=== PATIENT | female | born 1965 | race Caucasian/White ===

== ENCOUNTER 2018-05-04 14:58 | Outpatient (REF) | payer BC, SELFPAY ==
[2018-05-04 20:19] LABS: HCT 39.5 % (36.0-46.0); HGB 13.4 g/dL (12.0-15.5); Mean Corp. HGB Concentration 33.9 g/dL (32.0-36.0); Mean Corpuscular Hemoglobin 30.5 pg (27.0-33.0); Platelet Count 269 x1000/uL (130-400); RBC 4.39 m/cumm (4.00-5.20); RBC Distribution Width 14.5 % (11.7-14.6); White Blood Cell Count 9.16 k/cumm (4.4-10.8)
[2018-05-04 20:43] LABS: ALT 19 U/L (12-78); AST 14 U/L (15-37); Albumin 3.8 g/dL (3.4-5.0); Alkaline Phosphatase 85 U/L (46-116); Anion Gap 8.1 mmol/L (3-11); BUN 16 mg/dL (7-18); Bilirubin, Total 0.3 mg/dL (0.2-1.0); C-Reactive Protein 0.62 mg/dL (0.0-0.3); CO2 27.9 mmol/L (21.0-32.0); CREATININE 0.64 mg/dL (0.55-1.02); Chloride 104 mmol/L (98-107); Glucose 90 mg/dL (70-100); Potassium 4.4 mmol/L (3.5-5.1); Sodium 140 mmol/L (136-145); Total Protein 6.9 g/dL (6.4-8.2)
[2018-05-04 22:59] LABS: ESR 21 MM/HR (0-30)
[2018-05-06 09:10] LABS: Rheumatoid Factor 43 IU/mL (<12.5)
[2018-05-06 14:40] LABS: ANA Interpretation Negative (NEGAT)
== END 2018-05-04 15:18 ==
LOC: NCHCN 14:58
PROVIDERS: PCP Physician Assistant; Visit Provider Physician Assistant Medical
DX: E04.2 Nontoxic multinodular goiter (principal); M79.643 Pain in unspecified hand
CPT/HCPCS: 80053; 85027; 85652; 86038; 86140; 86431

== ENCOUNTER 2018-08-01 12:22 | Outpatient (CLI) | payer BC, SELFPAY ==
[2018-08-01 13:09] LABS: Abs Immature Grans 0.02 k/cumm (0.0-0.09); Absolute Basophil Count 0.04 k/cumm (0.0-0.2); Absolute Eosinophil Count 0.15 k/cumm (0.0-0.7); Absolute Lymphocyte Count 4.15 k/cumm (1.2-3.4); Absolute Monocyte Count 0.52 k/cumm (0.11-0.7); Absolute Neutrophil Count 4.33 k/cumm (1.2-6.7); Basophils % 0.4; Eosinophils % 1.6; HCT 38.5 % (36.0-46.0); Immature Grans % 0.2; Lymphocytes % 45.1; Mean Corp. HGB Concentration 33.8 g/dL (32.0-36.0); Mean Corpuscular Hemoglobin 30.5 pg (27.0-33.0); Mean Corpuscular Volume 90.4 fL (80-95); Mean Platelet Volume 9.2 fL (8.0-11.0); Monocytes % 5.6; Neutrophils % 47.1; Platelet Count 293 x1000/uL (130-400); RBC 4.26 m/cumm (4.00-5.20); RBC Distribution Width 14.8 % (11.7-14.6); White Blood Cell Count 9.21 k/cumm (4.4-10.8)
[2018-08-01 14:13] LABS: ALT 22 U/L (12-78); AST 13 U/L (15-37); Albumin 3.7 g/dL (3.4-5.0); Alkaline Phosphatase 88 U/L (46-116); Anion Gap 7.5 mmol/L (3-11); BUN 16 mg/dL (7-18); Bilirubin, Total 0.3 mg/dL (0.2-1.0); C-Reactive Protein 0.56 mg/dL (0.0-0.3); CO2 29.5 mmol/L (21.0-32.0); CREATININE 0.93 mg/dL (0.55-1.02); Calcium 8.7 mg/dL (8.5-10.1); Chloride 102 mmol/L (98-107); Glucose 65 mg/dL (70-100); Potassium 4.3 mmol/L (3.5-5.1); Sodium 139 mmol/L (136-145); Total Protein 6.7 g/dL (6.4-8.2)
[2018-08-01 14:27] LABS: ESR 28 MM/HR (0-30)
== END 2018-08-01 12:42 ==
PROVIDERS: PCP Physician Assistant Medical; Visit Provider Internal Medicine
DX: M19.90 Unspecified osteoarthritis, unspecified site (principal)
CPT/HCPCS: 36415; 80053; 85652; 85025; 86140

== ENCOUNTER 2019-01-05 15:36 | Outpatient (CLI) | payer BC, SELFPAY ==
[2019-01-05 16:12] LABS: Abs Immature Grans 0.03 k/cumm (0.0-0.09); Absolute Basophil Count 0.04 k/cumm (0.0-0.2); Absolute Eosinophil Count 0.34 k/cumm (0.0-0.7); Absolute Lymphocyte Count 3.15 k/cumm (1.2-3.4); Absolute Monocyte Count 0.71 k/cumm (0.11-0.7); Absolute Neutrophil Count 3.17 k/cumm (1.2-6.7); Basophils % 0.5; Eosinophils % 4.6; HCT 36.3 % (36.0-46.0); HGB 12.2 g/dL (12.0-15.5); Immature Grans % 0.4; Lymphocytes % 42.3; Mean Corp. HGB Concentration 33.6 g/dL (32.0-36.0); Mean Corpuscular Hemoglobin 31.8 pg (27.0-33.0); Mean Corpuscular Volume 94.5 fL (80-95); Mean Platelet Volume 9.3 fL (8.0-11.0); Monocytes % 9.5; Neutrophils % 42.7; Platelet Count 300 x1000/uL (130-400); RBC 3.84 m/cumm (4.00-5.20); RBC Distribution Width 14.9 % (11.7-14.6); White Blood Cell Count 7.44 k/cumm (4.4-10.8)
[2019-01-05 16:59] LABS: ESR 21 mm/hr (0-30)
[2019-01-05 19:01] LABS: ALT 24 U/L (14-59); AST 13 U/L (15-37); Albumin 3.7 g/dL (3.4-5.0); Alkaline Phosphatase 74 U/L (46-116); Bilirubin, Direct 0.11 mg/dL (0.00-0.20); Bilirubin, Total 0.2 mg/dL (0.2-1.0); C-Reactive Protein 0.82 mg/dL (0.0-0.3); CREATININE 0.69 mg/dL (0.55-1.02); Total Protein 6.6 g/dL (6.4-8.2)
== END 2019-01-05 15:56 ==
LOC: PRC 15:37 → LBO 15:42
PROVIDERS: PCP Physician Assistant Medical; Visit Provider Internal Medicine
DX: M19.90 Unspecified osteoarthritis, unspecified site (principal); M25.531 Pain in right wrist; M25.532 Pain in left wrist; M25.571 Pain in right ankle and joints of right foot; M25.572 Pain in left ankle and joints of left foot; M79.641 Pain in right hand; M79.642 Pain in left hand; Z79.899 Other long term (current) drug therapy
CPT/HCPCS: 36415; 80076; 85652; 82565; 85025; 86140

== ENCOUNTER 2019-05-10 18:07 | Outpatient (REF) | payer BC, SELFPAY ==
[2019-05-10 20:54] LABS: Abs Immature Grans 0.02 k/cumm (0.0-0.09); Absolute Basophil Count 0.04 k/cumm (0.0-0.2); Absolute Eosinophil Count 0.24 k/cumm (0.0-0.7); Absolute Lymphocyte Count 3.74 k/cumm (1.2-3.4); Absolute Monocyte Count 0.63 k/cumm (0.11-0.7); Absolute Neutrophil Count 3.89 k/cumm (1.2-6.7); Basophils % 0.5; Eosinophils % 2.8; HGB 12.8 g/dL (12.0-15.5); Immature Grans % 0.2 %; Lymphocytes % 43.7; Mean Corp. HGB Concentration 33.7 g/dL (32.0-36.0); Mean Corpuscular Hemoglobin 31.9 pg (27.0-33.0); Mean Corpuscular Volume 94.8 fL (80-95); Mean Platelet Volume 9.8 fL (8.0-11.0); Monocytes % 7.4; Neutrophils % 45.4; Platelet Count 343 x1000/uL (130-400); RBC 4.01 m/cumm (4.00-5.20); RBC Distribution Width 14.9 % (11.7-14.6); White Blood Cell Count 8.56 k/cumm (4.4-10.8)
[2019-05-10 21:13] LABS: ALT 31 U/L (14-59); AST 18 U/L (15-37); Albumin 4.2 g/dL (3.4-5.0); Alkaline Phosphatase 78 U/L (46-116); Bilirubin, Direct 0.08 mg/dL (0.00-0.20); Bilirubin, Total 0.3 mg/dL (0.2-1.0); C-Reactive Protein 0.98 mg/dL (0.0-0.3); CREATININE 0.69 mg/dL (0.55-1.02); Total Protein 7.1 g/dL (6.4-8.2)
== END 2019-05-10 18:27 ==
LOC: LBN 18:07
PROVIDERS: PCP Physician Assistant Medical; Visit Provider Internal Medicine
DX: M76.891 Other specified enthesopathies of right lower limb, excluding foot (principal); M25.551 Pain in right hip; M70.71 Other bursitis of hip, right hip; M70.72 Other bursitis of hip, left hip; M05.9 Rheumatoid arthritis with rheumatoid factor, unspecified; M19.90 Unspecified osteoarthritis, unspecified site; Z79.899 Other long term (current) drug therapy
CPT/HCPCS: 80076; 82565; 85025; 86140

== ENCOUNTER 2019-06-12 00:42 | Outpatient (CLI) | payer BC, SELFPAY ==
--- NOTE | 2019-06-12 07:43 | DI.MAMMO_ITS ---
EXAM: MG MAMMO SCREENING CLINICAL HISTORY: SCREENING, Z12.89 TECHNIQUE: Bilateral full field digital CC and MLO mammographic images were obtained with 3D tomosyn thesis and utilizing computer aided detection (CAD). COMPARISON: Available for comparison. FINDINGS: Masses/Architectural Distortion: None seen. Microcalcifications: No suspicious pleomorphic-type are seen. Skin Thickening/Nipple Retraction: None. IMPRESSION: 1. No significant interval change with no specific features of malignancy noted. 2. Unless there is more urgent need, screening mammography is recommended, as per [employer] guidelines. BI-RADS Cat 1 - Negative Breast Density - Category B - Scattered areas of fibroglandular density A negative radiographic report should not delay biopsy if a dominant or clinically suspicious mass is present. Up to ten percent of cancers are not identified on mammography. A negative report may reinforce clinical impression. Adenosis and dense breasts may obscure an underlying neoplasm. False positive reports average 6 to 10%. Patient will receive a letter notifying them of these results.
== END 2019-06-12 01:02 ==
PROVIDERS: PCP Physician Assistant Medical; Visit Provider Physician Assistant
DX: Z12.31 Encounter for screening mammogram for malignant neoplasm of breast (principal)
CPT/HCPCS: 77063; 77067

== ENCOUNTER 2019-09-07 03:30 | Outpatient (CLI) | payer BC, SELFPAY ==
[2019-09-07 16:14] LABS: Abs Immature Grans 0.02 k/cumm (0.0-0.09); Absolute Basophil Count 0.03 k/cumm (0.0-0.2); Absolute Eosinophil Count 0.11 k/cumm (0.0-0.7); Absolute Monocyte Count 0.55 k/cumm (0.11-0.7); Absolute Neutrophil Count 5.73 k/cumm (1.2-6.7); Basophils % 0.3; Eosinophils % 1.1; HCT 38.5 % (36.0-46.0); HGB 13.2 g/dL (12.0-15.5); Immature Grans % 0.2 %; Lymphocytes % 35.9; Mean Corp. HGB Concentration 34.3 g/dL (32.0-36.0); Mean Corpuscular Volume 93.2 fL (80-95); Mean Platelet Volume 8.9 fL (8.0-11.0); Monocytes % 5.5; Platelet Count 340 x1000/uL (130-400); RBC 4.13 m/cumm (4.00-5.20); RBC Distribution Width 14.7 % (11.7-14.6); White Blood Cell Count 10.04 k/cumm (4.4-10.8)
[2019-09-07 17:00] LABS: ALT 19 U/L (14-59); AST 12 U/L (15-37); Albumin 3.9 g/dL (3.4-5.0); Alkaline Phosphatase 70 U/L (46-116); Anion Gap 6.9 mmol/L (3-11); BUN 13 mg/dL (7-18); Bilirubin, Total 0.3 mg/dL (0.2-1.0); C-Reactive Protein 0.49 mg/dL (0.0-0.3); CO2 27.1 mmol/L (21.0-32.0); CREATININE 0.85 mg/dL (0.55-1.02); Calcium 8.7 mg/dL (8.5-10.1); Chloride 103 mmol/L (98-107); Glucose 108 mg/dL (74-106); Potassium 4.2 mmol/L (3.5-5.1); Sodium 137 mmol/L (136-145); Total Protein 6.8 g/dL (6.4-8.2)
[2019-09-07 17:07] LABS: ESR 18 mm/hr (0-30)
== END 2019-09-07 03:50 ==
PROVIDERS: PCP Physician Assistant; Visit Provider Internal Medicine
DX: M79.641 Pain in right hand (principal); M79.642 Pain in left hand; M25.531 Pain in right wrist; M25.532 Pain in left wrist; M25.561 Pain in right knee; M25.562 Pain in left knee; G89.29 Other chronic pain; M05.9 Rheumatoid arthritis with rheumatoid factor, unspecified
CPT/HCPCS: 80053; 85652; 85025; 86140

== ENCOUNTER → 2021-09-25 02:19 | Outpatient (CLI) | payer BC, SELFPAY ==
--- NOTE | 2021-09-25 | DI.MAMMO_ITS ---
Exam(s) MAMMO SCREENING EXAM: MAMMO SCREENING CLINICAL HISTORY: SCREENING MAMMO Z12.89 TECHNIQUE: Mammograms were interpreted according to the usual protocol including computer analysis w [employer] CAD system, tomosynthesis and C-view imaging. COMPARISON: 2013 through 2019 FINDINGS: The breasts are composed of scattered fibroglandular densities, Breast Density category B. No suspicious masses or suspicious microcalcifications are seen. No skin thickening or abnormal axillary lymph nodes are seen. There has been no significant change from prior exams. IMPRESSION: BI-RADS Category 1, Negative mammogram Yearly screening mammography is recommended. Breast Density - Category B, scattered fibroglandular densities. A negative radiographic report should not delay biopsy if a dominant or clinically suspicious mass is present. Up to ten percent of cancers are not identified on mammography. A negative report may reinforce clinical impression. Adenosis and dense breasts may obscure an underlying neoplasm. False positive reports average 6 to 10%. Patient will receive a letter notifying them of these results.
--- NOTE | 2021-09-25 08:10 | DI.CTLCSR_ITS ---
Exam(s) CT CHEST LUNG CANCER SCREEN EXAM: CT CHEST LUNG CANCER SCREEN CLINICAL HISTORY: SMOKER F17.200, SCREENING FOR LUNG CANCER TECHNIQUE: Imaging Protocol: Axial computed tomography images with coronal and sagittal reformatted images were created and reviewed. Low dose screening protocol. COMPARISON: CR CHEST 2 VIEWS PA,LAT from 09/25/2014 FINDINGS: Tracheobronchial tree: No bronchiectasis or mucus plugging.. Mediastinum and Maricarmen: No dominant adenopathy or fluid collection. Pulmonary parenchyma: No consolidation or dominant measurable mass. No visible emphysematous changes. Lung Nodules: None. Pleura: No effusion. No pneumothorax. Heart: The heart is not dilated. No coronary artery calcifications are seen. Aorta: Thoracic aorta non-dilated. Upper abdomen: Unremarkable. Bones: Unremarkable for age. Soft Tissues: Unremarkable. Heart: The heart is not dilated. Moderate coronary artery calcifications are seen. Aorta: Thoracic aorta non-dilated. Mild calcification. IMPRESSION: No suspicious pulmonary nodules. Lung RADS Cat 1 - Negative: No nodules and definitely benign nodules Lung-RADS 1.0 CATEGORIES: Category 0 - Prior chest CT exam(s) being located for comparison. Category 1 - Annual screening in 12 months. No nodules or definitely benign nodules. Category 2 - Annual screening in 12 months. Benign appearance. Nodules with low likelihood of becomin g active cancer. Category 3 - 6-month follow-up. Probably benign. Short-term follow-up suggested. Nodules with low lik elihood of becoming active cancer. Category 4A - 3-month follow-up and CT/PET if >8 mm in size. Suspicious finding. Findings which requi re additional testing. Category 4B - Findings which require additional testing and tissue sampling. Category 4X - Category 3 or 4 nodules with additional features or imaging findings that increases the suspicion of malignancy. Modifier S- Potentially clinically significant findings (non lung cancer) RADIATION DOSE DELIVERED: 94.31mGy.cm Total DLP 2.21mGy CTDIvol 94.31mGy.cm Total DLP 94.31mGy.cm Total DLP 2.21mGy CTDIvol DATA REPOSITORY: All CT scans at this facility are submitted to the National Radiology Data Registry (NRDR) Dose Index Registry (DIR) with the [employer] (ACR). RADIATION OPTIMIZATION: All CT scans at this facility use at least one of these dose optimization te chniques: automated exposure control; mA and/or kV adjustment per patient size (includes targeted exa ms where dose is matched to clinical indication); or iterative reconstruction.
== END ==
PROVIDERS: PCP Physician Assistant; Visit Provider Physician Assistant
DX: Z12.31 Encounter for screening mammogram for malignant neoplasm of breast (principal); Z12.2 Encounter for screening for malignant neoplasm of respiratory organs; F17.210 Nicotine dependence, cigarettes, uncomplicated
CPT/HCPCS: 71271; 77063; 77067

== ENCOUNTER 2022-08-13 17:00 | Outpatient (REF) | payer OTHER, SELFPAY ==
--- NOTE | 2022-08-13 16:40 | PAPFT_PTH ---
PATIENT: Keyona Terry LOC: [facility]#:[id number] AGE/SX: 56/F ROOM: RE08/13/[address]: Nidhi Conti : 1965 BED: DIS: 08/13/2022 SPEC #: [id number] RECD: 08/14/22 15:43 STATUS: DORON REMartín #: [id number] NIVIA: 08/13/22 16:[address]: Nidhi Conti DEPT: [facility] Cytology RECD BY: Keyona Tariq Tissues: 1 - CX/ENDOCX FOR PAP SMEARS Procedures: PAP THIN PREP/UVM Screening HPV DNA PROBE Comments: [id number]
== END 2022-08-13 17:01 | disposition home or self-care (01) ==
LOC: NCHCN 17:00
PROVIDERS: PCP Physician Assistant; Visit Provider Physician Assistant
DX: Z12.4 Encounter for screening for malignant neoplasm of cervix (principal); Z11.51 Encounter for screening for human papillomavirus (HPV)
CPT/HCPCS: 88142; 87624

== ENCOUNTER 2022-09-30 00:47 | Outpatient (CLI) | payer OTHER, SELFPAY ==
--- NOTE | 2022-09-30 | DI.CTLCSR_ITS ---
Exam(s) CT CHEST LUNG CANCER SCREEN EXAM: CT CHEST LUNG CANCER SCREEN CLINICAL HISTORY: SCREENING FOR LUNG CA, SMOKER, F17.200 TECHNIQUE: Imaging Protocol: Axial computed tomography images with coronal and sagittal reformatted images were created and reviewed COMPARISON: CT CT CHEST LUNG CANCER SCREEN from 09/25/2021 FINDINGS: Tracheobronchial tree: Patent where visualized. Pulmonary parenchyma: No consolidation or dominant measurable mass. No architectural distortion. Lung Nodules: None. Mediastinum and Maricarmen: No dominant adenopathy or fluid collection. The esophagus is unremarkable. Thyroid gland: Unremarkable. Lymph nodes: Unremarkable. Pleura: No effusion or pneumothorax. Heart: The heart is not dilated. Coronary artery calcification and/or stents are present. No pericar dial effusion. Aorta: Thoracic aorta non-dilated.Atherosclerosis is present. Upper abdomen: Unremarkable. Soft Tissues: Unremarkable. Bones: Within normal limits. IMPRESSION: No pulmonary nodules. Lung RADS Cat 1 - Negative: No nodules and definitely benign nodules Lung-RADS 1.0 CATEGORIES: Category 0 - Prior chest CT exam(s) being located for comparison. Category 1 - Annual screening in 12 months. No nodules or definitely benign nodules. Category 2 - Annual screening in 12 months. Benign appearance. Nodules with low likelihood of becomin g active cancer. Category 3 - 6-month follow-up. Probably benign. Short-term follow-up suggested. Nodules with low lik elihood of becoming active cancer. Category 4A - 3-month follow-up and CT/PET if >8 mm in size. Suspicious finding. Findings which requi re additional testing. Category 4B - Findings which require additional testing and tissue sampling. Suspicious finding. Category 4X - Category 3 or 4 nodules with additional features or imaging findings that increases the suspicion of malignancy. Modifier S- Potentially clinically significant finding. (Non lung cancer) RADIATION DOSE DELIVERED: 75.42mGy.cm Total DLP 75.42mGy.cmTotal DLP DATA REPOSITORY: All CT scans at this facility are submitted to the National Radiology Data Registry (NRDR) Dose Index Registry (DIR) with the [employer] (ACR). RADIATION OPTIMIZATION: All CT scans at this facility use at least one of these dose optimization te chniques: automated exposure control; mA and/or kV adjustment per patient size (includes targeted exa ms where dose is matched to clinical indication); or iterative reconstruction.
--- NOTE | 2022-09-30 08:05 | DI.MAMMO_ITS ---
Exam(s) MAMMO SCREENING EXAM: MAMMO SCREENING CLINICAL HISTORY: SCREENING, Z12.39 TECHNIQUE: Bilateral full field digital CC and MLO mammographic images were obtained with 3D tomosyn thesis and utilizing computer aided detection (CAD). COMPARISON: Available for comparison. FINDINGS: Masses/Architectural Distortion: None seen. Microcalcifications: No suspicious pleomorphic-type are seen. Skin Thickening/Nipple Retraction: None. IMPRESSION: 1. No significant interval change with no specific features of malignancy noted. 2. Unless there is more urgent need, screening mammography is recommended, as per [employer] guidelines. BI-RADS Category 1 - Negative Breast Density - Category B - Scattered areas of fibroglandular density Breast density category C or D implies that the patient has dense breast tissue. Dense breast tissue is very common and is not abnormal but dense breast tissue can make it harder to find cancer on a ma mmogram. Also, dense breast tissue may increase their breast cancer risk. This information about the result of the mammogram report was provided to the patient to raise their awareness. Use this report when you speak with the patient about their risks for breast cancer, which includes their family hist ory. At that time, you may recommend for more screening tests (Ultrasound or MRI) as they might be us eful based on their risk. A negative radiographic report should not delay biopsy if a dominant or clinically suspicious mass is present. Up to ten percent of cancers are not identified on mammography. A negative report may reinforce clinical impression. Adenosis and dense breasts may obscure an underlying neoplasm. False positive reports average 6 to 10%. Patient will receive a letter notifying them of these results.
== END 2022-09-30 01:07 ==
PROVIDERS: PCP Physician Assistant; Visit Provider Physician Assistant
DX: Z12.31 Encounter for screening mammogram for malignant neoplasm of breast (principal); Z13.820 Encounter for screening for osteoporosis; F17.200 Nicotine dependence, unspecified, uncomplicated
CPT/HCPCS: 71271; 77063; 77067

== ENCOUNTER 2023-06-07 10:37 | Day surgery (SDC) | payer OTHER, SELFPAY ==
--- NOTE | 2023-06-06 07:19 | W.PM.DSUDISC ---
Date of service: 06/07/23 Time of Service: 12:10 Discharge Plan Disposition Patient Disposition: Home Condition: Good Discharge Details Reason For Visit: screening colonoscopy Attending Provider: Brannon Whyte Primary Care Provider: Nidhi Conti Home Meds and New Rx's Prescriptions: Continued omega 3-xpg-ltn-fish oil [Fish Oil] 1,000 mg (120 mg-180 mg) capsule 1 cap PO DAILY acetaminophen 500 mg tablet 500 mg PO TID PRN meloxicam 15 mg tablet 15 mg PO DAILY methotrexate sodium 2.5 mg tablet 20 mg PO QWEEK folic acid 1 mg tablet 5 mg PO DAILY Humira(CF) Pen 40 mg/0.4 mL pen injector kit See Rx Instructions subcut .COMPLEX Rx Instructions: inject one - 40 mg/0.4 mL pen every 2 weeks subcut turmeric root extract 500 mg capsule 1,000 mg PO BID verapamil 240 mg capsule,ext rel. pellets 24 hr 360 mg PO DAILY simvastatin 20 mg tablet 20 mg PO DAILY Discontinued bisacodyl [Dulcolax (bisacodyl)] 5 mg tablet,delayed release (DR/EC) 5 mg PO ONCE Qty: 4 0RF Rx Instructions: Take per colonoscopy instructions provided by ordering providers office polyethylene glycol 3350 17 gram/dose powder 17 g PO ONCE Qty: 238 0RF Rx Instructions: Take per colonoscopy instructions provided by ordering providers office Discharge Instructions Additional Instructions: Keyona, it was a pleasure meeting you today, and I am so glad that you came in for your colonoscopy. Procedure went just fine, hopefully was comfortable for you. The test was totally normal, there is nothing to worry about at this point. With a negative screening colonoscopy, you should give consideration to another 1 in 10 years. If you have any questions in the meantime, please do not hesitate to call or ask. 1. If tolerated, consume a soft, low fiber diet for 1-2 days. 2[address] Do not drive, drink alcohol, operate machinery, make critical decisions, or do activities that require coordination or balance for 24 hours. 3. Because air was put into your colon during the procedure, expelling air from your rectum (passing gas or farting) is normal. 4. You may not have a bowel movement for 1-3 days because of the colonoscopy prep. This is normal. 5. Go directly to the emergency room if you notice any of the following: Develop chills (warm to touch), or if you have a thermometer and your temperature is above 101 Difficulty breathing or difficultly swallowing Persistent vomiting Severe abdominal pain, other than gas cramps Severe chest pain Black, tarry stools Any bleeding ? exceeding one tablespoon 6. Call your physician if the site where your intravenous was started becomes red, swollen, painful, and warm to touch. 7. Your physician has reviewed your pre-procedure medications. Please continue to take those medications as previously ordered. You will be given specific information/education regarding any changes to your medications before leaving. Activity:: Activity as Tolerated Diet:: As Tolerated Discharge Orders Discharge Orders: Discharge Order (Routine); Ordered 06/06/23 Ordered By: Brannon Whyte DS: Diagnosis Discharge Diagnosis (1) Encounter for screening colonoscopy: Status: Acute Asessment and Plan: Negative screening colonoscopy. Recommend 10-year follow-up
--- NOTE | 2023-06-06 07:20 | COLE_ITS ---
Date of service: 06/07/23 Time of Service: 12:11 Colonoscopy Report Date of procedure: 06/07/23 Pre-op diagnosis general: screening colonoscopy Post-op diagnosis procedure note: other (Negative screening colonoscopy) Procedure: Colonoscopy Surgeon: Brannon Whyte Anesthesia Type: General:No Airway Estimated blood loss (mL): 0 Pathology: none sent Complications: None Disposition: same day Indications: Keyona is a 57 year old woman who needs a screening colonoscopy Prep: Miralax/Dulcolax Procedure Start Time: 11:41 Procedure End Time: 12:00 Retraction Time: 8 Findings: Negative screening colonoscopy Procedure Description: After the induction of monitored anesthetic care, and with the patient in left lateral decubitus position, I began by performing an external anorectal exam.? Perineum and skin were normal, as was the anal verge.? There was no evidence of external hemorrhoids.? Next, I performed a digital rectal exam.? I did not appreciate any abnormal findings.? Next, I advanced a colonoscope into the rectal vault.? I performed retroflexion.? This was normal.? Using insufflation, I then advanced the colonoscope beyond the rectal folds and into the sigmoid colon before advancing towards the cecum.? The scope was noted to be in the cecum by identification of the ileocecal valve and appendiceal orifice.? I then began withdrawing the colonoscope using repeated irrigation as necessary for full evaluation of the colonic mucosa. ?Once the scope was withdrawn to the level of the rectum, great care was taken to examine portions of the rectal folds.? I saw no signs of tumors, polyps, or any other worrisome pathology. Finally, the scope was withdrawn and the patient was brought to the same-day surgery recovery unit as the anesthetic wore off. ?The findings and instructions were shared with the patient prior to discharge. [place] Bowel Prep [place] Bowel Prep Right Colon: 3 Left Colon: 3 Transverse Colon: 3 Total Score: 9
[2023-06-07 10:48] VITALS: BP 118/75; PULSE 107; RESP 16; TEMP 36.4; O2SAT 98
[2023-06-07] MEDS: Lactated Ringers 1,000 ML 80 ML IV (11:05)
--- NOTE | 2023-06-07 11:09 | W.ANESPRE ---
General Info Date of Service Date Performed: 06/07/23 Height: 5 ft 3 in Weight: 89.3 kg Body Mass Index (BMI): 34.9 Surgical Procedure: Operation Date: 06/07/23 11:50 Proposed Procedure Side Surgeon nisa Whyte MD Meds Allergies and Home Medications Allergies Allergy/AdvReac Type Severity Reaction Status Date / Time hydroxychloroquine AdvReac Severe Diarrhea Verified 06/07/23 10:45 Home Medication Medication Instructions Recorded acetaminophen 500 mg tablet 500 mg PO TID PRN 04/29/23 adalimumab 40 mg/0.4 mL See Rx Instructions subcut .COMPLEX 04/29/23 subcutaneous pen kit (Humira(CF) Pen) folic acid 1 mg tablet 5 mg PO DAILY 04/29/23 meloxicam 15 mg tablet 15 mg PO DAILY 04/29/23 methotrexate sodium 2.5 mg tablet 20 mg PO QWEEK 04/29/23 simvastatin 20 mg tablet 20 mg PO DAILY 04/29/23 turmeric root extract 500 mg 1,000 mg PO BID 04/29/23 capsule verapamil 240 mg 24 hr 360 mg PO DAILY 04/29/23 capsule,extended release omega 8-fug-pmv-fish oil 1,000 mg 1 cap PO DAILY 05/27/23 (120 mg-180 mg) capsule (Fish Oil) Current Visit Medications: Current Medications Generic Name Dose Route Start Last Admin Trade Name Freq PRN Reason Stop Dose Admin Hyoscyamine Sulfate 0.125 mg 06/07/23 07:21 Hyoscyamine 0.125 Mg Sl/Oral/Chew SL 07/07/23 07:20 DIRECTED PRN Ringer's Solution 1,000 mls @ 80 mls/hr 06/07/23 06:00 06/07/23 11:05 IV 07/04/23 23:59 80 mls/hr INFUSION NIRMAL Administration IV Miscellaneous Supplies 1 each 06/07/23 06:00 Iv Access IV 07/04/23 23:59 DIRECTED NIRMAL Ondansetron HCl 4 mg 06/07/23 07:19 Ondansetron 4 Mg/2 Ml Vial IVP 07/07/23 07:18 Q4H PRN PRN Nausea / Vomiting Sodium Chloride 0 ml 06/07/23 06:00 Normal Saline Flush 10 Ml Syr IV 07/04/23 23:59 PRN PRN Sodium Chloride 0 ml 06/07/23 06:00 Normal Saline 10 Ml Vial IJ 07/04/23 23:59 DIRECTED PRN Sterile Water 0 ml 06/07/23 06:00 Water,Injection,Sterile 10 Ml Vial IJ 07/04/23 23:59 DIRECTED PRN PFSH Active Problems Active Problems: Problem Status Onset Code Encounter for screening colonoscopy Z12.11 Multinodular goiter E04.2 Migraine G43.909 Rheumatoid arthritis involving right hand M06.9 Hyperlipidemia E78.5 Nicotine dependence F17.200 Medical History Medical History (Updated 06/06/23 @ 07:19 by Brannon Whyte MD) Postoperative tendon rupture Tobacco Smoking/Tobacco Use Status: Current every day Tobacco Type: cigarettes Alcohol Alcohol Intake: former Substance Use Substance use type: does not use Vital Signs and Lab Results Vital Signs Most Recent Vital Signs in EMR: Most Recent Vital Signs Temp Pulse Resp BP Pulse Ox 36.4 C L 107 H 16 118/75 98 06/07/23 10:48 06/07/23 10:48 06/07/23 10:48 06/07/23 10:48 06/07/23 10:48 Lab Results Blood Type / Crossmatch: No Data to Display Complete Blood Count: No Data to Display Complete Metabolic Panel: No Data to Display Liver Function Panel: No Data to Display Coagulation Panel: No Data to Display Cardiac Panel: No Data to Display Arterial Blood Gas: No Data to Display Venous Blood Gas: No Data to Display Pancreas Panel: No Data to Display Thyroid Panel: No Data to Display Infectious Disease: No Data to Display Blood Cultures: No Data to Display Toxicology Panel: No Data to Display Anesthesia Assessment and Plan Anesthesia History Personal History: No History of Anesthesia Complications Family History: No Family History of Anesthesia Complications Exercise Tolerance Exercise Tolerance: Metabolic Equivalents>4 Pertinent Negatives Pertinent Negatives: No Symptoms of GERD, No Major Cardiovascular Symptoms or Complaints, No Major Pulmonary Symptoms or Complaints and No History of CVA/TIA Cardiac & Pulmonary Exam Cardiac Exam: Normal S1/S2 Heart Sounds Pulmonary Exam: Clear Bilateral Breath Sounds Cardiac and Pulmonary Comment:: Smoker Implantable Cardiac Device Does patient have a Pacemaker or an ICD?: No Airway Exam Known Difficult Airway: No Mallampati Class: 3 Mouth Opening: Normal (> 3cm) Thyromental Distance: Greater than 3 cm Neck Range of Motion: Full ROM Neck Circumference: Normal Teeth Condition: Normal Dentition ASA Classification ASA Score: ASA 2 Emergency Case?: No NPO Status NPO Status: NPO Clears >2 hours, Solids >8 hours Anesthesia Plan Resuscitation Status: Full Code Anesthesia Technique: General Anesthesia Airway Planned: Natural Airway Monitors Used: Standard Monitors
[2023-06-07 11:34] VITALS: BMI 34.9
[2023-06-07 12:05] VITALS: BP 102/60; PULSE 83; RESP 16; TEMP 36.6; O2SAT 97
--- NOTE | 2023-06-07 12:24 | W.ANESPOSTOP ---
Postoperative Evaluation Date, Time and Location Date Performed: 06/07/23 Time Performed: 12:05 Patient Location: Day Surgery Unit Vital Signs Most Recent Imported Vital Signs: Most Recent Vital Signs Temp Pulse Resp BP Pulse Ox 36.6 C 83 16 102/60 97 06/07/23 12:05 06/07/23 12:05 06/07/23 12:06/07/23 12:06/07/23 12:05 Pain Score Most Recent Pain Score: Most Recent Pain Score Pain Level 0 06/07/23 12:05 Assessment Mental Status: Awake (Alert & Oriented to Patient Baseline) Airway and Respiratory Function: Patent airway with normal (patient baseline) respiratory exam Cardiovascular Function: Hemodynamically Stable Hydration Status: Adequately Hydrated Nausea & Vomiting: No Nausea or Vomiting Pain: Pt. Denies Any Pain Peripheral Nerve Block: Patient did not receive a nerve block
[2023-06-07 12:33] VITALS: BP 115/66; PULSE 82; RESP 16; TEMP 36.6; O2SAT 96
== END 2023-06-07 10:38 | disposition home or self-care (01) ==
LOC: SUR 10:37
PROVIDERS: PCP Physician Assistant; Visit Provider Surgery
PROC: 0DJD8ZZ Inspection of Lower Intestinal Tract, Via Natural or Artificial Opening Endoscopic (ICD-10-PCS; CPT 45378; principal; 2023-06-07 11:45)
DX: Z12.11 Encounter for screening for malignant neoplasm of colon (principal)
CPT/HCPCS: 45378; J2001; J2704

== ENCOUNTER 2023-11-15 02:23 | Outpatient (CLI) | payer OTHER, SELFPAY ==
--- NOTE | 2023-11-15 | DI.CTLCSR_ITS ---
Exam(s) CT CHEST LUNG CANCER SCREEN EXAM: CT CHEST LUNG CANCER SCREEN CLINICAL HISTORY: NICOTINE DEPENDENCE, F17.200 TECHNIQUE: Imaging Protocol: Axial computed tomography images with coronal and sagittal reformatted images were created and reviewed COMPARISON: CT CT CHEST LUNG CANCER SCREEN from 09/25/[address] CHEST LUNG CANCER SCREEN from 09/30/2022 FINDINGS: Tracheobronchial tree: Patent where visualized. No bronchiectasis. Pulmonary parenchyma: No consolidation or dominant measurable mass. Mild centrilobular emphysematous changes are present. There is a calcified granuloma in the right lower lobe. There is poor inspirat ion. No focal consolidating infiltrates are seen. Lung Nodules: None. Mediastinum and Maricarmen: No dominant adenopathy or fluid collection. The esophagus is unremarkable. Thyroid gland: There is a 7 mm hypodensity in the right lobe of the thyroid gland. No follow-up is r ecommended. Lymph nodes: Unremarkable. Pleura: No effusion or pneumothorax. Heart: The heart is not dilated. Coronary artery calcifications are present. No pericardial effusion . Aorta: Thoracic aorta non-dilated.Atherosclerotic calcification is present. Upper abdomen: Unremarkable. Soft Tissues: Unremarkable. Bones: Within normal limits. IMPRESSION: No pulmonary nodules. Lung RADS Cat 1 - Negative: No nodules and definitely benign nodules Lung-RADS 1.0 CATEGORIES: Category 0 - Prior chest CT exam(s) being located for comparison. Category 1 - Annual screening in 12 months. No nodules or definitely benign nodules. Category 2 - Annual screening in 12 months. Benign appearance. Nodules with low likelihood of becomin g active cancer. Category 3 - 6-month follow-up. Probably benign. Short-term follow-up suggested. Nodules with low lik elihood of becoming active cancer. Category 4A - 3-month follow-up and CT/PET if >8 mm in size. Suspicious finding. Findings which requi re additional testing. Category 4B - Findings which require additional testing and tissue sampling. Suspicious finding. Category 4X - Category 3 or 4 nodules with additional features or imaging findings that increases the suspicion of malignancy. Modifier S- Potentially clinically significant finding. (Non lung cancer) RADIATION DOSE DELIVERED: Total DLP Total DLP DATA REPOSITORY: All CT scans at this facility are submitted to the National Radiology Data Registry (NRDR) Dose Index Registry (DIR) with the [employer] (ACR). RADIATION OPTIMIZATION: All CT scans at this facility use at least one of these dose optimization te chniques: automated exposure control; mA and/or kV adjustment per patient size (includes targeted exa ms where dose is matched to clinical indication); or iterative reconstruction.
--- NOTE | 2023-11-15 | DI.MAMMO_ITS ---
Exam(s) MAMMO SCREENING EXAM: MAMMO SCREENING CLINICAL HISTORY: SCREENING, Z12.31 TECHNIQUE: Bilateral full field digital CC and MLO mammographic images were obtained with 3D tomosyn thesis and utilizing computer aided detection (CAD). COMPARISON: Available for comparison. FINDINGS: Masses/Architectural Distortion: None seen. Microcalcifications: No suspicious pleomorphic-type are seen. Skin Thickening/Nipple Retraction: None. IMPRESSION: 1. No significant interval change with no specific features of malignancy noted. 2. Unless there is more urgent need, screening mammography is recommended, as per [employer] guidelines. BI-RADS Category 1 - Negative Breast Density - Category B - Scattered areas of fibroglandular density Breast density category C or D implies that the patient has dense breast tissue. Dense breast tissue is very common and is not abnormal but dense breast tissue can make it harder to find cancer on a ma mmogram. Also, dense breast tissue may increase their breast cancer risk. This information about the result of the mammogram report was provided to the patient to raise their awareness. Use this report when you speak with the patient about their risks for breast cancer, which includes their family hist ory. At that time, you may recommend for more screening tests (Ultrasound or MRI) as they might be us eful based on their risk. A negative radiographic report should not delay biopsy if a dominant or clinically suspicious mass is present. Up to ten percent of cancers are not identified on mammography. A negative report may reinforce clinical impression. Adenosis and dense breasts may obscure an underlying neoplasm. False positive reports average 6 to 10%. Patient will receive a letter notifying them of these results.
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
--- OUTSIDE RECORDS SUMMARY | 2023-11-15 02:25 | XMS_ITS | Encounter Summary ---
[place] [address] Care Team Providers Care Blank Driller Name Role Phone Nidhi Conti Primary Care Provider Encounter Details Date Type Department Care Team (Latest Contact Info) Description 10/17/2022 11:00 AM EDT Laboratory Appointment Lab [address] [place] [id number] Medication monitoring encounter; High risk medication use; Seropositive rheumatoid arthritis; Inflammatory arthropathy; Methotrexate, buttermaker, current use; Seronegative rheumatoid arthritis Social History Tobacco Use Types Packs/Day Years Used Date Smoking Tobacco: Every Day Cigarettes Smokeless Tobacco: Never Alcohol Use Standard Drinks/Week Comments Not Currently 0 (1 standard drink = 0.6 oz pur e alcohol) Sex and Gender Information Value Date Recorded Sex Assigned at Not on file Gender Identity Not on file Sexual Orientation Not on file documented as of this encounter Plan of Treatment Not on file documented as of this encounter Goals Goal Patient Goal Type Associated Problems Recent Progress Patient-Stated? Author [facility] Medication Compliance and Understanding Patient Facing Action Plan No Brooke Blanchard, [facility] Note: Patient's specific desired goal: Keyona Terry is hoping to have a decrease in her pain and morning stiffness by about 50%. Measured by: pain scale, how long her morning stiffness lasts Time-frame to meet goal: 3 to 6 months documented as of this encounter Procedures Procedure Name Priority Date/Time Associated Diagnosis Comments CRP, ACUTE INFLAMMATION Routine 10/17/2022 11:10 AM EDT Medication monitoring encounter High risk medication use Seropositive rheumatoid arthritis Inflammatory arthropathy Methotrexate, buttermaker, current use Seronegative rheumatoid arthritis BILIRUBIN, DIRECT Routine 10/17/2022 11: 10 AM EDT HEMOGRAM Routine 10/17/2022 11:10 AM EDT Medication monitoring encounter High risk medication use Seropositive rheumatoid arthritis Inflammatory arthropathy Methotrexate, buttermaker, current use Seronegative rheumatoid arthritis DIFFERENTIAL, AUTOMATED Routine 10/17/2022 11:10 AM EDT Medication monitoring encounter High risk medication use Seropositive rheumatoid arthritis Inflammatory arthropathy Methotrexate, buttermaker, current use Seronegative rheumatoid arthritis SEDIMENTATION RATE Routine 10/17/2022 11 :10 AM EDT Medication monitoring encounter High risk medication use Seropositive rheumatoid arthritis Inflammatory arthropathy Methotrexate, halfway, current use Seronegative rheumatoid arthritis CBC (WITH DIFF) Routine 10/17/2022 11:10 AM EDT Medication monitoring encounter High risk medication use Seropositive rheumatoid arthritis Inflammatory arthropathy Methotrexate, halfway, current use Seronegative rheumatoid arthritis COMPREHENSIVE METABOLIC PANEL Routine 10/17/2022 11:10 AM EDT Medication monitoring encounter High risk medication use Seropositive rheumatoid arthritis Inflammatory arthropathy Methotrexate, halfway, current use Seronegative rheumatoid arthritis documented in this encounter Results * Bilirubin, Direct (10/17/2022 11:10 AM EDT) [facility] Bilirubin, Direct 0.1 0.0 - 0.3 mg/dL [facility] Blood 10/17/2022 11:1 0 AM EDT 10/17/2022 11:16 AM EDT Narrative Resulting Agency Comment Spec In Lab Markell Darling MD CHEMISTRY ORDERABLES [facility] [place] [address] * (ABNORMAL) Differential, Automated (10/17/2022 11:10 AM EDT) Pathologist [facility] Neutrophil % 43.6 % [facility] Neutrophil Absolute 3.37 1.70 - 6.10 x10(3)/mc L [facility] Lymph % 43.4 % [facility] Lymphocytes Abs 3.4(H) 0.9 - 3.2 x10(3)/mc L [facility] Monocyte % 10.0 % [facility] Monocyte Abs 0.8 0.3 - 0.9 x10(3)/ L [facility] Eos % 2.1 % [facility] Eosinophils Abs 0.2 0.0 - 0.4 x10(3)/ L [facility] Basophil % 0.6 % [facility] Baso Absolute 0.0 0.0 - 0.1 x10(3)/ L [facility] Immature Gran % 0.30 % [facility] Comment: Immature granulocytes(IG's)percentage and absolute count will include metamyelocytes, myelocytes, and promyelocytes. Blood smears from CBCs yielding IG's will be scanned manually for concordance. If this scan disagrees with the automated IG or if promyelocytes are noted, a manual differential will be performed. Immature Gran Absolute 0.02 0.00 - 0.04 x10(3)/ L [facility] Blood 10/17/2022 11:1 0 AM EDT 10/17/2022 11:16 AM EDT Narrative Resulting Agency Comment Spec In Lab Markell Darling MD HEMATOLOGY ORDERABLE S Performing Organization Address City/State/[facility] Co de Phone Number [facility] [place] [address] * (ABNORMAL) Hemogram (10/17/2022 11:10 AM EDT) White Blood Cell 7.7 4.0 - 9.5 x10(3)/mc L [facility] Red Blood Cell 3.78(L) 4.00 - 5.21 x10(6)/ L [facility] Hemoglobin 12.3 11.7 - 15.5 g/dL [facility] Hematocrit 35.7 35.7 - 45.8 % [facility] Mean Cell Volume 94.4 82.6 - 94.4 fL [facility] Mean Cell Hemoglobin 32.5(H) 27.1 - 32.0 pg [facility] Mean Cell Hemoglobin Concentration 34.5 31.7 - 35.0 g/dL [facility] Platelet 271 145 - 357 x10(3)/mc L [facility] RDW Standard Deviation 51.3(H) 37.0 - 46.0 fL [facility] RDW coefficient of variation 14.8(H) 11.5 - 14.1 % [facility] Mean Platelet Volume 8.7 7.6 - 12.9 fL [facility] NRBC% auto 0.0 % [facility] NRBC Absolute 0.000 0.000 - 0.000 x10(3)/mc L [facility] Blood 10/17/2022 11:1 0 AM EDT 10/17/2022 11:16 AM EDT Narrative Resulting Agency Comment Spec In Lab Markell Darling MD HEMATOLOGY ORDERABLE S Performing Organization Address [facility] Co de Phone Number [facility] [place] [address] * (ABNORMAL) CRP, acute inflammation (10/17/2022 11:10 AM EDT) C-Reactive Protein 8.3(H) <=4.9 mg/L [facility] Blood 10/17/2022 11:1 0 AM EDT 10/17/2022 11:16 AM EDT Narrative Resulting Agency Comment Spec In Lab Markell Darling MD CHEMISTRY ORDERABLES Performing Organization Address [facility] Co de Phone Number [facility] [place] [address] * Sedimentation rate (10/17/2022 11:10 AM EDT) Sedimentation Rate Automated 28 2 - 39 mm/hr [facility] Comment: Effective March 15, 2019 new capillary photometric technology has resulted in a change in reference ranges. It is recommended that each ESR result be reviewed with its own age appropriate reference range. Blood 10/17/2022 11:1 0 AM EDT 10/17/2022 11:16 AM EDT Narrative Resulting Agency Comment Spec In Lab Markell Darling MD HEMATOLOGY ORDERABLE S [facility] [place] [address] * Comprehensive metabolic panel (non-fasting) (10/17/2022 11:10 AM EDT) Glucose 70 65 - 199 mg/dL [facility] Comment:Diabetes: >=200 mg/d L plus symptoms Blood Urea Nitrogen 11 8 - 18 mg/dL [facility] Creatinine 0.76 0.70 - 1.20 mg/dL [facility] Sodium 140 135 - 145 mmol/L [facility] Potassium 4.7 3.5 - 5.0 mmol/L [facility] Comment: Please note: ??Patients with WBC >100,000 may have falsely elevated Potassium levels. ??For accurate Potassium quantification in these patients send serum separator tube (gold top) for subsequent determinations. ??Contact the Clinical Chemistry Laboratory if there are any questions. Chloride 106 98 - 107 mmol/L [facility] Carbon Dioxide 26 22 - 31 mmol/L [facility] Anion Gap 8 5 - 15 mmol/L [facility] Calcium 9.3 8.5 - 10.5 mg/dL [facility] Protein, Total 6.6 6.1 - 8.0 g/dL [facility] Albumin 4.3 3.2 - 5.2 g/dL [facility] Aspartate Aminotransferase 12 0 - 30 unit/L [facility] Alanine Aminotransferase 9 0 - 30 unit/L [facility] Alkaline Phosphatase 61 35 - 105 unit/L [facility] Bilirubin, Total 0.2 0.2 - 1.3 mg/dL [facility] Est Glomerular Filtration Rate 91 >=60 mL/min/1. 73 m?? [facility] Comment: This patient's estimated GFR was calculated using the 2020 CKD-EPI equation. The estimated GFR can vary from the measured GFR by up to 30% in the absence of rapidly changing kidney function. Assessment of the estimated GFR is not appropriate when creatinine concentrations are rapidly changing. For clinical situations in which a more precise estimate of GFR is necessary, consider alternative methods of GFR estimation such as a 24-hour urine creatinine clearance. Assignment of CKD stage 1-5 for patients with an eGFR near the transition point between stages may be based on clinical assessment of muscle mass and symptoms in addition to eGFR. Blood 10/17/2022 11:1 0 AM EDT 10/17/2022 11:16 AM EDT Narrative Resulting Agency Comment Spec In Lab Markell Darling MD CHEMISTRY ORDERABLES Performing Organization Address City/State/[facility] Co de Phone Number [facility] [place] [address] documented in this encounter Visit Diagnoses Diagnosis Medication monitoring encounter Encounter for therapeutic drug monitoring High risk medication use Encounter for long-term (current) use of other medications Seropositive rheumatoid arthritis Rheumatoid arthritis Inflammatory arthropathy Arthropathy, unspecified, site unspecified Methotrexate, halfway, current use Encounter for long-term (current) use of other medications Seronegative rheumatoid arthritis Rheumatoid arthritis documented in this encounter Care Teams Blank Driller Relationship Specialty Start Date End Date Nidhi Conti PA [address] [place] [id number] PCP - General Family Medicine 06/11/20 documented as of this encounter
--- OUTSIDE RECORDS SUMMARY | 2023-11-15 02:25 | XMS_ITS | Encounter Summary ---
[place] [address] Care Team Providers Care Parking Lot Signaler Name Role Phone Nidhi Conti Primary Care Provider [phone] Reason for Visit * Reason Onset Date Comments Medication Refill 07/21/2023 Encounter Details Date Type Department Care Team (Late st Contact Info) Description 07/21/2023 [place] [address] Sisi Steward RN Seronegative rheumatoid arthritis; Pain in both hands; Bilateral wrist pain Social History Tobacco Use Types Packs/Day Years [...] Type Associated Problems Recent Progress Patient-Stated? Author [facility] Medication Compliance and Understanding Patient Facing Action Plan No Brooke Blanchard, [facility] Note: Patient's specific desired goal: Keyona Terry is hoping to have a decrease in her pain and morning stiffness by about 50%. Measured by: pain scale, how long her morning stiffness lasts Time-frame to meet goal: 3 to 6 months documented as of this encounter Visit Diagnoses Diagnosis Seronegative rheumatoid arthritis Rheumatoid arthritis Pain in both hands Bilateral wrist pain Pain in joint, forearm documented in this encounter Care Teams Parking Lot Signaler Relationship Specialty Start Date End Date Nidhi Conti PA [address] [place] [address] PCP - General Family Medicine 06/11/20 documented as of this encounter
--- OUTSIDE RECORDS SUMMARY | 2023-11-15 02:25 | XMS_ITS | Encounter Summary ---
Author Organization [facility] [place] [address] Care Team Providers Care Media Intern Name Role Phone Nidhi Conti Primary Care Provider [phone] Reason for Visit * Reason Comments Medication Refill Encounter Details Date Type Department Care Team (Late st Contact Info) Description 04/14/2023 [place] [address] Markell Darling MD [facility] [place] [address] Seronegative rheumatoid arthritis; Pain in both hands; [...] Type Associated Problems Recent Progress Patient-Stated? Author [facility] Medication Compliance and Understanding Patient Facing Action Plan No Brooke Blanchard, [facility] Note: Patient's specific desired goal: Keyona Terry [...] forearm documented in this encounter Care Teams Media Intern Relationship Specialty Start Date End Date Nidhi Conti PA [address] [place] [address] PCP - General Family Medicine 06/11/20 documented as of this encounter
--- OUTSIDE RECORDS SUMMARY | 2023-11-15 02:25 | XMS_ITS | Encounter Summary ---
Author Organization [facility] [place] [address] Care Team Providers Care Lace Tearing Supervisor Name Role Phone Nidhi Conti Primary Care Provider [phone] Reason for Visit * Reason Comments Medication Refill Encounter Details Date Type Department Care Team (Late st Contact Info) Description 12/15/2022 [place] [address] Markell Darling MD [facility] [place] [address] Medication monitoring encounter; High risk medication use; Seropositive rheumatoid arthritis; Inflammatory arthropathy; Methotrexate, senior living, current use; Seronegative rheumatoid arthritis; Chronic pain of both ankles; Pain in right hip; Pain in both hands; Bilateral wrist pain; Bursitis of other bursa of both hips; Chronic pain of both knees Social History Tobacco Use Types Packs/Day Years [...] Type Associated Problems Recent Progress Patient-Stated? Author [facility] Medication Compliance and Understanding Patient Facing Action Plan No Brooke Blanchard, [facility] Note: Patient's specific desired goal: Keyona Terry [...] Inflammatory arthropathy Arthropathy, unspecified, site unspecified Methotrexate, bottle assembler, current use Encounter for long-term (current) use of other medications Seronegative rheumatoid arthritis Rheumatoid arthritis Chronic pain of both ankles Pain in right hip Pain in joint, pelvic region and thigh Pain in both hands Bilateral wrist pain Pain in joint, forearm Bursitis of other bursa of both hips Chronic pain of both knees documented in this encounter Care Teams Lace Tearing Supervisor Relationship Specialty Start Date End Date Nidhi Conti PA [address] [place] [id number] PCP - General Family Medicine 06/11/20 documented as of this encounter
--- OUTSIDE RECORDS SUMMARY | 2023-11-15 02:25 | XMS_ITS | Encounter Summary ---
[place] [address] Care Team Providers Care Floor Layer Name Role Phone Nidhi Conti Primary Care Provider [phone] Reason for Visit * Reason Onset Date Comments Medication Refill 09/23/2023 Encounter Details Date Type Department Care Team (Late st Contact Info) Description 09/23/2023 Ref[place] [address] Jacki Olson RN Medication monitoring encounter; High risk medication use; Seropositive rheumatoid arthritis; Inflammatory arthropathy; Methotrexate, termite renewal inspector, current use; Seronegative rheumatoid arthritis; Chronic pain of both ankles; Pain in right hip; Pain in both hands; Bilateral wrist pain; Bursitis of other bursa of both hips; Pain in both feet Social History Tobacco [...] encounter Miscellaneous Notes * Telephone Encounter - Jacki Olson RN - 09/23/2023 4:53 PM EDT Methotrexate Rx Refill : Last Labs: CBC, CMP or LFT within last 12 weeks YES [] NO [x] Last labs: 05/28/23 Last Appointment: 05/31/23 Methotrexate Dosage: 20 mg weekly Contacted patient to arrange labs: YES [x] NO [] RN sent pt a [facility] message reminder to get updated labs. Standing Orders in place: YES [x] NO [] Pended orders: YES [] NO [x] Sent to [place] to schedule: Yes [] NO [x] Last appt: 10/11/23 * Telephone Encounter - Jacki Olson RN - 09/23/2023 4:52 PM EDT Images from the original note were not included. Refill pended to provider. documented in this encounter Plan of Treatment Not on file documented as of this encounter Goals Goal Patient Goal Type Associated Problems Recent Progress Patient-Stated? Author [facility] Medication Compliance and Understanding Patient Facing Action Plan No Brooke Blanchard, [facility] Note: Patient's specific desired goal: Keyona Terry [...] Inflammatory arthropathy Arthropathy, unspecified, site unspecified Methotrexate, termite renewal inspector, current use Encounter for long-term (current) use of other medications Seronegative rheumatoid arthritis Rheumatoid arthritis Chronic pain of both ankles Pain in right hip Pain in joint, pelvic region and thigh Pain in both hands Bilateral wrist pain Pain in joint, forearm Bursitis of other bursa of both hips Pain in both feet Pain in limb documented in this encounter Care Teams Floor Layer Relationship Specialty Start Date End Date Nidhi Conti PA [address] [address] PCP - General Family Medicine 06/11/20 documented as of this encounter
--- OUTSIDE RECORDS SUMMARY | 2023-11-15 02:25 | XMS_ITS | Clinical Summary ---
Author Organization [facility] [place] [address] Care Team Providers Care Sap Payroll Consultant Name Role Phone Nidhi Conti Primary Care Provider [phone] Allergies Active Allergy Reactions Criticality Noted Date Comments Hydroxychloroquine Sulf (Bulk) Diarrhea 01/21 Medications Medication Sig Dispensed Refills Start Date End Date Status simvastatin (ZOCOR) 20 mg Tablet Take 20 mg by mouth daily. 0 05/16/2018 Active verapamil (CALAN-SR) 240 mg Tablet Sustained Release Take 240 mg by mouth daily. 0 05/16/2018 Active acetaminophen (Tylenol) 500 mg Tablet Take 1,000 mg by mouth every 6 hours as needed for Pain. Active fish oil-omega-3 fatty acids (Fish Oil) 1,000 mg capsule Take 2 g by mouth 2 times daily. Active TURMERIC ORAL Take 1,000 mg by mouth 2 times daily. Active adalimumab (Humira,CF, Pen) 40 mg/0.4 mL Pen Injector Kit Inject the contents of 1 pen under the skin every 14 days. Keep Refrigerated. 0.8 mL 5 08/13/2023 Active folic acid (Vitamin B9) 1 mg tabletIndications:Me dication monitoring encounter,High risk medication use,Seropositive rheumatoid arthritis,Inflammato ry arthropathy,Methotre xate, equipment operator intermodal yard, current use,Seronegative rheumatoid arthritis,Chronic pain of both ankles,Pain in right hip,Pain in both hands,Bilateral wrist pain,Bursitis of other bursa of both hips,Chronic pain of both knees Take 5 tablets by mouth daily. 150 tablet 5 10/25/2023 Active meloxicam (Mobic) 15 mg tabletIndications:Se ronegative rheumatoid arthritis,Pain in both hands,Bilateral wrist pain Take 1 tablet by mouth daily. 90 tablet 10/25/2023 Active metHOTREXate (TrexalL) 2.5 mg tabletIndications:Me dication monitoring encounter,High risk medication use,Seropositive rheumatoid arthritis,Inflammato ry arthropathy,Methotre xate, fci, current use,Seronegative rheumatoid arthritis,Chronic pain of both ankles,Pain in right hip,Pain in both hands,Bilateral wrist pain,Bursitis of other bursa of both hips,Pain in both feet TAKE 8 TABLETS BY MOUTH ONE DAY A WEEK ON WEDNESDAY 96 tablet 10/25/2023 Active Active Problems Problem Noted Date Diagnosed Date Abnormal radiograph 12/21/2018 Inflammatory arthropathy 07/04/2018 Seropositive rheumatoid arthritis 07/04/2018 Encounters Date Type Department Care Team Description 10/25/2023 Refill Rheumatology at [address] Sisi Steward RN Medication monitoring encounter; High risk medication use; Seropositive rheumatoid arthritis; Inflammatory arthropathy; Methotrexate, equipment operator intermodal yard, current use; Seronegative rheumatoid arthritis; Chronic pain of both ankles; Pain in right hip; Pain in both hands; Bilateral wrist pain; Bursitis of other bursa of both hips; Chronic pain of both knees; Pain in both feet 10/23/2023 Refill Rheumatology at [address] Markell Darling MD Medication monitoring encounter; High risk medication use; Seropositive rheumatoid arthritis; Inflammatory arthropathy; Methotrexate, fci, current use; Seronegative rheumatoid arthritis; Chronic pain of both ankles; Pain in right hip; Pain in both hands; Bilateral wrist pain; Bursitis of other bursa of both hips; Pain in both feet 10/11/2023 10:00 AM EDT Office Visit Rheumatology at [place] [phone] Markell Darling MD Medication monitoring encounter; High risk medication use; Seropositive rheumatoid arthritis 10/11/2023 9:45 AM EDT Laboratory Appointment Lab 3L [address] Medication monitoring encounter; High risk medication use; Seropositive rheumatoid arthritis; Inflammatory arthropathy; Methotrexate, fci, current use; Seronegative rheumatoid arthritis; Chronic pain of both ankles; Pain in right hip; Pain in both hands; Bilateral wrist pain; Bursitis of other bursa of both hips; Pain in both feet 10/11/2023 Travel 10/10/2023 Travel 09/23/2023 Refill [place] [address] Jacki Olson RN Medication monitoring encounter; High risk medication use; Seropositive rheumatoid arthritis; Inflammatory arthropathy; Methotrexate, equipment operator intermodal yard, current use; Seronegative rheumatoid arthritis; Chronic pain of both ankles; Pain in right hip; Pain in both hands; Bilateral wrist pain; Bursitis of other bursa of both hips; Pain in both feet from Last 3 Months Social History Tobacco Use Types Packs/Day Years Used Date Smoking Tobacco: Every Day Cigarettes Smokeless Tobacco: Never Tobacco Cessation:Ready to Q uit: Not Asked; Counseling Given: Not Answered Alcohol Use Standard Drinks/Week Comments Not Currently 0 (1 standard drink = 0.6 oz pur e alcohol) Sex and Gender Information Value Date Recorded Sex Assigned at Not on file Gender Identity Not on file Sexual Orientation Not on file Last Filed Vital Signs Vital Sign Reading Time Taken Comments Blood Pressure 144/75 10/11/2023 10:02 AM EDT Pulse 74 10/11/2023 10:02 AM EDT Temperature 36 ??C (96.8 ??F) 10/11/2023 10:02 AM EDT Respiratory Rate 20 02/23/2023 10:34 AM EST Oxygen Saturation 98% 10/11/2023 10:02 AM EDT Inhaled Oxygen Concentration - - Weight 92.3 kg (203 lb 6.4 oz) 10/11/2023 10:02 AM EDT Height 162.6 cm (5' 4) 02/23/2023 10:34 AM EST Body Mass Index 34.91 02/23/2023 10:34 AM EST Plan of Treatment Health Maintenance Due Date Last Done Comments CT Colonography 1964 Colonoscopy 1964 Colorectal Cancer Screening 1964 FIT DNA 1964 FIT 1964 Sigmoidoscopy (10 year) with FIT yearly 1964 Sigmoidoscopy 1964 Pneumococcal Vaccine: At-Ris k 5-64yrs (1 of 2 - PCV) 1970 Hepatitis B vaccine (0-59 yrs) (1) 11/29/1983 Tdap adult 11/29/1983 Tetanus vaccine 11/29/1983 HPV test 1994 PAP Smear 1994 Breast Cancer Share Decision Needed 2004 Breast Cancer screening 2004 Zoster vaccine (1 of 2) 2014 Advance Directive 11/29/2019 Covid-19 Vaccine (1 - 2022-2 4 season) 2022 Influenza (Flu) vaccine (1 o f 1 - Influenza standard series) 12/05/2023 Diabetes Screening (HgbA1C o r Glucose) 02/23/2026 02/23/2023, 10/17/2022, 05/15/2022, Additional history exists HIV screen Completed 06/07/2018 Hepatitis C Screening Completed 05/16/2021, 019 Goals Goal Patient Goal Type Associated Problems Recent Progress Patient-Stated? Author [facility] Home Medication Compliance and Understanding Patient Facing Action Plan Brooke Wilder, [facility] Note: Patient's specific desired goal: Keyona Terry is hoping to have a decrease in her pain and morning stiffness by about 50%. Measured by: pain scale, how long her morning stiffness lasts Time-frame to meet goal: 3 to 6 months Procedures Procedure Name Priority Date/Time Associated Diagnosis Comments CREATININE Routine 10/11/2023 9:41 AM EDT DIFFERENTIAL, AUTOMATED Routine 10/11/2023 9:41 AM EDT Medication monitoring encounter High risk medication use Seropositive rheumatoid arthritis Inflammatory arthropathy Methotrexate, fci, current use Seronegative rheumatoid arthritis Chronic pain of both ankles Pain in right hip Pain in both hands Bilateral wrist pain Bursitis of other bursa of both hips Pain in both feet HEMOGRAM Routine 10/11/2023 9:41 AM EDT Medication monitoring encounter High risk medication use Seropositive rheumatoid arthritis Inflammatory arthropathy Methotrexate, equipment operator intermodal yard, current use Seronegative rheumatoid arthritis Chronic pain of both ankles Pain in right hip Pain in both hands Bilateral wrist pain Bursitis of other bursa of both hips Pain in both feet CBC (WITH DIFF) Routine 10/11/2023 9:41 AM EDT Medication monitoring encounter High risk medication use Seropositive rheumatoid arthritis Inflammatory arthropathy Methotrexate, equipment operator intermodal yard, current use Seronegative rheumatoid arthritis Chronic pain of both ankles Pain in right hip Pain in both hands Bilateral wrist pain Bursitis of other bursa of both hips Pain in both feet HEPATIC FUNCTION PANEL Routine 9:41 AM EDT Medication monitoring encounter High risk medication use Seropositive rheumatoid arthritis Inflammatory arthropathy Methotrexate, equipment operator intermodal yard, current use Seronegative rheumatoid arthritis Chronic pain of both ankles Pain in right hip Pain in both hands Bilateral wrist pain Bursitis of other bursa of both hips Pain in both feet COMPREHENSIVE METABOLIC PANEL Routine 02/23/2023 9:52 AM EST Medication monitoring encounter High risk medication use Seropositive rheumatoid arthritis Inflammatory arthropathy Methotrexate, fci, current use Seronegative rheumatoid arthritis HC HEPATITIS C ANTIBODY Routine 05/16/2021 2:17 PM EST Medication monitoring encounter High risk medication use Seropositive rheumatoid arthritis Inflammatory arthropathy Methotrexate, equipment operator intermodal yard, current use Seronegative rheumatoid arthritis Chronic pain of both ankles Pain in both hands Bilateral wrist pain Chronic pain of both knees Morning joint stiffness Bilateral hip pain HIV SCREEN, 4TH GENERATION ([facility]/CGP/APD/NLH) Routine 06/07/2018 3:54 PM EST Bilateral wrist pain Pain in both hands Pain in both feet Inflammatory arthropathy Morning joint stiffness from Last 3 Months or Most Recently Relevant to Health Maintenance Results * (ABNORMAL) Hemogram (10/11/2023 9:41 AM EDT) White Blood Cell 11.1(H) 4.0 - 9.5 x10(3)/mc L [facility] Red Blood Cell 3.87(L) 4.00 - 5.21 x10(6)/mc L [facility] Hemoglobin 12.8 11.7 - 15.5 g/dL [facility] Hematocrit 37.2 35.7 - 45.8 % [facility] Mean Cell Volume 96.1(H) 82.6 - 94.4 fL [facility] Mean Cell Hemoglobin 33.1(H) 27.1 - 32.0 pg [facility] Mean Cell Hemoglobin Concentration 34.4 31.7 - 35.0 g/dL [facility] Platelet 288 145 - 357 x10(3)/mc L [facility] RDW Standard Deviation 50.8(H) 37.0 - 46.0 fL [facility] RDW coefficient of variation 14.6(H) 11.5 - 14.1 % [facility] Mean Platelet Volume 9.3 7.6 - 12.9 fL [facility] NRBC% auto 0.0 % [facility] NRBC Absolute 0.000 0.000 - 0.000 x10(3)/mc L [facility] Blood 10/11/2023 9:41 AM EDT 10/11/2023 10:04 AM EDT Narrative Resulting Agency Comment Spec In Lab Markell Darling MD HEMATOLOGY ORDERABLE S Performing Organization Address City/State/[facility] Co de Phone Number [facility] [place] [address] * (ABNORMAL) Differential, Automated (10/11/2023 9:41 AM EDT) Neutrophil % 61.3 % [facility] Neutrophil Absolute 6.78(H) 1.70 - 6.10 x10(3)/mc L [facility] Lymph % 29.9 % [facility] Lymphocytes Abs 3.3(H) 0.9 - 3.2 x10(3)/mc L [facility] Monocyte % 6.7 % [facility] Monocyte Abs 0.7 0.3 - 0.9 x10(3)/mc L [facility] Eos % 1.3 % [facility] Eosinophils Abs 0.1 0.0 - 0.4 x10(3)/mc L [facility] Basophil % 0.5 % [facility] Baso Absolute 0.1 0.0 - 0.1 x10(3)/mc L [facility] Immature Gran % 0.30 % [facility] Comment: Immature granulocytes(IG's)percentage and absolute count will include metamyelocytes, myelocytes, and promyelocytes. Blood smears from CBCs yielding IG's will be scanned manually for concordance. If this scan disagrees with the automated IG or if promyelocytes are noted, a manual differential will be performed. Immature Gran Absolute 0.03 0.00 - 0.04 x10(3)/mc L [facility] Blood 10/11/2023 9:41 AM EDT 10/11/2023 10:04 AM EDT Narrative Resulting Agency Comment Spec In Lab Markell Darling MD HEMATOLOGY ORDERABLE S Performing Organization Address City/State/[facility] Co de Phone Number [facility] [place] [address] * Creatinine (10/11/2023 9:41 AM EDT) Creatinine 0.79 0.70 - 1.20 mg/dL [facility] Est Glomerular Filtration Rate 87 >=60 mL/min/1. 73 m?? [facility] Comment: This patient's estimated GFR was [...] and symptoms in addition to eGFR. Blood Venous Draw / Unknown 10/11/2023 9:41 AM EDT 10/11/2023 10:22 AM EDT Narrative Resulting Agency Comment Spec In Lab Markell Darling MD CHEMISTRY ORDERABLES Performing Organization Address [facility] Co de Phone Number [facility] [place] [address] * Hepatic Function Panel (10/11/2023 9:41 AM EDT) [facility] Protein, Total 6.9 6.1 - 8.0 g/dL [facility] Albumin 4.4 3.2 - 5.2 g/dL [facility] Aspartate Aminotransferase 10 0 - 30 unit/L [facility] Alanine Aminotransferase 12 0 - 30 unit/L [facility] Alkaline Phosphatase 68 35 - 105 unit/L [facility] Bilirubin, Total 0.3 0.2 - 1.3 mg/dL [facility] Bilirubin, Direct 0.1 0.0 - 0.3 mg/dL [facility] Blood 10/11/2023 9:41 AM EDT 10/11/2023 10:04 AM EDT Narrative Resulting Agency Comment Spec In Lab Markell Darling MD CHEMISTRY ORDERABLES Performing Organization Address [facility] Co de Phone Number [facility] [place] [address] * Comprehensive metabolic panel (non-fasting) (02/23/2023 9:52 AM EST) [facility] Glucose 96 65 - 199 mg/dL [facility] Comment:Diabetes: >=200 mg/d L plus symptoms Blood Urea Nitrogen 12 8 - 18 mg/dL [facility] Creatinine 0.82 0.70 - 1.20 mg/dL [facility] Sodium 136 135 - 145 mmol/L [facility] Potassium 4.7 3.5 - 5.0 mmol/L [facility] Comment: Please note: ??Patients with WBC >100,000 may have falsely elevated Potassium levels. ??For accurate Potassium quantification in these patients send serum separator tube (gold top) for subsequent determinations. ??Contact the Clinical Chemistry Laboratory if there are any questions. Chloride 102 98 - 107 mmol/L [facility] Carbon Dioxide 24 22 - 31 mmol/L [facility] Anion Gap 10 5 - 15 mmol/L [facility] Calcium 9.1 8.5 - 10.5 mg/dL [facility] Protein, Total 6.7 6.1 - 8.0 g/dL [facility] Albumin 4.4 3.2 - 5.2 g/dL [facility] Aspartate Aminotransferase 13 0 - 30 unit/L [facility] Alanine Aminotransferase 15 0 - 30 unit/L [facility] Alkaline Phosphatase 65 35 - 105 unit/L [facility] Bilirubin, Total 0.3 0.2 - 1.3 mg/dL [facility] Est Glomerular Filtration Rate 83 >=60 mL/min/1. 73 m?? [facility] Comment: This patient's estimated GFR was [...] and symptoms in addition to eGFR. Blood 02/23/2023 9:52 AM EST 02/23/2023 10:07 AM EST Narrative Resulting Agency Comment Spec In Lab Markell Darling MD CHEMISTRY ORDERABLES Performing Organization Address [facility] Co de Phone Number [facility] [place] [address] * Hepatitis C Antibody (05/16/2021 2:17 PM EST) Hepatitis C Antibody Negative Negative [facility] Blood 05/16/2021 2:17 PM EST 05/16/2021 2:47 PM EST Narrative Resulting Agency Comment Spec In Lab Markell Darling MD CHEMISTRY ORDERABLES Performing Organization Address City/[facility]/ZIP Co de Phone Number [facility] [place] [address] * HIV Screen, 4th Generation (06/07/2018 3:54 PM EST) HIV Ab/Ag Screen Negative Negative [facility] Comment: This 4th Generation HIV test screens for the presence of the HIV-1 p24 antigen as well as antibodies reactive against HIV-1 and HIV-2. A negative screen does not rule out an acute HIV infection. If acute HIV infection is suspected, testing should be repeated in 2 - 3 weeks or HIV nucleic acid testing performed. Blood specimen (specimen) 06/07/2018 3:54 PM EST 06/07/2018 4:02 PM EST Narrative Resulting Agency Comment Spec In Lab Markell Darling MD CHEMISTRY ORDERABLES [facility] [place] [address] from Last 3 Months or Most Recently Relevant to Health Maintenance Care Teams Sap Payroll Consultant Relationship Specialty Start Date End Date Nidhi Conti PA [address] [place] [address] PCP - General Family Medicine 06/11/20
--- OUTSIDE RECORDS SUMMARY | 2023-11-15 02:25 | XMS_ITS | Encounter Summary ---
Author Organization [facility] [place] [address] Care Team Providers Care Pc Network Technician Name Role Phone Nidhi Conti Primary Care Provider [phone] Reason for Visit * Reason Comments Medication Refill Encounter Details Date Type Department Care Team (Late st Contact Info) Description 10/23/2023 Refill [place] [address] Markell Darling MD [facility] [place] [address] Medication monitoring encounter; High risk medication use; Seropositive rheumatoid arthritis; Inflammatory arthropathy; Methotrexate, prison, current use; Seronegative rheumatoid arthritis; Chronic pain [...] Type Associated Problems Recent Progress Patient-Stated? Author [facility] Medication Compliance and Understanding Patient Facing Action Plan No Brooke Blanchard, [facility] Note: Patient's specific desired goal: Keyona Terry [...] Inflammatory arthropathy Arthropathy, unspecified, site unspecified Methotrexate, prison, current use Encounter for long-term (current) use of other medications Seronegative rheumatoid arthritis Rheumatoid arthritis Chronic pain of both ankles Pain in right hip Pain in joint, pelvic region and thigh Pain in both hands Bilateral wrist pain Pain in joint, forearm Bursitis of other bursa of both hips Pain in both feet Pain in limb documented in this encounter Care Teams Pc Network Technician Relationship Specialty Start Date End Date Nidhi Conti PA [address] [place] [id number] PCP - General Family Medicine 06/11/20 documented as of this encounter
--- OUTSIDE RECORDS SUMMARY | 2023-11-15 02:25 | XMS_ITS | Encounter Summary ---
Author Organization [facility] [place] [address] Care Team Providers Care Combination Welder Apprentice Name Role Phone Nidhi Conti Primary Care Provider [phone] Reason for Visit * Reason Comments Medication Refill Encounter Details Date Type Department Care Team (Late st Contact Info) Description 02/14/2023 [place] [address] Markell Darling MD [facility] [address] Medication monitoring encounter; High risk medication use; Seropositive rheumatoid arthritis; Inflammatory arthropathy; Methotrexate, care home, current use; Seronegative rheumatoid arthritis; Chronic pain [...] Telephone Encounter - Jacki Olson RN - 02/15/2023 10:16 AM EST Methotrexate Rx Refill : Review EMR For: Last Labs: CBC, CMP or LFT within last 12 weeks YES [] NO [x] Last labs: 10/17/22 Last Appointment: 10/19/22 Methotrexate Dosage: 20 mg weekly Contacted patient to arrange labs: YES [x] NO [] Outcome: [facility] Standing Orders in place: YES [x] NO [] Pended orders: YES [] NO [x] Sent to Appliances Sample Maker to schedule: Yes [] NO [x] Next appt: 02/23/23 documented in this encounter Plan of Treatment Not on file documented as of this encounter Goals Goal Patient Goal Type Associated Problems Recent Progress Patient-Stated? Author [facility] Home Medication Compliance and Understanding Patient Facing Action Plan No Brooke Blanchard, [facility] Note: Patient's specific desired goal: Keyona Terry [...] Inflammatory arthropathy Arthropathy, unspecified, site unspecified Methotrexate, terminal computer operator, current use Encounter for long-term (current) use of other medications Seronegative rheumatoid arthritis Rheumatoid arthritis Chronic pain of both ankles Pain in right hip Pain in joint, pelvic region and thigh Pain in both hands Bilateral wrist pain Pain in joint, forearm Bursitis of other bursa of both hips Pain in both feet Pain in limb documented in this encounter Care Teams Combination Welder Apprentice Relationship Specialty Start Date End Date Nidhi Conti PA [address] [place] [id number] PCP - General Family Medicine 06/11/20 documented as of this encounter
--- OUTSIDE RECORDS SUMMARY | 2023-11-15 02:25 | XMS_ITS | Encounter Summary ---
Author Organization [facility] [place] [address] Care Team Providers Care Volumetric Weigher Name Role Phone Nidhi Conti Primary Care Provider [phone] Reason for Visit * Reason Comments Medication Refill Encounter Details Date Type Department Care Team (Late st Contact Info) Description 12/23/2022 [place] [address] Markell Darling MD [facility] [place] [address] Social History Tobacco Use Types Packs/Day Years [...] Type Associated Problems Recent Progress Patient-Stated? Author [facility] Medication Compliance and Understanding Patient Facing Action Plan No Brooke Blanchard, [facility] Note: Patient's specific desired goal: Keyona Terry is hoping to have a decrease in her pain and morning stiffness by about 50%. Measured by: pain scale, how long her morning stiffness lasts Time-frame to meet goal: 3 to 6 months documented as of this encounter Visit Diagnoses Not on filedocumented in this encounter Care Teams Volumetric Weigher Relationship Specialty Start Date End Date Nidhi Conti PA [address] [place] [id number] PCP - General Family Medicine 06/11/20 documented as of this encounter
--- OUTSIDE RECORDS SUMMARY | 2023-11-15 02:25 | XMS_ITS | Encounter Summary ---
[place] [address] Care Team Providers Care Scraper Hand Name Role Phone Nidhi Conti Primary Care Provider [phone] Reason for Visit * Reason Comments Specialty Pharmacy Review Adalimumab (Hu dinorah) 40 mg/0.4 mL Pen Injector Kit Encounter Details Date Type Department Care Team (Late st Contact Info) Description 07/29/2022 Specialty [place] [address] Gracy James, [facility] Social History Tobacco Use Types Packs/Day Years Used Date Smoking Tobacco: Every Day Cigarettes Smokeless Tobacco: Never Alcohol Use Standard Drinks/Week Comments Not Currently 0 (1 standard drink = 0.6 oz pur e alcohol) Sex and Gender Information Value Date Recorded Sex Assigned at Not on file Gender Identity Not on file Sexual Orientation Not on file documented as of this encounter Progress Notes * Gracy James - 07/29/2022 10:17 AM EDT The [facility] has completed a benefits investigation for Keyona Terry to review theireligibility to fill at [facility]. Per patient's medication list they are prescribed Humira and the medication is not able to be filled at the [facility]. Keyona Terry must fill with [facility] under current insurance plan's mandate. documented in this encounter Plan of Treatment Not on file documented as of this encounter Goals Goal Patient Goal Type Associated Problems Recent Progress Patient-Stated? Author Home Medication Compliance and Understanding Patient Facing Action Plan No Brooke Blanchard, [facility] Note: Patient's specific desired goal: Keyona Terry is hoping to have a decrease in her pain and morning stiffness by about 50%. Measured by: pain scale, how long her morning stiffness lasts Time-frame to meet goal: 3 to 6 months documented as of this encounter Visit Diagnoses Not on filedocumented in this encounter Care Teams Scraper Hand Relationship Specialty Start Date End Date Nidhi Conti PA [address] [place] [id number] PCP - General Family Medicine 06/11/20 documented as of this encounter
--- OUTSIDE RECORDS SUMMARY | 2023-11-15 02:25 | XMS_ITS | Encounter Summary ---
[place] [address] Care Team Providers Care Dramatic Coach Name Role Phone Nidhi Conti Primary Care Provider [phone] Reason for Visit * Reason Comments Prior Authorization Humira (2 pens) 40mg /0.4ml PNKT Encounter Details Date Type Department Care Team (Late st Contact Info) Description 08/11/2023 Specialty [place] [address] Torrie Perez, [facility] Social History Tobacco Use Types Packs/Day Years [...] as of this encounter Progress Notes * Torrie Perez - 08/11/2023 11:44 AM EDT [facility], Medication Prior Authorization Submission Patient: Keyona Terry Patient : 1965 Patient Address: [address] [place] [id number] Phone: [phone] (home) Medication Name: HUMIRA(CF) PEN 40 MG/0.4 ML SUBCUTANEOUS KIT Medication ID: [id number] Subscriber Insurance: TPACK Subscriber Insurance Comment: Phone: Fax: Physician: CEDRIC GUEVARA Physician Comment: Sent Via: Fax Flores: Ref/Case/PA#: Medication Strength Frequency Requested: Inject the contents of one pen(40mg) subcutaneously every 14 days Qty/Day Supply: 06/02 New Start: Renewal Diagnosis & ICD-10 Code: Rheumatoid Arthritis M05.9 Patient Notified: Yes Submission Notes: None Torrie Perez 08/11/23 11:46 AM * Torrie Perez - 08/11/2023 11:44 AM EDT [facility], Prior Authorization Approval Medication Name: HUMIRA(CF) PEN 40 MG/0.4 ML SUBCUTANEOUS KIT Medication ID: [id number] Approval Dates: 08/12/2023 to 08/10/2024 Insurance requirements/notes: None Other Notes: None Case/Reference #: [id number] Approval notification Received via: Fax Copay: N/A Copay assistance: None Copay Notes: Insurance mandated Pharmacy: [facility] Fillable at [facility]: No Patient Notified: Yes Pharmacy staff will be reaching out to the patient to inform them of their [facility]. If applicable, a pharmacist will speak with the patient to offer our specialty pharmacy services and to arrange delivery of their medication. Torrie Perez 08/13/23 9:00 AM documented in this encounter Plan of Treatment Not on file documented as of this encounter Goals Goal Patient Goal Type Associated Problems Recent Progress Patient-Stated? Author Home Medication Compliance and Understanding Patient Facing Action Plan No Brooke Blanchard, [facility] Note: Patient's specific desired goal: Keyona Terry is hoping to have a decrease in her pain and morning stiffness by about 50%. Measured by: pain scale, how long her morning stiffness lasts Time-frame to meet goal: 3 to 6 months documented as of this encounter Visit Diagnoses Not on filedocumented in this encounter Care Teams Dramatic Coach Relationship Specialty Start Date End Date Nidhi Conti PA [address] [place] [id number] PCP - General Family Medicine 06/11/20 documented as of this encounter
--- OUTSIDE RECORDS SUMMARY | 2023-11-15 02:25 | XMS_ITS | Encounter Summary ---
[place] [address] Care Team Providers Care Stone Planer Name Role Phone Nidhi Conti Primary Care Provider [phone] Encounter Details Date Type Department Care Team (Latest Contact Info) Description 05/28/2023 2:50 PM EST Laboratory Appointment Lab [address] [place] [phone] Medication monitoring encounter; High risk medication use; Seropositive rheumatoid arthritis; Inflammatory arthropathy; Methotrexate, buttermaker continuous churn, current use; Seronegative rheumatoid arthritis; Chronic pain [...] Type Associated Problems Recent Progress Patient-Stated? Author [facility] Medication Compliance and Understanding Patient Facing Action Plan Brooke Wilder, [facility] Note: Patient's specific desired goal: Keyona Terry is hoping to have a decrease in her pain and morning stiffness by about 50%. Measured by: pain scale, how long her morning stiffness lasts Time-frame to meet goal: 3 to 6 months documented as of this encounter Procedures Procedure Name Priority Date/Time Associated Diagnosis Comments HEMOGRAM Routine 05/28/2023 2:55 PM EST Medication monitoring encounter High risk medication use Seropositive rheumatoid arthritis Inflammatory arthropathy Methotrexate, buttermaker continuous churn, current use Seronegative rheumatoid arthritis Chronic pain of both ankles Pain in right hip Pain in both hands Bilateral wrist pain Bursitis of other bursa of both hips Pain in both feet DIFFERENTIAL, AUTOMATED Routine 05/28/2023 2:55 PM EST Medication monitoring encounter High risk medication use Seropositive rheumatoid arthritis Inflammatory arthropathy Methotrexate, buttermaker continuous churn, current use Seronegative rheumatoid arthritis Chronic pain of both ankles Pain in right hip Pain in both hands Bilateral wrist pain Bursitis of other bursa of both hips Pain in both feet CREATININE Routine 05/28/2023 2:55 PM EST Medication monitoring encounter High risk medication use Seropositive rheumatoid arthritis Inflammatory arthropathy Methotrexate, buttermaker continuous churn, current use Seronegative rheumatoid arthritis Chronic pain of both ankles Pain in right hip Pain in both hands Bilateral wrist pain Bursitis of other bursa of both hips Pain in both feet CBC (WITH DIFF) Routine 05/28/2023 2:55 PM EST Medication monitoring encounter High risk medication use Seropositive rheumatoid arthritis Inflammatory arthropathy Methotrexate, custodial, current use Seronegative rheumatoid arthritis Chronic pain of both ankles Pain in right hip Pain in both hands Bilateral wrist pain Bursitis of other bursa of both hips Pain in both feet HEPATIC FUNCTION PANEL Routine 05/28/2023 2:55 PM EST Medication monitoring encounter High risk medication use Seropositive rheumatoid arthritis Inflammatory arthropathy Methotrexate, buttermaker continuous churn, current use Seronegative rheumatoid arthritis Chronic pain of both ankles Pain in right hip Pain in both hands Bilateral wrist pain Bursitis of other bursa of both hips Pain in both feet documented in this encounter Results * (ABNORMAL) Differential, Automated (05/28/2023 2:55 PM EST) Neutrophil % 35.5 % [facility] Neutrophil Absolute 3.28 1.70 - 6.10 x10(3)/mc L [facility] Lymph % 53.1 % [facility] Lymphocytes Abs 4.9(H) 0.9 - 3.2 x10(3)/mc L [facility] Monocyte % 7.9 % [facility] Monocyte Abs 0.7 0.3 - 0.9 x10(3)/ L [facility] Eos % 2.7 % [facility] Eosinophils Abs 0.2 0.0 - 0.4 x10(3)/[facility] Basophil % 0.5 % [facility] Baso Absolute 0.0 0.0 - 0.1 x10(3)/ L [facility] Immature Gran % 0.30 % [facility] Comment: Immature granulocytes(IG's)percentage and absolute count will include metamyelocytes, myelocytes, and promyelocytes. Blood smears from CBCs yielding IG's will be scanned manually for concordance. If this scan disagrees with the automated IG or if promyelocytes are noted, a manual differential will be performed. Immature Gran Absolute 0.03 0.00 - 0.04 x10(3)/[facility] Blood 05/28/2023 2:55 PM EST 05/28/2023 3:15 PM EST Narrative Resulting Agency Comment Spec In Lab Markell Darling MD HEMATOLOGY ORDERABLE S Performing Organization Address City/State/[facility] Co de Phone Number [facility] [place] [address] * (ABNORMAL) Hemogram (05/28/2023 2:55 PM EST) White Blood Cell 9.2 4.0 - 9.5 x10(3)/ L [facility] Red Blood Cell 3.51(L) 4.00 - 5.21 x10(6)/ L [facility] Hemoglobin 11.6(L) 11.7 - 15.5 g/dL [facility] Hematocrit 33.9(L) 35.7 - 45.8 % [facility] Mean Cell Volume 96.6(H) 82.6 - 94.4 fL [facility] Mean Cell Hemoglobin 33.0(H) 27.1 - 32.0 pg [facility] Mean Cell Hemoglobin Concentration 34.2 31.7 - 35.0 g/dL [facility] Platelet 259 145 - 357 x10(3)/mc L [facility] RDW Standard Deviation 50.2(H) 37.0 - 46.0 fL [facility] RDW coefficient of variation 14.5(H) 11.5 - 14.1 % [facility] Mean Platelet Volume 9.3 7.6 - 12.9 fL [facility] NRBC% auto 0.0 % [facility] NRBC Absolute 0.000 0.000 - 0.000 x10(3)/mc L [facility] Blood 05/28/2023 2:55 PM EST 05/28/2023 3:15 PM EST Narrative Resulting Agency Comment Spec In Lab Markell Darling MD HEMATOLOGY ORDERABLE S Performing Organization Address [facility] Co de Phone Number [facility] [place] [address] * Creatinine (05/28/2023 2:55 PM EST) Creatinine 0.82 0.70 - 1.20 mg/dL [facility] Est Glomerular Filtration Rate 83 >=60 mL/min/1. 73 m?? [facility] Comment: This patient's estimated GFR was [...] and symptoms in addition to eGFR. Blood 05/28/2023 2:55 PM EST 05/28/2023 3:04 PM EST Narrative Resulting Agency Comment Spec In Lab Markell Darling MD CHEMISTRY ORDERABLES Performing Organization Address [facility] Co de Phone Number [facility] [place] [address] * Hepatic Function Panel (05/28/2023 2:55 PM EST) Protein, Total 7.2 6.1 - 8.0 g/dL [facility] Albumin 4.6 3.2 - 5.2 g/dL [facility] Aspartate Aminotransferase 13 0 - 30 unit/L [facility] Alanine Aminotransferase 11 0 - 30 unit/L [facility] Alkaline Phosphatase 66 35 - 105 unit/L [facility] Bilirubin, Total 0.3 0.2 - 1.3 mg/dL [facility] Bilirubin, Direct 0.1 0.0 - 0.3 mg/dL [facility] Blood 05/28/2023 2:55 PM EST 05/28/2023 3:04 PM EST Narrative Resulting Agency Comment Spec In Lab Mrakell Darling MD CHEMISTRY ORDERABLES Performing Organization Address City/State/[facility] Co de Phone Number [facility] [place] [address] documented in this encounter Visit Diagnoses Diagnosis Medication monitoring encounter Encounter for therapeutic drug monitoring High risk medication use Encounter for long-term (current) use of other medications Seropositive rheumatoid arthritis Rheumatoid arthritis Inflammatory arthropathy Arthropathy, unspecified, site unspecified Methotrexate, custodial, current use Encounter for long-term (current) use of other medications Seronegative rheumatoid arthritis Rheumatoid arthritis Chronic pain of both ankles Pain in right hip Pain in joint, pelvic region and thigh Pain in both hands Bilateral wrist pain Pain in joint, forearm Bursitis of other bursa of both hips Pain in both feet Pain in limb documented in this encounter Care Teams Stone Planer Relationship Specialty Start Date End Date Nidhi Conti PA [address] [place] [id number] PCP - General Family Medicine 06/11/20 documented as of this encounter
--- OUTSIDE RECORDS SUMMARY | 2023-11-15 02:25 | XMS_ITS | Encounter Summary ---
Author Organization [facility] [place] [address] Care Team Providers Care Field Artillery Operations Specialist Name Role Phone Nidhi Conti Primary Care Provider [phone] Encounter Details Date Type Department Care Team (Late st Contact Info) Description 08/13/2023 Refill [place] [address] Markell Darling MD [facility] [place] [address] Social History Tobacco Use Types Packs/Day Years [...] Type Associated Problems Recent Progress Patient-Stated? Author [facility] Medication Compliance and Understanding Patient Facing [...] on filedocumented in this encounter Care Teams Field Artillery Operations Specialist Relationship Specialty Start Date End Date Nidhi Conti PA [address] [place] [phone] PCP - General Family Medicine 06/11/20 documented as of this encounter
--- OUTSIDE RECORDS SUMMARY | 2023-11-15 02:25 | XMS_ITS | Encounter Summary ---
Author Organization [facility] [place] [address] Care Team Providers Care Micro Computer Specialist Name Role Phone Nidhi Conti Primary Care Provider Encounter Details Date Type Department Care Team (Latest Contact Info) Description 02/21/2023 Travel Social History Tobacco Use Types Packs/Day Years [...] Type Associated Problems Recent Progress Patient-Stated? Author [facility] Medication Compliance and Understanding Patient Facing [...] on filedocumented in this encounter Care Teams Micro Computer Specialist Relationship Specialty Start Date End Date Nidhi Conti PA [address] [place] [phone] PCP - General Family Medicine 06/11/20 documented as of this encounter
--- OUTSIDE RECORDS SUMMARY | 2023-11-15 02:25 | XMS_ITS | Encounter Summary ---
Author Organization [facility] [place] [address] Care Team Providers Care Healthcare Financial Analyst Name Role Phone Nidhi Conti Primary Care Provider [phone] Reason for Visit * Reason Comments Medication Refill Encounter Details Date Type Department Care Team (Late st Contact Info) Description 11/27/2022 [place] [address] Markell Darling MD [facility] [address] Medication monitoring encounter; High risk medication use; Seropositive rheumatoid arthritis; Inflammatory arthropathy; Methotrexate, shelter, current use; Seronegative rheumatoid arthritis; Chronic pain [...] Type Associated Problems Recent Progress Patient-Stated? Author [facility] Medication Compliance and Understanding Patient Facing Action Plan No Brooke Blanchard, [facility] Note: Patient's specific desired goal: Keyona Terry [...] Inflammatory arthropathy Arthropathy, unspecified, site unspecified Methotrexate, shelter, current use Encounter for long-term (current) use of other medications Seronegative rheumatoid arthritis Rheumatoid arthritis Chronic pain of both ankles Pain in right hip Pain in joint, pelvic region and thigh Pain in both hands Bilateral wrist pain Pain in joint, forearm Bursitis of other bursa of both hips Pain in both feet Pain in limb documented in this encounter Care Teams Healthcare Financial Analyst Relationship Specialty Start Date End Date Nidhi Conti PA [address] [place] [id number] PCP - General Family Medicine 06/11/20 documented as of this encounter
--- OUTSIDE RECORDS SUMMARY | 2023-11-15 02:25 | XMS_ITS | Encounter Summary ---
Author [facility] [place] [address] Care Team Providers Care Tobacco Drying Machine Operator Name Role Phone Nidhi Conti Primary Care Provider Encounter Details Date Type Department Care Team (Latest Contact Info) Description 10/11/2023 Travel Social History Tobacco Use Types Packs/Day [...] Type Associated Problems Recent Progress Patient-Stated? Author [facility] Medication Compliance and Understanding Patient Facing [...] on filedocumented in this encounter Care Teams Tobacco Drying Machine Operator Relationship Specialty Start Date End Date Nidhi Conti PA [address] [place] [id number] PCP - General Family Medicine 06/11/20 documented as of this encounter
--- OUTSIDE RECORDS SUMMARY | 2023-11-15 02:25 | XMS_ITS | Encounter Summary ---
Author Organization [facility] [place] [address] Care Team Providers Care Agricultural Engineering Technologist Name Role Phone Nidhi Conti Primary Care Provider [phone] Encounter Details Date Type Department Care Team (Latest Contact Info) Description 05/31/2023 3:00 PM EST TH Visit (TeleHealth) [place] [address] Markell Darling MD [facility] [place] [address] Seronegative rheumatoid arthritis; Bilateral wrist pain; Medication monitoring encounter; High risk medication use Social History Tobacco Use Types Packs/Day Years [...] as of this encounter Progress Notes * Markell Darling MD - 05/31/2023 3:00 PM EST This dictation platform is no longer active. Please use BuildMyMove. 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 abnormal wrist xray erosion verses a cyst MTX 8 tbs weekly and FA MTX has resulted in increased oral ulcer will increase FA to 5mg. Continue Current MTX 8 tabs weekly and more SE Increased oral ulcers with methotrexate HCQ SE - diarrhea She is on simvastatin Interval HX: Keyona Terry is a 57 y.o. C female who presents today for fu evaluation SPRA of bilateral hand pain and foot pain that is been going on for several years but been worse over the last year. She is doing better inregards to her joints. She is feelking better. Still occasionally gets pain in the hips and hands. She is doing her exercises at home. She continues on Mobic daily, Humira biweekly, MTX weekly and FA daily w/o complication or Ae or SEsuch as feeling blah, HE, cough, SOB, gi symptom, ulcers or nodules No swelling redness or warmth No morinng stiffness No weakness Denies fatigue, night sweats, weight loss, or swollen gland /LN. 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 Comments are only made for responses that are changed from previous, not discussed in HPI, or otherwise require clarification. Systemic Comments Generalized pain Fatigue/tiredness Fevers Chills Night sweats Recent weight loss Recent Weight gain Head and neck Headaches Neck pain/stiffness Lymphadenopathy Ocular erythema Xerophthalmia Gritty eyes Eye pain Photophobia Oral sores Xerostomia Jaw claudication Cardiopulmonary Chest discomfort Dyspnea Cough Hemoptysis Gastrointestinal Dysphagia Heartburn Nausea Emesis Abdominal pain Hematochezia Diarrhea Constipation Genitourinary Hematuria Dysuria Musculoskeletal Muscle weakness Myalgia Shoulder pain Raynaud's Neuropsychiatric Paresthesia Dysesthesia Dizziness/vertigo Anxiety Depression Cognitive problems Initial insomnia Night awakenings Nonrestorative sleep Dermatologic Xerosis cutis Photosensitivity Rash Physical exam NAD NCAT, nonicteric sclera, no Malar rash Neck full range of motion No increased work of breathing AO x3 Hands well-perfused Moving shoulders elbows wrists fingers can make a fist Able to get up out of chair from seated position 05/30/2023 3:38 PM myD-H RAPID-3 Responses RAPID-3 Function 0.33 RAPID-3 Pain 2.5 RADIP-3 Global 0 RAPID-3 Total Scores 2.83 (Remission) Assessment and Plan: Keyona Terry is a 57 y.o. female who presents today with a Seropositive Rheumatoid Arthritis - SPRA - Sero+ RA- Kim titer RF symmetric polyarthropathy of the hands feet elbows and wrists now describes with prolonged morning stiffness without active signs of synovitis but with high positive RF greater than 3 times upper limit of normal, ESR, albumin, platelets within normal limits with changes to the wrist. 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 Currently on methotrexate weekly and Fa daily Humira biweekly She has tapered off steroids She is on meloxicam Still in remssion Leukocytosis - resolved Very Mild macrocytic anemia - cold be 2/2 MTX will monitor - common allowed SE to MTX High risk medications- No SE/AE - no recurrent infections Patient was educated on the risks and benefits of anti-TNF alpha therapy to include, but not limited to, increased risk of infection, tuberculosis, reactivation hepatitis, reactivation ASHOK virus resulting in PML, demyelinating disease, autoimmune disease such as sle,or Psoriasis, CHF, possible lymphoma, and cytopenias. The patient was educated to hold the medication in the setting of infection andto seek care quickly. The patient was told to notify the clinic immediately of any planned surgeries so hold parameters can be provided. Benefits, risks and potential side effects of Methotrexate were discussed including fatigue, mouth sores, nausea, hair thinning, liver and bone marrow effects requiring periodic blood work. A rare allergic pulmonary reaction can also take place. If appropriate, avoidance of was discussed as methotrexate can cause anomalies or loss. The patient was advised to use effective methods of contraception while taking methotrexate, limit alcohol intake and hold medication for antibiotic therapy for an infection. The patient is aware to complete labs as requested, seek care for infection/febrile episodes and will discuss plans for surgery and with me. Labs every 3 months after the most recent No orders of the defined types were placed in this encounter. Return in about 3 months (around 08/29/2023) for Either In Person or Telehealth. > 38 minutes total today Markell Darling MD documented in this encounter Plan of Treatment Not on file documented as of this encounter Goals Goal Patient Goal Type Associated Problems Recent Progress Patient-Stated? Author [facility] Home Medication Compliance and Understanding Patient Facing Action Plan No Brooke Blanchard, [facility] Note: Patient's specific desired goal: Keyona Terry is hoping to have a decrease in her pain and morning stiffness by about 50%. Measured by: pain scale, how long her morning stiffness lasts Time-frame to meet goal: 3 to 6 months documented as of this encounter Visit Diagnoses Diagnosis Seronegative rheumatoid arthritis Rheumatoid arthritis Bilateral wrist pain Pain in joint, forearm Medication monitoring encounter Encounter for therapeutic drug monitoring High risk medication use Encounter for long-term (current) use of other medications documented in this encounter Care Teams Agricultural Engineering Technologist Relationship Specialty Start Date End Date Nidhi Conti PA [address] [place] [id number] PCP - General Family Medicine 06/11/20 documented as of this encounter
--- OUTSIDE RECORDS SUMMARY | 2023-11-15 02:25 | XMS_ITS | Encounter Summary ---
Author Organization [facility] [place] [address] Care Team Providers Care Head Custodian Name Role Phone Nidhi Conti Primary Care Provider [phone] Reason for Visit * Reason Comments Medication Refill Encounter Details Date Type Department Care Team (Late st Contact Info) Description 06/21/2023 Ref[place] [address] Markell Darling MD [facility] [place] [address] Medication monitoring encounter; High risk medication use; Seropositive rheumatoid arthritis; Inflammatory arthropathy; Methotrexate, half-way, current use; Seronegative rheumatoid arthritis; Chronic pain [...] Telephone Encounter - Jacki Olson RN - 06/22/2023 9:24 AM EDT Methotrexate Rx Refill : Last Labs: CBC, CMP or LFT within last 12 weeks YES [x] NO [] Last labs: 05/28/23 Last Appointment: 05/31/23 Methotrexate Dosage: 20 mg weekly Contacted patient to arrange labs: YES [x] NO [] Standing Orders in place: YES [x] NO [] Pended orders: YES [] NO [x] Sent to [place] to schedule: Yes [x] NO [] documented in this encounter Plan of Treatment Not on file documented as of this encounter Goals Goal Patient Goal Type Associated Problems Recent Progress Patient-Stated? Author Home Medication Compliance and Understanding Patient Facing Action Plan No Brooke Blanchard, [facility] Note: Patient's specific desired goal: [...] limb documented in this encounter Care Teams Head Custodian Relationship Specialty Start Date End Date Nidhi Conti PA [address] [address] PCP - General Family Medicine 06/11/20 documented as of this encounter
--- OUTSIDE RECORDS SUMMARY | 2023-11-15 02:25 | XMS_ITS | Encounter Summary ---
Author Organization [facility] [place] [address] Care Team Providers Care Cardiac Care Nurse Name Role Phone Nidhi Conti Primary Care Provider [phone] Reason for Visit * Reason Comments Medication Refill Encounter Details Date Type Department Care Team (Late st Contact Info) Description 03/18/2023 [place] [address] Markell Darling MD [facility] [place] [address] Medication monitoring encounter; High risk medication use; Seropositive rheumatoid arthritis; Inflammatory arthropathy; Methotrexate, mcfp, current use; Seronegative rheumatoid arthritis; Chronic pain [...] Type Associated Problems Recent Progress Patient-Stated? Author [facility] Medication Compliance and Understanding Patient Facing Action Plan No Brooke Blanchard, [facility] Note: Patient's specific desired goal: Keyona [...] Inflammatory arthropathy Arthropathy, unspecified, site unspecified Methotrexate, mcfp, current use Encounter for long-term (current) use of other medications Seronegative rheumatoid arthritis Rheumatoid arthritis Chronic pain of both ankles Pain in right hip Pain in joint, pelvic region and thigh Pain in both hands Bilateral wrist pain Pain in joint, forearm Bursitis of other bursa of both hips Pain in both feet Pain in limb documented in this encounter Care Teams Cardiac Care Nurse Relationship Specialty Start Date End Date Nidhi Conti PA [address] [place] [id number] PCP - General Family Medicine 06/11/20 documented as of this encounter
--- OUTSIDE RECORDS SUMMARY | 2023-11-15 02:25 | XMS_ITS | Encounter Summary ---
[place] [address] Care Team Providers Care Bath Steward Name Role Phone Nidhi Conti Primary Care Provider Encounter Details Date Type Department Care Team (Latest Contact Info) Description 02/23/2023 10:25 AM EST Laboratory Appointment Lab [address] [place] [id number] Medication monitoring encounter; High risk medication use; Seropositive rheumatoid arthritis; Inflammatory arthropathy; Methotrexate, firer helper, current use; Seronegative rheumatoid arthritis Social History [...] Type Associated Problems Recent Progress Patient-Stated? Author [facility] Medication Compliance and Understanding Patient Facing Action Plan No Brooke Blanchard, [facility] Note: Patient's specific desired goal: Keyona Terry is hoping to have a decrease in her pain and morning stiffness by about 50%. Measured by: pain scale, how long her morning stiffness lasts Time-frame to meet goal: 3 to 6 months documented as of this encounter Procedures Procedure Name Priority Date/Time Associated Diagnosis Comments CRP, ACUTE INFLAMMATION Routine 02/23/2023 9:52 AM EST Medication monitoring encounter High risk medication use Seropositive rheumatoid arthritis Inflammatory arthropathy Methotrexate, long-term, current use Seronegative rheumatoid arthritis BILIRUBIN, DIRECT Routine 02/23/2023 9:5 2 AM EST HEMOGRAM Routine 02/23/2023 9:52 AM EST Medication monitoring encounter High risk medication use Seropositive rheumatoid arthritis Inflammatory arthropathy Methotrexate, firer helper, current use Seronegative rheumatoid arthritis DIFFERENTIAL, AUTOMATED Routine 02/23/2023 9:52 AM EST Medication monitoring encounter High risk medication use Seropositive rheumatoid arthritis Inflammatory arthropathy Methotrexate, firer helper, current use Seronegative rheumatoid arthritis SEDIMENTATION RATE Routine 02/23/2023 9: 52 AM EST Medication monitoring encounter High risk medication use Seropositive rheumatoid arthritis Inflammatory arthropathy Methotrexate, firer helper, current use Seronegative rheumatoid arthritis CBC (WITH DIFF) Routine 02/23/2023 9:52 AM EST Medication monitoring encounter High risk medication use Seropositive rheumatoid arthritis Inflammatory arthropathy Methotrexate, long-term, current use Seronegative rheumatoid arthritis COMPREHENSIVE METABOLIC PANEL Routine 02/23/2023 9:52 AM EST Medication monitoring encounter High risk medication use Seropositive rheumatoid arthritis Inflammatory arthropathy Methotrexate, firer helper, current use Seronegative rheumatoid arthritis documented in this encounter Results * Bilirubin, Direct (02/23/2023 9:52 AM EST) [facility] Bilirubin, Direct 0.1 0.0 - 0.3 mg/dL [facility] Blood 02/23/2023 9:52 AM EST 02/23/2023 10:07 AM EST Narrative Resulting Agency Comment Spec In Lab Markell Darling MD CHEMISTRY ORDERABLES [facility] [place] [address] * Differential, Automated (02/23/2023 9:52 AM EST) Pathologist [facility] Neutrophil % 54.3 % [facility] Neutrophil Absolute 4.41 1.70 - 6.10 x10(3)/mcL [facility] Lymph % 37.4 % [facility] Lymphocytes Abs 3.0 0.9 - 3.2 x10(3)/[facility] Monocyte % 5.7 % [facility] Monocyte Abs 0.5 0.3 - 0.9 x10(3)/[facility] Eos % 1.6 % [facility] Eosinophils Abs 0.1 0.0 - 0.4 x10(3)/[facility] Basophil % 0.6 % [facility] Baso Absolute 0.0 0.0 - 0.1 x10(3)/[facility] Immature Gran % 0.40 % [facility] Comment: Immature granulocytes(IG's)percentage and absolute count will include metamyelocytes, myelocytes, and promyelocytes. Blood smears from CBCs yielding IG's will be scanned manually for concordance. If this scan disagrees with the automated IG or if promyelocytes are noted, a manual differential will be performed. Immature Gran Absolute 0.03 0.00 - 0.04 x10(3)/[facility] Blood 02/23/2023 9:52 AM EST 02/23/2023 10:07 AM EST Narrative Resulting Agency Comment Spec In Lab Markell Darling MD HEMATOLOGY ORDERABLE S Performing Organization Address City/State/[facility] Co de Phone Number [facility] [place] [address] * (ABNORMAL) Hemogram (02/23/2023 9:52 AM EST) White Blood Cell 8.1 4.0 - 9.5 x10(3)/mc L [facility] Red Blood Cell 3.78(L) 4.00 - 5.21 x10(6)/mc L [facility] Hemoglobin 12.5 11.7 - 15.5 g/dL [facility] Hematocrit 36.8 35.7 - 45.8 % [facility] Mean Cell Volume 97.4(H) 82.6 - 94.4 fL [facility] Mean Cell Hemoglobin 33.1(H) 27.1 - 32.0 pg [facility] Mean Cell Hemoglobin Concentration 34.0 31.7 - 35.0 g/dL [facility] Platelet 329 145 - 357 x10(3)/mc L [facility] RDW Standard Deviation 51.1(H) 37.0 - 46.0 fL [facility] RDW coefficient of variation 14.5(H) 11.5 - 14.1 % [facility] Mean Platelet Volume 9.0 7.6 - 12.9 fL [facility] NRBC% auto 0.0 % [facility] NRBC Absolute 0.000 0.000 - 0.000 x10(3)/mc L [facility] Blood 02/23/2023 9:52 AM EST 02/23/2023 10:07 AM EST Narrative Resulting Agency Comment Spec In Lab Markell Darling MD HEMATOLOGY ORDERABLE S Performing Organization Address [facility] Co de Phone Number [facility] [place] [address] * (ABNORMAL) CRP, acute inflammation (02/23/2023 9:52 AM EST) C-Reactive Protein 5.2(H) <=4.9 mg/L [facility] Blood 02/23/2023 9:52 AM EST 02/23/2023 10:07 AM EST Narrative Resulting Agency Comment Spec In Lab Markell Darling MD CHEMISTRY ORDERABLES Performing Organization Address [facility] de Phone Number [facility] [place] [address] * Sedimentation rate (02/23/2023 9:52 AM EST) Sedimentation Rate Automated 31 2 - 39 mm/hr [facility] Comment: Effective March 15, 2019 new capillary photometric technology has resulted in a change in reference ranges. It is recommended that each ESR result be reviewed with its own age appropriate reference range. Blood 02/23/2023 9:52 AM EST 02/23/2023 10:07 AM EST Narrative Resulting Agency Comment Spec In Lab Markell Darling MD HEMATOLOGY ORDERABLE S Performing Organization Address City/[facility]/ZIP Co de Phone Number [facility] [place] [address] * Comprehensive metabolic panel (non-fasting) (02/23/2023 9:52 AM EST) Glucose 96 65 - 199 mg/dL [facility] Comment:Diabetes: >=200 mg/d L plus symptoms Blood Urea Nitrogen 12 8 - 18 mg/dL [facility] Creatinine 0.82 0.70 - 1.20 mg/dL [facility] Sodium 136 135 - 145 mmol/L [facility] Potassium 4.7 3.5 - 5.0 mmol/L [facility] Comment: Please note: ??Patients with WBC >100,000 may have falsely elevated Potassium levels. ??For accurate Potassium quantification in these patients send serum separator tube (gold top) for subsequent determinations. ??Contact the Clinical Chemistry Laboratory if there are any questions. Chloride 102 98 - 107 mmol/L [facility] Carbon Dioxide 24 22 - 31 mmol/L [facility] Anion Gap 10 5 - 15 mmol/L [facility] Calcium 9.1 8.5 - 10.5 mg/dL [facility] Protein, Total 6.7 6.1 - 8.0 g/dL [facility] Albumin 4.4 3.2 - 5.2 g/dL [facility] Aspartate Aminotransferase 13 0 - 30 unit/L [facility] Alanine Aminotransferase 15 0 - 30 unit/L [facility] Alkaline Phosphatase 65 35 - 105 unit/L [facility] Bilirubin, Total 0.3 0.2 - 1.3 mg/dL [facility] Est Glomerular Filtration Rate 83 >=60 mL/min/1. 73 m?? [facility] Comment: This patient's estimated GFR [...] Darling MD CHEMISTRY ORDERABLES Performing Organization Address City/State/[facility] Co de Phone Number [facility] [place] [address] documented in this encounter Visit Diagnoses Diagnosis Medication monitoring encounter Encounter for therapeutic drug monitoring High risk medication use Encounter for long-term (current) use of other medications Seropositive rheumatoid arthritis Rheumatoid arthritis Inflammatory arthropathy Arthropathy, unspecified, site unspecified Methotrexate, firer helper, current use Encounter for long-term (current) use of other medications Seronegative rheumatoid arthritis Rheumatoid arthritis documented in this encounter Care Teams Bath Steward Relationship Specialty Start Date End Date Nidhi Conti PA [address] [place] [id number] PCP - General Family Medicine 06/11/20 documented as of this encounter
--- OUTSIDE RECORDS SUMMARY | 2023-11-15 02:25 | XMS_ITS | Encounter Summary ---
Author Organization [facility] [place] [address] Care Team Providers Care Gauge And Instrument Inspector Name Role Phone Nidhi Conti Primary Care Provider [phone] Reason for Referral * Physical Therapy (Routine) - Closed Specialty Diagnoses / Procedures Referred By Contac t Referred To Contact Physical Therapy Diagnoses Chronic right SI joint pain Chronic right hip pain Markell Darling MD [facility] [place] [address] Referral ID Status Reason Start Date Expiration Date V isits Requested Visits Authorized [id number] Closed Evaluate and Treat 02/23/2023 08/22/2023 12 12 Encounter Details Date Type Department Care Team (Late st Contact Info) Description 02/23/2023 11:00 AM EST Office [place] [address] Markell Darling MD [facility] [place] [address] Greater trochanteric pain syndrome of right lower extremity; Chronic right SI joint pain; Chronic right hip pain; Medication monitoring encounter; High risk medication use; Seropositive rheumatoid arthritis; Inflammatory arthropathy; Methotrexate, correction, current use; Pain in right hip Social History Tobacco Use Types Packs/Day Years Used Date Smoking Tobacco: Every Day Cigarettes Smokeless Tobacco: Never Alcohol Use Standard Drinks/Week Comments Not Currently 0 (1 standard drink = 0.6 oz pur e alcohol) Sex and Gender Information Value Date Recorded Sex Assigned at Not on file Gender Identity Not on file Sexual Orientation Not on file documented as of this encounter Last Filed Vital Signs Vital Sign Reading Time Taken Comments Blood Pressure 128/60 02/23/2023 10:34 AM EST Pulse 73 02/23/2023 10:34 AM EST Temperature 36.4 ??C (97.5 ??F) 02/23/2023 10:[address] Respiratory Rate 20 02/23/2023 10:34 AM EST Oxygen Saturation 97% 02/23/2023 10:34 AM EST Inhaled Oxygen Concentration - - Weight 90.8 kg (200 lb 3.2 oz) 02/23/2023 10:34 AM EST Height 162.6 cm (5' 4) 02/23/2023 10:34 AM EST Body Mass Index 34.36 02/23/2023 10:34 AM EST documented in this encounter Progress Notes * Markell Darling MD - 02/23/2023 11:00 AM EST Rheumatology Follow Up phone note COVID RF [...] but been worse over the last year. Her small joint are doing well. She has right hip and lower back pain. Not interested in CSI. She reorts she has issues going up and down staris do the pain. 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 She continues on Mobic daily, Humira biweekly, MTX weekly and FA daily w/o complication or Ae or SE She has had pt before for trochanteric syndrome and it has emily effective. But she stop doing them until she symptosm arise. . No swelling redness or warmth No morinng [...] Dermatologic Xerosis cutis Photosensitivity Rash Physical exam Physical Exam: BP 128/60 (BP Location (NBP): Left arm, Patient Position: Sitting, BP Cuff Sizes: Large Adult (32-43 cm)) Pulse 73 Temp 36.4 ??C (97.5 ??F) (Temporal) Resp 20 Ht 162.6 cm (5' 4) Wt 90.8 kg(200 lb 3.2 oz) SpO2 97% BMI 34.36 kg/m?? General: NAD HEENT: Mucous membranes are moist, no oral mucosal ulcerations Neck: Supple, no lymphadenopathy, full range of motion. Cardiovascular: RR, (-)murmurs, rubs, or gallops. Lungs: Clear to auscultation bilaterally. (-)R/R/W Abdomen: Soft, non tender, non distended, + bowel sounds, no hepatosplenomegaly. Neuro: Alert and oriented x3. Cranial nerves II through XII grossly intact. - Strength 5/5 throughout, Skin: (-)ulcers, (-)rash \ Vascular: Pulses are equal in all extremities. MSK Back: Non tender over the spine and costovertebral angles bilaterally. (-)Gilbert Extremities Shoulders: FROM, non-tender to palpation Elbows:FROM, (-)pain, (-)nodules Wrists: FROM, no swelling, non-tender Hands: No synovitis, no MCP compression tenderness, full claw and fist Hips: FROM, (-) gilbert TTP trochanteric region. Knees: (-)effusions, non-tender ROM Ankles: FROM, non-tender, no swelling Feet: no MTP compression tenderness Spine, shoulders, elbows, wrists, fingers, hips, knees and ankles; no active swelling, tenderness or synovitis at any joint. No soft tissue nodules. 02/21/2023 7:38 AM myD-H RAPID-3 Responses RAPID-3 Function 0.67 RAPID-3 Pain 2 RADIP-3 Global 8.5 RAPID-3 Total Scores 11.17 (Moderate) Assessment and Plan: Keyona Terry is a [...] on meloxicam Still in remssion Leukocytosis - with lymphocytosis x 2 - resolved CRP elevation likely nonsignificant likely due to weight and sex Trochanteric syndrome to physical therapy placed to discussed corticosteroid injection has not we consider in the future Remind of the importance of smoking cessation High risk medications- No SE/AE - no [...] every 3 months after the most recent Orders Placed This Encounter Procedures Referral to Physical Therapy Return in about 3 months (around 05/26/2023) for Telehealth, Either In Person or Telehealth. > 43 minutes total today Markell Darling MD documented in this encounter Plan of Treatment Scheduled Referrals Name Type Priority Associated Diagnoses Orde r Schedule Referral to Physical Therapy Outpatient Referral Routine Chronic right SI joint pain Chronic right hip pain Ordered: 02/23/2023 documented as of this encounter Goals Goal Patient Goal Type Associated Problems Recent Progress Patient-Stated? Author [facility] Home Medication Compliance and Understanding Patient Facing Action Plan No Brooke Blanchard, [facility] Note: Patient's specific desired goal: Keyona Terry is hoping to have a decrease in her pain and morning stiffness by about 50%. Measured by: pain scale, how long her morning stiffness lasts Time-frame to meet goal: 3 to 6 months documented as of this encounter Visit Diagnoses Diagnosis Greater trochanteric pain syndrome of right lower extremity Chronic right SI joint pain Disorders of sacrum Chronic right hip pain Pain in joint, pelvic region and thigh Medication monitoring encounter Encounter for therapeutic drug monitoring High risk medication use Encounter for long-term (current) use of other medications Seropositive rheumatoid arthritis Rheumatoid arthritis Inflammatory arthropathy Arthropathy, unspecified, site unspecified Methotrexate, long wall shear operator, current use Encounter for long-term (current) use of other medications Pain in right hip Pain in joint, pelvic region and thigh documented in this encounter Care Teams Gauge And Instrument Inspector Relationship Specialty Start Date End Date Nidhi Conti PA [address] [place] [id number] PCP - General Family Medicine 06/11/20 documented as of this encounter
--- OUTSIDE RECORDS SUMMARY | 2023-11-15 02:25 | XMS_ITS | Encounter Summary ---
[place] [address] Care Team Providers Care Keyboard Instrument Repairer Name Role Phone Nidhi Conti Primary Care Provider [phone] Reason for Visit * Reason Comments Specialty Pharmacy Review Adalimumab (Hu dinorah) Pen 40mg/0.4mL Encounter Details Date Type Department Care Team (Late st Contact Info) Description 12/24/2022 Specialty [place] [address] Gracy James, [facility] Social History Tobacco Use Types [...] encounter Progress Notes * Gracy James - 12/24/2022 9:30 AM EDT The [facility] has completed a benefits investigation for Keyona Terrazaso to review theireligibility to fill at [facility]. Per patient's medication list they are prescribed Humira and the medication is not able to be filled at the [facility]. At this time insurance mandates this medication must be filled through [facility]. documented in this encounter Plan of Treatment Not on file documented as of this encounter Goals Goal Patient Goal Type Associated Problems Recent Progress Patient-Stated? Author DH Home Medication Compliance and Understanding Patient Facing Action Plan No Brooke Blanchard, [facility] Note: Patient's specific desired goal: Keyona Terry is hoping to have a decrease in her pain and morning stiffness by about 50%. Measured by: pain scale, how long her morning stiffness lasts Time-frame to meet goal: 3 to 6 months documented as of this encounter Visit Diagnoses Not on filedocumented in this encounter Care Teams Keyboard Instrument Repairer Relationship Specialty Start Date End Date Nidhi Conti PA [address] [place] [id number] PCP - General Family Medicine 06/11/20 documented as of this encounter
--- OUTSIDE RECORDS SUMMARY | 2023-11-15 02:25 | XMS_ITS | Encounter Summary ---
Author Organization [facility] [place] [address] Care Team Providers Care Garage Door Installer Name Role Phone Nidhi Conti Primary Care Provider Encounter Details Date Type Department Care Team (Latest Contact Info) Description 10/19/2022 3:00 PM EDT TH Visit (TeleHealth) [place] [id number] Markell Darling MD [facility] [place] [address] Medication monitoring encounter; High risk medication use; Seropositive rheumatoid arthritis; Methotrexate, fpc, current use; Inflammatory arthropathy; Encounter for monitoring of methotrexate therapy; Encounter for monitoring of adalimumab therapy; Elevated C-reactive protein (CRP) Social History Tobacco Use Types Packs/Day Years [...] Progress Notes * Markell Darling MD - 10/19/2022 3:00 PM EDT Rheumatology Follow Up phone note COVID RF [...] simvastatin Interval HX: Keyona Terry is a 56 y.o. C female who presents today for fu evaluation SPRA of bilateral hand pain and foot pain that is been going on for several years but been worse over the last year. She has been back up to 8 tabs of methotrexate weekly Fa daily She has had no issues with the joint Dz activity zero No swelling redness or warmth No morinng stiffness No weakness Denies fatigue night sweats weight loss, or swollen gland /LN. Elevated inflammatory markers no association with her symptoms 'She feels great Sphe has a new job Review of Systems Rheumatic history (x) means [...] up out of chair from seated position 10/16/2022 7:17 PM myD-H RAPID-3 Responses RAPID-3 Function 0.67 RAPID-3 Pain 2 RADIP-3 Global 0.5 RAPID-3 Total Scores 3.17 (Low) Assessment and Plan: Keyona Terry is a 56 y.o. female who presents today with a [...] SPRA -seropositive rheumatoid arthritis tests Sero+ RA Patient reports disease activity is zero Currently on methotrexate weekly and Fa daily Humira biweekly She has tapered off steroids She is on meloxicam -remission Leukocytosis - with lymphocytosis x 2 - resolved Remind of the importance of smoking cessation [...] placed in this encounter. Return in about 4 months (around 02/19/2023) for In Person. > 33 minutes total today Markell Darling MD documented in this encounter Plan of Treatment Not on file documented as of this encounter Goals Goal Patient Goal Type Associated Problems Recent Progress Patient-Stated? Author DH Home Medication Compliance and Understanding Patient Facing Action Plan No Brooke Blanchard [facility] Note: Patient's specific desired goal: [...] other medications Seropositive rheumatoid arthritis Rheumatoid arthritis Methotrexate, tank terminal gauger, current use Encounter for long-term (current) use of other medications Inflammatory arthropathy Arthropathy, unspecified, site unspecified Encounter for monitoring of methotrexate therapy Encounter for monitoring of adalimumab therapy Elevated C-reactive protein (CRP) documented in this encounter Care Teams Garage Door Installer Relationship Specialty Start Date End Date Nidhi Conti PA [address] [place] [id number] PCP - General Family Medicine 06/11/20 documented as of this encounter
--- OUTSIDE RECORDS SUMMARY | 2023-11-15 02:25 | XMS_ITS | Encounter Summary ---
Author Organization [place] [address] Care Team Providers Care Bird Cage Assembler Name Role Phone Nidhi Conti Primary Care Provider Encounter Details Date Type Department Care Team (Latest Contact Info) Description 10/17/2022 Travel Social History Tobacco Use Types Packs/Day [...] Type Associated Problems Recent Progress Patient-Stated? Author [facility] Medication Compliance and Understanding Patient Facing Action Plan No Brooke Blanchard, [facility] Note: Patient's specific desired goal: Keyona Terry is hoping to have a decrease in her pain and morning stiffness by about 50%. Measured by: pain scale, how long her morning stiffness lasts Time-frame to meet goal: 3 to 6 months documented as of this encounter Visit Diagnoses Not on filedocumented in this encounter Care Teams Bird Cage Assembler Relationship Specialty Start Date End Date Nidhi Conti PA [address] [place] [id number] PCP - General Family Medicine 06/11/20 documented as of this encounter
--- OUTSIDE RECORDS SUMMARY | 2023-11-15 02:25 | XMS_ITS | Encounter Summary ---
[place] [address] Care Team Providers Care Rn Travel Name Role Phone Nidhi Conti Primary Care Provider [phone] Reason for Visit * Reason Comments Specialty Pharmacy Review Adalimumab (Hu dinorah) Pen 40mg/0.4mL Encounter Details Date Type Department Care Team (Late st Contact Info) Description 10/19/2022 Specialty Pharm[place] [address] Gracy James, [facility] Social History Tobacco Use Types Packs/Day [...] encounter Progress Notes * Gracy James - 10/19/2022 11:59 PM EDT The [facility] has completed a benefits investigation for Keyona Terry to review theireligibility to fill at [facility]. Per patient's medication list they are prescribed Humira and the medication is not able to be filled at the [facility]. Keyona Terry must fill with [facility] under current insurance plan's mandate. documented in this encounter Plan of Treatment Not on file documented as of this encounter Goals Goal Patient Goal Type Associated Problems Recent Progress Patient-Stated? Author DH Home Medication Compliance and Understanding Patient Facing Action Plan No Brooke Blanchard, [facility] Note: Patient's specific desired goal: Keyona Terry is hoping to have a decrease in her pain and morning stiffness by about 50%. Measured by: pain scale, how long her morning stiffness lasts Time-frame to meet goal: 3 to 6 months documented as of this encounter Visit Diagnoses Not on filedocumented in this encounter Care Teams Rn Travel Relationship Specialty Start Date End Date Nidhi Conti PA [address] [place] [phone] PCP - General Family Medicine 06/11/20 documented as of this encounter
--- OUTSIDE RECORDS SUMMARY | 2023-11-15 02:25 | XMS_ITS | Encounter Summary ---
[facility] [place] [address] Care Team Providers Care Automotive Exhaust Emissions Technician Name Role Phone Nidhi Conti Primary Care Provider [phone] Encounter Details Date Type Department Care Team (Latest Contact Info) Description 10/10/2023 Travel Social History Tobacco Use Types Packs/Day [...] Facing Action Plan No Brooke Blanchard, [facility] Note: Patient's specific desired goal: Keyona Terry is hoping to have a decrease in her pain and morning stiffness by about 50%. Measured by: pain scale, how long her morning stiffness lasts Time-frame to meet goal: 3 to 6 months documented as of this encounter Visit Diagnoses Not on filedocumented in this encounter Care Teams Automotive Exhaust Emissions Technician Relationship Specialty Start Date End Date Nidhi Conti PA [address] [place] [id number] PCP - General Family Medicine 06/11/20 documented as of this encounter
--- OUTSIDE RECORDS SUMMARY | 2023-11-15 02:25 | XMS_ITS | Encounter Summary ---
[place] [address] Care Team Providers Care Diamond Saw Operator Name Role Phone Nidhi Conti Primary Care Provider [phone] Encounter Details Date Type Department Care Team (Latest Contact Info) Description 10/11/2023 9:45 AM EDT Laboratory Appointment Lab [place] [id number] Medication monitoring encounter; High risk medication use; Seropositive rheumatoid arthritis; Inflammatory arthropathy; Methotrexate, terminal operations supervisor, current use; Seronegative rheumatoid arthritis; Chronic pain [...] Type Associated Problems Recent Progress Patient-Stated? Author [facility] Medication Compliance and Understanding Patient Facing Action Plan Brooke Wilder, [facility] Note: Patient's specific desired goal: Keyona Terry is hoping to have a decrease in her pain and morning stiffness by about 50%. Measured by: pain scale, how long her morning stiffness lasts Time-frame to meet goal: 3 to 6 months documented as of this encounter Procedures Procedure Name Priority Date/Time Associated Diagnosis Comments HEMOGRAM Routine 10/11/2023 9:41 AM EDT Medication monitoring encounter High risk medication use Seropositive rheumatoid arthritis Inflammatory arthropathy Methotrexate, jail, current use Seronegative rheumatoid arthritis Chronic pain of both ankles Pain in right hip Pain in both hands Bilateral wrist pain Bursitis of other bursa of both hips Pain in both feet DIFFERENTIAL, AUTOMATED Routine 10/11/2023 9:41 AM EDT Medication monitoring encounter High risk medication use Seropositive rheumatoid arthritis Inflammatory arthropathy Methotrexate, terminal operations supervisor, current use Seronegative rheumatoid arthritis Chronic pain of both ankles Pain in right hip Pain in both hands Bilateral wrist pain Bursitis of other bursa of both hips Pain in both feet CREATININE Routine 10/11/2023 9:41 AM EDT CBC (WITH DIFF) Routine 10/11/2023 9:41 AM EDT Medication monitoring encounter High risk medication use Seropositive rheumatoid arthritis Inflammatory arthropathy Methotrexate, terminal operations supervisor, current use Seronegative rheumatoid arthritis Chronic pain of both ankles Pain in right hip Pain in both hands Bilateral wrist pain Bursitis of other bursa of both hips Pain in both feet HEPATIC FUNCTION PANEL Routine 10/11/2023 9:41 AM EDT Medication monitoring encounter High risk medication use Seropositive rheumatoid arthritis Inflammatory arthropathy Methotrexate, terminal operations supervisor, current use Seronegative rheumatoid arthritis Chronic pain of both ankles Pain in right hip Pain in both hands Bilateral wrist pain Bursitis of other bursa of both hips Pain in both feet documented in this encounter Results * Creatinine (10/11/2023 9:41 AM EDT) Creatinine 0.79 0.70 - 1.20 mg/dL [facility] Est Glomerular Filtration Rate 87 >=60 mL/min/1. 73 m?? [facility] Comment: This patient's estimated GFR [...] In Lab Markell Darling MD CHEMISTRY ORDERABLES [facility] [place] [address] * (ABNORMAL) Differential, Automated (10/11/2023 9:41 AM EDT) Neutrophil % 61.3 % [facility] Neutrophil Absolute 6.78(H) 1.70 - 6.10 x10(3)/mc L [facility] Lymph % 29.9 % [facility] Lymphocytes Abs 3.3(H) 0.9 - 3.2 x10(3)/mc L [facility] Monocyte % 6.7 % [facility] Monocyte Abs 0.7 0.3 - 0.9 x10(3)/mc L [facility] Eos % 1.3 % [facility] Eosinophils Abs 0.1 0.0 - 0.4 x10(3)/mc L [facility] Basophil % 0.5 % [facility] Baso Absolute 0.1 0.0 - 0.1 x10(3)/mc L [facility] Immature Gran % 0.30 % [facility] Comment: Immature granulocytes(IG's)percentage and absolute count will include metamyelocytes, myelocytes, and promyelocytes. Blood smears from CBCs yielding IG's will be scanned manually for concordance. If this scan disagrees with the automated IG or if promyelocytes are noted, a manual differential will be performed. Immature Gran Absolute 0.03 0.00 - 0.04 x10(3)/mc L [facility] Blood 10/11/2023 9:41 AM EDT 10/11/2023 10:04 AM EDT Narrative Resulting Agency Comment Spec In Lab Markell Darling MD HEMATOLOGY ORDERABLE S [facility] [place] [address] * (ABNORMAL) Hemogram (10/11/2023 9:41 AM EDT) White Blood Cell 11.1(H) 4.0 - 9.5 x10(3)/mc L [facility] Red Blood Cell 3.87(L) 4.00 - 5.21 x10(6)/mc L [facility] Hemoglobin 12.8 11.7 - 15.5 g/dL [facility] Hematocrit 37.2 35.7 - 45.8 % [facility] Mean Cell Volume 96.1(H) 82.6 - 94.[address] [facility] Mean Cell Hemoglobin 33.1(H) 27.1 - 32.[address] [facility] Mean Cell Hemoglobin Concentration 34.4 31.7 - 35.0 g/dL [facility] Platelet 288 145 - 357 x10(3)/mc L [facility] RDW Standard Deviation 50.8(H) 37.0 - 46.[address] [facility] RDW coefficient of variation 14.6(H) 11.5 - 14.1 % [facility] Mean Platelet Volume 9.3 7.6 - 12.[address] [facility] NRBC% auto 0.0 % [facility] NRBC Absolute 0.000 0.000 - 0.000 x10(3)/mc L [facility] Blood 10/11/2023 9:41 AM EDT 10/11/2023 10:04 AM EDT Narrative Resulting Agency Comment Spec In Lab Markell Darling MD HEMATOLOGY ORDERABLE S Performing Organization Address [facility] Co de Phone Number [facility] [place] [address] * Hepatic Function Panel (10/11/2023 9:41 AM EDT) Protein, Total 6.9 6.1 - 8.0 g/dL [facility] Albumin 4.4 3.2 - 5.2 g/dL [facility] Aspartate Aminotransferase 10 0 - 30 unit/L [facility] Alanine Aminotransferase 12 0 - 30 unit/L [facility] Alkaline Phosphatase 68 35 - 105 unit/L [facility] Bilirubin, Total 0.3 0.2 - 1.3 mg/dL [facility] Bilirubin, Direct 0.1 0.0 - 0.3 mg/dL [facility] Blood 10/11/2023 9:41 AM EDT 10/11/2023 10:04 AM EDT Narrative Resulting Agency Comment Spec In Lab Markell Darling MD CHEMISTRY ORDERABLES Performing Organization Address [facility] Co de Phone Number [facility] [place] [address] documented in this encounter Visit Diagnoses Diagnosis Medication monitoring encounter Encounter for therapeutic drug monitoring High risk medication use Encounter for long-term (current) use of other medications Seropositive rheumatoid arthritis Rheumatoid arthritis Inflammatory arthropathy Arthropathy, unspecified, site unspecified Methotrexate, jail, current use Encounter for long-term (current) use of other medications Seronegative rheumatoid arthritis Rheumatoid arthritis Chronic pain of both ankles Pain in right hip Pain in joint, pelvic region and thigh Pain in both hands Bilateral wrist pain Pain in joint, forearm Bursitis of other bursa of both hips Pain in both feet Pain in limb documented in this encounter Care Teams Diamond Saw Operator Relationship Specialty Start Date End Date Nidhi Conti PA [address] [address] PCP - General Family Medicine 06/11/20 documented as of this encounter
--- OUTSIDE RECORDS SUMMARY | 2023-11-15 02:25 | XMS_ITS | Encounter Summary ---
Author Organization [facility] [place] [address] Care Team Providers Care Traffic Rate Clerk Name Role Phone Nidhi Conti Primary Care Provider [phone] Reason for Visit * Reason Comments Medication Refill Encounter Details Date Type Department Care Team (Late st Contact Info) Description 02/16/2023 Ref[place] [address] Markell Darling MD [facility] [place] [address] Medication monitoring encounter; High risk medication use; Seropositive rheumatoid arthritis; Inflammatory arthropathy; Methotrexate, residential, current use; Seronegative rheumatoid arthritis; Chronic pain [...] Type Associated Problems Recent Progress Patient-Stated? Author [facility] Medication Compliance and Understanding Patient Facing Action Plan No Brooke Blanchard, [facility] Note: Patient's specific desired goal: Keyona Terry [...] Inflammatory arthropathy Arthropathy, unspecified, site unspecified Methotrexate, residential, current use Encounter for long-term (current) use of other medications Seronegative rheumatoid arthritis Rheumatoid arthritis Chronic pain of both ankles Pain in right hip Pain in joint, pelvic region and thigh Pain in both hands Bilateral wrist pain Pain in joint, forearm Bursitis of other bursa of both hips Pain in both feet Pain in limb documented in this encounter Care Teams Traffic Rate Clerk Relationship Specialty Start Date End Date Nidhi Conti PA [address] [place] [phone] PCP - General Family Medicine 06/11/20 documented as of this encounter
--- OUTSIDE RECORDS SUMMARY | 2023-11-15 02:25 | XMS_ITS | Encounter Summary ---
Author Organization [facility] [place] [address] Care Team Providers Care Adult Education Teacher Name Role Phone Nidhi Conti Primary Care Provider [phone] Reason for Visit * Reason Comments Medication Refill Encounter Details Date Type Department Care Team (Late st Contact Info) Description 11/25/2022 Ref[place] [address] Markell Darling MD [facility] [place] [address] Medication monitoring encounter; High risk medication use; Seropositive rheumatoid arthritis; Inflammatory arthropathy; Methotrexate, longterm, current use; Seronegative rheumatoid arthritis; Chronic pain [...] Associated Problems Recent Progress Patient-Stated? Author [facility] Medication Compliance and Understanding Patient Facing [...] Inflammatory arthropathy Arthropathy, unspecified, site unspecified Methotrexate, longterm, current use Encounter for long-term (current) use of other medications Seronegative rheumatoid arthritis Rheumatoid arthritis Chronic pain of both ankles Pain in right hip Pain in joint, pelvic region and thigh Pain in both hands Bilateral wrist pain Pain in joint, forearm Bursitis of other bursa of both hips Pain in both feet Pain in limb documented in this encounter Care Teams Adult Education Teacher Relationship Specialty Start Date End Date Nidhi Conti PA [address] [place] [phone] PCP - General Family Medicine 06/11/20 documented as of this encounter
--- OUTSIDE RECORDS SUMMARY | 2023-11-15 02:25 | XMS_ITS | Encounter Summary ---
Author Organization [place] [address] Care Team Providers Care Scientific Research Manager Name Role Phone Nidhi Conti Primary Care Provider Encounter Details Date Type Department Care Team (Latest Contact Info) Description 05/28/2023 Travel Social History Tobacco Use Types Packs/Day [...] Type Associated Problems Recent Progress Patient-Stated? Author [facility] Medication Compliance and Understanding Patient Facing Action Plan No Brooke Blanchard, [facility] Note: Patient's specific desired goal: Keyona Terry is hoping to have a decrease in her pain and morning stiffness by about 50%. Measured by: pain scale, how long her morning stiffness lasts Time-frame to meet goal: 3 to 6 months documented as of this encounter Visit Diagnoses Not on filedocumented in this encounter Care Teams Scientific Research Manager Relationship Specialty Start Date End Date Nidhi Conti PA [address] [place] [phone] PCP - General Family Medicine 06/11/20 documented as of this encounter
--- OUTSIDE RECORDS SUMMARY | 2023-11-15 02:25 | XMS_ITS | Encounter Summary ---
[place] [address] Care Team Providers Care Skidder Driver Name Role Phone Nidhi Conti Primary Care Provider [phone] Encounter Details Date Type Department Care Team (Late st Contact Info) Description 06/23/2023 Telephone [place] [phone] Carlee Cortes Social History Tobacco Use Types Packs/Day Years [...] encounter Miscellaneous Notes * Telephone Encounter - Carlee Cortes - 06/23/2023 9:20 AM EDT LM for pt to call back and get f/u scheduled documented in this encounter Plan of Treatment Not on file documented as of this encounter Goals Goal Patient Goal Type Associated Problems Recent Progress Patient-Stated? Author [facility] Medication Compliance and Understanding Patient Facing Action Plan No Brooke Blanchard, [facility] Note: Patient's specific desired goal: Keyona Terry is hoping to have a decrease in her pain and morning stiffness by about 50%. Measured by: pain scale, how long her morning stiffness lasts Time-frame to meet goal: 3 to 6 months documented as of this encounter Visit Diagnoses Not on filedocumented in this encounter Care Teams Skidder Driver Relationship Specialty Start Date End Date Nidhi Conti PA [address] [address] PCP - General Family Medicine 06/11/20 documented as of this encounter
--- OUTSIDE RECORDS SUMMARY | 2023-11-15 02:25 | XMS_ITS | Encounter Summary ---
Author Organization [facility] [place] [address] Care Team Providers Care Field Cane Scale Clerk Name Role Phone Nidhi Conti Primary Care Provider [phone] Reason for Visit * Reason Comments Medication Refill Encounter Details Date Type Department Care Team (Late st Contact Info) Description 03/16/2023 Refill [place] [address] [facility] [place] [address] Medication monitoring encounter; High risk medication use; Seropositive rheumatoid arthritis; Inflammatory arthropathy; Methotrexate, usp, current use; Seronegative rheumatoid arthritis; Chronic pain [...] Telephone Encounter - Jacki Olson RN - 03/16/2023 5:36 PM EST Methotrexate Rx Refill : Review EMR For: Last Labs: CBC, CMP or LFT within last 12 weeks YES [x] NO [] Last labs: 02/23/23 Last Appointment: 02/23/23 Methotrexate Dosage: 20 mg weekly Contacted patient to arrange labs: YES [] NO [x] Standing Orders in place: YES [] NO [x] Pended orders: YES [x] NO [] Sent to [place] to schedule: Yes [] NO [x] Next appt: 05/31/23 documented in this encounter Plan of Treatment Scheduled Orders Name Type Priority Associated Diagnoses Orde r Schedule CBC (with Diff) Lab Routine Medication monitoring encounter High risk medication use Seropositive rheumatoid arthritis Inflammatory arthropathy Methotrexate, usp, current use Seronegative rheumatoid arthritis Chronic pain of both ankles Pain in right hip Pain in both hands Bilateral wrist pain Bursitis of other bursa of both hips Pain in both feet Every 3 months for 4 Occurrences starting 03/18/2023 until 03/16/2024, 2 completed Hepatic Function Panel Lab Routine Medication monitoring encounter High risk medication use Seropositive rheumatoid arthritis Inflammatory arthropathy Methotrexate, parts counterman, current use Seronegative rheumatoid arthritis Chronic pain of both ankles Pain in right hip Pain in both hands Bilateral wrist pain Bursitis of other bursa of both hips Pain in both feet Every 3 months for 4 Occurrences starting 03/18/2023 until 03/18/2024, 2 completed documented as of this encounter Goals Goal Patient Goal Type Associated Problems Recent Progress Patient-Stated? Author [facility] Medication Compliance and Understanding Patient Facing Action Plan Brooke Wilder, [facility] Note: Patient's specific desired goal: Keyona Terry is hoping to have a decrease in her pain and morning stiffness by about 50%. Measured by: pain scale, how long her morning stiffness lasts Time-frame to meet goal: 3 to 6 months documented as of this encounter Results * Hepatic Function Panel (10/11/2023 9:41 AM EDT) Protein, Total 6.9 6.1 - 8.0 g/dL [facility] Albumin 4.4 3.2 - 5.2 g/dL [facility] Aspartate Aminotransferase 10 0 - 30 unit/L [facility] Alanine Aminotransferase 12 0 - 30 unit/L [facility] Alkaline Phosphatase 68 35 - 105 unit/L [facility] Bilirubin, Total 0.3 0.2 - 1.3 mg/dL [facility] Bilirubin, Direct 0.1 0.0 - 0.3 mg/dL [facility] Blood 10/11/2023 9:41 AM EDT 10/11/2023 10:04 AM EDT Narrative Resulting Agency Comment Spec In Lab Markell Darling MD CHEMISTRY ORDERABLES Performing Organization Address [facility] Co de Phone Number [facility] [place] [place] [address] * Hepatic Function Panel (05/28/2023 2:55 PM EST) Protein, Total 7.2 6.1 - 8.0 g/dL [facility] Albumin 4.6 3.2 - 5.2 g/dL [facility] Aspartate Aminotransferase 13 0 - 30 unit/L [facility] Alanine Aminotransferase 11 0 - 30 unit/L [facility] Alkaline Phosphatase 66 35 - 105 unit/L [facility] Bilirubin, Total 0.3 0.2 - 1.3 mg/dL [facility] Bilirubin, Direct 0.1 0.0 - 0.3 mg/dL [facility] Blood 05/28/2023 2:55 PM EST 05/28/2023 3:04 PM EST Narrative Resulting Agency Comment Spec In Lab Markell Darilng MD CHEMISTRY ORDERABLES Performing Organization Address [facility] Co de Phone Number [facility] [place] [address] documented in this encounter Visit Diagnoses Diagnosis Medication monitoring encounter Encounter for therapeutic drug monitoring High risk medication use Encounter for long-term (current) use of other medications Seropositive rheumatoid arthritis Rheumatoid arthritis Inflammatory arthropathy Arthropathy, unspecified, site unspecified Methotrexate, parts counterman, current use Encounter for long-term (current) use of other medications Seronegative rheumatoid arthritis Rheumatoid arthritis Chronic pain of both ankles Pain in right hip Pain in joint, pelvic region and thigh Pain in both hands Bilateral wrist pain Pain in joint, forearm Bursitis of other bursa of both hips Pain in both feet Pain in limb documented in this encounter Care Teams Field Cane Scale Clerk Relationship Specialty Start Date End Date Nidhi Conti PA [address] [place] [phone] PCP - General Family Medicine 06/11/20 documented as of this encounter
--- OUTSIDE RECORDS SUMMARY | 2023-11-15 02:25 | XMS_ITS | Encounter Summary ---
Author Organization [facility] [place] [address] Care Team Providers Care Medicine Technologist Name Role Phone Nidhi Conti Primary Care Provider [phone] Encounter Details Date Type Department Care Team (Late st Contact Info) Description 10/11/2023 10:00 AM EDT Office Visit [place] [phone] Markell Darling MD [facility] [place] [address] Medication monitoring encounter; High risk medication use; Seropositive rheumatoid arthritis Social History Tobacco Use Types [...] ??F) 10/11/2023 10:02 AM EDT Respiratory Rate - - Oxygen Saturation 98% 10/11/2023 10:02 AM EDT Inhaled Oxygen Concentration - - Weight 92.3 kg (203 lb 6.4 oz) 10/11/2023 10:02 AM EDT Height - - Body Mass Index 34.91 02/23/2023 10:34 AM EST documented in this encounter Progress Notes * Markell Darling MD - 10/11/2023 10:00 AM EDT heumatology Follow Up phone n RF + - with changes in the [...] been worse over the last year. She get s occasional pin in the hands, hips or ankles. No swelling, rednss or warmth She will occasioanlly get shrp pain on the lateral of CDAI out 2 Faitgue night seats think related menopause Overall she is doing well in regards to her joints. She continues on Mobic daily, Humira biweekly, MTX weekly and FA daily she denies Adverse effects and/or side effects such as a feeling of blah, headaches, shortness of breath, cough, nodules, GI issues, ulcers or rashes, t tinnitus she denies swollen glands unexplained weight loss and/or lymphadenopathy. She denies swollen red or warm joints and/or increased or morning stiffness greater than 1 hour Review of Systems Rheumatic history (x) means [...] Dermatologic Xerosis cutis Photosensitivity Rash Physical exam Patient Vitals for the past 24 hrs: Temp Pulse BP SpO2 10/11/23 1002 36 ??C (96.8 ??F) 74 144/75 98 % General: NAD HEENT: Mucous membranes are moist, [...] synovitis at any joint. No soft tissue nodules 10/10/2023 10:44 AM [facility] RAPID-3 Responses RAPID-3 Function (Pt Questionnaire) 0 RAPID-3 Function 0 RAPID-3 Pain (Pt Questionnaire) 3.5 RAPID-3 Pain 3.5 RADIP-3 Global (Pt Questionnaire) 0 RADIP-3 Global 0 RAPID-3 Total Scores (Pt Questionnaire) 3.5 (Low) RAPID-3 Total Scores (Pt Questionnaire) 3.5 Assessment and Plan: Keyona Terry is a [...] rheumatoid arthritis tests Sero+ RA Dz activity remission Currently on methotrexate weekly and Fa daily Humira biweekly She is on meloxicam Leukocytosis - r mild macrocytic without anemia - cold be 2/2 MTX will [...] most recent Orders Placed This Encounter Procedures Creatinine Return in about 3 months (around 01/11/2024) for Either In Person or Telehealth. > 48 minutes total today Markell Darling MD documented in this encounter Plan of Treatment Not on file documented as of this encounter Goals Goal Patient Goal Type Associated Problems Recent Progress Patient-Stated? Author [facility] Medication Compliance and Understanding Patient Facing Action Plan No Brooke Blanchard [facility] Note: Patient's [...] other medications Seropositive rheumatoid arthritis Rheumatoid arthritis documented in this encounter Care Teams Medicine Technologist Relationship Specialty Start Date End Date Nidhi Conti PA [address] [place] [phone] PCP - General Family Medicine 06/11/20 documented as of this encounter
--- OUTSIDE RECORDS SUMMARY | 2023-11-15 02:25 | XMS_ITS | Encounter Summary ---
Author Organization [facility] [place] [address] Care Team Providers Care Ice Cream Shop Associate Name Role Phone Nidhi Conti Primary Care Provider [phone] Encounter Details Date Type Department Care Team (Late st Contact Info) Description 07/28/2022 Refill [place] [address] Markell Darling MD [facility] [place] [address] Social History Tobacco Use Types Packs/Day Years [...] Type Associated Problems Recent Progress Patient-Stated? Author [facility] Medication Compliance and Understanding Patient Facing Action Plan No Brooke Blanchard, [facility] Note: Patient's specific desired goal: Keyona Terry is hoping to have a decrease in her pain and morning stiffness by about 50%. Measured by: pain scale, how long her morning stiffness lasts Time-frame to meet goal: 3 to 6 months documented as of this encounter Visit Diagnoses Not on filedocumented in this encounter Care Teams Ice Cream Shop Associate Relationship Specialty Start Date End Date Nidhi Conti PA [address] [place] [id number] PCP - General Family Medicine 06/11/20 documented as of this encounter
--- OUTSIDE RECORDS SUMMARY | 2023-11-15 02:25 | XMS_ITS | Encounter Summary ---
Author Organization [facility] [place] [address] Care Team Providers Care Highway Traffic Control Technician Name Role Phone Nidhi Conti Primary Care Provider [phone] Reason for Visit * Reason Comments Medication Refill Encounter Details Date Type Department Care Team (Late st Contact Info) Description 06/15/2023 Refill [place] [address] Markell Darling MD [facility] [place] [address] Medication monitoring encounter; High risk medication use; Seropositive rheumatoid arthritis; Inflammatory arthropathy; Methotrexate, detention, current use; Seronegative rheumatoid arthritis; Chronic pain [...] Type Associated Problems Recent Progress Patient-Stated? Author [facility] Medication Compliance and Understanding Patient Facing [...] Inflammatory arthropathy Arthropathy, unspecified, site unspecified Methotrexate, meterman, current use Encounter for long-term (current) use of other medications Seronegative rheumatoid arthritis Rheumatoid arthritis Chronic pain of both ankles Pain in right hip Pain in joint, pelvic region and thigh Pain in both hands Bilateral wrist pain Pain in joint, forearm Bursitis of other bursa of both hips Chronic pain of both knees documented in this encounter Care Teams Highway Traffic Control Technician Relationship Specialty Start Date End Date Nidhi Conti PA [address] [place] [phone] PCP - General Family Medicine 06/11/20 documented as of this encounter
--- OUTSIDE RECORDS SUMMARY | 2023-11-15 02:25 | XMS_ITS | Encounter Summary ---
Author [facility] [place] [address] Care Team Providers Care Ship Keeper Name Role Phone Nidhi Conti Primary Care Provider Encounter Details Date Type Department Care Team (Latest Contact Info) Description 02/23/2023 Travel Social History Tobacco Use Types Packs/Day [...] Associated Problems Recent Progress Patient-Stated? Author [facility] Medication Compliance and Understanding Patient Facing Action [...] on filedocumented in this encounter Care Teams Ship Keeper Relationship Specialty Start Date End Date Nidhi Conti PA [address] [place] [phone] PCP - General Family Medicine 06/11/20 documented as of this encounter
--- OUTSIDE RECORDS SUMMARY | 2023-11-15 02:25 | XMS_ITS | Encounter Summary ---
Author Organization [facility] [place] [address] Care Team Providers Care Resource Recovery Specialist Name Role Phone Nidhi Conti Primary Care Provider [phone] Reason for Visit * Reason Comments Medication Refill Encounter Details Date Type Department Care Team (Late st Contact Info) Description 06/22/2023 [place] [address] Markell Darling MD [facility] [place] [address] Medication monitoring encounter; High risk medication use; Seropositive rheumatoid arthritis; Inflammatory arthropathy; Methotrexate, chcf, current use; Seronegative rheumatoid arthritis; Chronic pain [...] Type Associated Problems Recent Progress Patient-Stated? Author [facility] Medication Compliance and Understanding Patient Facing Action Plan No Brooke Blanchard, [facility] Note: Patient's specific desired goal: [...] Inflammatory arthropathy Arthropathy, unspecified, site unspecified Methotrexate, chcf, current use Encounter for long-term (current) use of other medications Seronegative rheumatoid arthritis Rheumatoid arthritis Chronic pain of both ankles Pain in right hip Pain in joint, pelvic region and thigh Pain in both hands Bilateral wrist pain Pain in joint, forearm Bursitis of other bursa of both hips Pain in both feet Pain in limb documented in this encounter Care Teams Resource Recovery Specialist Relationship Specialty Start Date End Date Nidhi Conti PA [address] [place] [id number] PCP - General Family Medicine 06/11/20 documented as of this encounter
--- OUTSIDE RECORDS SUMMARY | 2023-11-15 02:25 | XMS_ITS | Encounter Summary ---
[place] [address] Care Team Providers Care Cloth Shrinking Machine Operator Helper Name Role Phone Nidhi Conti Primary Care Provider [phone] Reason for Visit * Reason Comments Specialty Pharmacy Review Adalimumab (Hu dinorah) Pen 40mg/0.4mL Encounter Details Date Type Department Care Team (Late st Contact Info) Description 02/23/2023 Specialty [place] [address] Gracy James, [facility] Social History Tobacco Use Types [...] encounter Progress Notes * Gracy James - 02/23/2023 11:59 PM EST The [facility] has completed a benefits investigation for Keyona Mccoy Harirson to review theireligibility to fill at [facility]. Per patient's medication list they are prescribed Humira and the medication is not able to be filled at the [facility]. documented in this encounter Plan of Treatment Not on file documented as of this encounter Goals Goal Patient Goal Type Associated Problems Recent Progress Patient-Stated? Author [facility] Medication Compliance and Understanding Patient Facing Action Plan No Brooke Blanchard, [facility] Note: Patient's specific desired goal: Keyona Terry is hoping to have a decrease in her pain and morning stiffness by about 50%. Measured by: pain scale, how long her morning stiffness lasts Time-frame to meet goal: 3 to 6 months documented as of this encounter Visit Diagnoses Not on filedocumented in this encounter Care Teams Cloth Shrinking Machine Operator Helper Relationship Specialty Start Date End Date Nidhi Conti PA [address] [place] [address] PCP - General Family Medicine 06/11/20 documented as of this encounter
--- OUTSIDE RECORDS SUMMARY | 2023-11-15 02:25 | XMS_ITS | Encounter Summary ---
Author Organization [facility] [place] [address] Care Team Providers Care Salvage Inspector Name Role Phone Nidhi Conti Primary Care Provider [phone] Reason for Visit * Reason Comments Medication Refill Encounter Details Date Type Department Care Team (Late st Contact Info) Description 01/14/2023 Refill [place] [address] Markell Darling MD [facility] [place] [address] Seronegative rheumatoid arthritis; Pain in both hands; [...] Type Associated Problems Recent Progress Patient-Stated? Author [facility] Medication Compliance and Understanding Patient Facing Action Plan No Brooke Blanchard, [facility] Note: Patient's specific desired goal: Keyona Terry [...] forearm documented in this encounter Care Teams Salvage Inspector Relationship Specialty Start Date End Date Nidhi Conti PA [address] [place] [phone] PCP - General Family Medicine 06/11/20 documented as of this encounter
--- OUTSIDE RECORDS SUMMARY | 2023-11-15 02:25 | XMS_ITS | Encounter Summary ---
[place] [address] Care Team Providers Care Marketing Analytics Manager Name Role Phone Nidhi Conti Primary Care Provider [phone] Reason for Visit * Reason Comments Prior Authorization Encounter Details Date Type Department Care Team (Late st Contact Info) Description 07/22/2022 Specialty [place] [phone] Raven Kowaslki, [facility] Social History Tobacco Use Types Packs/Day [...] as of this encounter Progress Notes * Raven Kowalski - 07/22/2022 8:13 AM EDT [facility], Medication Prior Authorization Submission Patient: Keyona Terry Patient : 1965 Patient Address: [address] [place] [id number] Phone: [phone] (home) Medication Name: HUMIRA(CF) PEN 40 MG/0.4 ML SUBCUTANEOUS KIT Medication ID: [id number] Subscriber Insurance: [employer] Hank Subscriber Insurance Comment: Fax: Physician: JULISA BUTLER Physician Comment: Sent Via: [facility] Flores: [id number] Ref/Case/PA#: Medication Strength Frequency Requested: Humira CF Pen 40mg/ml PNKT Inject the contents of one pen (40mg) subcutaneously every 14 days Qty/Day Supply: 06/02 New Start: Insurance Change Diagnosis & ICD-10 Code: Rheumatoid Arthritis M05.9 Patient Notified: Yes Submission Notes: - New Insurance Raven Kowalski 07/22/22 8:16 AM * Raven Kowalski - 07/22/2022 8:13 AM EDT [facility], Prior Authorization Approval Medication Name: HUMIRA(CF) PEN 40 MG/0.4 ML SUBCUTANEOUS KIT Medication ID: [id number] Approval Dates: 07/22/2022 to 07/22/2023 Insurance requirements/notes: - Patient must fill with [facility]. Other Notes: None Case/Reference #: [id number] Approval notification Received via: Fax Copay: Unknown - Patient must fill with outside pharmacy Copay assistance: None Copay Notes: NA Insurance mandated Pharmacy: Fillable at [facility] Special[facility]: No Patient Notified: Yes Pharmacy staff will be reaching out to the patient to inform them of their [facility]. If applicable, a pharmacist will speak with the patient to offer our specialty pharmacy services and to arrange delivery of their medication. Raven Kowalski 07/28/22 12:29 PM documented in this encounter Plan of Treatment Not on file documented as of this encounter Goals Goal Patient Goal Type Associated Problems Recent Progress Patient-Stated? Author DH Home Medication Compliance and Understanding Patient Facing Action Plan No Brooke Blanchard [facility] Note: Patient's specific desired goal: Keyona Terry is hoping to have a decrease in her pain and morning stiffness by about 50%. Measured by: pain scale, how long her morning stiffness lasts Time-frame to meet goal: 3 to 6 months documented as of this encounter Visit Diagnoses Not on filedocumented in this encounter Care Teams Marketing Analytics Manager Relationship Specialty Start Date End Date Nidhi Conti PA [address] [address] PCP - General Family Medicine 06/11/20 documented as of this encounter
--- OUTSIDE RECORDS SUMMARY | 2023-11-15 02:26 | XMS_ITS | Encounter Summary ---
Author Organization [facility] [place] [address] Care Team Providers Care Rice Field Worker Name Role Phone Nidhi Conti Primary Care Provider [phone] Reason for Visit * Reason Comments Specialty Refill Management Encounter Details Date Type Department Care Team (Late st Contact Info) Description 08/18/2021 Specialty [place] [phone] Adry Fuller, TEE Social History Tobacco Use Types Packs/Day Years [...] as of this encounter Progress Notes * Adry Fuller CPHT - 08/18/2021 3:31 PM EDT Clinical Management Plan: Refill Specialty Pharmacy Consultation; Adry Fuller CPHT Comprehensive Medication Management (CMM) Keyona Terry MsKat Terrazaso is a 55 y.o. (1965) female who was contacted in regard to a specialty medication refill reminder. Contact made with patient regarding Humira. A review of the medication therapywas performed. The medication was refilled as scheduled, and all medication related questions and concerns were addressed. The specialty pharmacy staff will follow up with the patient 5-7 days prior to next refill. Was a change made to the Care Plan: No Allergies and Drug intolerance: Allergies Allergen Reactions ??? Hydroxychloroquine Sulf (Bulk) Diarrhea Medication Reconciliation Discrepancies (compared to eD med list) No Specialty Pharmacy Refill Questionnaire Refill Questionnaire 08/18/2021 What is the name of the specialty medication you are refilling? Humira Pen 40mg/0.4ml Are you taking any new medications? No Any new medical condition? No Any new allergies? No Any new side effects that are bothersome? No What date will you need this fill by? 08/22/2021 Adherence: Any missed doses? No Patient understands no changes to current drug regimen were made. Adry Fuller CPHT 08/18/21 3:32 PM documented in this encounter Plan of Treatment Not on file documented as of this encounter Visit Diagnoses Not on filedocumented in this encounter Care Teams Rice Field Worker Relationship Specialty Start Date End Date Nidhi Conti PA [address] [place] [id number] PCP - General Family Medicine 06/11/20 documented as of this encounter
--- OUTSIDE RECORDS SUMMARY | 2023-11-15 02:26 | XMS_ITS | Encounter Summary ---
[place] [address] Care Team Providers Care Cooling Room Attendant Name Role Phone Nidhi Conti Primary Care Provider [phone] Encounter Details Date Type Department Care Team (Latest Contact Info) Description 08/15/2021 2:00 PM EDT Laboratory Appointment Lab [address] [phone] Seronegative rheumatoid arthritis; Bilateral wrist pain; Pain in both hands; Medication monitoring encounter; High risk medication use; Seropositive rheumatoid arthritis; Inflammatory arthropathy; Methotrexate, jail, current use; Chronic pain of both ankles; Chronic pain of both knees; Morning joint stiffness; Bilateral hip pain; Pain in right hip; Bursitis of other bursa of both hips; [...] on file documented as of this encounter Procedures Procedure Name Priority Date/Time Associated Diagnosis Comments HC C-REACTIVE PROTEIN Routine 08/15/2021 2:14 PM EDT Seronegative rheumatoid arthritis Bilateral wrist pain Pain in both hands Medication monitoring encounter High risk medication use BILIRUBIN, DIRECT Routine 08/15/2021 2:1 4 PM EDT HEMOGRAM Routine 08/15/2021 2:14 PM EDT Seronegative rheumatoid arthritis Bilateral wrist pain Pain in both hands Medication monitoring encounter High risk medication use DIFFERENTIAL, AUTOMATED Routine 08/15/2021 2:14 PM EDT Seronegative rheumatoid arthritis Bilateral wrist pain Pain in both hands Medication monitoring encounter High risk medication use HC ESR-SEDIMENTATION RATE, BLOOD Routine 08/15/2021 2:14 PM EDT Seronegative rheumatoid arthritis Bilateral wrist pain Pain in both hands Medication monitoring encounter High risk medication use HC CBC,PLT & AUTO DIFF Routine 2:14 PM EDT Seronegative rheumatoid arthritis Bilateral wrist pain Pain in both hands Medication monitoring encounter High risk medication use COMPREHENSIVE METABOLIC PANEL Routine 08/15/2021 2:14 PM EDT Seronegative rheumatoid arthritis Bilateral wrist pain Pain in both hands Medication monitoring encounter High risk medication use documented in this encounter Results * Bilirubin, Direct (08/15/2021 2:14 PM EDT) Bilirubin, Direct 0.1 0.0 - 0.3 mg/dL [facility] Blood 08/15/2021 2:14 PM EDT 08/15/2021 2:31 PM EDT Narrative Resulting Agency Comment Spec In Lab Markell Darling MD CHEMISTRY ORDERABLES [facility] [place] [address] * (ABNORMAL) Differential, Automated (08/15/2021 2:14 PM EDT) Neutrophil % 51.2 % [facility] Neutrophil Absolute 4.80 1.70 - 6.10 x10(3)/mc L [facility] Lymph % 36.0 % [facility] Lymphocytes Abs 3.4(H) 0.9 - 3.2 x10(3)/mc L [facility] Monocyte % 10.2 % [facility] Monocyte Abs 1.0(H) 0.3 - 0.9 x10(3)/ L [facility] Eos % 1.6 % [facility] Eosinophils Abs 0.2 0.0 - 0.4 x10(3)/ L [facility] Basophil % 0.6 % [facility] Baso Absolute 0.1 0.0 - 0.1 x10(3)/[facility] Immature Gran % 0.40 % [facility] Comment: Immature granulocytes(IG's)percentage and absolute count will include metamyelocytes, myelocytes, and promyelocytes. Blood smears from CBCs yielding IG's will be scanned manually for concordance. If this scan disagrees with the automated IG or if promyelocytes are noted, a manual differential will be performed. Immature Gran Absolute 0.04 0.00 - 0.04 x10(3)/[facility] Blood 08/15/2021 2:14 PM EDT 08/15/2021 2:31 PM EDT Narrative Resulting Agency Comment Spec In Lab Markell Darling MD HEMATOLOGY ORDERABLE S [facility] [place] [address] * (ABNORMAL) Hemogram (08/15/2021 2:14 PM EDT) White Blood Cell 9.4 4.0 - 9.5 x10(3)/[facility] Red Blood Cell 3.93(L) 4.00 - 5.21 x10(6)/[facility] Hemoglobin 12.6 11.7 - 15.5 g/dL [facility] Hematocrit 37.0 35.7 - 45.8 % [facility] Mean Cell Volume 94.1 82.6 - 94.4 fL [facility] Mean Cell Hemoglobin 32.1(H) 27.1 - 32.0 pg [facility] Mean Cell Hemoglobin Concentration 34.1 31.7 - 35.0 g/dL [facility] Platelet 299 145 - 357 x10(3)/mc L [facility] RDW Standard Deviation 49.7(H) 37.0 - 46.0 fL [facility] RDW coefficient of variation 14.6(H) 11.5 - 14.1 % [facility] Mean Platelet Volume 9.0 7.6 - 12.9 fL [facility] NRBC% auto 0.0 % [facility] NRBC Absolute 0.000 0.000 - 0.000 x10(3)/mc L [facility] Blood 08/15/2021 2:14 PM EDT 08/15/2021 2:31 PM EDT Narrative Resulting Agency Comment Spec In Lab Markell Darling MD HEMATOLOGY ORDERABLE S Performing Organization Address City/State/[facility] Co de Phone Number [facility] [place] [address] * (ABNORMAL) Comprehensive metabolic panel (non-fasting) (08/15/2021 2:14 PM EDT) Glucose 93 65 - 199 mg/dL [facility] Comment:Diabetes: >=200 mg/d L plus symptoms Blood Urea Nitrogen 15 8 - 18 mg/dL [facility] Creatinine 0.71 0.70 - 1.20 mg/dL [facility] Sodium 137 135 - 145 mmol/L [facility] Potassium 4.4 3.5 - 5.0 mmol/L [facility] Comment: Please note: ??Patients with WBC >100,000 may have falsely elevated Potassium levels. ??For accurate Potassium quantification in these patients send serum separator tube (gold top) for subsequent determinations. ??Contact the Clinical Chemistry Laboratory if there are any questions. Chloride 104 98 - 107 mmol/L [facility] Carbon Dioxide 19(L) 22 - 31 mmol/L [facility] Anion Gap 14 5 - 15 mmol/L [facility] Calcium 9.0 8.5 - 10.5 mg/dL [facility] Protein, Total 6.8 6.1 - 8.0 g/dL [facility] Albumin 4.6 3.2 - 5.2 g/dL [facility] Aspartate Aminotransferase 14 0 - 30 unit/L [facility] Alanine Aminotransferase 11 0 - 30 unit/L [facility] Alkaline Phosphatase 69 35 - 105 unit/L [facility] Bilirubin, Total 0.2 0.2 - 1.3 mg/dL [facility] Est Glomerular Filtration Rate 95 >=60 mL/min/1. 73 m?? [facility] Comment: This patient? s estimated glomerular filtration rate (eGFR) is between 95 mL/min/1.73 m2 (patients with less muscle mass) and 110 mL/min/1.73 m2 (patients with more muscle mass) as determined by the CKD-EPI equation. Assessment of eGFR is not appropriate when creatinine concentrations are rapidly changing. For clinical decisions where creatinine clearance will affect therapy, a 24-hour urine creatinine clearance may be advised. Assignment of CKD stage 1 - 5 for patients with an eGFR near the transition point between stages may be based on clinical assessment of muscle mass and symptoms in addition to eGFR. Blood 08/15/2021 2:14 PM EDT 08/15/2021 2:31 PM EDT Narrative Resulting Agency Comment Spec In Lab Markell Darling MD CHEMISTRY ORDERABLES [facility] [place] [address] * (ABNORMAL) CRP, acute inflammation (08/15/2021 2:14 PM EDT) C-Reactive Protein 9.1(H) <=4.9 mg/L [facility] Blood 08/15/2021 2:14 PM EDT 08/15/2021 2:31 PM EDT Narrative Resulting Agency Comment Spec In Lab Markell Darling MD CHEMISTRY ORDERABLES [facility] [place] [address] * Sedimentation rate (08/15/2021 2:14 PM EDT) Sedimentation Rate Automated 31 2 - 39 mm/hr [facility] Comment: Effective March 15, 2019 new capillary photometric technology has resulted in a change in reference ranges. It is recommended that each ESR result be reviewed with its own age appropriate reference range. Blood 08/15/2021 2:14 PM EDT 08/15/2021 2:31 PM EDT Narrative Resulting Agency Comment Spec In Lab Markell Darling MD HEMATOLOGY ORDERABLE S Performing Organization Address City/[facility]/ZIP Co de Phone Number [facility] [place] [address] documented in this encounter Visit Diagnoses Diagnosis Seronegative rheumatoid arthritis Rheumatoid arthritis Bilateral wrist pain Pain in joint, forearm Pain in both hands Medication monitoring encounter Encounter for therapeutic drug monitoring High risk medication use Encounter for long-term (current) use of other medications Seropositive rheumatoid arthritis Rheumatoid arthritis Inflammatory arthropathy Arthropathy, unspecified, site unspecified Methotrexate, artificial candy maker, current use Encounter for long-term (current) use of other medications Chronic pain of both ankles Chronic pain of both knees Morning joint stiffness Stiffness of joint, not elsewhere classified, unspecified site Bilateral hip pain Pain in joint, pelvic region and thigh Pain in right hip Pain in joint, pelvic region and thigh Bursitis of other bursa of both hips Pain in both feet Pain in limb documented in this encounter Care Teams Cooling Room Attendant Relationship Specialty Start Date End Date Nidhi Conti PA [address] [place] [id number] PCP - General Family Medicine 06/11/20 documented as of this encounter
--- OUTSIDE RECORDS SUMMARY | 2023-11-15 02:26 | XMS_ITS | Encounter Summary ---
[place] [address] Care Team Providers Care Service Station Operator Name Role Phone Nidhi Conti Primary Care Provider [phone] Reason for Visit * Reason Comments Medication Management Encounter Details Date Type Department Care Team (Late st Contact Info) Description 06/23/2021 Specialty [place] [phone] Aidee Phillips RPH Social History Tobacco Use Types Packs/Day Years [...] as of this encounter Progress Notes * Aidee Phillips RPH - 06/23/2021 2:45 PM EDT Specialty Pharmacy Consultation; Aidee Phillips RPH Comprehensive Medication Management (CMM): Specialty Consult, Opt Out Keyona Terry Diagnosis: RA Therapy Start Date: 05/29/21 Contact in person or via telephone: Phone Ms. Keyona Terry is a 55 y.o. (1965) female who was contacted in regard to specialty medication. Spoke with patient regarding Humira. A review of the medication therapy was performed. The medication was refilled as scheduled, and all medication related questions and concerns were addressed. The specialty pharmacy staff will follow up with the patient 5-7 days prior to next refill. Is the patient willing to proceed with the Clinical Assessment? No Summary and Recommendations: Keyona had no questions or concerns regarding Humira and opted out of a follow up consult. She says everything has been going well so far and knows she can reach out with any questions/concerns she mayhave. We will reach out again at the next refill. Economic Assessment: Patient is agreeable to medication copay: Yes Copay Amount: $5 Day Supply: 28 Date Needed: 06/27/21 Therapy Assessment: Appropriate Therapy: Yes Current Medication Dosing/Route/Frequency: Humira 40mg/0.4ml PNKT inject 1 pen subq every 2 weeks Additional equipment/supplies required: no Care Plan Reviewed and Approved by Pharmacist : Yes Problem List: Patient Active Problem List Diagnosis Code ??? 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 Seropositive rheumatoid arthritis M05.9 ??? Abnormal radiograph R93.89 Medications Reviewed: No Medications reconciled: No Allergies Reviewed:No Allergies reconciled: No Pharmacist follow-up needed: Yes Informed patient of specialty pharmacy services: Yes Welcome Packet and Rights and Responsibilities: Patient provided welcome packet/rights and responsibilities: Yes Will confirm at next refill -Patient is aware a licensed pharmacist is available 24 hours a day, 7 days a week to discuss medication-related questions or concerns: Yes -Patient verbalizes understanding of the common side effect profile of their medication. The patient is able to call 911 or seek urgent care if signs/symptoms of allergy or harmful adverse reactions occur: Yes Patient understands no changes to current drug regimen were made at the appointment and that the pharmacist is providing recommendations (summary located at top of note) for provider review and follow up. Aidee Phillips RPH 06/23/21 2:48 PM documented in this encounter Plan of Treatment Not on file documented as of this encounter Visit Diagnoses Not on filedocumented in this encounter Care Teams Service Station Operator Relationship Specialty Start Date End Date Nidhi Conti PA [address] [place] [id number] PCP - General Family Medicine 06/11/20 documented as of this encounter
--- OUTSIDE RECORDS SUMMARY | 2023-11-15 02:26 | XMS_ITS | Encounter Summary ---
Author Organization [facility] Address [facility] [place] [address] Care Team Providers Care Seismograph Observer Name Role Phone Nidhi Conti Primary Care Provider [phone] Encounter Details Date Type Department Care Team (Latest Contact Info) Description 11/26/2021 10:16 AM EDT - 11/26/2021 11:59 PM EDT Hospital Encounter XRay at [address] [place] [address] Markell Darling MD [facility] [place] [address] Pain in both hands; Bilateral wrist pain; Morning joint stiffness Discharge Disposition: Home Social History Tobacco Use Types Packs/Day Years Used Date Smoking Tobacco: Every Day Cigarettes Smokeless Tobacco: Never Alcohol Use Standard Drinks/Week Comments Not Currently 0 (1 standard drink = 0.6 oz pur e alcohol) Sex and Gender Information Value Date Recorded Sex Assigned at Not on file Gender Identity Not on file Sexual Orientation Not on file documented as of this encounter Medications at Time of Discharge Medication Sig Dispensed Refills Start Date End Date simvastatin (ZOCOR) 20 mg Tablet Take 20 mg by mouth daily. 0 05/16/2018 verapamil (CALAN-SR) 240 mg Tablet Sustained Release Take 240 mg by mouth daily. 0 05/16/2018 adalimumab (Humira,CF, Pen) 40 mg/0.4 mL Pen Injector Kit Inject 0.4 mLs subcutaneously every 14 days. 1 each 5 10/17/2021 03/31/2022 meloxicam (MOBIC) 15 mg TabletIndications:S eronegative rheumatoid arthritis,Pain in both hands,Bilateral wrist pain TAKE 1 TABLET BY MOUTH DAILY 30 tablet 2 08/21/2021 01/20/2022 metHOTREXate 2.5 mg TabletIndications:M edication monitoring encounter,High risk medication use,Seropositive rheumatoid arthritis,Inflammat ory arthropathy,Methotr exate, intermediate, current use,Seronegative rheumatoid arthritis,Chronic pain of both ankles,Pain in right hip,Pain in both hands,Bilateral wrist pain,Bursitis of other bursa of both hips,Pain in both feet TAKE 8 TABLETS BY MOUTH ONCE WEEKLY ON WEDNESDAY 96 tablet 08/15/2021 12/04/2021 folic acid (Folvite) 1 mg TabletIndications:M edication monitoring encounter,High risk medication use,Seropositive rheumatoid arthritis,Inflammat ory arthropathy,Methotr exate, intermediate, current use,Seronegative rheumatoid arthritis,Chronic pain of both ankles,Pain in right hip,Pain in both hands,Bilateral wrist pain,Bursitis of other bursa of both hips,Chronic pain of both knees Take 5 tablets by mouth daily. 150 tablet 5 08/15/2021 02/10/2022 predniSONE (Deltasone) 2.5 mg TabletIndications:H igh risk medication use,Seropositive rheumatoid arthritis,Pain in both hands,Bilateral wrist pain,Chronic pain of both knees PO 4 tabs for 5 days, 3 tabs for 5 days, 2 tabs for 5 days, then stay at 1 tab daily 60 tablet 1 04/29/2021 01/08/2022 documented as of this encounter Plan of Treatment Not on file documented as of this encounter Procedures Procedure Name Priority Date/Time Associated Diagnosis Comments XR HAND MIN 3 VIEWS BILAT Routine 11/26/2021 10:28 AM EDT Pain in both hands Bilateral wrist pain Morning joint stiffness documented in this encounter Results * XR Hand Min 3 views Bilat (Generic) (11/26/2021 10:28 AM EDT) Anatomical Region Laterality Modality Hand Bilateral Digital Radiogra phy Impressions 11/26/2021 12:58 PM EDT 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 No radiographic finding of inflammatory arthritis. Thank you for letting us participate in the care of this patient. ??If you are a health care provider and have any questions regarding this report, please contact the number below. ??For patients who have questions please contact the health resident care coordinator that requested your imaging first. ? Electronically signed by: Theresa Reid MD, [facility] ([phone]), at 11/26/2021 12:58 PM Narrative 11/26/2021 12:58 PM EDT EXAMINATION: XR HAND MIN 3 VIEWS BILAT (GENERIC) CLINICAL HISTORY: inflammatory arthropathy TECHNIQUE: 4 views BILATERAL hands COMPARISON: Radiographs June 07, 2018 and October 13, 2019 FINDINGS: Right: -Bones are intact with mildly decreased mineralization. -No erosion or periostitis. -Minimal joint space narrowing is accompanied by small osteophytes at the thumb and index finger interphalangeal joints. -No subluxation. -Soft tissues are normal without calcification or atrophy. Left: -Bones are intact with diffusely decreased mineralization. -No erosion or periostitis. -Minimal joint space narrowing is accompanied by small osteophytes at the basal, thumb interphalangeal and index distal interphalangeal joints. -No subluxation. -Unchanged, punctate calcification at adjacent to trapezium. Soft tissues are normal without atrophy or other calcification. Procedure Note Theresa Reid MD - 11/26/2021 EXAMINATION: XR HAND MIN 3 VIEWS BILAT (GENERIC) CLINICAL HISTORY: inflammatory arthropathy TECHNIQUE: 4 views BILATERAL hands COMPARISON: Radiographs June 07, 2018 and October 13, 2019 FINDINGS: Right: -Bones are intact with mildly decreased mineralization. -No erosion or periostitis. -Minimal joint space narrowing is accompanied by small osteophytes at thethumb and index finger interphalangeal joints. -No subluxation. -Soft tissues are normal without calcification or atrophy. Left: -Bones are intact with diffusely decreased mineralization. -No erosion or periostitis. -Minimal joint space narrowing is accompanied by small osteophytes at thebasal, thumb interphalangeal and index distal interphalangeal joints. -No subluxation. -Unchanged, punctate calcification at adjacent to trapezium. Soft tissuesare normal without atrophy or other calcification. 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 No radiographic finding of inflammatory arthritis. Thank you for letting us participate in the care of this patient. If youare a health care provider and have any questions regarding this report,please contact the number below. For patients who have questions please contactthe health resident care coordinator that requested your imaging first. Electronically signed by: Theresa Reid MD, [facility]([phone]), at 11/26/2021 12:58 PM Markell Darling MD IMG DX ORDERABLES documented in this encounter Visit Diagnoses Diagnosis Pain in both hands Bilateral wrist pain Pain in joint, forearm Morning joint stiffness Stiffness of joint, not elsewhere classified, unspecified site documented in this encounter Care Teams Seismograph Observer Relationship Specialty Start Date End Date Nidhi Conti PA [address] [place] [id number] PCP - General Family Medicine 06/11/20 documented as of this encounter
--- OUTSIDE RECORDS SUMMARY | 2023-11-15 02:26 | XMS_ITS | Encounter Summary ---
[place] [address] Care Team Providers Care Development System Efficiency Manager Name Role Phone Nidhi Conti Primary Care Provider [phone] Reason for Visit * Reason Onset Date Comments Medication Refill 08/15/2021 Encounter Details Date Type Department Care Team (Late st Contact Info) Description 08/15/2021 Ref[place] [address] Sisi Steward RN Medication monitoring encounter; High risk medication use; Seropositive rheumatoid arthritis; Inflammatory arthropathy; Methotrexate, intermediate designer, current use; Seronegative rheumatoid arthritis; Chronic pain of both ankles; Pain in right hip; Pain in both hands; Bilateral wrist pain; Bursitis of other bursa of both hips; Pain in both feet; Chronic pain of both knees Social History [...] Telephone Encounter - Sisi Steward RN - 08/15/2021 11:47 AM EDTSummary: refill Patient called asking for Methotrexate, Folic Acid and Meloxicam refills-nurse prep/penmdee to Provider. documented in this encounter Plan of Treatment Not on file documented as of this encounter Visit Diagnoses Diagnosis Medication monitoring encounter Encounter for therapeutic drug monitoring High risk medication use Encounter for long-term (current) use of other medications Seropositive rheumatoid arthritis Rheumatoid arthritis Inflammatory arthropathy Arthropathy, unspecified, site unspecified Methotrexate, skilled nursing, current use Encounter for long-term (current) use of other medications Seronegative rheumatoid arthritis Rheumatoid arthritis Chronic pain of both ankles Pain in right hip Pain in joint, pelvic region and thigh Pain in both hands Bilateral wrist pain Pain in joint, forearm Bursitis of other bursa of both hips Pain in both feet Pain in limb Chronic pain of both knees documented in this encounter Care Teams Development System Efficiency Manager Relationship Specialty Start Date End Date Nidhi Conti PA [address] [address] PCP - General Family Medicine 06/11/20 documented as of this encounter
--- OUTSIDE RECORDS SUMMARY | 2023-11-15 02:26 | XMS_ITS | Encounter Summary ---
[place] [address] Care Team Providers Care Build Master Name Role Phone Nidhi Conti Primary Care Provider [phone] Reason for Visit * Reason Comments Medication Management Specialty Refill Management Encounter Details Date Type Department Care Team (Late st Contact Info) Description 10/14/2021 Specialty [place] [id number] Wilian Hull, [facility] Social History Tobacco Use Types Packs/Day Years [...] as of this encounter Progress Notes * Wilian Hull [facility] - 10/14/2021 4:17 PM EDT Clinical Management Plan: Refill Specialty Pharmacy Consultation; Wilian Hull [facility] Comprehensive Medication Management (CMM) Keyona Terry is a 55 y.o. (1965) [...] (Bulk) Diarrhea Medication Reconciliation Discrepancies (compared to [facility] med list) No Specialty Pharmacy Refill Questionnaire Refill Questionnaire 10/14/2021 What is the name of the specialty medication you are refilling? humira Are you taking any new medications? No Any new medical condition? No Any new allergies? No Any new side effects that are bothersome? No What date will you need this fill by? 10/17/2021 Adherence: Any missed doses? No Patient understands no changes to current drug regimen were made. Wilian Hull RPH 10/14/21 4:18 PM documented in this encounter Plan of Treatment Not on file documented as of this encounter Visit Diagnoses Not on filedocumented in this encounter Care Teams Build Master Relationship Specialty Start Date End Date Nidhi Conti PA [address] [place] [id number] PCP - General Family Medicine 06/11/20 documented as of this encounter
--- OUTSIDE RECORDS SUMMARY | 2023-11-15 02:26 | XMS_ITS | Encounter Summary ---
[place] [address] Care Team Providers Care Software Build Engineer Name Role Phone Nidhi Conti Primary Care Provider Encounter Details Date Type Department Care Team (Latest Contact Info) Description 05/15/2022 12:40 PM EST Laboratory Appointment Lab [address] [place] [address] Medication monitoring encounter; High risk medication use; Seropositive rheumatoid arthritis; Inflammatory arthropathy; Methotrexate, manager terminal, current use; Seronegative rheumatoid arthritis Social History [...] Name Priority Date/Time Associated Diagnosis Comments HC VENIPUNCTURE Routine 05/15/2022 12:49 PM EST Medication monitoring encounter High risk medication use Seropositive rheumatoid arthritis Inflammatory arthropathy Methotrexate, halfway, current use Seronegative rheumatoid arthritis documented in this encounter Results * Comprehensive metabolic panel (non-fasting) (05/15/2022 12:49 PM EST) Glucose 81 65 - 199 mg/dL [facility] Comment:Diabetes: >=200 mg/d L plus symptoms Blood Urea Nitrogen 12 8 - 18 mg/dL [facility] Creatinine 0.70 0.70 - 1.20 mg/dL [facility] Sodium 140 135 - 145 mmol/L [facility] Potassium 4.8 3.5 - 5.0 mmol/L [facility] Comment: Please note: ??Patients with WBC >100,000 may have falsely elevated Potassium levels. ??For accurate Potassium quantification in these patients send serum separator tube (gold top) for subsequent determinations. ??Contact the Clinical Chemistry Laboratory if there are any questions. Chloride 105 98 - 107 mmol/L [facility] Carbon Dioxide 25 22 - 31 mmol/L [facility] Anion Gap 10 5 - 15 mmol/L [facility] Calcium 9.5 8.5 - 10.5 mg/dL [facility] Protein, Total 7.1 6.1 - 8.0 g/dL [facility] Albumin 4.7 3.2 - 5.2 g/dL [facility] Aspartate Aminotransferase 10 0 - 30 unit/L [facility] Alanine Aminotransferase 17 0 - 30 unit/L [facility] Alkaline Phosphatase 67 35 - 105 unit/L [facility] Bilirubin, Total 0.3 0.2 - 1.3 mg/dL [facility] Est Glomerular Filtration Rate 101 >=60 mL/min/1. 73 m?? [facility] Comment: This patient's estimated [...] and symptoms in addition to eGFR. Blood 05/15/2022 12:4 9 PM EST 05/15/2022 1:06 PM EST Narrative Resulting Agency Comment Spec In Lab Markell Darling MD CHEMISTRY ORDERABLES [facility] [place] [address] documented in this encounter Visit Diagnoses Diagnosis Medication monitoring encounter Encounter for therapeutic drug monitoring High risk medication use Encounter for long-term (current) use of other medications Seropositive rheumatoid arthritis Rheumatoid arthritis Inflammatory arthropathy Arthropathy, unspecified, site unspecified Methotrexate, manager terminal, current use Encounter for long-term (current) use of other medications Seronegative rheumatoid arthritis Rheumatoid arthritis documented in this encounter Care Teams Software Build Engineer Relationship Specialty Start Date End Date Nidhi Conti PA [address] [place] [id number] PCP - General Family Medicine 06/11/20 documented as of this encounter
--- OUTSIDE RECORDS SUMMARY | 2023-11-15 02:26 | XMS_ITS | Encounter Summary ---
Author Organization [facility] [place] [address] Care Team Providers Care Accounting Methods Analyst Name Role Phone Nidhi Conti Primary Care Provider [phone] Reason for Visit * Reason Comments Medication Refill Encounter Details Date Type Department Care Team (Late st Contact Info) Description 12/03/2021 Refill [place] [address] Markell Darling MD [facility] [place] [address] Medication monitoring encounter; High risk medication use; Seropositive rheumatoid arthritis; Inflammatory arthropathy; Methotrexate, [facility], current use; Seronegative rheumatoid arthritis; Chronic pain [...] Telephone Encounter - Sisi Steward RN - 12/04/2021 9:26 AM EDT Methotrexate refill pended Seen 09/22/2021, labs 11/04/2021 documented in this encounter Plan of Treatment Not on file documented as of this encounter Visit Diagnoses Diagnosis Medication monitoring encounter Encounter for therapeutic drug monitoring High risk medication use Encounter for long-term (current) use of other medications Seropositive rheumatoid arthritis Rheumatoid arthritis Inflammatory arthropathy Arthropathy, unspecified, site unspecified Methotrexate, rod cup filler, current use Encounter for long-term (current) use of other medications Seronegative rheumatoid arthritis Rheumatoid arthritis Chronic pain of both ankles Pain in right hip Pain in joint, pelvic region and thigh Pain in both hands Bilateral wrist pain Pain in joint, forearm Bursitis of other bursa of both hips Pain in both feet Pain in limb documented in this encounter Care Teams Accounting Methods Analyst Relationship Specialty Start Date End Date Nidhi Conti PA [address] [place] [id number] PCP - General Family Medicine 06/11/20 documented as of this encounter
--- OUTSIDE RECORDS SUMMARY | 2023-11-15 02:26 | XMS_ITS | Encounter Summary ---
[place] [address] Care Team Providers Care Dental Professional Name Role Phone Nidhi Conti Primary Care Provider [phone] Encounter Details Date Type Department Care Team (Latest Contact Info) Description 04/28/2022 4:10 PM EST Laboratory Appointment Lab [address] [place] [id number] Medication monitoring encounter; High risk medication use; Seropositive rheumatoid arthritis; Inflammatory arthropathy; Methotrexate, rodent exterminator, current use; Seronegative rheumatoid arthritis Social History [...] Name Priority Date/Time Associated Diagnosis Comments HC RANDOM URINE PEP Routine 04/28/2022 4 :29 PM EST Medication monitoring encounter High risk medication use Seropositive rheumatoid arthritis Inflammatory arthropathy Methotrexate, halfway, current use Seronegative rheumatoid arthritis HC IMMUNOGLOBULIN FREE LIGHT CHAINS, SERUM Routine 04/28/2022 4:18 PM EST Medication monitoring encounter High risk medication use Seropositive rheumatoid arthritis Inflammatory arthropathy Methotrexate, halfway, current use Seronegative rheumatoid arthritis IMMUNOPHENOTYPING FLOW CYTOMETRY (BLOOD) Routine 04/28/2022 4:18 PM EST Medication monitoring encounter High risk medication use Seropositive rheumatoid arthritis Inflammatory arthropathy Methotrexate, halfway, current use Seronegative rheumatoid arthritis FLOW CYTOMETRY REPORT Routine 04/28/2022 4:18 PM EST SCAN, PERIPHERAL BLOOD Routine 3 4:18 PM EST HEMOGRAM Routine 04/28/2022 4:18 PM EST DIFFERENTIAL, AUTOMATED Routine 04/28/19 4:18 PM EST HC SERUM PROT. ELECTROPHORESIS Routine 04/28/2022 4:18 PM EST Medication monitoring encounter High risk medication use Seropositive rheumatoid arthritis Inflammatory arthropathy Methotrexate, halfway, current use Seronegative rheumatoid arthritis HC LACTIC DEHYDROGENASE Routine 04/28/19 4:18 PM EST Medication monitoring encounter High risk medication use Seropositive rheumatoid arthritis Inflammatory arthropathy Methotrexate, halfway, current use Seronegative rheumatoid arthritis HC HAPTOGLOBINS, SERUM Routine 4:18 PM EST Medication monitoring encounter High risk medication use Seropositive rheumatoid arthritis Inflammatory arthropathy Methotrexate, rodent exterminator, current use Seronegative rheumatoid arthritis documented in this encounter Results * Protein Electrophoresis, urine, random (04/28/2022 4:29 PM EST) Protein, Urine <6 0 - 12 mg/dL [facility] U Albumin See Note [facility] Comment:No protein visible v ia electrophoresis due to a low urine total protein. Globulin, Urine See Note [facility] Comment:No protein visible v ia electrophoresis due to a low urine total protein. M1 Band, Urine See Note [facility] Comment:No protein visible v ia electrophoresis due to a low urine total protein. UPEP Comments See Note [facility] Comment: Total Protein concentration too low to fractionate using current electrophoretic technique. Urine 04/28/2022 4:29 PM EST 04/28/2022 4:37 PM EST Narrative Resulting Agency Comment Spec In Lab Markell Darling MD URINE ORDERABLES [facility] [place] [id number] * Flow Cytometry Report (04/28/2022 4:18 PM EST) Flow Cytometry Report [id number] ? Location: 3L The signing pathologist has (i) examined the relevant preparation(s) for the specimen(s) and (ii) rendered or confirmed the diagnosis(es). . ?Flow Cytometry DIAGNOSIS Flow cytometric diagnosis: ?? Normal immunophenotyping results. No monotypic B-cell population or phenotypically abnormal T-cell population or increase in blasts is detected. Electronically signed by: ?Feli ATWOOD, Sheng Verified: ??04/29/2022 13:36 ??Hematopathologist Performed at: ??-[facility] [place], [place] [address] Receptionist Telephone Operator: Julio Bal MD, FCAP, ??CLIA Certificate: [id number] DISCUSSION Blasts based on CD45 expression and orthogonal light scatter, are not increased. The CD19 positive B-cells have a polytypic expression of surface immunoglobulin light chain (Garwin:Lambda ratio at 1.5). The T-cells are an admixture of CD4+ and CD8+ T lymphocytes (ratio of 3.9). No loss or atypical intensity distributions are seen for any hills T antigen (CD2, 3, 4+8, 5, 7). There is no increase in ZN34-yastvluq/CD3-ne g NK cells. Flow analysis is an ancillary study. A definite diagnosis requires correlation with the morphologic features of this process and if necessary, correlation with other ancillary studies like immunohistochemistry , enzyme cytochemistry and/or cyto/ molecular genetics. This test was developed and its performance characteristics determined by the Clinical Flow Cytometry Laboratory at [facility]. It has not been cleared or approved by the U.S. Food and Drug Administration. ??The FDA has determined that such clearance or approval is not necessary. ??This test is used for clinical purposes. ??It should not be regarded as investigational or for research. This laboratory is certified under the Clinical Laboratory Improvement Act of 1988 (CLIA) as qualified to perform high complexity clinical laboratory testing. SPECIMEN PROCESSING [id number] Cells for immunophenotypic analysis were derived from blood. CD45 vs side scatter gating was utilized to identify a lymphoid analysis region that comprises approximately 54-55% of all cells. The following markers were assessed: CD2, CD3, CD4, CD5, CD7, CD8, CD10, CD19, CD45, CD56, kappa light chain, and lambda light chain. CLINICAL INFORMATION RA on NTX [facility] 04/28/2022 4:18 PM EST Markell Darling MD PATHOLOGY/CYTOLOGY O RDERABLES Performing Organization Address [facility] Co de Phone Number [facility] [place] [address] * Scan, Peripheral Blood (04/28/2022 4:18 PM EST) Plat estimate Normal [facility] RBC Morphology Normal [facility] Blood 04/28/2022 4:18 PM EST 04/28/2022 4:27 PM EST Narrative Resulting Agency Comment Spec In Lab Markell Darling MD HEMATOLOGY ORDERABLE S Performing Organization Address [facility] [place] [address] * (ABNORMAL) Differential, Automated (04/28/2022 4:18 PM EST) Neutrophil % 35.2 % [facility] Neutrophil Absolute 3.32 1.70 - 6.10 x10(3)/mc L [facility] Lymph % 56.0 % [facility] Lymphocytes Abs 5.3(H) 0.9 - 3.2 x10(3)/mc L [facility] Monocyte % 6.0 % [facility] Monocyte Abs 0.6 0.3 - 0.9 x10(3)/mc L [facility] Eos % 2.1 % [facility] Eosinophils Abs 0.2 0.0 - 0.4 x10(3)/ L [facility] Basophil % 0.5 % [facility] Baso Absolute 0.0 0.0 - 0.1 x10(3)/ L [facility] Immature Gran % 0.20 % [facility] Comment: Immature granulocytes(IG's)percentage and absolute count will include metamyelocytes, myelocytes, and promyelocytes. Blood smears from CBCs yielding IG's will be scanned manually for concordance. If this scan disagrees with the automated IG or if promyelocytes are noted, a manual differential will be performed. Immature Gran Absolute 0.02 0.00 - 0.04 x10(3)/ L [facility] Blood 04/28/2022 4:18 PM EST 04/28/2022 4:27 PM EST Narrative Resulting Agency Comment Spec In Lab Markell Darling MD HEMATOLOGY ORDERABLE S [facility] [place] [address] * (ABNORMAL) Hemogram (04/28/2022 4:18 PM EST) White Blood Cell 9.4 4.0 - 9.5 x10(3)/ L [facility] Red Blood Cell 3.70(L) 4.00 - 5.21 x10(6)/ L [facility] Hemoglobin 11.9 11.7 - 15.5 g/dL [facility] Hematocrit 36.1 35.7 - 45.8 % [facility] Mean Cell Volume 97.6(H) 82.6 - 94.4 fL [facility] Mean Cell Hemoglobin 32.2(H) 27.1 - 32.0 pg [facility] Mean Cell Hemoglobin Concentration 33.0 31.7 - 35.0 g/dL [facility] Platelet 305 145 - 357 x10(3)/[facility] RDW Standard Deviation 50.4(H) 37.0 - 46.0 fL [facility] RDW coefficient of variation 14.2(H) 11.5 - 14.1 % [facility] Mean Platelet Volume 9.0 7.6 - 12.[address] [facility] NRBC% auto 0.0 % [facility] NRBC Absolute 0.000 0.000 - 0.000 x10(3)/mc L [facility] Blood 04/28/2022 4:18 PM EST 04/28/2022 4:27 PM EST Narrative Resulting Agency Comment Spec In Lab Markell Darling MD HEMATOLOGY ORDERABLE S Performing Organization Address City/[facility] Co de Phone Number [facility] [place] [address] * Lactate Dehydrogenase (04/28/2022 4:18 PM EST) Lactate Dehydrogenase 180 110 - 220 unit/L [facility] Blood 04/28/2022 4:18 PM EST 04/28/2022 4:28 PM EST Narrative Resulting Agency Comment Spec In Lab Markell Darling MD CHEMISTRY ORDERABLES Performing Organization Address [facility] Phone Number [facility] [place] [address] * Immunophenotyping Flow Cytometry (04/28/2022 4:18 PM EST) Immunophenotyping Flow See Comment [facility] Comment: When completed by the Pathologist, the Flow Cytometry Report ([id number]) will display under the Pathology Results section within [facility]. Other 04/28/2022 4:18 PM EST 04/28/2022 4:27 PM EST Narrative Resulting Agency Comment Spec In Lab Markell Darling MD HEMATOLOGY ORDERABLE S Performing Organization Address City/[facility] Co de Phone Number [facility] [place] [address] * Free Light Chains, Serum (04/28/2022 4:18 PM EST) Garwin Free Light Chain 1.74 0.72 - 2.75 mg/dL [facility] Lambda Free Light Chain 1.31 0.57 - 2.15 mg/dL [facility] Garwin/Lambda FLC Ratio 1.3282 0.4000 - 2.5800 [facility] Blood 04/28/2022 4:18 PM EST 04/28/2022 4:27 PM EST Narrative Resulting Agency Comment Spec In Lab Markell Darling MD CHEMISTRY ORDERABLES Performing Organization Address [facility] de Phone Number [facility] [place] [address] * Protein Electrophoresis, serum (04/28/2022 4:18 PM EST) Total Prot Electrophoresis 6.8 6.1 - 8.0 g/dL [facility] Albumin Electrophoresis 4.69 3.20 - 5.20 g/dL [facility] Alpha 1 Globulin 0.18 0.10 - 0.30 g/dL [facility] Alpha 2 Globulin 0.71 0.40 - 0.90 g/dL [facility] Beta Globulin 0.59 0.50 - 1.00 g/dL [facility] Gamma Globulin 0.63 0.50 - 1.30 g/dL [facility] M1 Band None Detected None Detected [facility] Blood 04/28/2022 4:18 PM EST 04/28/2022 4:28 PM EST Narrative Resulting Agency Comment Spec In Lab Markell Darling MD CHEMISTRY ORDERABLES Performing Organization Address City/[facility] Co de Phone Number [facility] [place] [address] * Haptoglobin (04/28/2022 4:18 PM EST) Haptoglobin 190 30 - 200 mg/dL [facility] Comment: Haptoglobin concentrations in newborns is low to undetectable; however, adult concentrations are usually attained by 4 months of age. ??No sex-related differences for haptoglobin have been detected. Blood 04/28/2022 4:18 PM EST 04/28/2022 4:28 PM EST Narrative Resulting Agency Comment Spec In Lab Markell Darling MD CHEMISTRY ORDERABLES [facility] [place] [address] documented in this encounter Visit Diagnoses Diagnosis Medication monitoring encounter Encounter for therapeutic drug monitoring High risk medication use Encounter for long-term (current) use of other medications Seropositive rheumatoid arthritis Rheumatoid arthritis Inflammatory arthropathy Arthropathy, unspecified, site unspecified Methotrexate, halfway, current use Encounter for long-term (current) use of other medications Seronegative rheumatoid arthritis Rheumatoid arthritis documented in this encounter Care Teams Dental Professional Relationship Specialty Start Date End Date Nidhi Conti PA [address] [place] [id number] PCP - General Family Medicine 06/11/20 documented as of this encounter
--- OUTSIDE RECORDS SUMMARY | 2023-11-15 02:26 | XMS_ITS | Encounter Summary ---
Author Organization [facility] [place] [address] Care Team Providers Care Crew Boss Name Role Phone Nidhi Conti Primary Care Provider [phone] Encounter Details Date Type Department Care Team (Late st Contact Info) Description 10/14/2021 Refill [place] [address] Markell Darling MD [facility] [place] [address] Social History Tobacco Use Types Packs/Day Years [...] on filedocumented in this encounter Care Teams Crew Boss Relationship Specialty Start Date End Date Nidhi Conti PA [address] [place] [id number] PCP - General Family Medicine 06/11/20 documented as of this encounter
--- OUTSIDE RECORDS SUMMARY | 2023-11-15 02:26 | XMS_ITS | Encounter Summary ---
Author Organization [facility] [place] [address] Care Team Providers Care Funeral Home Associate Name Role Phone Nidhi Conti Primary Care Provider [phone] Encounter Details Date Type Department Care Team (Latest Contact Info) Description 04/27/2022 2:00 PM EST TH Visit (TeleHealth) [place] [address] Markell Darling MD [facility] [place] [address] Medication monitoring encounter; High risk medication use; [...] Progress Notes * Markell Darling MD - 04/27/2022 2:00 PM EST Rheumatology Follow Up phone note 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 abnormal wrist xray erosion verses a cyst MTX 8 tbs weekly and FA ?? MTX has resulted in increased oral ulcer will increase FA to 5mg. ?? Continue Current MTX 8 tabs weekly and more SE ?? Increased oral ulcers with methotrexate HCQ SE [...] 8 tabs of methotrexate weekly Fa daily Dz activity zero No swelling redness or warmth No morinng stiffness No weakness Denies fatigue night sweats weight loss, or swollen gland /LN. Review [...] HPI, or otherwise require clarification. Systemic Comments 1. Generalized pain 2. Fatigue/tiredness 3. Fevers 4. Chills 5. Night sweats 6. Recent weight loss 7. Recent Weight gain Head and neck 8. Headaches 9. Neck pain/stiffness 10. Lymphadenopathy 11. Ocular erythema 12. Xerophthalmia 13. Gritty eyes 14. Eye pain 15. Photophobia 16. Oral sores 17. Xerostomia 18. Jaw claudication Cardiopulmonary 19. Chest discomfort 20. Dyspnea 21. Cough 22. Hemoptysis Gastrointestinal 23. Dysphagia 24. Heartburn 25. Nausea 26. Emesis 27. Abdominal pain 28. Hematochezia 29. Diarrhea 30. Constipation Genitourinary 31. Hematuria 32. Dysuria Musculoskeletal 33. Muscle weakness 34. Myalgia 35. Shoulder pain 36. Raynaud's Neuropsychiatric 37. Paresthesia 38. Dysesthesia 39. Dizziness/vertigo 40. Anxiety 41. Depression 42. Cognitive problems 43. Initial insomnia 44. Night awakenings 45. Nonrestorative sleep Dermatologic 46. Xerosis cutis 47. Photosensitivity 48. Rash Physical exam NAD NCAT, nonicteric sclera, no Malar rash Neck full range of motion No increased work of breathing AO x3 Hands well-perfused Moving shoulders elbows wrists fingers can make a fist Able to get up out of chair from seated position myD-H RAPID-3 Responses 04/26/2022 RAPID-3 Function 0 RAPID-3 Pain 2 RADIP-3 Global 0 RAPID-3 Total Scores 2 (Remission) Assessment and Plan: Keyona Terry is [...] SPRA -seropositive rheumatoid arthritis tests Sero+ RA ?? Patient reports disease activity is none ?? Currently on methotrexate weekly ?? Humira biweekly ?? -She has tapered off steroids ?? She is on meloxicam ?? -remission Leukocytosis - with lymphocytosis x 2 - orders placed again tod High risk medications- No SE/AE - no [...] most recent Orders Placed This Encounter Procedures ??? CBC (with Diff) ??? Creatinine ??? Hepatic Function Panel ??? CRP, acute inflammation ??? Sedimentation rate ??? Comprehensive metabolic panel (non-fasting) ??? Peripheral Smear Review ??? Haptoglobin ??? Protein Electrophoresis, serum ??? Protein Electrophoresis, urine, random ??? Free Light Chains, Serum ??? Immunophenotyping Flow Cytometry ??? Lactate Dehydrogenase Return in about 3 months (around 07/26/2022) for Either In Person or Telehealth. > 48 minutes total today Markell Darling MD documented in this encounter Plan of Treatment Scheduled Orders Name Type Priority Associated Diagnoses Orde r Schedule Comprehensive metabolic panel (non-fasting) Lab Routine Medication monitoring encounter High risk medication use Seropositive rheumatoid arthritis Inflammatory arthropathy Methotrexate, accounts receivable collector, current use Seronegative rheumatoid arthritis Every 3 months for 4 Occurrences starting 04/27/2022 until 04/27/2023, 3 completed documented as of this encounter Results * Comprehensive metabolic panel (non-fasting) (02/23/2023 9:52 AM EST) Glucose 96 65 - 199 mg/dL [facility] Comment:Diabetes: >=200 mg/d L plus symptoms Blood Urea Nitrogen 12 8 - 18 mg/dL [facility] Creatinine 0.82 0.70 - 1.20 mg/dL [facility] Sodium 136 135 - 145 mmol/L [facility] Potassium 4.7 3.5 - 5.0 mmol/L [facility] Comment: Please note: ??Patients with WBC >100,000 may have falsely elevated Potassium levels. ??For accurate Potassium quantification in these patients send serum separator tube (gold top) for subsequent determinations. ??Contact the Clinical Chemistry Laboratory if there are any questions. Chloride 102 98 - 107 mmol/L [facility] Carbon Dioxide 24 22 - 31 mmol/L [facility] Anion Gap 10 5 - 15 mmol/L [facility] Calcium 9.1 8.5 - 10.5 mg/dL [facility] Protein, Total 6.7 6.1 - 8.0 g/dL [facility] Albumin 4.4 3.2 - 5.2 g/dL [facility] Aspartate Aminotransferase 13 0 - 30 unit/L [facility] Alanine Aminotransferase 15 0 - 30 unit/L [facility] Alkaline Phosphatase 65 35 - 105 unit/L [facility] Bilirubin, Total 0.3 0.2 - 1.3 mg/dL [facility] Est Glomerular Filtration Rate 83 >=60 mL/min/1. 73 m?? [facility] Comment: This patient's estimated GFR [...] In Lab Markell Darling MD CHEMISTRY ORDERABLES [facility] [place] [address] * Comprehensive metabolic panel (non-fasting) (10/17/2022 11:10 AM EDT) Glucose 70 65 - 199 mg/dL [facility] Comment:Diabetes: >=200 mg/d L plus symptoms Blood Urea Nitrogen 11 8 - 18 mg/dL [facility] Creatinine 0.76 0.70 - 1.20 mg/dL [facility] Sodium 140 135 - 145 mmol/L [facility] Potassium 4.7 3.5 - 5.0 mmol/L [facility] Comment: Please note: ??Patients with WBC >100,000 may have falsely elevated Potassium levels. ??For accurate Potassium quantification in these patients send serum separator tube (gold top) for subsequent determinations. ??Contact the Clinical Chemistry Laboratory if there are any questions. Chloride 106 98 - 107 mmol/L [facility] Carbon Dioxide 26 22 - 31 mmol/L [facility] Anion Gap 8 5 - 15 mmol/L [facility] Calcium 9.3 8.5 - 10.5 mg/dL [facility] Protein, Total 6.6 6.1 - 8.0 g/dL [facility] Albumin 4.3 3.2 - 5.2 g/dL [facility] Aspartate Aminotransferase 12 0 - 30 unit/L [facility] Alanine Aminotransferase 9 0 - 30 unit/L [facility] Alkaline Phosphatase 61 35 - 105 unit/L [facility] Bilirubin, Total 0.2 0.2 - 1.3 mg/dL [facility] Est Glomerular Filtration Rate 91 >=60 mL/min/1. 73 m?? [facility] Comment: This patient's estimated GFR [...] In Lab Markell Darling MD CHEMISTRY ORDERABLES [facility] [place] [address] * Comprehensive metabolic panel (non-fasting) (05/15/2022 12:49 PM EST) Glucose 81 65 - 199 mg/dL [facility] Comment:Diabetes: >=200 mg/d L plus symptoms Blood Urea Nitrogen 12 8 - 18 mg/dL [facility] Creatinine 0.70 0.70 - 1.20 mg/dL [facility] Sodium 140 135 - 145 mmol/L [facility] Potassium 4.8 3.5 - 5.0 mmol/L [facility] Comment: Please note: ??Patients with WBC >100,000 may have falsely elevated Potassium levels. ??For accurate Potassium quantification in these patients send serum separator tube (gold top) for subsequent determinations. ??Contact the Clinical Chemistry Laboratory if there are any questions. Chloride 105 98 - 107 mmol/L [facility] Carbon Dioxide 25 22 - 31 mmol/L [facility] Anion Gap 10 5 - 15 mmol/L [facility] Calcium 9.5 8.5 - 10.5 mg/dL [facility] Protein, Total 7.1 6.1 - 8.0 g/dL [facility] Albumin 4.7 3.2 - 5.2 g/dL [facility] Aspartate Aminotransferase 10 0 - 30 unit/L [facility] Alanine Aminotransferase 17 0 - 30 unit/L [facility] Alkaline Phosphatase 67 35 - 105 unit/L [facility] Bilirubin, Total 0.3 0.2 - 1.3 mg/dL [facility] Est Glomerular Filtration Rate 101 >=60 mL/min/1. 73 m?? [facility] Comment: This patient's estimated GFR [...] In Lab Markell Darling MD CHEMISTRY ORDERABLES [facility] [place] [address] * Protein Electrophoresis, urine, random (04/28/2022 4:29 PM EST) Protein, Urine <6 0 - 12 mg/dL [facility] U Albumin See Note [facility] Comment:No protein visible v ia electrophoresis due to a low urine total protein. Globulin, Urine See Note [facility] Comment:No protein visible v ia electrophoresis due to a low urine total protein. M1 Band, Urine See Note [facility] Comment:No protein visible v ia electrophoresis due to a low urine total protein. UPEP Comments See Note [facility] Comment: Total Protein concentration too low to fractionate using current electrophoretic technique. Urine 04/28/2022 4:29 PM EST 04/28/2022 4:37 PM EST Narrative Resulting Agency Comment Spec In Lab Markell Darling MD URINE ORDERABLES Performing Organization Address [facility] Co de Phone Number [facility] [place] [address] * Lactate Dehydrogenase (04/28/2022 4:18 PM EST) Lactate Dehydrogenase 180 110 - 220 unit/L [facility] Blood 04/28/2022 4:18 PM EST 04/28/2022 4:28 PM EST Narrative Resulting Agency Comment Spec In Lab Markell Darling MD CHEMISTRY ORDERABLES Performing Organization Address [facility] Co de Phone Number [facility] [place] [address] * Immunophenotyping Flow Cytometry (04/28/2022 4:18 PM EST) Immunophenotyping Flow See Comment [facility] Comment: When completed by the Pathologist, the Flow Cytometry Report ([id number]) will display under the Pathology Results section within [facility]. Other 04/28/2022 4:18 PM EST 04/28/2022 4:27 PM EST Narrative Resulting Agency Comment Spec In Lab Markell Darling MD HEMATOLOGY ORDERABLE S Performing Organization Address [facility] Co de Phone Number [facility] [place] [address] * Free Light Chains, Serum (04/28/2022 4:18 PM EST) [place] Free Light Chain 1.74 0.72 - 2.75 mg/dL [facility] Lambda Free Light Chain 1.31 0.57 - 2.15 mg/dL [facility] [place]/Lambda FLC Ratio 1.3282 0.4000 - 2.5800 [facility] Blood 04/28/2022 4:18 PM EST 04/28/2022 4:27 PM EST Narrative Resulting Agency Comment Spec In Lab Markell Darling MD CHEMISTRY ORDERABLES [facility] [place] [address] * Protein Electrophoresis, serum (04/28/2022 4:18 PM EST) Total Prot Electrophoresis 6.8 6.1 - 8.0 g/dL [facility] Albumin Electrophoresis 4.69 3.20 - 5.20 g/dL [facility] Alpha 1 Globulin 0.18 0.10 - 0.30 g/dL [facility] Alpha 2 Globulin 0.71 0.40 - 0.90 g/dL [facility] Beta Globulin 0.59 0.50 - 1.00 g/dL [facility] Gamma Globulin 0.63 0.50 - 1.30 g/dL [facility] M1 Band None Detected None Detected [facility] Blood 04/28/2022 4:18 PM EST 04/28/2022 4:28 PM EST Narrative Resulting Agency Comment Spec In Lab Markell Darling MD CHEMISTRY ORDERABLES Performing Organization Address [place]/[facility] Co de Phone Number [facility] [place] [address] * Haptoglobin (04/28/2022 4:18 PM EST) Haptoglobin 190 30 - 200 mg/dL [facility] Comment: Haptoglobin concentrations in newborns is low to undetectable; however, adult concentrations are usually attained by 4 months of age. ??No sex-related differences for haptoglobin have been detected. Blood 04/28/2022 4:18 PM EST 04/28/2022 4:28 PM EST Narrative Resulting Agency Comment Spec In Lab Markell Darling MD CHEMISTRY ORDERABLES [facility] [place] [address] documented in this encounter Visit Diagnoses Diagnosis Medication monitoring encounter Encounter for therapeutic drug monitoring High risk medication use Encounter for long-term (current) use of other medications Seropositive rheumatoid arthritis Rheumatoid arthritis Inflammatory arthropathy Arthropathy, unspecified, site unspecified Methotrexate, senior living, current use Encounter for long-term (current) use of other medications Seronegative rheumatoid arthritis Rheumatoid arthritis Chronic pain of both ankles Pain in right hip Pain in joint, pelvic region and thigh Pain in both hands Bilateral wrist pain Pain in joint, forearm Bursitis of other bursa of both hips Pain in both feet Pain in limb documented in this encounter Care Teams Funeral Home Associate Relationship Specialty Start Date End Date Nidhi Conti PA [address] [place] [id number] PCP - General Family Medicine 06/11/20 documented as of this encounter
--- OUTSIDE RECORDS SUMMARY | 2023-11-15 02:26 | XMS_ITS | Encounter Summary ---
[place] [address] Care Team Providers Care Supervising Editor News Reel Name Role Phone Nidhi Conti Primary Care Provider Encounter Details Date Type Department Care Team (Latest Contact Info) Description 11/26/2021 10:35 AM EDT Laboratory Appointment Lab [address] [place] [phone] Seronegative rheumatoid arthritis; Pain in both hands; Medication monitoring encounter; High risk medication use; Seropositive rheumatoid arthritis; Bilateral wrist pain; Methotrexate, regulatory affairs director, current use; Inflammatory arthropathy; Chronic pain of both ankles; Pain in right hip; Morning joint stiffness; Chronic pain of both knees; Bilateral hip pain; Bursitis of other bursa of both [...] Associated Diagnosis Comments HC C-REACTIVE PROTEIN Routine 11/26/2021 10:44 AM EDT Seronegative rheumatoid arthritis Pain in both hands Medication monitoring encounter High risk medication use Seropositive rheumatoid arthritis Bilateral wrist pain Methotrexate, regulatory affairs director, current use Inflammatory arthropathy Chronic pain of both ankles Pain in right hip Morning joint stiffness BILIRUBIN, DIRECT Routine 11/26/2021 10: 44 AM EDT HEMOGRAM Routine 11/26/2021 10:44 AM EDT Seronegative rheumatoid arthritis Pain in both hands Medication monitoring encounter High risk medication use Seropositive rheumatoid arthritis Bilateral wrist pain Methotrexate, halfway, current use Inflammatory arthropathy Chronic pain of both ankles Pain in right hip Morning joint stiffness DIFFERENTIAL, AUTOMATED Routine 11/26/2021 10:44 AM EDT Seronegative rheumatoid arthritis Pain in both hands Medication monitoring encounter High risk medication use Seropositive rheumatoid arthritis Bilateral wrist pain Methotrexate, halfway, current use Inflammatory arthropathy Chronic pain of both ankles Pain in right hip Morning joint stiffness HC VENIPUNCTURE Routine 11/26/2021 10:44 AM EDT Seronegative rheumatoid arthritis Pain in both hands Medication monitoring encounter High risk medication use Seropositive rheumatoid arthritis Bilateral wrist pain Methotrexate, regulatory affairs director, current use Inflammatory arthropathy Chronic pain of both ankles Pain in right hip Morning joint stiffness HC CBC,PLT & AUTO DIFF Routine 10:44 AM EDT Seronegative rheumatoid arthritis Pain in both hands Medication monitoring encounter High risk medication use Seropositive rheumatoid arthritis Bilateral wrist pain Methotrexate, halfway, current use Inflammatory arthropathy Chronic pain of both ankles Pain in right hip Morning joint stiffness COMPREHENSIVE METABOLIC PANEL Routine 11/26/2021 10:44 AM EDT Seronegative rheumatoid arthritis Bilateral wrist pain Pain in both hands Medication monitoring encounter High risk medication use documented in this encounter Results * Bilirubin, Direct (11/26/2021 10:44 AM EDT) Bilirubin, Direct 0.1 0.0 - 0.3 mg/dL [facility] Blood 11/26/2021 10:4 4 AM EDT 11/26/2021 11:03 AM EDT Narrative Resulting Agency Comment Spec In Lab Markell Darling MD CHEMISTRY ORDERABLES [facility] [place] [place] [address] * (ABNORMAL) Differential, Automated (11/26/2021 10:44 AM EDT) Neutrophil % 53.2 % [facility] Neutrophil Absolute 5.71 1.70 - 6.10 x10(3)/[facility] Lymph % 37.5 % [facility] Lymphocytes Abs 4.0(H) 0.9 - 3.2 x10(3)/[facility] Monocyte % 7.1 % [facility] Monocyte Abs 0.8 0.3 - 0.9 x10(3)/[facility] Eos % 1.2 % [facility] Eosinophils Abs 0.1 0.0 - 0.4 x10(3)/[facility] Basophil % 0.5 % [facility] Baso Absolute 0.0 0.0 - 0.1 x10(3)/[facility] Immature Gran % 0.50 % [facility] Comment: Immature granulocytes(IG's)percentage and absolute count will include metamyelocytes, myelocytes, and promyelocytes. Blood smears from CBCs yielding IG's will be scanned manually for concordance. If this scan disagrees with the automated IG or if promyelocytes are noted, a manual differential will be performed. Immature Gran Absolute 0.05(H) 0.00 - 0.04 x10(3)/[facility] Blood 11/26/2021 10:4 4 AM EDT 11/26/2021 11:03 AM EDT Narrative Resulting Agency Comment Spec In Lab Markell Darling MD HEMATOLOGY ORDERABLE S [facility] [place] [address] * (ABNORMAL) Hemogram (11/26/2021 10:44 AM EDT) White Blood Cell 10.7(H) 4.0 - 9.5 x10(3)/mc L [facility] Red Blood Cell 3.82(L) 4.00 - 5.21 x10(6)/mc L [facility] Hemoglobin 12.7 11.7 - 15.5 g/dL [facility] Hematocrit 37.0 35.7 - 45.8 % [facility] Mean Cell Volume 96.9(H) 82.6 - 94.4 fL [facility] Mean Cell Hemoglobin 33.2(H) 27.1 - 32.0 pg [facility] Mean Cell Hemoglobin Concentration 34.3 31.7 - 35.0 g/dL [facility] Platelet 291 145 - 357 x10(3)/ L [facility] RDW Standard Deviation 51.1(H) 37.0 - 46.0 [facility] RDW coefficient of variation 14.5(H) 11.5 - 14.1 % [facility] Mean Platelet Volume 9.4 7.6 - 12.9 [facility] NRBC% auto 0.0 % [facility] NRBC Absolute 0.000 0.000 - 0.000 x10(3)/[facility] Blood 11/26/2021 10:4 4 AM EDT 11/26/2021 11:03 AM EDT Narrative Resulting Agency Comment Spec In Lab Markell Darling MD HEMATOLOGY ORDERABLE S [facility] [place] [address] * Comprehensive metabolic panel (non-fasting) (11/26/2021 10:44 AM EDT) Glucose 92 65 - 199 mg/dL [facility] Comment:Diabetes: >=200 mg/d L plus symptoms Blood Urea Nitrogen 13 8 - 18 mg/dL [facility] Creatinine 0.74 0.70 - 1.20 mg/dL [facility] Sodium 137 135 - 145 mmol/L [facility] Potassium 4.7 3.5 - 5.0 mmol/L [facility] Comment: Please note: ??Patients with WBC >100,000 may have falsely elevated Potassium levels. ??For accurate Potassium quantification in these patients send serum separator tube (gold top) for subsequent determinations. ??Contact the Clinical Chemistry Laboratory if there are any questions. Chloride 102 98 - 107 mmol/L [facility] Carbon Dioxide 25 22 - 31 mmol/L [facility] Anion Gap 10 5 - 15 mmol/L [facility] Calcium 9.3 8.5 - 10.5 mg/dL [facility] Protein, Total 7.0 6.1 - 8.0 g/dL [facility] Albumin 4.6 3.2 - 5.2 g/dL [facility] Aspartate Aminotransferase 14 0 - 30 unit/L [facility] Alanine Aminotransferase 19 0 - 30 unit/L [facility] Alkaline Phosphatase 66 35 - 105 unit/L [facility] Bilirubin, Total 0.2 0.2 - 1.3 mg/dL [facility] Est Glomerular Filtration Rate 95 >=60 mL/min/1. 73 m?? [facility] Comment: This patient's estimated [...] and symptoms in addition to eGFR. Blood 11/26/2021 10:4 4 AM EDT 11/26/2021 11:03 AM EDT Narrative Resulting Agency Comment Spec In Lab Markell Darling MD CHEMISTRY ORDERABLES [facility] [place] [address] * CRP, acute inflammation (11/26/2021 10:44 AM EDT) C-Reactive Protein 4.5 <=4.9 mg/L [facility] Blood 11/26/2021 10:4 4 AM EDT 11/26/2021 11:03 AM EDT Narrative Resulting Agency Comment Spec In Lab Markell Darling MD CHEMISTRY ORDERABLES Performing Organization Address [facility] Co de Phone Number [facility] [place] [address] * Sedimentation rate (11/26/2021 10:44 AM EDT) Sedimentation Rate Automated 19 2 - 39 mm/hr [facility] Comment: Effective March 15, 2019 new capillary photometric technology has resulted in a change in reference ranges. It is recommended that each ESR result be reviewed with its own age appropriate reference range. Blood 11/26/2021 10:4 4 AM EDT 11/26/2021 11:03 AM EDT Narrative Resulting Agency Comment Spec In Lab Markell Darling MD HEMATOLOGY ORDERABLE S Performing Organization Address [facility] Co de Phone Number [facility] [place] [address] documented in this encounter Visit Diagnoses Diagnosis Seronegative rheumatoid arthritis Rheumatoid arthritis Pain in both hands Medication monitoring encounter Encounter for therapeutic drug monitoring High risk medication use Encounter for long-term (current) use of other medications Seropositive rheumatoid arthritis Rheumatoid arthritis Bilateral wrist pain Pain in joint, forearm Methotrexate, halfway, current use Encounter for long-term (current) use of other medications Inflammatory arthropathy Arthropathy, unspecified, site unspecified Chronic pain of both ankles Pain in right hip Pain in joint, pelvic region and thigh Morning joint stiffness Stiffness of joint, not elsewhere classified, unspecified site Chronic pain of both knees Bilateral hip pain Pain in joint, pelvic region and thigh Bursitis of other bursa of both hips Pain in both feet Pain in limb documented in this encounter Care Teams Supervising Editor News Reel Relationship Specialty Start Date End Date Nidhi Conti PA [address] [place] [address] PCP - General Family Medicine 06/11/20 documented as of this encounter
--- OUTSIDE RECORDS SUMMARY | 2023-11-15 02:26 | XMS_ITS | Encounter Summary ---
Author Organization [facility] [place] [address] Care Team Providers Care Court Specialist Name Role Phone Nidhi Conti Primary Care Provider [phone] Reason for Visit * Reason Comments Medication Refill Encounter Details Date Type Department Care Team (Late st Contact Info) Description 03/01/2022 Ref[place] [address] Markell Darling MD [facility] [place] [address] Medication monitoring encounter; High risk medication use; [...] Inflammatory arthropathy Arthropathy, unspecified, site unspecified Methotrexate, usp, current use Encounter for long-term (current) use of other medications Seronegative rheumatoid arthritis Rheumatoid arthritis Chronic pain of both ankles Pain in right hip Pain in joint, pelvic region and thigh Pain in both hands Bilateral wrist pain Pain in joint, forearm Bursitis of other bursa of both hips Pain in both feet Pain in limb documented in this encounter Care Teams Court Specialist Relationship Specialty Start Date End Date Nidhi Conti PA [address] [place] [id number] PCP - General Family Medicine 06/11/20 documented as of this encounter
--- OUTSIDE RECORDS SUMMARY | 2023-11-15 02:26 | XMS_ITS | Encounter Summary ---
Author Organization [facility] [place] [address] Care Team Providers Care Director Outpatient Services Name Role Phone Nidhi Conti Primary Care Provider [phone] Reason for Visit * Reason Comments Medication Refill Encounter Details Date Type Department Care Team (Late st Contact Info) Description 05/11/2022 Refill [place] [address] Markell Darling MD [facility] [place] [address] Medication monitoring encounter; High risk medication use; [...] Telephone Encounter - Sisi Steward RN - 05/12/2022 9:32 AM EST Images from the original note were not included. Markell Darling MD to [facility] Rheumatology Nurse ??? [facility] Rheumatology Adobe Developer ?? 5:24 PM We need her CMP if not she ahs to go back ALBER TC to patient, no answer. Left message to go back to have the rest of the labs done, at least CMP per Dr Phong MD. documented in this encounter Plan of Treatment Not on file documented as of this encounter Visit Diagnoses Diagnosis Medication monitoring encounter Encounter for therapeutic drug monitoring High risk medication use Encounter for long-term (current) use of other medications Seropositive rheumatoid arthritis Rheumatoid arthritis Inflammatory arthropathy Arthropathy, unspecified, site unspecified Methotrexate, rn long term care, current use Encounter for long-term (current) use of other medications Seronegative rheumatoid arthritis Rheumatoid arthritis Chronic pain of both ankles Pain in right hip Pain in joint, pelvic region and thigh Pain in both hands Bilateral wrist pain Pain in joint, forearm Bursitis of other bursa of both hips Pain in both feet Pain in limb documented in this encounter Care Teams Director Outpatient Services Relationship Specialty Start Date End Date Nidhi Conti PA [address] [place] [id number] PCP - General Family Medicine 06/11/20 documented as of this encounter
--- OUTSIDE RECORDS SUMMARY | 2023-11-15 02:26 | XMS_ITS | Encounter Summary ---
Author Organization [facility] [place] [address] Care Team Providers Care Costumer Name Role Phone Nidhi Conti Primary Care Provider [phone] Reason for Visit * Reason Comments Medication Refill Encounter Details Date Type Department Care Team (Late st Contact Info) Description 08/17/2021 [place] [address] Markell Darling MD [facility] [place] [address] Medication monitoring encounter; High risk medication use; Seropositive rheumatoid arthritis; Inflammatory arthropathy; Methotrexate, group home, current use; Seronegative rheumatoid arthritis; Chronic [...] Inflammatory arthropathy Arthropathy, unspecified, site unspecified Methotrexate, group home, current use Encounter for long-term (current) use of other medications Seronegative rheumatoid arthritis Rheumatoid arthritis Chronic pain of both ankles Pain in right hip Pain in joint, pelvic region and thigh Pain in both hands Bilateral wrist pain Pain in joint, forearm Bursitis of other bursa of both hips Pain in both feet Pain in limb documented in this encounter Care Teams Costumer Relationship Specialty Start Date End Date Nidhi Conti PA [address] [place] [id number] PCP - General Family Medicine 06/11/20 documented as of this encounter
--- OUTSIDE RECORDS SUMMARY | 2023-11-15 02:26 | XMS_ITS | Encounter Summary ---
Author Organization [facility] [place] [address] Care Team Providers Care Cutter Operator Asbestos Shingle Name Role Phone Nidhi Conti Primary Care Provider [phone] Encounter Details Date Type Department Care Team (Latest Contact Info) Description 06/23/2021 2:30 PM EDT TH Visit (TeleHealth) [place] [phone] Markell Darling MD [facility] [place] [address] Seronegative rheumatoid arthritis; Bilateral wrist pain; Pain in both hands; Medication monitoring encounter; High risk medication use; Seropositive rheumatoid arthritis; Methotrexate, alf, current use; Chronic pain of both ankles; Pain in right hip; Inflammatory arthropathy Social History Tobacco Use Types Packs/Day Years [...] Progress Notes * Markell Darling MD - 06/23/2021 2:30 PM EDT Rheumatology Follow Up phone note 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 abnormal wrist xray erosion verses a cyst CDAI uable to calcuate MTX 8 tbs weekly and FA ?? MTX has resulted in increased oral ulcer will increase FA to 5mg. ?? Continue Current MTX 6 tabs weekly since no benefit at 8 tabs and more SE ?? Increased oral ulcers with methotrexate HCQ SE - diarrhea She is on simvastatin Interval HX: Keyona Terry is a 55 y.o. C female who presents today for fu evaluation SPRA of bilateral hand pain and foot pain that is been going on for several years but been worse over the last year. She reports since being on Humira for month arthritis is improved significantly. She is tolerating methotrexate now without any side effects. She is scheduled to see podiatry this Wednesday . Disease activity is low To moderate which is much better than it was last visit. She denies any swelling redness or warmth No leukocytosis no nausea, vomiting, diarrhea, and overall feeling of illness, headaches,, tinnitus Physical exam NAD NCAT, nonicteric sclera, no Malar rash Neck full range of motion No increased work of breathing AO x3 Hands well-perfused Moving shoulders elbows wrists fingers can make a fist Able to get up out of chair from seated position Assessment and Plan: Keyona Terry is a 55 y.o. female who presents today with a [...] rheumatoid arthritis tests Sero+ RA ?? Patient still reports disease activity is low than projected by exam or ultrasound ?? Currently on methotrexate Humira ?? -She has tapered down on her steroids to 2.5 mg-discussed coming off either cold turkey or alternate day dosing but has not had any rebound symptoms ?? High risk medication Reviewed risks for leflunomide and TNF inhibitor Patient was educated on the risks and [...] surgeries so hold parameters can be provided. Patient educated on the side effects of leflunomide to include increased risk for infection, liver toxicity, bone marrow suppression, and pulmonary toxicity. If appropriate, avoidance of was discussed as leflunomide can cause anomalies or loss. Leflunomide is contraindicated in and has to be stopped months in advanced prior to conception and may require medications. The patient is aware to seek care for infections/febrile episodes and to hold the medication whileon antibiotic therapy for an infection. The patient will make me aware of any planned surgeries so hold parameters can be identified. The patient is aware to complete labs as requested. Leukocytosis --lymphocytosis has resolved Chronic foot ankle and hand pain-x-rays consistent with osteoarthritis as is ultrasound. On meloxicam Tylenol omega-3 fatty acids and turmeric-she is scheduled to see podiatry later this week Previously positive de Quervain's tenosynovitis Trochanteric syndrome- dicussed trochanteric injections- would prfer to mag at later date High risk Med - No SE/AE Labs q 1 months for MTX monitoring howerever soon labs 2/2 abl WBC and lynp count We will get repeat labs this week while on Humira Labs every 3 months after the most recent 1 Orders Placed This Encounter Procedures ??? CBC (with Diff) ??? Comprehensive metabolic panel (non-fasting) ??? CRP, acute inflammation ??? Sedimentation rate Return in about 3 months (around 09/23/2021). Markell Darling MD documented in this encounter Plan of Treatment Not on file documented as of this encounter Visit Diagnoses Diagnosis Seronegative rheumatoid arthritis Rheumatoid arthritis Bilateral wrist pain Pain in joint, forearm Pain in both hands Medication monitoring encounter Encounter for therapeutic drug monitoring High risk medication use Encounter for long-term (current) use of other medications Seropositive rheumatoid arthritis Rheumatoid arthritis Methotrexate, computer terminal operator, current use Encounter for long-term (current) use of other medications Chronic pain of both ankles Pain in right hip Pain in joint, pelvic region and thigh Inflammatory arthropathy Arthropathy, unspecified, site unspecified documented in this encounter Care Teams Cutter Operator Asbestos Shingle Relationship Specialty Start Date End Date Nidhi Conti PA [address] [place] [id number] PCP - General Family Medicine 06/11/20 documented as of this encounter
--- OUTSIDE RECORDS SUMMARY | 2023-11-15 02:26 | XMS_ITS | Encounter Summary ---
Author Organization [facility] [place] [address] Care Team Providers Care Belt Molder Name Role Phone Nidhi Conti Primary Care Provider [phone] Reason for Visit * Reason Comments Medication Refill Encounter Details Date Type Department Care Team (Late st Contact Info) Description 06/17/2021 Refill [place] [address] Markell Darling MD [facility] [address] Seronegative rheumatoid arthritis; Bilateral wrist pain; Pain in both hands; Medication monitoring encounter; High risk medication use; Seropositive rheumatoid arthritis; Inflammatory arthropathy; Methotrexate, hris coordinator, current use; Chronic pain of both ankles; Pain in right hip; Bursitis of other [...] encounter Miscellaneous Notes * Telephone Encounter - Rocío Vilchis LPN - 06/18/2021 2:14 PM EDT Requested Prescriptions Pending Prescriptions Disp Refills ??? meloxicam (MOBIC) 15 mg Tablet [Pharmacy Med Name: MELOXICAM 15MG TABLETS] 30 tablet 2 Sig: TAKE 1 TABLET BY MOUTH DAILY ??? metHOTREXate 2.5 mg Tablet [Pharmacy Med Name: METHOTREXATE 2.5MG TABLETS - YELLOW] 102 tablet 0 Sig: TAKE 8 TABLETS BY MOUTH ONCE WEEKLY ON WEDNESDAY Last office visit:04/29/2021 follow up 06/23/2021 Last refill: Meloxicam and 05/06/2021 MTX Labs: 05/16/2021 documented in this encounter Plan of Treatment [...] limb documented in this encounter Care Teams Belt Molder Relationship Specialty Start Date End Date Nidhi Conti PA [address] [place] [id number] PCP - General Family Medicine 06/11/20 documented as of this encounter
--- OUTSIDE RECORDS SUMMARY | 2023-11-15 02:26 | XMS_ITS | Encounter Summary ---
Author Organization [facility] [place] [address] Care Team Providers Care Textile Knitter Name Role Phone Nidhi Conti Primary Care Provider [phone] Encounter Details Date Type Department Care Team (Latest Contact Info) Description 09/22/2021 10:00 AM EDT TH Visit (TeleHealth) [place] [address] Markell Darling MD [facility] [place] [address] Seronegative rheumatoid arthritis; Pain in both hands; Medication monitoring encounter; High risk medication use; Seropositive rheumatoid arthritis; Bilateral wrist pain; Methotrexate, usp, current use; Inflammatory arthropathy; Chronic pain of both ankles; Pain in right hip; Morning joint stiffness Social History Tobacco Use Types Packs/Day Years [...] Progress Notes * Markell Darling MD - 09/22/2021 10:00 AM EDT Rheumatology Follow Up phone note COVID [...] back up to 8 tabs of methotrexate for the past 2 months she is on her 3rd-4 month of Humira. She feels like the marrow does not make it to the second week with pain with increased activity such as core stretching and coloring. The pain seems to be worse with activity worse at the end the day no swelling redness or warmth of the joints reported. She describes in her overall joint symptoms as low to moderate. Still better than it was initially we made some changes to the medication. But is not where she thought it would be. Takes meloxicam every day. She denies nausea vomiting diarrhea feeling of overall illness recent infections headaches tinnitus Review of Systems Rheumatic history (x) means [...] exam or ultrasound ?? Currently on methotrexate weekly ?? Humira biweekly ?? -She has tapered off steroids ?? She is on meloxicam Leukocytosis resolved --lymphocytosis has resolved Patient was educated on the risks and [...] discuss plans for surgery and with me. High risk Med - No SE/AE Labs q 1 months for MTX monitoring howerever soon labs 2/2 abl WBC and lynp count We will get repeat labs this week while on Humira Labs every 3 months after the most recent Orders Placed This Encounter Procedures ??? XR Hand Min 3 views Bilat (Generic) Return in about 8 weeks (around 11/17/2021) for In Person. > 44 minutes total Markell Darling MD documented in this encounter Plan of Treatment Not on file documented as of this encounter Results * XR Hand Min [...] who have questions please contact the health rn acute care that requested your imaging first. ? Narrative 11/26/2021 12:58 PM EDT EXAMINATION: XR [...] patients who have questions please contactthe health rn acute care that requested your imaging first. Markell Darling MD IMG DX ORDERABLES documented in this encounter Visit Diagnoses Diagnosis Seronegative rheumatoid arthritis Rheumatoid arthritis Pain in both hands Medication monitoring encounter Encounter for therapeutic drug monitoring High risk medication use Encounter for long-term (current) use of other medications Seropositive rheumatoid arthritis Rheumatoid arthritis Bilateral wrist pain Pain in joint, forearm Methotrexate, usp, current use Encounter for long-term (current) use of other medications Inflammatory arthropathy Arthropathy, unspecified, site unspecified Chronic pain of both ankles Pain in right hip Pain in joint, pelvic region and thigh Morning joint stiffness Stiffness of joint, not elsewhere classified, unspecified site Pain in both hands Bilateral wrist pain Pain in joint, forearm Morning joint stiffness Stiffness of joint, not elsewhere classified, unspecified site documented in this encounter Care Teams Textile Knitter Relationship Specialty Start Date End Date Nidhi Conti PA [address] [place] [id number] PCP - General Family Medicine 06/11/20 documented as of this encounter
--- OUTSIDE RECORDS SUMMARY | 2023-11-15 02:26 | XMS_ITS | Encounter Summary ---
Author Organization [facility] [place] [address] Care Team Providers Care Drum Plater Name Role Phone Nidhi Conti Primary Care Provider [phone] Encounter Details Date Type Department Care Team (Late st Contact Info) Description 01/08/2022 2:30 PM EDT Office [place] [address] Markell Darling MD [facility] [place] [address] Medication monitoring encounter; High risk medication use; Seropositive rheumatoid arthritis; Inflammatory arthropathy; Methotrexate, fpc, current use; Seronegative rheumatoid arthritis; Bilateral wrist pain; Pain in both hands; Lymphocytosis Social History Tobacco Use Types Packs/Day Years [...] Sign Reading Time Taken Comments Blood Pressure 120/53 01/08/2022 2:19 PM EDT Pulse 80 01/08/2022 2:19 PM EDT Temperature 36.6 ??C (97.8 ??F) 01/08/2022 2:19 PM ED T Respiratory Rate 20 01/08/2022 2:19 PM EDT Oxygen Saturation 97% 01/08/2022 2:19 PM EDT Inhaled Oxygen Concentration - - Weight 91.5 kg (201 lb 12.8 oz) 01/08/2022 2:19 PM EDT Height 160 cm (5' 3) 01/08/2022 2:19 PM EDT Body Mass Index 35.75 01/08/2022 2:19 PM EDT documented in this encounter Progress Notes * Markell Darling MD - 01/08/2022 2:30 PM EDT Rheumatology Follow Up phone [...] her 3rd-4 month of Humira. She feels she si doing great other then some hand pain She describes numbness and tinging median nerve distrubution with pain.No MS > 30 minuts No synovitis No weakness Work related issues She morena no toher concerns no fatigue night sweats weight loss, . Review of Systems Rheumatic history (x) means [...] cutis 47. Photosensitivity 48. Rash Physical exam Physical Exam: BP 120/53 (BP Location (NBP): Right arm, Patient Position: Sitting, BP Cuff Sizes: Large Adult (32-43 cm)) Pulse 80 Temp 36.6 ??C (97.8 ??F) (Temporal) Resp 20 Ht 160 cm (5' 3) Wt 91.5 kg (201 lb 12.8 oz) SpO2 97% BMI 35.75 kg/m?? General: NAD HEENT: Mucous membranes are moist, no oral mucosal ulcerations, Neck: Supple, no lymphadenopathy, full range of motion. Cardiovascular: RR, (-)murmurs, rubs, or gallops. Lungs: Clear to auscultation bilaterally. (-)R/R/W Abdomen: Soft, non tender, non distended, + bowel sounds, no hepatosplenomegaly. Neuro: Alert and oriented x3. Cranial nerves III through XII grossly intact. - Strength 5/5 throughout, Skin: (-)ulcers, (-)rash Vascular: Pulses are equal in all extremities. MSK Back: Non tender over the spine and costovertebral angles bilaterally. (-)Gilbert Extremities Shoulders: FROM, non-tender to palpation Elbows:FROM, (-)pain, (-)nodules Wrists: FROM, no swelling, non-tender, + druken, phalens Hands: No synovitis, no MCP compression tenderness, full claw and fist positive Luz Marina negative Tinel's Phalen's Garland's Hips: rROM internal rotation , (+ fader (-+aber), abnl get of chair referred to the groind Knees: (-)effusions, non-tender ROM Ankles: FROM, non-tender, no swelling Feet: no MTP compression tenderness ?? Spine, shoulders, elbows, wrists, fingers, hips, knees and ankles; no active swelling, tenderness or synovitis at any joint. No soft tissue nodules. myD-H RAPID-3 Responses 01/04/2022 RAPID-3 Function 1.67 RAPID-3 Pain 4 RADIP-3 Global 0 RAPID-3 Total Scores 5.67 (Low) Assessment and Plan: Keyona Terry is [...] on meloxicam ?? -remission Leukocytosis - with leukocytosis deferred eval but was okay for CBC then eval CTS - work ergonomics at length offered note id tony be - bracing if no improvement or worsening decided to go forward with EMG rec OT and owork related occ health eval Elevated WBC count and lymphocyte counts High risk medications Patient was educated on the risks and [...] High risk Med - No SE/AE Labs every 3 months after the most recent Orders Placed This Encounter Procedures ??? CBC (with Diff) ??? Creatinine ??? Hepatic Function Panel ??? CRP, acute inflammation ??? Sedimentation rate ??? Vitamin B12 ??? Iron and TIBC ??? Hemogram ??? Differential, Automated ??? Bilirubin, Direct ??? Protein Electrophoresis, serum ??? Protein Electrophoresis, urine, random ??? Lactate Dehydrogenase ??? Haptoglobin ??? Immunophenotyping Flow Cytometry ??? Peripheral Smear Review Return in about 3 months (around 04/10/2022) for Telehealth. > 44 minutes total Markell Darling MD documented in this encounter Plan of Treatment Not on file documented as of this encounter Procedures Procedure Name Priority Date/Time Associated Diagnosis Comments HC C-REACTIVE PROTEIN Routine 01/08/2022 3:02 PM EDT Medication monitoring encounter High risk medication use Seropositive rheumatoid arthritis Inflammatory arthropathy Methotrexate, fpc, current use Seronegative rheumatoid arthritis BILIRUBIN, DIRECT Routine 01/08/2022 3:0 2 PM EDT HEMOGRAM Routine 01/08/2022 3:02 PM EDT Medication monitoring encounter High risk medication use Seropositive rheumatoid arthritis Inflammatory arthropathy Methotrexate, fpc, current use Seronegative rheumatoid arthritis DIFFERENTIAL, AUTOMATED Routine 01/08/2022 3:02 PM EDT Medication monitoring encounter High risk medication use Seropositive rheumatoid arthritis Inflammatory arthropathy Methotrexate, intermodal owner operator truck driver, current use Seronegative rheumatoid arthritis HC IRON BINDING CAPACITY Routine 01/08/2022 3:02 PM EDT Medication monitoring encounter High risk medication use Seropositive rheumatoid arthritis Inflammatory arthropathy Methotrexate, intermodal owner operator truck driver, current use Seronegative rheumatoid arthritis HC ESR-SEDIMENTATION RATE, BLOOD Routine 01/08/2022 3:02 PM EDT Medication monitoring encounter High risk medication use Seropositive rheumatoid arthritis Inflammatory arthropathy Methotrexate, fpc, current use Seronegative rheumatoid arthritis HC CBC,PLT & AUTO DIFF Routine 3:02 PM EDT Medication monitoring encounter High risk medication use Seropositive rheumatoid arthritis Inflammatory arthropathy Methotrexate, intermodal owner operator truck driver, current use Seronegative rheumatoid arthritis HC VITAMIN B12 SERUM Routine 01/08/2022 3:02 PM EDT Medication monitoring encounter High risk medication use Seropositive rheumatoid arthritis Inflammatory arthropathy Methotrexate, fpc, current use Seronegative rheumatoid arthritis COMPREHENSIVE METABOLIC PANEL Routine 01/08/2022 3:02 PM EDT Seronegative rheumatoid arthritis Bilateral wrist pain Pain in both hands Medication monitoring encounter High risk medication use documented in this encounter Results * Bilirubin, Direct (01/08/2022 3:02 PM EDT) [facility] Bilirubin, Direct 0.1 0.0 - 0.3 mg/dL [facility] Blood 01/08/2022 3:02 PM EDT 01/08/2022 3:17 PM EDT Narrative Resulting Agency Comment Spec In Lab Markell Darling MD CHEMISTRY ORDERABLES [facility] [place] [address] * (ABNORMAL) Differential, Automated (01/08/2022 3:02 PM EDT) [facility] Neutrophil % 48.8 % [facility] Neutrophil Absolute 5.00 1.70 - 6.10 x10(3)/mc L [facility] Lymph % 41.9 % [facility] Lymphocytes Abs 4.3(H) 0.9 - 3.2 x10(3)/mc L [facility] Monocyte % 6.6 % [facility] Monocyte Abs 0.7 0.3 - 0.9 x10(3)/mc L [facility] Eos % 1.8 % [facility] Eosinophils Abs 0.2 0.0 - 0.4 x10(3)/mc L [facility] Basophil % 0.6 % [facility] Baso Absolute 0.1 0.0 - 0.1 x10(3)/ L [facility] Immature Gran % 0.30 % [facility] Comment: Immature granulocytes(IG's)percentage and absolute count will include metamyelocytes, myelocytes, and promyelocytes. Blood smears from CBCs yielding IG's will be scanned manually for concordance. If this scan disagrees with the automated IG or if promyelocytes are noted, a manual differential will be performed. Immature Gran Absolute 0.03 0.00 - 0.04 x10(3)/ L [facility] Blood 01/08/2022 3:02 PM EDT 01/08/2022 3:17 PM EDT Narrative Resulting Agency Comment Spec In Lab Markell Darling MD HEMATOLOGY ORDERABLE S Performing Organization Address City/State/[facility] Co de Phone Number [facility] [place] [address] * (ABNORMAL) Hemogram (01/08/2022 3:02 PM EDT) White Blood Cell 10.2(H) 4.0 - 9.5 x10(3)/[facility] Red Blood Cell 3.74(L) 4.00 - 5.21 x10(6)/ L [facility] Hemoglobin 12.2 11.7 - 15.5 g/dL [facility] Hematocrit 35.5(L) 35.7 - 45.8 % [facility] Mean Cell Volume 94.9(H) 82.6 - 94.4 fL [facility] Mean Cell Hemoglobin 32.6(H) 27.1 - 32.0 pg [facility] Mean Cell Hemoglobin Concentration 34.4 31.7 - 35.0 g/dL [facility] Platelet 277 145 - 357 x10(3)/ L [facility] RDW Standard Deviation 49.0(H) 37.0 - 46.0 fL [facility] RDW coefficient of variation 14.2(H) 11.5 - 14.1 % [facility] Mean Platelet Volume 9.8 7.6 - 12.9 fL [facility] NRBC% auto 0.0 % [facility] NRBC Absolute 0.000 0.000 - 0.000 x10(3)/mc L [facility] Blood 01/08/2022 3:02 PM EDT 01/08/2022 3:17 PM EDT Narrative Resulting Agency Comment Spec In Lab Markell Darling MD HEMATOLOGY ORDERABLE S [facility] [place] [address] * Comprehensive metabolic panel (non-fasting) (01/08/2022 3:02 PM EDT) Glucose 112 65 - 199 mg/dL [facility] Comment:Diabetes: >=200 mg/d L plus symptoms Blood Urea Nitrogen 14 8 - 18 mg/dL [facility] Creatinine 0.73 0.70 - 1.20 mg/dL [facility] Sodium 141 135 - 145 mmol/L [facility] Potassium 4.6 3.5 - 5.0 mmol/L [facility] Comment: Please note: ??Patients with WBC >100,000 may have falsely elevated Potassium levels. ??For accurate Potassium quantification in these patients send serum separator tube (gold top) for subsequent determinations. ??Contact the Clinical Chemistry Laboratory if there are any questions. Chloride 105 98 - 107 mmol/L [facility] Carbon Dioxide 26 22 - 31 mmol/L [facility] Anion Gap 10 5 - 15 mmol/L [facility] Calcium 9.3 8.5 - 10.5 mg/dL [facility] Protein, Total 6.9 6.1 - 8.0 g/dL [facility] Albumin 4.5 3.2 - 5.2 g/dL [facility] Aspartate Aminotransferase 12 0 - 30 unit/L [facility] Alanine Aminotransferase 16 0 - 30 unit/L [facility] Alkaline Phosphatase 67 35 - 105 unit/L [facility] Bilirubin, Total 0.3 0.2 - 1.3 mg/dL [facility] Est Glomerular Filtration Rate 96 >=60 mL/min/1. 73 m?? [facility] Comment: This patient's estimated GFR [...] and symptoms in addition to eGFR. Blood 01/08/2022 3:02 PM EDT 01/08/2022 3:17 PM EDT Narrative Resulting Agency Comment Spec In Lab Markell Darling MD CHEMISTRY ORDERABLES Performing Organization Address [facility] Co de Phone Number [facility] [place] [address] * CRP, acute inflammation (01/08/2022 3:02 PM EDT) C-Reactive Protein 3.9 <=4.9 mg/L [facility] Blood 01/08/2022 3:02 PM EDT 01/08/2022 3:17 PM EDT Narrative Resulting Agency Comment Spec In Lab Markell Darling MD CHEMISTRY ORDERABLES Performing Organization Address [facility]/ZIP Co de Phone Number [facility] [place] [address] * Sedimentation rate (01/08/2022 3:02 PM EDT) Sedimentation Rate Automated 13 2 - 39 mm/hr [facility] Comment: Effective March 15, 2019 new capillary photometric technology has resulted in a change in reference ranges. It is recommended that each ESR result be reviewed with its own age appropriate reference range. Blood 01/08/2022 3:02 PM EDT 01/08/2022 3:17 PM EDT Narrative Resulting Agency Comment Spec In Lab Markell Darling MD HEMATOLOGY ORDERABLE S Performing Organization Address City/[facility] Co de Phone Number [facility] [place] [address] * Iron and TIBC (01/08/2022 3:02 PM EDT) Pathologist [facility] Iron 82 30 - 150 mcg/dL [facility] TIBC 308 250 - 450 mcg/dL [facility] Iron Saturation 27 20 - 50 % [facility] Blood 01/08/2022 3:02 PM EDT 01/08/2022 3:17 PM EDT Narrative Resulting Agency Comment Spec In Lab Markell Darling MD CHEMISTRY ORDERABLES Performing Organization Address [facility] Co de Phone Number [facility] [place] [address] * Vitamin B12 (01/08/2022 3:02 PM EDT) Vitamin B12 509 232 - 1,245 pg/mL [facility] Blood 01/08/2022 3:02 PM EDT 01/08/2022 3:17 PM EDT Narrative Resulting Agency Comment Spec In Lab Markell Darling MD CHEMISTRY ORDERABLES Performing Organization Address [facility] Co de Phone Number [facility] [place] [address] documented in this encounter Visit Diagnoses Diagnosis Medication monitoring encounter Encounter for therapeutic drug monitoring High risk medication use Encounter for long-term (current) use of other medications Seropositive rheumatoid arthritis Rheumatoid arthritis Inflammatory arthropathy Arthropathy, unspecified, site unspecified Methotrexate, fpc, current use Encounter for long-term (current) use of other medications Seronegative rheumatoid arthritis Rheumatoid arthritis Bilateral wrist pain Pain in joint, forearm Pain in both hands Lymphocytosis Lymphocytosis (symptomatic) documented in this encounter Care Teams Drum Plater Relationship Specialty Start Date End Date Nidhi Conti PA [address] [place] [id number] PCP - General Family Medicine 06/11/20 documented as of this encounter
--- OUTSIDE RECORDS SUMMARY | 2023-11-15 02:26 | XMS_ITS | Encounter Summary ---
Author Organization [facility] [place] [address] Care Team Providers Care Engagement Quality Consultant Name Role Phone Nidhi Conti Primary Care Provider Reason for Visit * Reason Comments Medication Refill Encounter Details Date Type Department Care Team (Late st Contact Info) Description 01/20/2022 [place] [address] Markell Darling MD [facility] [place] [address] Seronegative rheumatoid arthritis; Pain in both hands; [...] forearm documented in this encounter Care Teams Engagement Quality Consultant Relationship Specialty Start Date End Date Nidhi Conti PA [address] [place] [id number] PCP - General Family Medicine 06/11/20 documented as of this encounter
--- OUTSIDE RECORDS SUMMARY | 2023-11-15 02:26 | XMS_ITS | Encounter Summary ---
[place] [address] Care Team Providers Care Survey Rodman Name Role Phone Nidhi Conti Primary Care Provider [phone] Reason for Visit * Reason Comments Medication Management Encounter Details Date Type Department Care Team (Late st Contact Info) Description 02/02/2022 Specialty [place] [id number] Aidee Phillips [facility] Social History Tobacco Use Types [...] Progress Notes * Aidee Phillips RPH - 02/02/2022 4:18 PM EDT Clinical Management Plan: Refill Specialty Pharmacy Consultation; Aidee Phillips [facility] Comprehensive Medication Management (CMM) Keyona Mccoy Harrison Ms. Keyona Terry is a 56 y.o. (1965) female who was contacted in [...] (Bulk) Diarrhea Medication Reconciliation Discrepancies (compared to [facility] med list) No Specialty Pharmacy Refill Questionnaire Refill Questionnaire 02/02/2022 What is the name of the specialty medication you are refilling? Humira Are you taking any new medications? No Any new medical condition? No Any new allergies? No Any new side effects that are bothersome? No What date will you need this fill by? 02/06/2022 Adherence: Any missed doses? No Patient understands no changes to current drug regimen were made. Aidee Phillips RPH 02/02/22 4:19 PM documented in this encounter Plan of Treatment Not on file documented as of this encounter Visit Diagnoses Not on filedocumented in this encounter Care Teams Survey Rodman Relationship Specialty Start Date End Date Nidhi Conit PA [address] [place] [id number] PCP - General Family Medicine 06/11/20 documented as of this encounter
--- OUTSIDE RECORDS SUMMARY | 2023-11-15 02:26 | XMS_ITS | Encounter Summary ---
Author Organization [facility] [place] [address] Care Team Providers Care Air Bag Curer Name Role Phone Nidhi Conti Primary Care Provider [phone] Encounter Details Date Type Department Care Team (Late st Contact Info) Description 02/12/2022 Telephone [place] [address] Loyda Díaz RN Social History Tobacco Use Types Packs/Day Years [...] encounter Miscellaneous Notes * Telephone Encounter - Loyda Díaz RN - 02/12/2022 4:29 PM EST Provider advised to hold MTX and Humira while positive and pt advised in [facility] message to hold untilshe does not have symptoms and she tests negative. Pt also advised to f/u w/ PCP if symptoms worsen and given guidelines of symptoms to contact PCP for. * Telephone Encounter - Loyda Díaz RN - 02/12/2022 1:19 PM EST Pt LVM for provider to update that she is covid positive as of this morning and is asking for instructions for MTX and Humira. documented in this encounter Plan of Treatment Not on file documented as of this encounter Visit Diagnoses Not on filedocumented in this encounter Care Teams Air Bag Curer Relationship Specialty Start Date End Date Nidhi Conti PA [address] [address] PCP - General Family Medicine 06/11/20 documented as of this encounter
--- OUTSIDE RECORDS SUMMARY | 2023-11-15 02:26 | XMS_ITS | Encounter Summary ---
Author Organization [facility] [place] [address] Care Team Providers Care Print Producer Name Role Phone Nidhi Conti Primary Care Provider [phone] Reason for Visit * Reason Comments Specialty Refill Management Encounter Details Date Type Department Care Team (Late st Contact Info) Description 03/31/2022 Specialty [place]acy [place] [phone] Adry Fuller, TEE Social History Tobacco Use [...] Progress Notes * Adry Fuller CPHT - 03/31/2022 11:28 AM EST Clinical Management Plan: Refill Specialty Pharmacy Consultation; Adry Fuller CPHT Comprehensive Medication Management (CMM) Keyona Terry MsKat Terrazaso is a 56 y.o. (1965) female who [...] (Bulk) Diarrhea Medication Reconciliation Discrepancies (compared to [facility] med list) No Specialty Pharmacy Refill Questionnaire Refill Questionnaire 03/31/2022 What is the name of the specialty medication you are refilling? Humira Are you taking any new medications? No Any new medical condition? No Any new allergies? No Any new side effects that are bothersome? No What date will you need this fill by? 04/03/2022 Adherence: Any missed doses? No Patient understands no changes to current drug regimen were made. Adry Fuller CPHT 03/31/22 11:29 AM documented in this encounter Plan of Treatment Not on file documented as of this encounter Visit Diagnoses Not on filedocumented in this encounter Care Teams Print Producer Relationship Specialty Start Date End Date Nidhi Conti PA [address] [place] [id number] PCP - General Family Medicine 06/11/20 documented as of this encounter
--- OUTSIDE RECORDS SUMMARY | 2023-11-15 02:26 | XMS_ITS | Encounter Summary ---
Author Organization [facility] [place] [address] Care Team Providers Care Lead Assistant Manager Name Role Phone Nidhi Conti Primary Care Provider [phone] Encounter Details Date Type Department Care Team (Late st Contact Info) Description 03/31/2022 Refill [place] [address] Markell Darling MD [facility] [place] [address] Social History Tobacco Use Types Packs/Day Years [...] on filedocumented in this encounter Care Teams Lead Assistant Manager Relationship Specialty Start Date End Date Nidhi Conti PA [address] [place] [id number] PCP - General Family Medicine 06/11/20 documented as of this encounter
--- OUTSIDE RECORDS SUMMARY | 2023-11-15 02:26 | XMS_ITS | Encounter Summary ---
Author Organization [facility] [address] Care Team Providers Care Electronic Video Games Servicer Name Role Phone Nidhi Conti Primary Care Provider [phone] Reason for Visit * Reason Comments Foot Pain * Consultation (Routine) - Closed Specialty Diagnoses / Procedures Referred By Contac t Referred To Contact Podiatry Diagnoses Chronic pain of both ankles Pain in both feet Markell Darling MD [facility] [place] [address] [facility] [place] [address] Referral ID Status Reason Start Date Expiration Date V isits Requested Visits Authorized [id number] Closed Consult, Test & Treat 03/10/2021 03/10/2022 1 1 Encounter Details Date Type Department Care Team (Latest Contact Info) Description 06/25/2021 11:15 AM EDT [place] [address] Juliet King DPM [facility] [place] [address] Gastrocnemius equinus of right lower extremity; Gastrocnemius equinus of left lower extremity; Tendinitis of both feet; Rheumatoid arthritis involving multiple sites with positive rheumatoid factor Social History Tobacco Use Types Packs/Day Years Used Date Smoking Tobacco: Every Day Cigarettes Smokeless Tobacco: Never Alcohol Use Standard Drinks/Week Comments Not Currently 0 (1 standard drink = 0.6 oz pur e alcohol) Sex and Gender Information Value Date Recorded Sex Assigned at Not on file Gender Identity Not on file Sexual Orientation Not on file documented as of this encounter Patient Instructions * Attachments The following attachments cannot be sent through Care Everywhere. * Ankle: Exercises (Bolivian) * Foot Arthritis: Exercises (Bolivian) * Arch Pain: Exercises (Bolivian) * Calf Strain: Rehab Exercises (Bolivian) documented in this encounter Progress Notes * Juliet King DPM - 06/25/2021 11:15 AM EDT Outpatient Podiatry Clinic Note Name: Keyona Terry Age:55 y.o. MR#: [id number] Date of Service: 06/25/2021 SUBJECTIVE: Keyona Terry is a 55 y.o. female with history of rheumatoid arthritis who presents to the clinic today with chief complaint of pain affecting both feet and ankles. Patient relates particularly outside of the feet affected. States she has only able to tolerate wearing crocs. Rates pain as 6 out of 10. States she had radiographs done. Relates following up with rheumatology regularly. States feet feel hot intermittently. No other sensory changes reported. No other pedal complaints today. No constitutional symptoms reported. Allergies Allergen Reactions ??? Hydroxychloroquine Sulf (Bulk) Diarrhea Patient Active Problem List Diagnosis Code ??? 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 Seropositive rheumatoid arthritis M05.9 ??? Abnormal radiograph R93.89 Past Medical History: Diagnosis Date ??? Hyperlipidemia ??? Migraines Social History Socioeconomic History ??? Marital status: Spouse name: Not on file ??? Number of children: Not on file ??? Years of education: Not on file ??? Highest education level: Not on file Occupational History ??? Not on file Tobacco Use ??? Smoking status: Current Every Day Smoker Packs/day: 0.50 Types: Cigarettes ??? Smokeless tobacco: Never Used Vaping Use ??? Vaping Use: Never used Substance and Sexual Activity ??? Alcohol use: Not Currently ??? Drug use: Never ??? Sexual activity: Not on file Comment: - deferred Other Topics Concern ??? Not on file Social History Narrative ??? Not on file Social Determinants of Health Financial Resource Strain: Not on file Food Insecurity: Not on file Transportation Needs: Not on file Physical Activity: Not on file Housing Stability: Not on file No family history on file. Current Outpatient Medications on File Prior to Visit Medication Sig Dispense Refill ??? meloxicam (MOBIC) 15 mg Tablet TAKE 1 TABLET BY MOUTH DAILY 30 tablet 2 ??? metHOTREXate 2.5 mg Tablet TAKE 8 TABLETS BY MOUTH ONCE WEEKLY ON WEDNESDAY 96 tablet 0 ??? adalimumab (Humira,CF, Pen) 40 mg/0.4 mL Pen Injector Kit Inject 0.4 mLs subcutaneously every 14 days. 1 kit 5 ??? predniSONE (Deltasone) 2.5 mg Tablet PO 4 tabs for 5 days, 3 tabs for 5 days, 2 tabs for 5 days, then stay at 1 tab daily 60 tablet 1 ??? folic acid (Folvite) 1 mg Tablet TAKE 5 TABLETS BY MOUTH DAILY 150 tablet 5 ??? simvastatin (ZOCOR) 20 mg Tablet daily. 0 ??? verapamil (CALAN-SR) 240 mg Tablet Sustained Release daily. 0 No current facility-administered medications on file prior to visit. ROS: MSK: +pain The remainder of 10 ROS were reviewed and negative. EXAMINATION GEN: Patient is in no acute distress, alert, awake DERM: Skin intact and dry with no open lesions or macerations appreciated. Hair growth present. Temperature gradient within normal limits. No apparent increased warmth to the affected side. No signs of infection bilaterally. No erythema. No drainage. No streaking. No malodor. No fluctuance. VASC: Dorsalis pedis + 2/4 bilaterally and posterior tibial pulse + 2/4 bilaterally. Capillary refill 3 seconds to all digits. No significant edema noted. No claudication, no rest pain, no color changes. Posterior calves soft and nontender. NEURO: Epicritic sensation intact to light touch bilaterally. Negative Tinel/Valleuix bilaterally. MSK: Mild tenderness on exam lateral aspect of bilateral ankles and overlying extensor tendons of lateral column bilaterally. Ankle stress testing negative. Active pain-free range of motion noted of lower extremities. Ankle joint range of motion diminished with knee extension bilaterally. No soft tissue masses appreciated. Ambulatory. Muscle strength 5 out of 5 all groups. DIAGNOSTICS: EXAMINATION: XR FOOT MIN 3 VIEWS BILAT (GENERIC), XR ANKLE MIN 3 VIEWS BILAT (GENERIC) ?? CLINICAL HISTORY: inflammatory arthopathy with pain in the bilateral foot and ankle pain ? TECHNIQUE: 3 views BILATERAL feet; 3 views bilateral ankles ?? COMPARISON: 10/13/2019, 11/21/2018 ?? FINDINGS: Left foot: No erosions or bony productive change. There is no fracture or focal lesion. Joint spacing and alignment are normal. Bone mineralization appears normal. Tiny metallic density at the Achilles insertion on the calcaneus unchanged from prior. Tiny Achilles insertional enthesophyte unchanged from prior. Soft tissues otherwise normal. ?? Right foot: No erosions or bony productive changes. No fracture or focal lesion. Joint spacing and alignment are normal. Bone mineralization appears normal. No calcifications or focal abnormality within the soft tissues. ?? Left ankle: Normal alignment at the ankle mortise. Talar dome is intact. No erosions. No joint effusion. ?? Right ankle: Ankle mortise alignment is normal. No dome is intact. No erosions. No joint effusion. ?? IMPRESSION No erosions or other radiographic findings of inflammatory arthritis. Stable interval exam. ASSESSMENT: Equinus bilaterally Extensor tendinitis, right greater than left History of rheumatoid arthritis PLAN: Patient evaluated with condition and treatment options for management discussed at length. I personally reviewed patient's recent radiographs and discussed findings at length with patient. Discussed with patient due to equinus she is compensating and overloading the lateral column. Advised patient to begin using orthotics for increased support and stability and improved alignment of lower extremities. Gradual transition reviewed. If failure with prefabricated would recommend custom orthotics. Explained she can contact clinic at any time for appropriate referral. Shoe gear modifications reviewed. Home exercise program targeting calves, ankles, and feet provided, perform as tolerated. Encouraged lowering BMI. Encouraged patient to follow-up with rheumatology and PCP as scheduled. Preventiondiscussed. If any worsening or failure to heal contact clinic. Discussed injection therapy and other treatments if failure with first- line therapy. Answered all questions. Patient verbalized understanding of all instructions. FOLLOW UP: As scheduled or sooner if any concerns or changes arise Juliet King DPM Motor Polarizer, [facility] documented in this encounter Plan of Treatment Scheduled Referrals Name Type Priority Associated Diagnoses Orde r Schedule Referral to Podiatry Outpatient Referral Routine Chronic pain of both ankles Pain in both feet Ordered: 03/10/2021 documented as of this encounter Visit Diagnoses Diagnosis Gastrocnemius equinus of right lower extremity Gastrocnemius equinus of left lower extremity Tendinitis of both feet Rheumatoid arthritis involving multiple sites with positive rheumatoid factor documented in this encounter Care Teams Electronic Video Games Servicer Relationship Specialty Start Date End Date Nidhi Conti PA [address] [place] [id number] PCP - General Family Medicine 06/11/20 documented as of this encounter
--- OUTSIDE RECORDS SUMMARY | 2023-11-15 02:26 | XMS_ITS | Encounter Summary ---
Author Organization [facility] [place] [address] Care Team Providers Care Transcribing Operator Head Name Role Phone Nidhi Conti Primary Care Provider [phone] Reason for Visit * Reason Comments Specialty Refill Management Encounter Details Date Type Department Care Team (Late st Contact Info) Description 06/22/2022 Specialty [place] [phone] Adry Fuller, TEE Social History Tobacco Use [...] Progress Notes * Adry Fuller CPHT - 06/22/2022 5:00 PM EDT Clinical Management Plan: Refill Specialty [...] med list) No Specialty Pharmacy Refill Questionnaire 06/22/2022 Refill Questionnaire What is the name of the specialty medication you are refilling? Humira Are you taking any new medications? No Any new medical condition? No Any new allergies? No Any new side effects that are bothersome? No What date will you need this fill by? 06/26/2022 Multiple values from one day are sorted in reverse-chronological order Adherence: Any missed doses? No Patient understands no changes to current drug regimen were made. Adry Fuller CPHT 06/22/22 5:01 PM documented in this encounter Plan of Treatment Not on file documented as of this encounter Goals Goal Patient Goal Type Associated Problems Recent Progress Patient-Stated? Author DH Home Medication Compliance and Understanding Patient Facing Action Plan No Brooke Blanchard, [facility] Note: Patient's specific desired goal: Keyona Terry is hoping to have a decrease in her pain and morning stiffness by about 50%. Measured by: pain scale, how long her morning stiffness lasts Time-frame to meet goal: 3 to 6 months documented as of this encounter Visit Diagnoses Not on filedocumented in this encounter Care Teams Transcribing Operator Head Relationship Specialty Start Date End Date Nidhi Conti PA [address] [place] [id number] PCP - General Family Medicine 06/11/20 documented as of this encounter
--- OUTSIDE RECORDS SUMMARY | 2023-11-15 02:26 | XMS_ITS | Encounter Summary ---
Author [place] [address] Care Team Providers Care Machine Stuffer Name Role Phone Nidhi Conti Primary Care Provider [phone] Reason for Visit * Reason Comments Medication Management Medication Refill Encounter Details Date Type Department Care Team (Late st Contact Info) Description 12/10/2021 Specialty [place] [phone] Td Pierce [facility] Social History Tobacco Use Types Packs/Day [...] as of this encounter Progress Notes * Td Pierce RPH - 12/10/2021 1:04 PM EDT Specialty Pharmacy Consultation; Td Pierce RPH Comprehensive Medication Management (CMM): Specialty Consult, Opt Out Keyona Terry Diagnosis: RA Therapy Start Date: 05/29/21 Contact in person or via telephone: Phone Ms. Keyona Terry is a 56 y.o. (1965) female who was contacted in regard to specialty medication. Spoke with patient regarding humira. A review of the medication therapy was performed. The medication was refilled as scheduled, and all medication related questions and concerns were addressed. The specialty pharmacy staff will follow up with the patient 5-7 days prior to next refill. Is the patient willing to proceed with the Clinical Assessment? No Summary and Recommendations: Today I spoke with Keyona Terry who was due for a refill on humira as well as 6 month follow up consultation. The medication was refilled but patient declined to participate in the full consultation. Keyona said that there haven???t been any changes in allergies, medications, or medical conditions since the last fill. The patient also did not miss any doses or have any side effects. We encouraged her to reach out to us with any questions or concerns, our contact information was provided. We willcontinue to follow up with the patient monthly for refills and biannually for consults. Economic Assessment: Patient is agreeable to medication copay: Yes Copay Amount: $5 Day Supply: 28 Date Needed: 12/12/21 Therapy Assessment: Appropriate Therapy: Yes Current Medication Dosing/Route/Frequency: Humira 40mg subq every 14 days Additional equipment/supplies required: no Care Plan Reviewed and Approved by Pharmacist : Yes Problem List: Patient Active Problem List Diagnosis Code ??? 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 Seropositive rheumatoid arthritis M05.9 ??? Abnormal radiograph R93.89 Medications Reviewed: Yes Medications reconciled: No Allergies Reviewed:Yes Allergies reconciled: No Pharmacist follow-up needed: Yes Informed patient of specialty pharmacy services: Yes Welcome Packet and Rights and Responsibilities: Patient provided welcome packet/rights and responsibilities: Yes Date Confirmed: 12/10/21 Confirmation: Verbal -Patient is aware a licensed pharmacist is [...] note) for provider review and follow up. Td Pierce RPH 12/10/21 1:08 PM documented in this encounter Plan of Treatment Not on file documented as of this encounter Visit Diagnoses Not on filedocumented in this encounter Care Teams Machine Stuffer Relationship Specialty Start Date End Date Nidhi Conti PA [address] [place] [id number] PCP - General Family Medicine 06/11/20 documented as of this encounter
--- OUTSIDE RECORDS SUMMARY | 2023-11-15 02:26 | XMS_ITS | Encounter Summary ---
Author Organization [facility] [place] [address] Care Team Providers Care Laser Printing Operator Name Role Phone Nidhi Conti Primary Care Provider [phone] Reason for Visit * Reason Comments Specialty Refill Management Medication Management Encounter Details Date Type Department Care Team (Late st Contact Info) Description 03/03/2022 Specialty [place] [phone] Wilian Hull, [facility] Social History Tobacco Use Types Packs/Day Years [...] this encounter Progress Notes * Wilian Hull [facility] - 03/03/2022 1:38 PM EST Clinical Management Plan: Refill Specialty Pharmacy Consultation; Wilian Hull [facility] Comprehensive Medication Management (CMM) Keyona Terry is a 56 y.o. (1965) [...] Diarrhea Medication Reconciliation Discrepancies (compared to [facility] med list) No Specialty Pharmacy Refill Questionnaire Refill Questionnaire 03/03/2022 What is the name of the specialty medication you are refilling? humira Are you taking any new medications? No Any new medical condition? No Any new allergies? No Any new side effects that are bothersome? No What date will you need this fill by? 03/06/2022 Adherence: Any missed doses? No Patient understands no changes to current drug regimen were made. Wilian Hull RPH 03/03/22 1:39 PM documented in this encounter Plan of Treatment Not on file documented as of this encounter Visit Diagnoses Not on filedocumented in this encounter Care Teams Laser Printing Operator Relationship Specialty Start Date End Date Nidhi Conti PA [address] [place] [id number] PCP - General Family Medicine 06/11/20 documented as of this encounter
--- OUTSIDE RECORDS SUMMARY | 2023-11-15 02:26 | XMS_ITS | Encounter Summary ---
Author Organization [facility] [place] [address] Care Team Providers Care Mixer Tender Name Role Phone Nidhi Conti Primary Care Provider [phone] Reason for Visit * Reason Comments Medication Management Encounter Details Date Type Department Care Team (Late st Contact Info) Description 07/21/2021 Specialty [place] [phone] [facility] Social History Tobacco Use Types Packs/Day Years [...] as of this encounter Progress Notes * Patrick Arora V [facility] - 07/21/2021 12:52 PM EDT Clinical Management Plan: Refill Specialty Pharmacy Consultation; Patrick Knutsonh [facility] Comprehensive Medication Management (CMM) Keyona Mccoy Harrison Ms. Keyona Terry is a 55 y.o. [...] (Bulk) Diarrhea Medication Reconciliation Discrepancies (compared to [facility] med list) No Specialty Pharmacy Refill Questionnaire Refill Questionnaire 07/21/2021 What is the name of the specialty medication you are refilling? Humira Are you taking any new medications? No Any new medical condition? No Any new allergies? No Any new side effects that are bothersome? No What date will you need this fill by? 07/25/2021 Adherence: Any missed doses? No Patient understands no changes to current drug regimen were made. Patrick Arora RPH 07/21/21 12:53 PM documented in this encounter Plan of Treatment Not on file documented as of this encounter Visit Diagnoses Not on filedocumented in this encounter Care Teams Mixer Tender Relationship Specialty Start Date End Date Nidhi Conti PA [address] [place] [id number] PCP - General Family Medicine 06/11/20 documented as of this encounter
--- OUTSIDE RECORDS SUMMARY | 2023-11-15 02:26 | XMS_ITS | Encounter Summary ---
Author [facility] [place] [address] Care Team Providers Care Pump Oiler Name Role Phone Nidhi Conti Primary Care Provider [phone] Reason for Visit * Reason Comments Specialty Refill Management Encounter Details Date Type Department Care Team (Late st Contact Info) Description 06/19/2021 Specialty [place] [phone] Emma Monroy CPHT Social History Tobacco Use Types Packs/Day Years [...] as of this encounter Progress Notes * Emma Monroy CPHT - 06/19/2021 4:34 PM EDT Clinical Management Plan: Refill Specialty Pharmacy Consultation; Emma Monroy CPHT Comprehensive Medication Management (CMM) Keyona Terry is [...] (Bulk) Diarrhea Medication Reconciliation Discrepancies (compared to [facility] med list) No Specialty Pharmacy Refill Questionnaire Refill Questionnaire 06/19/2021 What is the name of the specialty medication you are refilling? Humira Are you taking any new medications? No Any new medical condition? No Any new allergies? No Any new side effects that are bothersome? No What date will you need this fill by? 06/27/2021 Adherence: Any missed doses? No Patient understands no changes to current drug regimen were made. Emma Monroy CPHT 06/19/21 4:36 PM documented in this encounter Plan of Treatment Not on file documented as of this encounter Visit Diagnoses Not on filedocumented in this encounter Care Teams Pump Oiler Relationship Specialty Start Date End Date Nidhi Conti PA [address] [place] [id number] PCP - General Family Medicine 06/11/20 documented as of this encounter
--- OUTSIDE RECORDS SUMMARY | 2023-11-15 02:26 | XMS_ITS | Encounter Summary ---
Author Organization [facility] [place] [address] Care Team Providers Care Acoustic Warfare Analyst Name Role Phone Nidhi Conti Primary Care Provider [phone] Reason for Visit * Reason Comments Medication Management Encounter Details Date Type Department Care Team (Late st Contact Info) Description 01/05/2022 Specialty [place] [phone] [facility] Social History Tobacco Use Types Packs/Day Years [...] Notes * Patrick Arora V [facility] - 01/05/2022 4:37 PM EDT Clinical Management Plan: Refill Specialty Pharmacy Consultation; Patrick Knutsonh [facility] Comprehensive Medication Management (CMM) Keyona Terrazaso Ms. Keyona Terry is a 56 y.o. [...] (Bulk) Diarrhea Medication Reconciliation Discrepancies (compared to [facility] med list) No Specialty Pharmacy Refill Questionnaire Refill Questionnaire 01/05/2022 What is the name of the specialty medication you are refilling? Humira Are you taking any new medications? No Any new medical condition? No Any new allergies? No Any new side effects that are bothersome? No What date will you need this fill by? 01/09/2022 Adherence: Any missed doses? No Patient understands no changes to current drug regimen were made. Patrick Arora RPH 01/05/22 4:38 PM documented in this encounter Plan of Treatment Not on file documented as of this encounter Visit Diagnoses Not on filedocumented in this encounter Care Teams Acoustic Warfare Analyst Relationship Specialty Start Date End Date Nidhi Conti PA [address] [place] [id number] PCP - General Family Medicine 06/11/20 documented as of this encounter
--- OUTSIDE RECORDS SUMMARY | 2023-11-15 02:26 | XMS_ITS | Encounter Summary ---
Author Organization [facility] [place] [address] Care Team Providers Care Route Driver Name Role Phone Nidhi Conti Primary Care Provider [phone] Reason for Visit * Reason Comments Medication Refill Encounter Details Date Type Department Care Team (Late st Contact Info) Description 02/09/2022 Refill [place] [address] Markell Darling MD [facility] [place] [address] Medication monitoring encounter; High risk medication use; Seropositive rheumatoid arthritis; Inflammatory arthropathy; Methotrexate, correction, current use; Seronegative rheumatoid arthritis; Chronic pain [...] Inflammatory arthropathy Arthropathy, unspecified, site unspecified Methotrexate, salvage determiner, current use Encounter for long-term (current) use of other medications Seronegative rheumatoid arthritis Rheumatoid arthritis Chronic pain of both ankles Pain in right hip Pain in joint, pelvic region and thigh Pain in both hands Bilateral wrist pain Pain in joint, forearm Bursitis of other bursa of both hips Chronic pain of both knees documented in this encounter Care Teams Route Driver Relationship Specialty Start Date End Date Nidhi Conti PA [address] [address] PCP - General Family Medicine 06/11/20 documented as of this encounter
--- OUTSIDE RECORDS SUMMARY | 2023-11-15 02:26 | XMS_ITS | Encounter Summary ---
Author Organization [place] [address] Care Team Providers Care Slab Grinder Name Role Phone Nidhi Conti Primary Care Provider [phone] Reason for Visit * Reason Comments Patient Education Specialty Refill Management Encounter Details Date Type Department Care Team (Late st Contact Info) Description 05/25/2022 Specialty [place] [id number] Brooke Blanchard [facility] Social History Tobacco Use [...] as of this encounter Progress Notes * Brooke Hale [facility] - 05/25/2022 1:16 PM EST Specialty Pharmacy Follow Up Consultation; Brooke Hale [facility] Comprehensive Medication Management (CMM) Keyona Terry Diagnosis: rheumatoid arthritis Therapy Start Date: 05/29/2021 Contact in person or via telephone:phone Ms. Keyona Terry is a 56 y.o. (1965) female who was contacted in regard to specialty medication. Spoke with patient regarding Humira. A review of the medication therapy was performed. The medication was Refilled as scheduled, and all medication related questions and concerns were addressed. The specialty pharmacy staff will follow up with the patient 5-7 days prior to next refill. Is the patient willing to proceed with the Clinical Assessment? Yes Summary and Recommendations: Keyona Terry is a pleasant 56 y.o. female who was contacted for a consultation on Humira. The patient was able to verbalize understanding of the directions, clinical rationale, and possible adverse events of the medication. Proper injection technique was reviewed including rotation of injection sites, storage, and safe disposal of injection device. Allergies, medications, and medical conditions were reviewed at length including review for possible contraindications and interactions. She did receive her annual flu shot. The patient was informed of the variety of services that the Specialty Pharmacy will provide to them as one of our patients. Clinic follow-up needed: yes - scheduled for 08/03/2022 Allergies and Drug intolerance: Allergies Allergen Reactions ??? Hydroxychloroquine Sulf (Bulk) Diarrhea Problem List: Patient Active Problem List Diagnosis Code ??? 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 Seropositive rheumatoid arthritis M05.9 ??? Abnormal radiograph R93.89 Special Dietary or Hydration Requirements: no Medication Reconciliation Discrepancies (compared to [facility] med list) no Medication List: Current Outpatient Medications Medication Sig Dispense Refill ??? metHOTREXate 2.5 mg Tablet TAKE 8 TABLETS BY MOUTH ONCE WEEKLY ON WEDNESDAY 96 tablet 0 ??? adalimumab (Humira,CF, Pen) 40 mg/0.4 mL Pen Injector Kit Inject 0.4 mLs subcutaneously every 14 days. 1 each 5 ??? folic acid (Folvite) 1 mg Tablet Take 5 tablets by mouth daily. 150 tablet 5 ??? meloxicam (MOBIC) 15 mg Tablet TAKE 1 TABLET BY MOUTH DAILY 90 tablet 3 ??? acetaminophen (Tylenol) 500 mg Tablet Take 1,000 mg by mouth every 6 hours as needed for Pain. ??? fish oil-omega-3 fatty acids 1,000 mg Capsule Take 2 g by mouth 2 times daily. ??? TURMERIC ORAL Take 1,000 mg by mouth 2 times daily. ??? simvastatin (ZOCOR) 20 mg Tablet Take 20 mg by mouth daily. 0 ??? verapamil (CALAN-SR) 240 mg Tablet Sustained Release Take 240 mg by mouth daily. 0 No current facility-administered medications for this visit. Most Recent Vitals: Ht Readings from Last 1 Encounters: 01/08/22 160 cm (5' 3) Wt Readings from Last 3 Encounters: 01/08/22 91.5 kg (201 lb 12.8 oz) 10/15/20 86.6 kg (191 lb) 03/08/19 83.6 kg (184 lb 6.4 oz) Temp Readings from Last 3 Encounters: 01/08/22 36.6 ??C (97.8 ??F) (Temporal) 10/15/20 36.6 ??C (97.9 ??F) (Temporal) 11/21/18 37.1 ??C (98.7 ??F) BP Readings from Last 3 Encounters: 01/08/22 120/53 10/15/20 117/66 03/08/19 126/53 Pulse Readings from Last 3 Encounters: 01/08/22 80 10/15/20 87 03/08/19 77 There is no height or weight on file to calculate BMI. Pertinent Lab values: Lab Results Component Value Date NA 140 05/15/2022 K 4.8 05/15/2022 CL 105 05/15/2022 CO2 25 05/15/2022 BUN 12 05/15/2022 CREATININE 0.70 05/15/2022 GLUCOSE 81 05/15/2022 CALCIUM 9.5 05/15/2022 Lab Results Component Value Date ALT 17 05/15/2022 AST 10 05/15/2022 ALKPHOS 67 05/15/2022 BILITOT 0.3 05/15/2022 BILIDIR 0.1 01/08/2022 ALBUMIN 4.7 05/15/2022 PROT 7.1 05/15/2022 Lab Results Component Value Date WBC 9.4 04/28/2022 HGB 11.9 04/28/2022 HCT 36.1 04/28/2022 MCV 97.6 (H) 04/28/2022 PLATELET 305 04/28/2022 No results found for: HA1C There is no immunization history on file for this patient. Assessment and Recommendations: Patient Counseling Patient informed of specialty services: Yes Patient accepted offer to safety counselor: select all, adherence/missed doses, cost of medications/cost implications, doses and administration, possible drug/OTC drug and food interactions, possible adverse side effects and management, pharmacy contact information, lab monitoring/follow up, possible drug/Rx drug interactions, safe handling, storage, and disposal, therapeutic rationale Medication Management Summary Topics discussed: reviewed medication changes since last visit, medication safety precautions education provided, drug interaction education provided to patient, safe handling, storage, and disposal discussed, possible adverse effects and management discussed, lab monitoring and follow-up discussed, cost of medications and cost implications discussed, adherence and missed doses discussed, health goals discussed, monitoring medication discussed, over the counter products discussed, reminder to refill or pick remover medication discussed, self-monitoring discussed, timing of medications discussed, vaccination discussed, referral needs discussed Time spent: 16-30 min Treatment Outcomes 05/25/2022 1332 Disease progression: Stable Effectiveness of therapy, reported improvements: Very Much Improved Treatment Goals: Have completely been met Treatment Failures: Sucessfull Treatment no Failures Patient Overall Status: Stable Reviewed in detail with patient: Dose appropriateness based on recommended standard dosing Current medication list including OTC medications Medication and disease problems Allergies Comorbid conditions/ Problem List Past adverse events if any Special needs of the patient including physical and cognitive limitations Goals of therapy and management strategies Warnings, precautions, and contraindications Side effects Drug-drug and drug-food interactions Administration instructions including dose, frequency and method Handling, storage, and disposal Verifying expiration dates on products before use Rotating medication inventory to use oldest product first Relevant lab data Treatments impact on disease Dose appropriateness based on recommended standard dosing schedule, including any variations from FDA approved dosing Patient verbalizes understanding and is able to read-back instructions on self-administration/injection, proper storage, drug stability, importance of adherence and management strategies, side effect avoidance and mitigation strategies, and interruptions in therapy: Yes Patient is aware a licensed pharmacist is available 24 hours a day, 7 days a week to discuss medication-related questions or concerns: Yes Patient verbalizes understanding of the common side effect profile of their medication. The patient is able to call 911 or seek urgent care if signs/symptoms of allergy or harmful adverse reactions occur: Yes Additional care/services needed: No Additional equipment/supplies required: No Patient satisfied with care/services provided: Yes Specialty Assessment: Physical and Cognitive Assessment: Functional limitations identified: No Cognitive limitations identified: No Concern regarding orientation/memory: No Concern with reasoning/judgement: No Is patient a fall risk: No Social Assessment: Does patient have a primary laboratory animal care veterinarian: No Does patient have an emergency contact on file: Yes Does patient need referral to child protective services social worker: No Does patient need referral to advocacy group: No Home Health Assessment: Is the patient in a safe home environment?: Yes Is the patient able to store their medication as directed?: Yes Does the patient have a support network at home?: Yes Reviewed potential home safety hazards with patient: Yes Economic Assessment: Patient is agreeable to medication copay: Yes Actual Copay: $: 5 Days Supply: 28 Welcome Packet and Rights and Responsibilities: Patient provided welcome packet/rights and responsibilities: Yes Date Confirmed: 12/10/21 Confirmation: Verbal Specialty Med Adherence Patient Demonstrates Understanding of Importance of Adherence: Yes Educational Information or Adherence Tools Provided: No How many doses does patient have remaining at home?: 0 Patient Reported X Missed Doses in the Last Month: 0 Provider-Estimated Medication Adherence Level: 90-100% Adherence Tools Used: calendar, directed education Other Adherence Tool: Note on her weddg Therapy Assessment: myD-H RAPID-3 Responses 04/28/2021 06/22/2021 09/21/2021 01/04/2022 04/26/2022 RAPID-3 Function 2.33 1.33 0.67 1.67 0 RAPID-3 Pain 6.5 4 2 4 2 RADIP-3 Global 0 0 0 0 0 RAPID-3 Total Scores 8.83 (Moderate) 5.33 (Low) 2.67 (Remission) 5.67 (Low) 2 (Remission) Current Medication Dosing/Route/Frequency: Humira 40mg subcutaneously every 14 days Appropriate Therapy: Yes Patient-Reported Side Effects: no Occurrence of recent infections: no Patient Counseling: Administration issues identified: no Rotation of injection sites: Yes Medication room temperature prior to injection: Yes Effective: yes Current joints affected: none Current pain rating (1-10): 0 Estimated duration of morning joint stiffness: none Estimated number of recent flares: no Recent systemic corticosteroid use: no Treatment Outcome: Therapy continued Patient Goals: Goals ??? DH Home Medication Compliance and Understanding Patient's specific desired goal: Keyona Terry is hoping to have a decrease in her pain and morningstiffness by about 50%. Measured by: pain scale, how long her morning stiffness lasts Time-frame to meet goal: 3 to 6 months Is the patient on track to achieve goals of therapy? Yes On a scale of 1-10 the patient rates their quality of life: 8 Care Plan and Interventions: Care Plan Reviewed and Approved by both Pharmacist and Patient: Yes Did Care Plan Change? No Interventions (if applicable): no Patient experienced change in condition that affects treatment: no Patient Satisfied with Therapy: yes - she has no pain, no affected joints, and no more morning stiffness Pharmacist follow-up needed: No Delivery Method: Delivery Patient understands no changes to current drug regimen were made at the appointment and that [facility] is[facility] recommendations (summary located at top of note) for provider review and follow up. Brooke Blanchard [facility] 05/25/22 1:33 PM documented in this encounter Plan of [...] on filedocumented in this encounter Care Teams Slab Grinder Relationship Specialty Start Date End Date Nidhi Conti PA [address] [address] PCP - General Family Medicine 06/11/20 documented as of this encounter
--- OUTSIDE RECORDS SUMMARY | 2023-11-15 02:26 | XMS_ITS | Encounter Summary ---
Author [facility] [place] [address] Care Team Providers Care Heater Helper Name Role Phone Nidhi Conti Primary Care Provider [phone] Encounter Details Date Type Department Care Team (Latest Contact Info) Description 05/15/2022 Travel Social History Tobacco Use Types Packs/Day [...] on filedocumented in this encounter Care Teams Heater Helper Relationship Specialty Start Date End Date Nidhi Conti PA [address] [place] [phone] PCP - General Family Medicine 06/11/20 documented as of this encounter
--- OUTSIDE RECORDS SUMMARY | 2023-11-15 02:26 | XMS_ITS | Encounter Summary ---
Author Organization [facility] [place] [address] Care Team Providers Care Electronics Lead Name Role Phone Nidhi Conti Primary Care Provider [phone] Reason for Visit * Reason Comments Medication Refill Encounter Details Date Type Department Care Team (Late st Contact Info) Description 12/04/2021 [place] [address] Markell Darling MD [facility] [place] [address] Medication monitoring encounter; High risk medication use; Seropositive rheumatoid arthritis; Inflammatory arthropathy; Methotrexate, snf, current use; Seronegative rheumatoid arthritis; Chronic pain [...] Inflammatory arthropathy Arthropathy, unspecified, site unspecified Methotrexate, snf, current use Encounter for long-term (current) use of other medications Seronegative rheumatoid arthritis Rheumatoid arthritis Chronic pain of both ankles Pain in right hip Pain in joint, pelvic region and thigh Pain in both hands Bilateral wrist pain Pain in joint, forearm Bursitis of other bursa of both hips Pain in both feet Pain in limb documented in this encounter Care Teams Electronics Lead Relationship Specialty Start Date End Date Nidhi Conti PA [address] [place] [id number] PCP - General Family Medicine 06/11/20 documented as of this encounter
--- OUTSIDE RECORDS SUMMARY | 2023-11-15 02:26 | XMS_ITS | Encounter Summary ---
[place] [address] Care Team Providers Care Earth Science Technician Name Role Phone Nidhi Conti Primary Care Provider [phone] Encounter Details Date Type Department Care Team (Late st Contact Info) Description 01/07/2022 Telephone [place] [phone] Brooke Brennan MA Social History Tobacco Use Types Packs/Day Years [...] encounter Miscellaneous Notes * Telephone Encounter - Brooke Brennan RMA - 01/07/2022 1:57 PM EDT Called patient for pre-charting, no answer. GIGI GUAN documented in this encounter Plan of Treatment Not on file documented as of this encounter Visit Diagnoses Not on filedocumented in this encounter Care Teams Earth Science Technician Relationship Specialty Start Date End Date Nidhi Conti PA [address] [place] [id number] PCP - General Family Medicine 06/11/20 documented as of this encounter
--- OUTSIDE RECORDS SUMMARY | 2023-11-15 02:26 | XMS_ITS | Encounter Summary ---
[place] [address] Care Team Providers Care Manager Scientific Name Role Phone Nidhi Conti Primary Care Provider [phone] Reason for Visit * Reason Comments Specialty Pharmacy Review Adalimumab (Hu dinorah) Pen 40mg/0.4mL Encounter Details Date Type Department Care Team (Late st Contact Info) Description 09/22/2021 Specialty [place] [address] Gracy James, [facility] Social History Tobacco Use Types Packs/Day [...] encounter Progress Notes * Gracy James - 09/22/2021 11:59 PM EDT The [facility] has completed a benefits investigation for Keyona Terry to review theireligibility to fill at [facility]. Per patient's medication list they are prescribed Adalimumab (Humira) and the medication is filled at the [facility]. documented in this encounter Plan of Treatment Not on file documented as of this encounter Visit Diagnoses Not on filedocumented in this encounter Care Teams Manager Scientific Relationship Specialty Start Date End Date Nidhi Conti PA [address] [place] [address] PCP - General Family Medicine 06/11/20 documented as of this encounter
--- OUTSIDE RECORDS SUMMARY | 2023-11-15 02:26 | XMS_ITS | Encounter Summary ---
Author Organization [facility] [place] [address] Care Team Providers Care Bark Fitter Name Role Phone Nidhi Conti Primary Care Provider [phone] Reason for Visit * Reason Comments Medication Refill Encounter Details Date Type Department Care Team (Late st Contact Info) Description 03/03/2022 [place] [address] Markell Darling MD [facility] [place] [address] Medication monitoring encounter; High risk medication use; [...] limb documented in this encounter Care Teams Bark Fitter Relationship Specialty Start Date End Date Nidhi Conti PA [address] [place] [address] PCP - General Family Medicine 06/11/20 documented as of this encounter
--- OUTSIDE RECORDS SUMMARY | 2023-11-15 02:26 | XMS_ITS | Encounter Summary ---
[place] [address] Care Team Providers Care Clock Mechanic Name Role Phone Nidhi Conti Primary Care Provider [phone] Reason for Visit * Reason Comments Prior Authorization Humira Pen 40mg/0.4m l PNKT Encounter Details Date Type Department Care Team (Late st Contact Info) Description 05/25/2022 Specialty Pharmacy [place] [address] Torrie Perez, [facility] Social History Tobacco Use Types Packs/Day [...] encounter Progress Notes * Torrie Perez - 05/25/2022 1:48 PM EST [facility], Medication Prior Authorization Submission Patient: Keyona Terry Patient : 1965 Patient Address: [address] [place] [address] Phone: [phone] (home) Medication Name: HUMIRA(CF) PEN 40 MG/0.4 ML SUBCUTANEOUS KIT Medication ID: [id number] Subscriber Insurance: Subscriber Insurance Comment: [facility](IRX) Phone: Fax: Physician: JULISA BUTLER Physician Comment: Sent Via: [facility] Flores: Flores: [id number] Ref/Case/PA#: Medication Strength Frequency Requested: Inject the contents of one pen(40mg) subcutaneously every 14 days Qty/Day Supply: 06/02 New Start: Renewal Diagnosis & ICD-10 Code: Rheumatoid Arthritis M05.9 Patient Notified: Yes Submission Notes: None Torrie Perez 05/25/22 1:51 PM documented in this encounter Plan of Treatment Not on file documented as of this encounter Goals Goal Patient Goal Type Associated Problems Recent Progress Patient-Stated? Author DH Home Medication Compliance and Understanding Patient Facing Action Plan No Brooke Blanchard, [facility] Note: Patient's specific desired goal: Keyona Terry is hoping to have a decrease in her pain and morning stiffness by about 50%. Measured by: pain scale, how long her morning stiffness lasts Time-frame to meet goal: 3 to 6 months documented as of this encounter Visit Diagnoses Not on filedocumented in this encounter Care Teams Clock Mechanic Relationship Specialty Start Date End Date Nidhi Conti PA [address] [place] [id number] PCP - General Family Medicine 06/11/20 documented as of this encounter
--- OUTSIDE RECORDS SUMMARY | 2023-11-15 02:26 | XMS_ITS | Encounter Summary ---
Author Organization [facility] [place] [address] Care Team Providers Care Beater Operator Name Role Phone Nidhi Conti Primary Care Provider [phone] Reason for Visit * Reason Comments Medication Refill Encounter Details Date Type Department Care Team (Late st Contact Info) Description 08/18/2021 Ref[place] [address] Markell Darling MD [facility] [place] [address] Seronegative rheumatoid arthritis; Pain in both hands; [...] Telephone Encounter - Rocío Vilchis LPN - 08/21/2021 10:55 AM EDT Requested Prescriptions Pending Prescriptions Disp Refills ??? meloxicam (MOBIC) 15 mg Tablet [Pharmacy Med Name: MELOXICAM 15MG TABLETS] 30 tablet 2 Sig: TAKE 1 TABLET BY MOUTH DAILY Last office visit: 06/23/2021 follow up 09/22/2021 Last refill: 08/15/2021 documented in this encounter Plan of Treatment Not on file documented as of this encounter Visit Diagnoses Diagnosis Seronegative rheumatoid arthritis Rheumatoid arthritis Pain in both hands Bilateral wrist pain Pain in joint, forearm documented in this encounter Care Teams Beater Operator Relationship Specialty Start Date End Date Nidhi Conti PA [address] [place] [id number] PCP - General Family Medicine 06/11/20 documented as of this encounter
--- OUTSIDE RECORDS SUMMARY | 2023-11-15 02:26 | XMS_ITS | Encounter Summary ---
[place] [address] Care Team Providers Care Personnel Psychologist Name Role Phone Nidhi Conti Primary Care Provider [phone] Reason for Visit * Reason Comments Specialty Pharmacy Review Adalimumab (Hu dinorah) 40 mg/0.4 mL Pen Injector Kit Encounter Details Date Type Department Care Team (Late st Contact Info) Description 04/27/2022 Specialty [place] [address] Gracy James, [facility] Social History Tobacco Use Types Packs/Day Years [...] encounter Progress Notes * Gracy James - 04/27/2022 10:15 AM EST The [facility] has completed a benefits investigation for Keyona Mccoy Harrison to review theireligibility to fill at [facility]. Per patient's medication list they are prescribed Adalimumab (Humira) and the medication is currently filled at the [facility]. documented in this encounter Plan of Treatment Not on file documented as of this encounter Visit Diagnoses Not on filedocumented in this encounter Care Teams Personnel Psychologist Relationship Specialty Start Date End Date Nidhi Conti PA [address] [place] [id number] PCP - General Family Medicine 06/11/20 documented as of this encounter
--- OUTSIDE RECORDS SUMMARY | 2023-11-15 02:26 | XMS_ITS | Encounter Summary ---
Author Organization [facility] [place] [address] Care Team Providers Care Synthetic Department Supervisor Name Role Phone Nidhi Conti Primary Care Provider [phone] Reason for Visit * Reason Comments Specialty Refill Management Encounter Details Date Type Department Care Team (Late st Contact Info) Description 11/10/2021 Specialty [place] [phone] Adry Fuller CPHT Social History Tobacco Use Types Packs/Day [...] Progress Notes * Adry Fuller CPHT - 11/10/2021 2:24 PM EDT Clinical Management Plan: Refill Specialty [...] No Specialty Pharmacy Refill Questionnaire Refill Questionnaire 11/10/2021 What is the name of the specialty medication you are refilling? Humira Pen 40mg/0.4ml Are you taking any new medications? No Any new medical condition? No Any new allergies? No Any new side effects that are bothersome? No What date will you need this fill by? 11/14/2021 Adherence: Any missed doses? No Patient understands no changes to current drug regimen were made. Adry Fuller CPHT 11/10/21 2:25 PM documented in this encounter Plan of Treatment Not on file documented as of this encounter Visit Diagnoses Not on filedocumented in this encounter Care Teams Synthetic Department Supervisor Relationship Specialty Start Date End Date Nidhi Conti PA [address] [place] [id number] PCP - General Family Medicine 06/11/20 documented as of this encounter
--- OUTSIDE RECORDS SUMMARY | 2023-11-15 02:26 | XMS_ITS | Encounter Summary ---
Author Organization [facility] [place] [address] Care Team Providers Care Art Glass Setter Name Role Phone Nidhi Conti Primary Care Provider [phone] Reason for Visit * Reason Comments Specialty Refill Management Humira Encounter Details Date Type Department Care Team (Late st Contact Info) Description 09/15/2021 Specialty [place] [phone] Tamiko Villalba CPHT Social History Tobacco Use Types Packs/Day [...] as of this encounter Progress Notes * Tamiko Villalba - 09/15/2021 4:27 PM EDT Clinical Management Plan: Refill Specialty Pharmacy Consultation; Tamiko Villalba Comprehensive Medication Management (CMM) Keyonanitish Terry Ms. Keyona Terry is a 55 y.o. [...] (Bulk) Diarrhea Medication Reconciliation Discrepancies (compared to [facility] med list) No Specialty Pharmacy Refill Questionnaire Refill Questionnaire 09/15/2021 What is the name of the specialty medication you are refilling? Humira 40mg/0.4mL pens Are you taking any new medications? No Any new medical condition? No Any new allergies? No Any new side effects that are bothersome? No What date will you need this fill by? 09/19/2021 Adherence: Any missed doses? No Patient understands no changes to current drug regimen were made. Tamiko Villalba 09/15/21 4:32 PM documented in this encounter Plan of Treatment Not on file documented as of this encounter Visit Diagnoses Not on filedocumented in this encounter Care Teams Art Glass Setter Relationship Specialty Start Date End Date Nidih Conti PA [address] [place] [id number] PCP - General Family Medicine 06/11/20 documented as of this encounter
--- OUTSIDE RECORDS SUMMARY | 2023-11-15 02:26 | XMS_ITS | Encounter Summary ---
[place] [address] Care Team Providers Care Bi Analyst Name Role Phone Nidhi Conti Primary Care Provider [phone] Reason for Visit * Reason Comments Specialty Refill Management Encounter Details Date Type Department Care Team (Late st Contact Info) Description 04/27/2022 Specialty [place] [phone] Brooke Blanchard [facility] Social History Tobacco Use Types [...] this encounter Progress Notes * Brooke Hale [facility] - 04/27/2022 3:16 PM EST Clinical Management Plan: Refill Specialty Pharmacy Consultation; Brooke Hale [facility] Comprehensive Medication Management (CMM) Keyona Terry is [...] (Bulk) Diarrhea Medication Reconciliation Discrepancies (compared to [facility] med list) No Specialty Pharmacy Refill Questionnaire Refill Questionnaire 04/27/2022 What is the name of the specialty medication you are refilling? Humira Are you taking any new medications? No Any new medical condition? No Any new allergies? No Any new side effects that are bothersome? No What date will you need this fill by? 05/01/2022 Adherence: Any missed doses? No Patient understands no changes to current drug regimen were made. Brooke Blanchard formerly [facility] 04/27/22 3:17 PM documented in this encounter Plan of Treatment Not on file documented as of this encounter Visit Diagnoses Not on filedocumented in this encounter Care Teams Bi Analyst Relationship Specialty Start Date End Date Nidhi Conti PA [address] [place] [id number] PCP - General Family Medicine 06/11/20 documented as of this encounter
--- OUTSIDE RECORDS SUMMARY | 2023-11-15 02:26 | XMS_ITS | Encounter Summary ---
Author [facility] [place] [address] Care Team Providers Care Rouge Sifter And Miller Name Role Phone Nidhi Conti Primary Care Provider Encounter Details Date Type Department Care Team (Latest Contact Info) Description 04/28/2022 Travel Social History Tobacco Use Types Packs/Day [...] on filedocumented in this encounter Care Teams Rouge Sifter And Miller Relationship Specialty Start Date End Date Nidhi Conti PA [address] [place] [id number] PCP - General Family Medicine 06/11/20 documented as of this encounter
--- OUTSIDE RECORDS SUMMARY | 2023-11-15 02:27 | XMS_ITS | Encounter Summary ---
Author Organization [facility] [place] [address] Care Team Providers Care Director Family Name Role Phone Nidhi Conti Primary Care Provider Encounter Details Date Type Department Care Team (Late st Contact Info) Description 06/11/2020 2:15 PM EST Procedure [place] [address] Mery Bhatti MD [facility] [place] [address] Bilateral hand pain Social History Tobacco Use Types Packs/Day [...] as of this encounter Progress Notes * Mery Bhatti MD - 06/11/2020 2:15 PM EST Rheumatology Outpatient Procedure Visit Note PCP: JAIR Martinez Darius Terry is a 54 y.o. female who we are seeing for US Hands. Interval History: Ms. Terry is a 54 year old female with seropositive RA presents with bilateral hand pain. Rheumatology Musculoskeletal Ultrasound Report Date of service: 06/11/2020 Indication for Exam: Bilateral Hands and wrists B-mode ultrasound is performed utilizing an 8-18 mHz linear probe. Static real- time views in longitudinal and transverse (short axis) orientation were obtained. Images are available on the Rheumatology [employer]. Images of the demonstrate no cortical irregularity or destruction. Synovial fluid and/or hypertrophy are not noted at the joint margins. Negative power doppler and no rheumatoid erosions are seen. Joint space narrowing was noted on the Left 2nd and 3rd PIP. Flexor tendons are intact with no tenosynovial fluid or distension. Dynamic testing shows normal motion of the flexor tendon. No evidence of dactylitis. Bilateral wrists did not reveal active doppler signal. Left extensor carpi ulnaris tendon was intact without any surrounding edema. Assessment/Plan: 1) Bilateral Hand and Wrist Pain Overall no sonographic evidence of inflammatory arthritis. - Ultrasound findings may favor osteoarthritis rather than inflammatory arthritis Patient was seen and discussed with Dr. Arnold. Mery Bhatti MD Rheumatology Fellow Pager: [phone] * Emma Arnold DO - 06/11/2020 2:15 PM EST I saw the patient and performed the ultrasound with Dr. bhatti. And I agree with his assessment. documented in this encounter Miscellaneous Notes * Addendum Note - Mery Bhatti MD - 06/11/2020 2:15 PM ESTAddended by: MERY BHATTI V on: 06/12/2020 02:44 PM Modules accepted: Level of Service documented in this encounter Plan of Treatment Not on file documented as of this encounter Visit Diagnoses Diagnosis Bilateral hand pain Pain in limb documented in this encounter Care Teams Director Family Relationship Specialty Start Date End Date Nidhi Conti PA [address] [place] [id number] PCP - General Family Medicine 06/11/20 documented as of this encounter
--- OUTSIDE RECORDS SUMMARY | 2023-11-15 02:27 | XMS_ITS | Encounter Summary ---
[place] [address] Care Team Providers Care Angle Shearer Name Role Phone Nidhi Conti Primary Care Provider Encounter Details Date Type Department Care Team (Latest Contact Info) Description 11/11/2020 1:05 PM EDT Laboratory Appointment Lab [address] [address] Methotrexate, custodial, current use; High risk medication use; Medication monitoring encounter; Seropositive rheumatoid arthritis; Seronegative rheumatoid arthritis; Bilateral wrist pain; Pain in both hands; Pain in right hip; Inflammatory arthropathy; Bilateral hip pain Social History Tobacco Use Types Packs/Day [...] Associated Diagnosis Comments HC C-REACTIVE PROTEIN Routine 11/11/2020 1:13 PM EDT Methotrexate, custodial, current use High risk medication use Medication monitoring encounter Seropositive rheumatoid arthritis Seronegative rheumatoid arthritis Bilateral wrist pain Pain in both hands Pain in right hip Inflammatory arthropathy Bilateral hip pain HC PCH EXTRACTABLE NUCLEAR ANTIGEN Routine 11/11/2020 1:13 PM EDT Methotrexate, custodial, current use High risk medication use Medication monitoring encounter Seropositive rheumatoid arthritis Seronegative rheumatoid arthritis Bilateral wrist pain Pain in both hands Pain in right hip Inflammatory arthropathy Bilateral hip pain HEMOGRAM Routine 11/11/2020 1:13 PM EDT Methotrexate, termite treater, current use High risk medication use Medication monitoring encounter Seropositive rheumatoid arthritis Seronegative rheumatoid arthritis Bilateral wrist pain Pain in both hands Pain in right hip Inflammatory arthropathy Bilateral hip pain DIFFERENTIAL, AUTOMATED Routine 11/11/2020 1:13 PM EDT Methotrexate, custodial, current use High risk medication use Medication monitoring encounter Seropositive rheumatoid arthritis Seronegative rheumatoid arthritis Bilateral wrist pain Pain in both hands Pain in right hip Inflammatory arthropathy Bilateral hip pain HC CREATININE Routine 11/11/2020 1:13 PM EDT Methotrexate, termite treater, current use High risk medication use Medication monitoring encounter Seropositive rheumatoid arthritis Seronegative rheumatoid arthritis Bilateral wrist pain Pain in both hands Pain in right hip Inflammatory arthropathy Bilateral hip pain HC ESR-SEDIMENTATION RATE, BLOOD Routine 11/11/2020 1:13 PM EDT Methotrexate, custodial, current use High risk medication use Medication monitoring encounter Seropositive rheumatoid arthritis Seronegative rheumatoid arthritis Bilateral wrist pain Pain in both hands Pain in right hip Inflammatory arthropathy Bilateral hip pain HC CBC,PLT & AUTO DIFF Routine 11/11/2020 1:13 PM EDT Methotrexate, custodial, current use High risk medication use Medication monitoring encounter Seropositive rheumatoid arthritis Seronegative rheumatoid arthritis Bilateral wrist pain Pain in both hands Pain in right hip Inflammatory arthropathy Bilateral hip pain HC RHEUMATOID FACTOR Routine 11/11/2020 1:13 PM EDT Methotrexate, custodial, current use High risk medication use Medication monitoring encounter Seropositive rheumatoid arthritis Seronegative rheumatoid arthritis Bilateral wrist pain Pain in both hands Pain in right hip Inflammatory arthropathy Bilateral hip pain HC COMPLEMENT,C3 SERUM Routine 11/11/2020 1:13 PM EDT Methotrexate, termite treater, current use High risk medication use Medication monitoring encounter Seropositive rheumatoid arthritis Seronegative rheumatoid arthritis Bilateral wrist pain Pain in both hands Pain in right hip Inflammatory arthropathy Bilateral hip pain HC COMPLEMENT C4, PLASMA Routine 11/11/2020 1:13 PM EDT Methotrexate, custodial, current use High risk medication use Medication monitoring encounter Seropositive rheumatoid arthritis Seronegative rheumatoid arthritis Bilateral wrist pain Pain in both hands Pain in right hip Inflammatory arthropathy Bilateral hip pain HEPATIC FUNCTION PANEL Routine 11/11/2020 1:13 PM EDT Methotrexate, termite treater, current use High risk medication use Medication monitoring encounter Seropositive rheumatoid arthritis Seronegative rheumatoid arthritis Bilateral wrist pain Pain in both hands Pain in right hip Inflammatory arthropathy Bilateral hip pain documented in this encounter Results * (ABNORMAL) Differential, Automated (11/11/2020 1:13 PM EDT) Neutrophil % 62.6 % [facility] Neutrophil Absolute 6.25(H) 1.70 - 6.10 x10(3)/mc L [facility] Lymph % 30.6 % [facility] Lymphocytes Abs 3.0 0.9 - 3.2 x10(3)/mc L [facility] Monocyte % 4.5 % [facility] Monocyte Abs 0.4 0.3 - 0.9 x10(3)/mc L [facility] Eos % 1.2 % [facility] Eosinophils Abs 0.1 0.0 - 0.4 x10(3)/mc L [facility] Basophil % 0.5 % [facility] Baso Absolute 0.0 0.0 - 0.1 x10(3)/mc L [facility] Immature Gran % 0.60 % [facility] Comment: Immature granulocytes(IG's)percentage and absolute count will include metamyelocytes, myelocytes, and promyelocytes. Blood smears from CBCs yielding IG's will be scanned manually for concordance. If this scan disagrees with the automated IG or if promyelocytes are noted, a manual differential will be performed. Immature Gran Absolute 0.06(H) 0.00 - 0.04 x10(3)/mc L [facility] Blood 11/11/2020 1:13 PM EDT 11/11/2020 1:20 PM EDT Narrative Resulting Agency Comment Spec In Lab Markell Darling MD HEMATOLOGY ORDERABLE S [facility] [place] [address] * (ABNORMAL) Hemogram (11/11/2020 1:13 PM EDT) White Blood Cell 10.0(H) 4.0 - 9.5 x10(3)/mc L [facility] Red Blood Cell 4.00 4.00 - 5.21 x10(6)/mc L [facility] Hemoglobin 12.9 11.7 - 15.5 gm/dL [facility] Hematocrit 37.6 35.7 - 45.8 % [facility] Mean Cell Volume 94.0 82.6 - 94.4 fL [facility] Mean Cell Hemoglobin 32.3(H) 27.1 - 32.0 pg [facility] Mean Cell Hemoglobin Concentration 34.3 31.7 - 35.0 gm/dL [facility] Platelet 318 145 - 357 x10(3)/mc L [facility] RDW Standard Deviation 52.2(H) 37.0 - 46.0 fL [facility] RDW coefficient of variation 15.3(H) 11.5 - 14.1 % [facility] Mean Platelet Volume 8.9 7.6 - 12.9 fL [facility] NRBC% auto 0.0 % [facility] NRBC Absolute 0.000 0.000 - 0.000 x10(3)/mc L [facility] Blood 11/11/2020 1:13 PM EDT 11/11/2020 1:20 PM EDT Narrative Resulting Agency Comment Spec In Lab Markell Darling MD HEMATOLOGY ORDERABLE S [facility] [place] [address] * Sedimentation rate (11/11/2020 1:13 PM EDT) Sedimentation Rate Automated 25 2 - 39 mm/hr [facility] Comment: Effective March 15, 2019 new capillary photometric technology has resulted in a change in reference ranges. It is recommended that each ESR result be reviewed with its own age appropriate reference range. Blood 11/11/2020 1:13 PM EDT 11/11/2020 1:20 PM EDT Narrative Resulting Agency Comment Spec In Lab Markell Darling MD HEMATOLOGY ORDERABLE S Performing Organization Address [facility]/ZIP Co de Phone Number [facility] [place] [address] * (ABNORMAL) CRP, acute inflammation (11/11/2020 1:13 PM EDT) C-Reactive Protein 14.1(H) <=4.9 mg/L [facility] Blood 11/11/2020 1:13 PM EDT 11/11/2020 1:20 PM EDT Narrative Resulting Agency Comment Spec In Lab Markell Darling MD CHEMISTRY ORDERABLES Performing Organization Address [facility]/ZIP Co de Phone Number [facility] [place] [address] * Creatinine (11/11/2020 1:13 PM EDT) Creatinine 0.84 0.70 - 1.20 mg/dL [facility] Est Glomerular Filtration Rate 78 >=60 mL/min/1. 73 m?? [facility] Comment: This patient? s estimated glomerular filtration rate (eGFR) is between 78 mL/min/1.73 m2 (patients with less muscle mass) and 91 mL/min/1.73 m2 (patients with more muscle mass) [...] and symptoms in addition to eGFR. Blood 11/11/2020 1:13 PM EDT 11/11/2020 1:20 PM EDT Narrative Resulting Agency Comment Spec In Lab Markell Darling MD CHEMISTRY ORDERABLES Performing Organization Address [facility] de Phone Number [facility] [place] [address] * Hepatic Function Panel (11/11/2020 1:13 PM EDT) [facility] Protein, Total 7.1 6.1 - 8.0 gm/dL [facility] Albumin 4.6 3.2 - 5.2 gm/dL [facility] Aspartate Aminotransferase 14 0 - 30 unit/L [facility] Alanine Aminotransferase 16 0 - 30 unit/L [facility] Alkaline Phosphatase 70 35 - 105 unit/L [facility] Bilirubin, Total 0.3 0.2 - 1.3 mg/dL [facility] Bilirubin, Direct 0.1 0.0 - 0.3 mg/dL [facility] Blood 11/11/2020 1:13 PM EDT 11/11/2020 1:20 PM EDT Narrative Resulting Agency Comment Spec In Lab Markell Darling MD CHEMISTRY ORDERABLES Performing Organization Address [facility] de Phone Number [facility] [place] [address] * Extractable Nuclear Antigen (SANDHYA) Ab (11/11/2020 1:13 PM EDT) [facility] SANDHYA Ab Test ?Result ?Flag ??Unit ??RefValue Ab to Extractable Nuclear Ag Eval,S ??SS-A/Ro Ab, IgG, S ?<0.2 ?U ? <1.0 (Negative) ??SS-B/La Ab, IgG, S ?<0.2 ?U ? <1.0 (Negative) ??Sm Ab, IgG, S ? <0.2 ?U ? <1.0 (Negative) ??DIRECTOR UNDERWRITER SALES Ab, IgG, S ?<0.2 ?U ? <1.0 (Negative) ??Scl 70 Ab, IgG, S ? <0.2 ?U ? <1.0 (Negative) ??Liliya 1 Ab, IgG, S ? <0.2 ?U ? <1.0 (Negative) ?Test Performed by: ?[facility] [address] ?[address] [place] [address] ?Inventory Associate: Arun Montemayor M.D. Ph.D.; CLIA# [id number] [facility] Blood 11/11/2020 1:13 PM EDT 11/11/2020 4:28 PM EDT Narrative Resulting Agency Comment Spec In Lab Markell Darling MD LAB SEND OUT ORDERAB LES Performing Organization Address [facility] Co de Phone Number [facility] [place] [address] * (ABNORMAL) Rheumatoid factor, quant (11/11/2020 1:13 PM EDT) Rheumatoid Factor 20(H) <=14 IU/mL [facility] Blood 11/11/2020 1:13 PM EDT 11/11/2020 1:20 PM EDT Narrative Resulting Agency Comment Spec In Lab Markell Darling MD CHEMISTRY ORDERABLES Performing Organization Address [facility] Co de Phone Number [facility] [place] [address] * C4 Complement (11/11/2020 1:13 PM EDT) Complement C4 15 10 - 40 mg/dL [facility] Blood 11/11/2020 1:13 PM EDT 11/11/2020 1:20 PM EDT Narrative Resulting Agency Comment Spec In Lab Markell Darling MD CHEMISTRY ORDERABLES Performing Organization Address [facility] Co de Phone Number [facility] [place] [address] * C3 Complement (11/11/2020 1:13 PM EDT) Complement C3 118 90 - 180 mg/dL [facility] Blood 11/11/2020 1:13 PM EDT 11/11/2020 1:20 PM EDT Narrative Resulting Agency Comment Spec In Lab Markell Darling MD CHEMISTRY ORDERABLES [facility] [place] [address] documented in this encounter Visit Diagnoses Diagnosis Methotrexate, custodial, current use Encounter for long-term (current) use of other medications High risk medication use Encounter for long-term (current) use of other medications Medication monitoring encounter Encounter for therapeutic drug monitoring Seropositive rheumatoid arthritis Rheumatoid arthritis Seronegative rheumatoid arthritis Rheumatoid arthritis Bilateral wrist pain Pain in joint, forearm Pain in both hands Pain in right hip Pain in joint, pelvic region and thigh Inflammatory arthropathy Arthropathy, unspecified, site unspecified Bilateral hip pain Pain in joint, pelvic region and thigh documented in this encounter Care Teams Angle Shearer Relationship Specialty Start Date End Date Nidhi Conti PA [address] [place] [id number] PCP - General Family Medicine 06/11/20 documented as of this encounter
--- OUTSIDE RECORDS SUMMARY | 2023-11-15 02:27 | XMS_ITS | Encounter Summary ---
Author Organization [facility] [place] [address] Care Team Providers Care Automatic Bow Maker Machine Tender Name Role Phone Nidhi Conti Primary Care Provider [phone] Encounter Details Date Type Department Care Team (Late st Contact Info) Description 04/28/2021 Telephone [place] [phone] Andie Stevens Social History Tobacco Use Types Packs/Day Years [...] encounter Miscellaneous Notes * Telephone Encounter - Andie Stevens - 04/28/2021 10:17 AM EST Lm for pt to call and change appt on 04/29 to tele per provider. Sending letter documented in this encounter Plan of Treatment Not on file documented as of this encounter Visit Diagnoses Not on filedocumented in this encounter Care Teams Automatic Bow Maker Machine Tender Relationship Specialty Start Date End Date Nidhi Conti PA [address] [place] [id number] PCP - General Family Medicine 06/11/20 documented as of this encounter
--- OUTSIDE RECORDS SUMMARY | 2023-11-15 02:27 | XMS_ITS | Encounter Summary ---
[place] [address] Care Team Providers Care Earth Science Teacher Name Role Phone Nidhi Conti Primary Care Provider [phone] Encounter Details Date Type Department Care Team (Latest Contact Info) Description 05/16/2021 2:00 PM EST Laboratory Appointment Lab [address] [place] [id number] Medication monitoring encounter; High risk medication use; Seropositive rheumatoid arthritis; Inflammatory arthropathy; Methotrexate, adjunct faculty for medical terminology, current use; Seronegative rheumatoid arthritis; Chronic pain of both ankles; Pain in both hands; Bilateral wrist pain; Chronic pain of both knees; Morning joint [...] Associated Diagnosis Comments HC C-REACTIVE PROTEIN Routine 05/16/2021 2:17 PM EST Medication monitoring encounter High risk medication use Seropositive rheumatoid arthritis Inflammatory arthropathy Methotrexate, fdc, current use Seronegative rheumatoid arthritis Chronic pain of both ankles Pain in right hip Pain in both hands Bilateral wrist pain Bursitis of other bursa of both hips Pain in both feet HC QUANTIFERON Routine 05/16/2021 2:17 PM EST Medication monitoring encounter High risk medication use Seropositive rheumatoid arthritis Inflammatory arthropathy Methotrexate, fdc, current use Seronegative rheumatoid arthritis Chronic pain of both ankles Pain in both hands Bilateral wrist pain Chronic pain of both knees Morning joint stiffness Bilateral hip pain HEMOGRAM Routine 05/16/2021 2:17 PM EST Medication monitoring encounter High risk medication use Seropositive rheumatoid arthritis Inflammatory arthropathy Methotrexate, adjunct faculty for medical terminology, current use Seronegative rheumatoid arthritis Chronic pain of both ankles Pain in right hip Pain in both hands Bilateral wrist pain Bursitis of other bursa of both hips Pain in both feet DIFFERENTIAL, AUTOMATED Routine 05/16/2021 2:17 PM EST Medication monitoring encounter High risk medication use Seropositive rheumatoid arthritis Inflammatory arthropathy Methotrexate, fdc, current use Seronegative rheumatoid arthritis Chronic pain of both ankles Pain in right hip Pain in both hands Bilateral wrist pain Bursitis of other bursa of both hips Pain in both feet HC CREATININE Routine 05/16/2021 2:17 PM EST Medication monitoring encounter High risk medication use Seropositive rheumatoid arthritis Inflammatory arthropathy Methotrexate, fdc, current use Seronegative rheumatoid arthritis Chronic pain of both ankles Pain in right hip Pain in both hands Bilateral wrist pain Bursitis of other bursa of both hips Pain in both feet HC HEPATITIS C ANTIBODY Routine 05/16/2021 2:17 PM EST Medication monitoring encounter High risk medication use Seropositive rheumatoid arthritis Inflammatory arthropathy Methotrexate, adjunct faculty for medical terminology, current use Seronegative rheumatoid arthritis Chronic pain of both ankles Pain in both hands Bilateral wrist pain Chronic pain of both knees Morning joint stiffness Bilateral hip pain HC HEPATITIS B CORE AB Routine 05/16/2021 2:17 PM EST Medication monitoring encounter High risk medication use Seropositive rheumatoid arthritis Inflammatory arthropathy Methotrexate, adjunct faculty for medical terminology, current use Seronegative rheumatoid arthritis Chronic pain of both ankles Pain in both hands Bilateral wrist pain Chronic pain of both knees Morning joint stiffness Bilateral hip pain HC HEPATITIS B SURFACE AB Routine 05/16/2021 2:17 PM EST Medication monitoring encounter High risk medication use Seropositive rheumatoid arthritis Inflammatory arthropathy Methotrexate, adjunct faculty for medical terminology, current use Seronegative rheumatoid arthritis Chronic pain of both ankles Pain in both hands Bilateral wrist pain Chronic pain of both knees Morning joint stiffness Bilateral hip pain HC HEPATITIS B SURFACE AG Routine 05/16/2021 2:17 PM EST Medication monitoring encounter High risk medication use Seropositive rheumatoid arthritis Inflammatory arthropathy Methotrexate, fdc, current use Seronegative rheumatoid arthritis Chronic pain of both ankles Pain in both hands Bilateral wrist pain Chronic pain of both knees Morning joint stiffness Bilateral hip pain HC ESR-SEDIMENTATION RATE, BLOOD Routine 05/16/2021 2:17 PM EST Medication monitoring encounter High risk medication use Seropositive rheumatoid arthritis Inflammatory arthropathy Methotrexate, fdc, current use Seronegative rheumatoid arthritis Chronic pain of both ankles Pain in right hip Pain in both hands Bilateral wrist pain Bursitis of other bursa of both hips Pain in both feet HC CBC,PLT & AUTO DIFF Routine 05/16/2021 2:17 PM EST Medication monitoring encounter High risk medication use Seropositive rheumatoid arthritis Inflammatory arthropathy Methotrexate, fdc, current use Seronegative rheumatoid arthritis Chronic pain of both ankles Pain in right hip Pain in both hands Bilateral wrist pain Bursitis of other bursa of both hips Pain in both feet HEPATIC FUNCTION PANEL Routine 05/16/2021 2:17 PM EST Medication monitoring encounter High risk medication use Seropositive rheumatoid arthritis Inflammatory arthropathy Methotrexate, adjunct faculty for medical terminology, current use Seronegative rheumatoid arthritis Chronic pain of both ankles Pain in right hip Pain in both hands Bilateral wrist pain Bursitis of other bursa of both hips Pain in both feet HC VENIPUNCTURE Routine 05/16/2021 2:17 PM EST Medication monitoring encounter High risk medication use Seropositive rheumatoid arthritis Inflammatory arthropathy Methotrexate, fdc, current use Seronegative rheumatoid arthritis Chronic pain of both ankles documented in this encounter Results * Differential, Automated (05/16/2021 2:17 PM EST) Neutrophil % 58.3 % [facility] Neutrophil Absolute 5.60 1.70 - 6.10 x10(3)/[facility] Lymph % 33.3 % [facility] Lymphocytes Abs 3.2 0.9 - 3.2 x10(3)/[facility] Monocyte % 6.6 % [facility] Monocyte Abs 0.6 0.3 - 0.9 x10(3)/[facility] Eos % 0.9 % [facility] Eosinophils Abs 0.1 0.0 - 0.4 x10(3)/[facility] Basophil % 0.5 % [facility] Baso Absolute 0.0 0.0 - 0.1 x10(3)/[facility] Immature Gran % 0.40 % [facility] Comment: Immature granulocytes(IG's)percentage and absolute count will include metamyelocytes, myelocytes, and promyelocytes. Blood smears from CBCs yielding IG's will be scanned manually for concordance. If this scan disagrees with the automated IG or if promyelocytes are noted, a manual differential will be performed. Immature Gran Absolute 0.04 0.00 - 0.04 x10(3)/[facility] Blood 05/16/2021 2:17 PM EST 05/16/2021 2:47 PM EST Narrative Resulting Agency Comment Spec In Lab Markell Darling MD HEMATOLOGY ORDERABLE S [facility] [place] [address] * (ABNORMAL) Hemogram (05/16/2021 2:17 PM EST) White Blood Cell 9.6(H) 4.0 - 9.5 x10(3)/mc L [facility] Red Blood Cell 3.82(L) 4.00 - 5.21 x10(6)/mc L [facility] Hemoglobin 12.6 11.7 - 15.5 g/dL [facility] Hematocrit 36.7 35.7 - 45.8 % [facility] Mean Cell Volume 96.1(H) 82.6 - 94.4 fL [facility] Mean Cell Hemoglobin 33.0(H) 27.1 - 32.0 pg [facility] Mean Cell Hemoglobin Concentration 34.3 31.7 - 35.0 g/dL [facility] Platelet 334 145 - 357 x10(3)/mc L [facility] RDW Standard Deviation 54.2(H) 37.0 - 46.0 fL [facility] RDW coefficient of variation 15.5(H) 11.5 - 14.1 % [facility] Mean Platelet Volume 8.9 7.6 - 12.9 fL [facility] NRBC% auto 0.0 % [facility] NRBC Absolute 0.000 0.000 - 0.000 x10(3)/mc L [facility] Blood 05/16/2021 2:17 PM EST 05/16/2021 2:47 PM EST Narrative Resulting Agency Comment Spec In Lab Markell Darling MD HEMATOLOGY ORDERABLE S Performing Organization Address City/[facility]/ZIP Co de Phone Number [facility] [place] [address] * Sedimentation rate (05/16/2021 2:17 PM EST) [facility] Sedimentation Rate Automated 26 2 - 39 mm/hr [facility] Comment: Effective March 15, 2019 new capillary photometric technology has resulted in a change in reference ranges. It is recommended that each ESR result be reviewed with its own age appropriate reference range. Blood 05/16/2021 2:17 PM EST 05/16/2021 2:47 PM EST Narrative Resulting Agency Comment Spec In Lab Markell Darling MD HEMATOLOGY ORDERABLE S [facility] [place] [address] * (ABNORMAL) CRP, acute inflammation (05/16/2021 2:17 PM EST) C-Reactive Protein 7.9(H) <=4.9 mg/L [facility] Blood 05/16/2021 2:17 PM EST 05/16/2021 2:47 PM EST Narrative Resulting Agency Comment Spec In Lab Markell Darling MD CHEMISTRY ORDERABLES Performing Organization Address [facility] Co de Phone Number [facility] [place] [address] * Hepatic Function Panel (05/16/2021 2:17 PM EST) Protein, Total 7.1 6.1 - 8.0 g/dL [facility] Albumin 4.7 3.2 - 5.2 g/dL [facility] Aspartate Aminotransferase 9 0 - 30 unit/L [facility] Alanine Aminotransferase 11 0 - 30 unit/L [facility] Alkaline Phosphatase 68 35 - 105 unit/L [facility] Bilirubin, Total 0.2 0.2 - 1.3 mg/dL [facility] Bilirubin, Direct 0.1 0.0 - 0.3 mg/dL [facility] Blood 05/16/2021 2:17 PM EST 05/16/2021 2:47 PM EST Narrative Resulting Agency Comment Spec In Lab Markell Darling MD CHEMISTRY ORDERABLES Performing Organization Address [facility] de Phone Number [facility] [place] [address] * Creatinine (05/16/2021 2:17 PM EST) Creatinine 0.83 0.70 - 1.20 mg/dL [facility] Est Glomerular Filtration Rate 79 >=60 mL/min/1. 73 m?? [facility] Comment: This patient? s estimated glomerular filtration rate (eGFR) is between 79 mL/min/1.73 m2 (patients with less muscle mass) [...] and symptoms in addition to eGFR. Blood 05/16/2021 2:17 PM EST 05/16/2021 2:47 PM EST Narrative Resulting Agency Comment Spec In Lab Markell Darling MD CHEMISTRY ORDERABLES Performing Organization Address [facility] Co de Phone Number [facility] [place] [address] * Hepatitis B Core Antibody, Total (05/16/2021 2:17 PM EST) Hepatitis B Core Antibody Negative Negative [facility] Blood 05/16/2021 2:17 PM EST 05/16/2021 2:47 PM EST Narrative Resulting Agency Comment Spec In Lab Markell Darling MD CHEMISTRY ORDERABLES Performing Organization Address [facility] Co de Phone Number [facility] [place] [address] * Hepatitis B Surface Antigen (05/16/2021 2:17 PM EST) Hepatitis B Surface Antigen Negative Negative [facility] Blood 05/16/2021 2:17 PM EST 05/16/2021 2:47 PM EST Narrative Resulting Agency Comment Spec In Lab Markell Darling MD CHEMISTRY ORDERABLES Performing Organization Address [facility] Co de Phone Number [facility] [place] [address] * Hepatitis B Surface Antibody (05/16/2021 2:17 PM EST) Hepatitis B Surface Antibody, Quantitative <3.5 IU/L [facility] Comment: HepB Surface Ab Quant: Unvaccinated: < 8.5 IU/L Vaccinated: > 11.5 IU/L Hepatitis B Surface Antibody Negative [facility] Comment: Patient is presumed to be not vaccinated or immune to HBV infection. Expected Results: Vaccinated: Positive Unvaccinated: Negative Blood 05/16/2021 2:17 PM EST 05/16/2021 2:47 PM EST Narrative Resulting Agency Comment Spec In Lab Markell Darling MD CHEMISTRY ORDERABLES Performing Organization Address [facility] Co de Phone Number [facility] [place] [address] * Hepatitis C Antibody (05/16/2021 2:17 PM EST) Hepatitis C Antibody Negative Negative [facility] Blood 05/16/2021 2:17 PM EST 05/16/2021 2:47 PM EST Narrative Resulting Agency Comment Spec In Lab Markell Darling MD CHEMISTRY ORDERABLES Performing Organization Address [facility] Co de Phone Number [facility] [place] [address] * QuantiFERON-TB Gold (05/16/2021 2:17 PM EST) Quantiferon Nil 0.031 IU/mL [facility] QFT TB Ag1-Nil -0.005 IU/mL [facility] QFT TB Ag2-Nil -0.002 IU/mL [facility] Quantiferon Mitogen-Nil 9.969 IU/mL [facility] Quantiferon-TB Gold Negative Negative [facility] Quantiferon Tb Interp M. tuberculosis infection NOT likely A negative specimen should have a TB1 Ag minus Nil value and TB2 Ag minus Nil value of less than 0.35 IU/mL OR a TB1 Ag minus Nil or TB2 Ag minus Nil value greater than or equal to 0.35 IU/mL AND a TB Ag minus Nil value from the same tube of less than 25% of the Nil value. A negative specimen must also have a mitogen minus Nil value greater than or equal to 0.5 IU/mL. A negative QFT-Plus result does not preclude the possibility of M. tuberculosis infection. False negative results can occur due to stage of infection (specimen obtained prior to the development of immune response), co-morbid conditions which affect immune function, or other immunological factors. [facility] Blood 05/16/2021 2:17 PM EST 05/19/2021 7:29 AM EST Narrative Resulting Agency Comment Spec In Lab Markell Darling MD CHEMISTRY ORDERABLES [facility] [place] [address] * Lipid Panel (Reflex Direct LDL) (05/16/2021 2:17 PM EST) Cholesterol, Total 162 mg/dL [facility] Comment: Lower Risk: <200 mg/dL Average Risk: 200-239 mg/dL Higher Risk: >eu=390 mg/dL Triglyceride 58 mg/dL [facility] Comment: Average Risk/Lower Risk: <150 mg/dL Borderline High Risk: 150-199 mg/dL High Risk: 200-499 mg/dL Very High Risk: >ud=906 mg/dL HDL Cholesterol 84 mg/dL [facility] Comment: Males: ?? Higher Risk: <40 mg/dL Females: ?? Higher Risk: <50 mg/dL LDL Cholesterol 66 mg/dL [facility] Comment: Lowest Risk: <100 mg/dL Lower Risk: 100-129 mg/dL Borderline High Risk: 130-159 mg/dL High Risk: 160-189 mg/dL Very High Risk: >ol=480 mg/dL Cholesterol/HDL Ratio 1.9 ratio [facility] Lipid Interpretation See Note [facility] Comment: Lipid management should be guided by a patient? s ASCVD risk, goals and preferences. ACC/AHA Guidelines recommend high intensity statin if clinical ASCVD or LDL greater than or equal to 190 mg/dL. [email or web address] Adults aged 40-75 with LDL 70-189 mg/dL should have their 10 year ASCVD risk estimated with the ACC/AHA ASCVD risk auto damage estimator http://tools.acc.org/CGKRD-Eymy-Zaxtvmsdl/ Statin should be discussed if risk greater than or equal to 7.5% in non-diabetics. With diabetes, moderate intensity statin is recommended if risk less than 7.5%, high intensity if risk greater than or equal to 7.5%. Annual lipid monitoring on statins is not necessary. Evaluate secondary causes of Triglycerides greater than 500 mg/dL or LDL greater than 190 mg/dL: See table 6 of ACC/AHA Guideline. Lifestyle modification is a critical component of ASCVD risk reduction. Blood 05/16/2021 2:17 PM EST 05/16/2021 2:47 PM EST Narrative Resulting Agency Comment Spec In Lab Markell Darling [place] [address] documented in this encounter Visit Diagnoses Diagnosis Medication monitoring encounter Encounter for therapeutic drug monitoring High risk medication use Encounter for long-term (current) use of other medications Seropositive rheumatoid arthritis Rheumatoid arthritis Inflammatory arthropathy Arthropathy, unspecified, site unspecified Methotrexate, adjunct faculty for medical terminology, current use Encounter for long-term (current) use of other medications Seronegative rheumatoid arthritis Rheumatoid arthritis Chronic pain of both ankles Pain in both hands Bilateral wrist pain Pain in joint, forearm Chronic pain of both knees Morning joint stiffness Stiffness of joint, not elsewhere classified, unspecified site Bilateral hip pain Pain in joint, pelvic region and thigh Pain in right hip Pain in joint, pelvic region and thigh Bursitis of other bursa of both hips Pain in both feet Pain in limb documented in this encounter Care Teams Earth Science Teacher Relationship Specialty Start Date End Date Nidhi Conti PA [address] [place] [id number] PCP - General Family Medicine 06/11/20 documented as of this encounter
--- OUTSIDE RECORDS SUMMARY | 2023-11-15 02:27 | XMS_ITS | Encounter Summary ---
Author Organization [facility] [place] [address] Care Team Providers Care [place] Trap Name Role Phone Nidhi Conti Primary Care Provider [phone] Reason for Visit * Reason Comments Medication Refill Encounter Details Date Type Department Care Team (Late st Contact Info) Description 09/20/2020 [place] [address] Markell Darling MD [facility] [place] [address] Medication monitoring encounter; High risk medication use; Seropositive rheumatoid arthritis; Inflammatory arthropathy; Methotrexate, care home, current use; Seronegative rheumatoid arthritis; Bursitis of other bursa of both hips; Bilateral wrist pain; Pain in both hands; Pain in right hip; Chronic pain of both ankles; Chronic pain of both knees Social History [...] Inflammatory arthropathy Arthropathy, unspecified, site unspecified Methotrexate, windshield technician, current use Encounter for long-term (current) use of other medications Seronegative rheumatoid arthritis Rheumatoid arthritis Bursitis of other bursa of both hips Bilateral wrist pain Pain in joint, forearm Pain in both hands Pain in right hip Pain in joint, pelvic region and thigh Chronic pain of both ankles Chronic pain of both knees documented in this encounter Care Teams [place]rap Relationship Specialty Start Date End Date Nidhi Conti PA [address] [address] PCP - General Family Medicine 06/11/20 documented as of this encounter
--- OUTSIDE RECORDS SUMMARY | 2023-11-15 02:27 | XMS_ITS | Encounter Summary ---
Author Organization [facility] [place] [address] Care Team Providers Care Specification Writer Name Role Phone Nidhi Conti Primary Care Provider [phone] Reason for Visit * Reason Comments Medication Refill Encounter Details Date Type Department Care Team (Late st Contact Info) Description 08/08/2020 Refill [place] [address] Markell Darling MD [facility] [place] [address] Bilateral wrist pain; Pain in both hands; Seronegative rheumatoid arthritis Social History Tobacco Use [...] of this encounter Visit Diagnoses Diagnosis Bilateral wrist pain Pain in joint, forearm Pain in both hands Seronegative rheumatoid arthritis Rheumatoid arthritis documented in this encounter Care Teams Specification Writer Relationship Specialty Start Date End Date Nidhi Conti PA [address] [place] [id number] PCP - General Family Medicine 06/11/20 documented as of this encounter
--- OUTSIDE RECORDS SUMMARY | 2023-11-15 02:27 | XMS_ITS | Encounter Summary ---
[place] [address] Care Team Providers Care Ed Special Education Teacher Name Role Phone Nidhi Conti Primary Care Provider Encounter Details Date Type Department Care Team (Late st Contact Info) Description 05/08/2021 [place] [id number] Tila Ordonez, [facility] Social History Tobacco Use Types Packs/Day Years [...] on filedocumented in this encounter Care Teams Ed Special Education Teacher Relationship Specialty Start Date End Date Nidhi Conti PA [address] [place] [id number] PCP - General Family Medicine 06/11/20 documented as of this encounter
--- OUTSIDE RECORDS SUMMARY | 2023-11-15 02:27 | XMS_ITS | Encounter Summary ---
[place] [address] Care Team Providers Care Clinical Laboratory Assistant Name Role Phone Nidhi Conti Primary Care Provider [phone] Reason for Visit * Reason Comments Medication Management Patient Education Encounter Details Date Type Department Care Team (Late st Contact Info) Description 05/26/2021 Specialty [place] [phone] Tila Ordonez, [facility] Social History Tobacco Use [...] as of this encounter Progress Notes * Tila Ordonez [facility] - 05/26/2021 2:25 PM EST Specialty Pharmacy Consultation; Tila Ordonez [facility] Comprehensive Medication Management (CMM) Keyona Terry Diagnosis: Rheumatoid Arthritis Therapy Start Date: ~05/29/21 Contact in person or via telephone:via telephone Ms. Keyona Terry is a 55 y.o. (1965) female who was contacted in regard to specialty medication. Spoke with patient regarding Humira . A review of the medication therapy was performed. The medication was Filled as scheduled, and all medication related questions and concerns were addressed. The specialty pharmacy staff will follow up with the patient 5-7 days prior to next refill. Is the patient willing to proceed with the Clinical Assessment? Yes Summary and Recommendations: Keyona Terry was contacted via telephone for a review of Humira for the treatment of rheumatoid arthritis. Patient is aware of the prior authorization process and timeline and was given [facility] contact information for any questions. Patient was educated on the Humira labeled black box warnings regarding the risk of serious infections including tuberculosis and malignancies. Discussed other precautions with Humira including anaphylaxis/hypersensitivity and hepatitis B reactivation. Patient denies personal history of demyelinating disease or heart failure and was made aware of these precautions as well. Patient was educated on the importance of infection prevention including best practices for hand hygiene and the annual fluvaccine. Discussed the need to avoid live vaccines during treatment. Dose hold parameters were reviewed including suspected/known infection, prescribed antibiotic therapy, or scheduled surgery. Patient agrees to contact the clinic to review dose hold in these settings. Educated patient on the potential side effects of Humira including injection site reaction, headache, rash, and infections such as URTI/sinusitis. Discussed with patient that it may take 3-4 months to experience the full benefit of Humira. A review of dosing, storage, and administration was completed. Patient was educated on the dosing schedule, 40 mg subcutaneously every 2 weeks. Patient was made aware that Humira must be stored in the refrigerator and remains stable at room temperature for 14 days. Demonstration of injection technique was performed using Humira training kit. Patient was advised on proper site rotation, site sterilization, and allowing the medication to reach room temperature prior to injection. Patient was ableto demonstrate appropriate injection technique and required no remedial counseling. Patient was encouraged to schedule an injection teaching appointment if they prefer to have first injection completed with medical oversight and was directed to view additional online video resources if needed. Patient will be provided with a sharps container and disposal of pens was discussed. If you get COVID-19: ?? Contact Primary Care to direct treatment. ?? Antiviral medications generally need to be started within 5-10 days of symptom onset. ?? You would be a candidate for monoclonal antibody treatment for COVID-19 based on your use of immunosuppressant therapy. This is an IV medication used for treatment of COVID-19 in patients with mild to moderate symptoms and a positive PCR COVID test who are at risk for severe disease. This treatment has proven efficacy in the reduction of severe disease (thereby reducing likelihood of hospital admission and recurrent ER visits). Treatment must begin within 10 days from the date of onset of symptoms. Contact Primary Care to arrange for a referral to the [facility] ([facility]) in [place], [place], or to a local facility. ?? Contact Rheumatology for medication recommendations. ?? Do not take immune-suppressants until: ?? You are feeling reasonably well ?? Two weeks have passed since monoclonal antibody treatment, if applicable ?? Lab results are acceptable, if applicable ?? Note that it is important to resume medication as soon as it is safe to avoid exacerbation of your rheumatologic issue. Contact Primary Care or Reumatology for any questions or concerns. Clinic follow-up needed: yes - with Dr. Darling to follow up with [facility] Allergies and Drug intolerance: Allergies Allergen Reactions ??? Hydroxychloroquine Sulf (Bulk) Diarrhea Problem List: Patient Active Problem List Diagnosis Code ??? 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 Seropositive rheumatoid arthritis M05.9 ??? Abnormal radiograph R93.89 Special Dietary or Hydration Requirements: no Medication Reconciliation Discrepancies (compared to [facility] med list) -none Medication List: Current Outpatient Medications Medication Sig Dispense Refill ??? adalimumab (Humira,CF, Pen) 40 mg/0.4 mL Pen Injector Kit Inject 0.4 mLs subcutaneously every 14 days. 1 kit 5 ??? metHOTREXate 2.5 mg Tablet TAKE 8 TABLETS BY MOUTH ONCE WEEKLY ON WEDNESDAY 32 tablet 1 ??? predniSONE (Deltasone) 2.5 mg Tablet PO 4 tabs for 5 days, 3 tabs for 5 days, 2 tabs for 5 days, then stay at 1 tab daily 60 tablet 1 ??? meloxicam (MOBIC) 15 mg Tablet TAKE 1 TABLET BY MOUTH DAILY 30 tablet 2 ??? folic acid (Folvite) 1 mg Tablet TAKE 5 TABLETS BY MOUTH DAILY 150 tablet 5 ??? simvastatin (ZOCOR) 20 mg Tablet daily. 0 ??? verapamil (CALAN-SR) 240 mg Tablet Sustained Release daily. 0 No current facility-administered medications for this visit. Most Recent Vitals: Ht Readings from Last 1 Encounters: 10/15/20 165 cm (5' 4.96) Wt Readings from Last 3 Encounters: 10/15/20 86.6 kg (191 lb) 03/08/19 83.6 kg (184 lb 6.4 oz) 12/21/18 82.9 kg (182 lb 11.2 oz) Temp Readings from Last 3 Encounters: 10/15/20 36.6 ??C (97.9 ??F) (Temporal) 11/21/18 37.1 ??C (98.7 ??F) 10/03/18 36.8 ??C (98.2 ??F) BP Readings from Last 3 Encounters: 10/15/20 117/66 03/08/19 126/53 12/21/18 112/53 Pulse Readings from Last 3 Encounters: 10/15/20 87 03/08/19 77 12/21/18 73 There is no height or weight on file to calculate BMI. Pertinent Lab values: Lab Results Component Value Date NA 141 12/21/2019 K 4.0 12/21/2019 CL 104 12/21/2019 CO2 28 12/21/2019 BUN 14 12/21/2019 CREATININE 0.83 05/16/2021 GLUCOSE 90 12/21/2019 CALCIUM 9.3 10/08/2020 Lab Results Component Value Date ALT 11 05/16/2021 AST 9 05/16/2021 ALKPHOS 68 05/16/2021 BILITOT 0.2 05/16/2021 BILIDIR 0.1 05/16/2021 ALBUMIN 4.7 05/16/2021 PROT 7.1 05/16/2021 Lab Results Component Value Date WBC 9.6 (H) 05/16/2021 HGB 12.6 05/16/2021 HCT 36.7 05/16/2021 MCV 96.1 (H) 05/16/2021 PLATELET 334 05/16/2021 No results found for: HA1C There is no immunization history on file for this patient. Assessment and Recommendations: Patient Counseling Patient informed of specialty services: Yes Patient accepted offer to pet counselor: select all, adherence/missed doses, cost of [...] medication discussed, over the counter products discussed, preventative care discussed, recommendations to doctor discussed, reminder to refill or package pick up medication discussed, self-monitoring discussed, start medication discussed, stop medication discussed, timing of medications discussed, vaccination discussed, lifestyle modification education, referral needs discussed Time spent: 1-15 min Treatment Outcomes 05/26/2021 8289 Disease progression: Moderate Reviewed in detail with patient: Dose appropriateness [...] adverse reactions occur: Yes Additional care/services needed: Yes If yes, explain: injection teaching Additional equipment/supplies required: Yes If yes, explain: sharps container provided Patient satisfied with care/services provided: Yes Specialty Assessment: Physical and Cognitive Assessment: Functional limitations identified: No Cognitive limitations identified: No Concern regarding orientation/memory: No Concern with reasoning/judgement: No Is patient a fall risk: No Social Assessment: Does patient have a primary primary care md: No Does patient have an emergency contact on file: Yes Does patient need referral to social psychologist: No Does patient need referral to advocacy [...] Patient provided welcome packet/rights and responsibilities: Yes Specialty Med Adherence Patient Demonstrates Understanding of Importance of Adherence: Yes Educational Information or Adherence Tools Provided: Yes Patient Reported X Missed Doses in the Last Month: 0 Provider-Estimated Medication Adherence Level: 90-100% Adherence Tools Used: calendar Pre-Consult Questions 1) How comfortable are you with the idea of self-injecting medications?Somewhat uncomfortable - Please explain if applicable: 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 2) Overall, what is your confidence level with administering this medication? 5 Post-Consult Interventions 1) Which interventions did you make as a result of this encounter? Recommended an in-person teaching appointment; she will watch the Humira video and if she still has questions, we will set up a TH appt. 2) Overall, what is your confidence level with administering this medication? 5; this will increaseonce she has watched the video and TH appt. Therapy Assessment: Current Medication Dosing/Route/Frequency: Humira 40mg/0.4mL PNKT Inject the contents of 1 pen subcutaneously every 14 days. Appropriate Therapy: Yes Current joints affected: wrists, hands, feet, and hip Current pain rating (1-10): She does has pain but rating was not reported Estimated duration of morning joint stiffness: 1 hour Estimated number of recent flares: yes - 1 Recent systemic corticosteroid use: yes - prednisone taper starting 04/29/21 Patient's Problems/Needs: RA/needs help controlling symptoms Expected Outcome: decrease in pain Patient's goals: Patient's specific desired goal: Keyona Terry is hoping to have a decrease in her pain and morningstiffness by about 50%. Measured by: pain scale, how long her morning stiffness lasts Time-frame to meet goal: 3 to 6 months Monitoring requirements for prescribed medication: Improvement of symptoms,TB screening, HBV screening, CBC, signs/symptoms of active infections, heart failure, hypersensitivity, and malignancy Care Plan Reviewed and Approved by both Pharmacist and Patient: Yes Interventions (if applicable): No Pharmacist follow-up needed: Yes Patient understands no changes to current drug regimen were made at the appointment and that [facility] (summary located at top of note) for provider review and follow up. Tila Ordonez RPH 05/26/21 2:28 PM documented in this encounter Plan of Treatment Not on file documented as of this encounter Visit Diagnoses Not on filedocumented in this encounter Care Teams Clinical Laboratory Assistant Relationship Specialty Start Date End Date Nidhi Conti PA [address] [place] [id number] PCP - General Family Medicine 06/11/20 documented as of this encounter
--- OUTSIDE RECORDS SUMMARY | 2023-11-15 02:27 | XMS_ITS | Encounter Summary ---
Author Organization [facility] [place] [address] Care Team Providers Care Cnc Supervisor Name Role Phone Nidhi Conti Primary Care Provider [phone] Reason for Visit * Reason Comments Medication Refill Encounter Details Date Type Department Care Team (Late st Contact Info) Description 12/16/2020 [place] [id number] Markell Darling MD [facility] [place] [address] Inflammatory arthropathy; Seropositive rheumatoid arthritis; High risk medication use; Methotrexate, intermodal customer service, current use; Seronegative rheumatoid arthritis; Bilateral wrist pain; Pain in both hands Social History Tobacco Use Types Packs/Day Years [...] Telephone Encounter - Rocío Vilchis LPN - 12/17/2020 8:59 AM EDT Requested Prescriptions Pending Prescriptions Disp Refills ??? metHOTREXate 2.5 mg Tablet [Pharmacy Med Name: METHOTREXATE 2.5MG TABLETS - YELLOW] 72 tablet 0 Sig: TAKE 6 TABLETS BY MOUTH ONCE A WEEK ON WEDNESDAY ??? meloxicam (MOBIC) 15 mg Tablet [Pharmacy Med Name: MELOXICAM 15MG TABLETS] 30 tablet 1 Sig: TAKE 1 TABLET BY MOUTH DAILY Last office visit: Yesterday, no future appt's scheduled Last refill: 09/20/2020 documented in this encounter Plan of Treatment Not on file documented as of this encounter Visit Diagnoses Diagnosis Inflammatory arthropathy Arthropathy, unspecified, site unspecified Seropositive rheumatoid arthritis Rheumatoid arthritis High risk medication use Encounter for long-term (current) use of other medications Methotrexate, alf, current use Encounter for long-term (current) use of other medications Seronegative rheumatoid arthritis Rheumatoid arthritis Bilateral wrist pain Pain in joint, forearm Pain in both hands documented in this encounter Care Teams Cnc Supervisor Relationship Specialty Start Date End Date Nidhi Conti PA [address] [place] [id number] PCP - General Family Medicine 06/11/20 documented as of this encounter
--- OUTSIDE RECORDS SUMMARY | 2023-11-15 02:27 | XMS_ITS | Encounter Summary ---
[place] [address] Care Team Providers Care Box Press Operator Name Role Phone Nidhi Conti Primary Care Provider [phone] Reason for Referral * Consultation (Routine) - Closed Specialty Diagnoses / Procedures Referred By Contac t Referred To Contact Podiatry Diagnoses Chronic pain of both ankles Pain in both feet Markell Darling MD [facility] [place] [address] [place] [address] [facility] [place] [address] Referral ID Status Reason Start Date Expiration Date V isits Requested Visits Authorized [id number] Closed Consult, Test & Treat 03/10/2021 03/10/2022 1 1 Encounter Details Date Type Department Care Team (Latest Contact Info) Description 03/10/2021 3:30 PM EST TH Visit (TeleHealth) [place] [phone] Markell Darling MD [facility] [place] [address] [address] Medication monitoring encounter; High risk medication use; Seropositive rheumatoid arthritis; Inflammatory arthropathy; Methotrexate, exterminator helper termite, current use; Seronegative rheumatoid arthritis; Chronic pain [...] Progress Notes * Markell Darling MD - 03/10/2021 3:30 PM EST Rheumatology Follow Up phone note 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 abnormal wrist xray erosion verses a cyst CDAI uable to calcuate MTX 6 tbs weekly and FA ?? MTX has [...] but been worse over the last year. Patient hands are less problematic but is still having issues with her bilateral feet ankles and hip. X-rays are not done several years. Symptoms seem to be worsening in the symptoms of prolonged stiffness in the ankles for approximately 2 hours. He does have gelling phenomenon if he sits too long with pain.Has swelling in the ankles at the end of the day does describe some redness and some warmth. Bilateral foot pain over the balls of the feet and the knuckles. Does not report any swelling redness or warmth. She is on Mobic every day. Takes methotrexate on Saturdays 6 tabs split dosing and folic acidevery day. Cannot recall she did better on methotrexate at a higher dose. She is a smoker which could be interfering with her improvement in her symptoms. There is a gone down due to morphine and oral ulcers for we will see if that is also occurs this time despite being onhigher folic acid. Could also add leucovorin for the day after as of prevention. Physical exam NAD NCAT, nonicteric sclera, no [...] ?? Patient still reports disease activity is higher than projected by exam or ultrasound ?? - Dz activity mild to moderate dz though ultrasound evaluation inflammatory markers suggest otherwise. ?? Previously unable to tolerate hydroxychloroquine ?? Off prednisone on meloxicam ?? Sulfasalazine is possible but there is currently a shortage adding 10 of leflunomide is also a possibility though does have its own concerns from side effect issue another possibility is adding a drug such as Enbrel TNF inhibitor- ?? Previously been worked up for sarcoidosis ?? -Discussed injectable methotrexate ?? Reviewed risks for leflunomide and TNF inhibitor [...] aware to complete labs as requested. Leukocytosis -- again mild without lymphocytosis mild neutrophilia without use of steroids - -with elevated CRP-recommend doing additional testing however patient schedule insurance- Chronic foot ankle and hand pain-x-rays consistent with osteoarthritis as is ultrasound. On meloxicam Tylenol omega-3 fatty acids and turmeric Previously positive de Quervain's tenosynovitis High risk Med - No SE/AE Labs q 3 months for MTX monitoring howerever soon labs 2/2 abl WBC and lynp count She will need hepatitis and TB decides to move forward with a biologic Orders Placed This Encounter Procedures ??? XR Foot Min 3 views Bilat (Generic) ??? XR Ankle Min 3 views Bilat (Generic) ??? CRP, acute inflammation ??? CBC (with Diff) ??? Creatinine ??? Hepatic Function Panel ??? Sedimentation rate ??? Referral to Podiatry Return in about 6 weeks (around 04/21/2021) for In Person. Greater than 31 minutes spent total Markell Darling MD documented in this encounter Plan of Treatment Scheduled Referrals Name Type Priority Associated Diagnoses Orde r Schedule Referral to Podiatry Outpatient Referral Routine Chronic pain of both ankles Pain in both feet Ordered: 03/10/2021 documented as of this encounter Results * XR Ankle Min 3 views Bilat (Generic) (04/03/2021 1:04 PM EST) Anatomical Region Laterality Modality Ankle Bilateral Digital Radiogra phy Impressions 04/03/2021 2:17 PM EST No erosions or other radiographic findings of inflammatory arthritis. Stable interval exam. Thank you for letting us participate in the care of this patient. ??If you are a health care provider and have any questions regarding this report, please contact the number below. ??For patients who have questions please contact the health post anesthesia care unit nurse that requested your imaging first. ? Narrative 04/03/2021 2:17 PM EST EXAMINATION: XR FOOT MIN 3 VIEWS BILAT (GENERIC), XR ANKLE MIN 3 VIEWS BILAT (GENERIC) CLINICAL HISTORY: inflammatory arthopathy with pain in the bilateral foot and ankle pain TECHNIQUE: 3 views BILATERAL feet; 3 views bilateral ankles COMPARISON: 10/13/2019, 11/21/2018 FINDINGS: Left foot: No erosions or bony productive change. There is no fracture or focal lesion. Joint spacing and alignment are normal. Bone mineralization appears normal. Tiny metallic density at the Achilles insertion on the calcaneus unchanged from prior. Tiny Achilles insertional enthesophyte unchanged from prior. Soft tissues otherwise normal. Right foot: No erosions or bony productive changes. No fracture or focal lesion. Joint spacing and alignment are normal. Bone mineralization appears normal. No calcifications or focal abnormality within the soft tissues. Left ankle: Normal alignment at the ankle mortise. Talar dome is intact. No erosions. No joint effusion. Right ankle: Ankle mortise alignment is normal. No dome is intact. No erosions. No joint effusion. Procedure Note Marino Reid MD - 04/03/2021 EXAMINATION: XR FOOT MIN 3 VIEWS BILAT (GENERIC), XR ANKLE MIN 3 VIEWSBILAT (GENERIC) CLINICAL HISTORY: inflammatory arthopathy with pain in the bilateral footand ankle pain TECHNIQUE: 3 views BILATERAL feet; 3 views bilateral ankles COMPARISON: 10/13/2019, 11/21/2018 FINDINGS: Left foot: No erosions or bony productive change. There is no fracture orfocal lesion. Joint spacing and alignment are normal. Bone mineralizationappears normal. Tiny metallic density at the Achilles insertion on the calcaneus unchanged from prior. Tiny Achilles insertional enthesophyte unchangedfrom prior. Soft tissues otherwise normal. Right foot: No erosions or bony productive changes. No fracture or focallesion. Joint spacing and alignment are normal. Bone mineralization appearsnormal. No calcifications or focal abnormality within the soft tissues. Left ankle: Normal alignment at the ankle mortise. Talar dome is intact.No erosions. No joint effusion. Right ankle: Ankle mortise alignment is normal. No dome is intact. Noerosions. No joint effusion. IMPRESSION No erosions or other radiographic findings of inflammatory arthritis.Stable interval exam. Thank you for letting us participate in the care of this patient. If youare a health care provider and have any questions regarding this report,please contact the number below. For patients who have questions please contactthe health post anesthesia care unit nurse that requested your imaging first. Markell Darling MD IMG DX ORDERABLES * XR Foot Min 3 views Bilat (Generic) (04/03/2021 1:04 PM EST) Anatomical Region Laterality Modality Foot Bilateral Digital Radiogra phy Impressions 04/03/2021 2:17 PM EST No erosions or other radiographic findings of inflammatory arthritis. Stable interval exam. Thank you for letting us participate in the care of this patient. ??If you are a health care provider and have any questions regarding this report, please contact the number below. ??For patients who have questions please contact the health post anesthesia care unit nurse that requested your imaging first. ? Narrative 04/03/2021 2:17 PM EST EXAMINATION: XR FOOT MIN 3 VIEWS BILAT (GENERIC), XR ANKLE MIN 3 VIEWS BILAT (GENERIC) CLINICAL HISTORY: inflammatory arthopathy with pain in the bilateral foot and ankle pain TECHNIQUE: 3 views BILATERAL feet; 3 views bilateral ankles COMPARISON: 10/13/2019, 11/21/2018 FINDINGS: Left foot: No erosions or bony productive change. There is no fracture or focal lesion. Joint spacing and alignment are normal. Bone mineralization appears normal. Tiny metallic density at the Achilles insertion on the calcaneus unchanged from prior. Tiny Achilles insertional enthesophyte unchanged from prior. Soft tissues otherwise normal. Right foot: No erosions or bony productive changes. No fracture or focal lesion. Joint spacing and alignment are normal. Bone mineralization appears normal. No calcifications or focal abnormality within the soft tissues. Left ankle: Normal alignment at the ankle mortise. Talar dome is intact. No erosions. No joint effusion. Right ankle: Ankle mortise alignment is normal. No dome is intact. No erosions. No joint effusion. Procedure Note Marino Reid MD - 04/03/2021 EXAMINATION: XR FOOT MIN 3 VIEWS BILAT (GENERIC), XR ANKLE MIN 3 VIEWSBILAT (GENERIC) CLINICAL HISTORY: inflammatory arthopathy with pain in the bilateral footand ankle pain TECHNIQUE: 3 views BILATERAL feet; 3 views bilateral ankles COMPARISON: 10/13/2019, 11/21/2018 FINDINGS: Left foot: No erosions or bony productive change. There is no fracture orfocal lesion. Joint spacing and alignment are normal. Bone mineralizationappears normal. Tiny metallic density at the Achilles insertion on the calcaneus unchanged from prior. Tiny Achilles insertional enthesophyte unchangedfrom prior. Soft tissues otherwise normal. Right foot: No erosions or bony productive changes. No fracture or focallesion. Joint spacing and alignment are normal. Bone mineralization appearsnormal. No calcifications or focal abnormality within the soft tissues. Left ankle: Normal alignment at the ankle mortise. Talar dome is intact.No erosions. No joint effusion. Right ankle: Ankle mortise alignment is normal. No dome is intact. Noerosions. No joint effusion. IMPRESSION No erosions or other radiographic findings of inflammatory arthritis.Stable interval exam. Thank you for letting us participate in the care of this patient. If youare a health care provider and have any questions regarding this report,please contact the number below. For patients who have questions please contactthe health post anesthesia care unit nurse that requested your imaging first. Markell Darling MD IMG DX ORDERABLES documented in this encounter Visit Diagnoses Diagnosis Medication monitoring encounter Encounter for therapeutic drug monitoring High risk medication use Encounter for long-term (current) use of other medications Seropositive rheumatoid arthritis Rheumatoid arthritis Inflammatory arthropathy Arthropathy, unspecified, site unspecified Methotrexate, long-term, current use Encounter for long-term (current) use of other medications Seronegative rheumatoid arthritis Rheumatoid arthritis Chronic pain of both ankles Pain in right hip Pain in joint, pelvic region and thigh Pain in both hands Bilateral wrist pain Pain in joint, forearm Bursitis of other bursa of both hips Pain in both feet Pain in limb Chronic pain of both ankles Pain in both feet Pain in limb documented in this encounter Care Teams Box Press Operator Relationship Specialty Start Date End Date Nidhi Conti PA [address] [place] [id number] PCP - General Family Medicine 06/11/20 documented as of this encounter
--- OUTSIDE RECORDS SUMMARY | 2023-11-15 02:27 | XMS_ITS | Encounter Summary ---
Author Organization [facility] [place] [address] Care Team Providers Care Hospital Product Specialist Name Role Phone Nidhi Conti Primary Care Provider Encounter Details Date Type Department Care Team (Late st Contact Info) Description 10/15/2020 10:30 AM EDT Office [place] [address] [facility] [place] [address] Methotrexate, senior care, current use; High risk medication use; Medication [...] Sign Reading Time Taken Comments Blood Pressure 117/66 10/15/2020 10:14 AM EDT Pulse 87 10/15/2020 10:14 AM EDT Temperature 36.6 ??C (97.9 ??F) 10/15/2020 10:14 AM E DT Respiratory Rate - - Oxygen Saturation 99% 10/15/2020 10:14 AM EDT Inhaled Oxygen Concentration - - Weight 86.6 kg (191 lb) 10/15/2020 10:14 AM EDT Height 165 cm (5' 4.96) 10/15/2020 10:14 AM EDT Body Mass Index 31.82 10/15/2020 10:14 AM EDT documented in this encounter Progress Notes * Markell Darling MD - 10/15/2020 10:30 AM EDT Rheumatology Follow Up phone note 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 abnormal wrist xray erosion verses a cyst CDAI uable to calcuate MTX 6 tbs weekly and FA ?? MTX has resulted in increased oral ulcer will increase FA to 5mg. ?? Continue Current MTX 6 tabs weekly since no benefit at 8 tabs and more SE HCQ SE - diarrhea She is on simvastatin Interval HX: Keyona Terry is a 54 y.o. C female who presents today for fu evaluation SPRA of bilateral hand pain and foot pain that is been going on for several years but been worse over the last year. Describes an hour morning stiffness affecting the hand mostly the thumb and MCPs when she is doing activities like brushing her teeth. No swelling redness or warmth episodic ankle and foot pain with activity no swelling redness or warmth Bilateral hip pain is most significant-radiates to the groin chronically left greater than right she denies any symptoms of instability or chronic steroid use. She takes 7.5 mg of Mobic daily, 1000 mg of Tylenol 3 times daily, turmeric at the 1000 mg 3 times daily and omega-3 fatty acids 2000 mg twice daily Morning stiffness about an hour Rheumatic history (x) means positive Iritis Dactylitis [...] Xerosis cutis 47. Photosensitivity 48. Rash Physical Exam: Physical Exam: BP 117/66 Pulse 87 Temp 36.6 ??C (97.9 ??F) (Temporal) Ht 165 cm (5' 4.96) Wt 86.6 kg (191lb) SpO2 99% BMI 31.82 kg/m?? General: NAD HEENT: Mucous membranes are moist, no oral mucosal ulcerations, Neck: Supple, no lymphadenopathy, full range of motion. Cardiovascular: RR, (-)murmurs, rubs, or gallops. Lungs: Clear to auscultation bilaterally. (-)R/R/W Abdomen: Soft, non tender, non distended, + bowel sounds, no hepatosplenomegaly. Neuro: Alert and oriented x3. Cranial nerves III through XII grossly intact. - Strength 5/5 throughout, -Sensation to light touch is grossly normal throughout. DTRs are 2+ throughout. Toes down going bilaterally. Skin: (-)ulcers, (-)rash Vascular: Pulses are equal [...] at any joint. No soft tissue nodules. Assessment and plan: Keyona Terry is a 54 y.o. 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 SPRA - feels not doing well at Dz activity mild to moderate dz will expand AI work-up per patient thought w/o seeing the ?? Unable to tolerate HCQ ?? Off prednisone ?? MTX has resulted in increased oral ulcer will increase FA to 5mg. ?? Continue Current MTX 6 tabs weekly since no benefit at 8 tabs and more SE ?? Since reports still moderate dz activity though not evident on exam, nl inflammaotry markers andhx lack prolonged MS, swelling, rednes and warmth and high likley OA ?? Discussed SSZ (however shortage), LEf and TNF inhibotors as potential therapy Leukocytosis - iabnl again mild - was feeling more fatigued at the toime with an elevated CRP-possibly secondary to an underlying viral infection however will assess Chr hip pain- reduced ROM narrowing will get XR Chr pain OA - increase tylenol 750mg 3 x day added turmeric dose consider adding Elwell 3 FA - will incresae melxicam dosen Positive some mild underlying de Quervain's will try splinting-OT referral could be considered if splinting does not work High risk Med - No SE/AE Labs q 3 months for MTX monitoring howerever soon labs 2/2 abl WBC and lynp count Pt is aware of the Benefits, risks and potential side effects of methotrexate including fatigue, mouth sores, nausea, hair thinning, liver and bone marrow effects requiring q 3 month labs to monitor for drug toxicity, rare allergic pulmonary reaction and, if appropriate, avoidance of . Alcohol intake should be limited. It takes 6-8 weeks for methotrexate to work. It was explained that this drug is taken once per WEEK, and daily folic acid starting a 1 mg per day can help counter the side effects.The patient is aware to seek care for infections/febrile episodes and to hold the medication while on antibiotic therapy for an infection. The patient will make me aware of any planned surge lew so hold parameters can be identified. The patient is aware to complete labs as requested. Patient has been called and the following medications have been changed: Orders Placed This Encounter Procedures ? ? XR Pelvis & Lat Hip Left (Generic) ??? Hepatic Function Panel ??? Creatinine ??? CRP, acute inflammation ??? CBC (with Diff) ??? Sedimentation rate ??? Extractable Nuclear Antigen (SANDHYA) Ab ??? Rheumatoid factor, quant ??? C4 Complement ??? C3 Complement Return in about 4 weeks (around 11/12/2020) for Either In Person or Telehealth. > 46 minutes total Markell Darling MD documented in this encounter Plan of Treatment Not on file documented as of this encounter Results * C3 Complement (11/11/2020 1:13 PM EDT) Complement C3 118 90 - 180 mg/dL [facility] Blood 11/11/2020 1:13 PM EDT 11/11/2020 1:20 PM EDT Narrative Resulting Agency Comment Spec In Lab Markell Darling MD CHEMISTRY ORDERABLES Performing Organization Address [facility] Co de Phone Number [facility] [place] [address] * C4 Complement (11/11/2020 1:13 PM EDT) Complement C4 15 10 - 40 mg/dL [facility] Blood 11/11/2020 1:13 PM EDT 11/11/2020 1:20 PM EDT Narrative Resulting Agency Comment Spec In Lab Markell Darling MD CHEMISTRY ORDERABLES Performing Organization Address [facility] Co de Phone Number [facility] [place] [address] * (ABNORMAL) Rheumatoid factor, quant (11/11/2020 1:13 PM EDT) Rheumatoid Factor 20(H) <=14 IU/mL [facility] Blood 11/11/2020 1:13 PM EDT 11/11/2020 1:20 PM EDT Narrative Resulting Agency Comment Spec In Lab Markell Darling MD CHEMISTRY ORDERABLES Performing Organization Address City/State/[facility] Co de Phone Number [facility] [place] [address] * Extractable Nuclear Antigen (SANDHYA) Ab (11/11/2020 1:13 PM EDT) Pathologist [facility] SANDHYA Ab Test ?Result ?Flag ??Unit ??RefValue Ab to Extractable Nuclear Ag Eval,S ??SS-A/Ro Ab, IgG, S ?<0.2 ?U ? <1.0 (Negative) ??SS-B/La Ab, IgG, S ?<0.2 ?U ? <1.0 (Negative) ??Sm Ab, IgG, S ? <0.2 ?U ? <1.0 (Negative) ??MONOLOGIST Ab, IgG, S ?<0.2 ?U ? <1.0 (Negative) ??Scl 70 Ab, IgG, S ? <0.2 ?U ? <1.0 (Negative) ??Liliya 1 Ab, IgG, S ? <0.2 ?U ? <1.0 (Negative) ?Test Performed by: ?[facility] ?[address] [place] [address] ?Case Manager Specialist: Arun Montemayor M.D. Ph.D.; CLIA# [id number] [facility] Blood 11/11/2020 1:13 PM EDT 11/11/2020 4:28 PM EDT Narrative Resulting Agency Comment Spec In Lab Markell Darling MD LAB SEND OUT ORDERAB LES Performing Organization Address City/State/[facility] Co de Phone Number [facility] [place] [address] * XR Pelvis & Lat Hip Left (Generic) (10/15/2020 11:32 AM EDT) Anatomical Region Laterality Modality Pelvis, Hip Left Digital Radiogra phy Impressions 10/15/2020 5:04 PM EDT Unchanged symmetric joint space narrowing of the hips. No radiographic finding of inflammatory arthritis. I have personally reviewed the image(s) and the resident's interpretation and agree with the findings, Theresa Reid MD at 10/15/2020 5:04 PM Thank you for letting us participate in the care of this patient. ??If you are a health care provider and have any questions regarding this report, please contact the number below. ??For patients who have questions please contact the health rn home care that requested your imaging first. ? Electronically signed by: Theresa Reid MD, [facility] ([phone]), at 10/15/2020 5:04 PM Narrative 10/15/2020 5:04 PM EDT EXAMINATION: XR PELVIS AND LAT HIP LEFT (GENERIC) CLINICAL HISTORY: hip pain radaiting to the groin - with some limited RM TECHNIQUE: AP pelvis and lateral left hip. COMPARISON: Pelvic radiograph 03/08/2019 FINDINGS: Diffuse demineralization. No acute fracture or dislocation. Unchanged, mild symmetric joint space narrowing of bilateral hips. No osseous erosions or proliferation. Sacroiliac joints are symmetric without marginal erosion or ankylosis. No widening of the pubic symphysis. Procedure Note Theresa Reid MD - 10/15/2020 EXAMINATION: XR PELVIS AND LAT HIP LEFT (GENERIC) CLINICAL HISTORY: hip pain radaiting to the groin - with some limited RM TECHNIQUE: AP pelvis and lateral left hip. COMPARISON: Pelvic radiograph 03/08/2019 FINDINGS: Diffuse demineralization. No acute fracture or dislocation. Unchanged,mild symmetric joint space narrowing of bilateral hips. No osseous erosionsor proliferation. Sacroiliac joints are symmetric without marginal erosion or ankylosis.No widening of the pubic symphysis. IMPRESSION Unchanged symmetric joint space narrowing of the hips. No radiographicfinding of inflammatory arthritis. I have personally reviewed the image(s) and the resident's interpretationand agree with the findings, Theresa Reid MD at 10/15/2020 5:04 PM Thank you for letting us participate in the care of this patient. If youare a health care provider and have any questions regarding this report,please contact the number below. For patients who have questions please contactthe health rn home care that requested your imaging first. Electronically signed by: Theresa Reid MD, [facility]([phone]), at 10/15/2020 5:04 PM Markell Darling MD IMG DX ORDERABLES documented in this encounter Visit Diagnoses Diagnosis Methotrexate, senior care, current use Encounter for long-term (current) [...] Pain in joint, pelvic region and thigh Bilateral hip pain Pain in joint, pelvic region and thigh documented in this encounter Care Teams Hospital Product Specialist Relationship Specialty Start Date End Date Nidhi Conti PA [address] [place] [id number] PCP - General Family Medicine 06/11/20 documented as of this encounter
--- OUTSIDE RECORDS SUMMARY | 2023-11-15 02:27 | XMS_ITS | Encounter Summary ---
Author Organization [facility] [place] [address] Care Team Providers Care Cryptologic Support Specialist Name Role Phone Nidhi Conti Primary Care Provider [phone] Reason for Visit * Reason Comments Medication Refill Encounter Details Date Type Department Care Team (Late st Contact Info) Description 05/20/2021 [place] [address] [facility] [place] [address] Medication monitoring encounter; High risk medication use; Seropositive rheumatoid arthritis; Inflammatory arthropathy; Methotrexate, jail, current use; Seronegative rheumatoid arthritis; Chronic pain [...] limb documented in this encounter Care Teams Cryptologic Support Specialist Relationship Specialty Start Date End Date Nidhi Conti PA [address] [place] [id number] PCP - General Family Medicine 06/11/20 documented as of this encounter
--- OUTSIDE RECORDS SUMMARY | 2023-11-15 02:27 | XMS_ITS | Encounter Summary ---
[facility] [place] [address] Care Team Providers Care Supervisor Keymodule Assembly Name Role Phone Nidhi Conti Primary Care Provider [phone] Encounter Details Date Type Department Care Team (Late st Contact Info) Description 05/27/2021 [place] [phone] Rocío Vilchis LPN Social History Tobacco Use Types Packs/Day Years [...] Telephone Encounter - Rocío Vilchis LPN - 05/27/2021 11:20 AM EST BC/BS called for Prior Auth. For Gracia. Looks like this is being addressed? Filling in for Gianfrancouna as she is out today. Thank you, TAMIKA Alford documented in this encounter Plan of Treatment Not on file documented as of this encounter Visit Diagnoses Not on filedocumented in this encounter Care Teams Supervisor Keymodule Assembly Relationship Specialty Start Date End Date Nidhi Conti PA [address] [place] [phone] PCP - General Family Medicine 06/11/20 documented as of this encounter
--- OUTSIDE RECORDS SUMMARY | 2023-11-15 02:27 | XMS_ITS | Encounter Summary ---
[place] [address] Care Team Providers Care Multicultural Manager Name Role Phone Nidhi Conti Primary Care Provider [phone] Encounter Details Date Type Department Care Team (Latest Contact Info) Description 10/08/2020 2:30 PM EDT Laboratory Appointment Lab [place] [phone] Inflammatory arthropathy; Seropositive rheumatoid arthritis; High risk medication use; Methotrexate, terminal make up operator, current use; Medication monitoring encounter; Pain in right hip; Bilateral wrist pain; Seronegative rheumatoid arthritis Social History Tobacco Use [...] Associated Diagnosis Comments HC C-REACTIVE PROTEIN Routine 10/08/2020 2:55 PM EDT Inflammatory arthropathy Seropositive rheumatoid arthritis High risk medication use Methotrexate, [facility], current use HC PARATHYROID HORMONE(PTH INTACT Routine 10/08/2020 2:55 PM EDT Inflammatory arthropathy Seropositive rheumatoid arthritis High risk medication use Methotrexate, terminal make up operator, current use HC PCH EXTRACTABLE NUCLEAR ANTIGEN Routine 10/08/2020 2:55 PM EDT Inflammatory arthropathy Seropositive rheumatoid arthritis High risk medication use Methotrexate, [facility], current use HEMOGRAM Routine 10/08/2020 2:55 PM EDT Inflammatory arthropathy Seropositive rheumatoid arthritis High risk medication use Methotrexate, [facility], current use DIFFERENTIAL, AUTOMATED Routine 10/08/2020 2:55 PM EDT Inflammatory arthropathy Seropositive rheumatoid arthritis High risk medication use Methotrexate, terminal make up operator, current use HC CREATININE Routine 10/08/2020 2:55 PM EDT Inflammatory arthropathy Seropositive rheumatoid arthritis High risk medication use Methotrexate, terminal make up operator, current use HC HLA-B27 Routine 10/08/2020 2:55 PM EDT Inflammatory arthropathy Seropositive rheumatoid arthritis High risk medication use Methotrexate, terminal make up operator, current use HC VITAMIN D TOTAL-25 HYDROXY Routine 10/08/2020 2:55 PM EDT Inflammatory arthropathy Seropositive rheumatoid arthritis High risk medication use Methotrexate, terminal make up operator, current use HC ESR-SEDIMENTATION RATE, BLOOD Routine 10/08/2020 2:55 PM EDT Inflammatory arthropathy Seropositive rheumatoid arthritis High risk medication use Methotrexate, terminal make up operator, current use HC CBC,PLT & AUTO DIFF Routine 10/08/2020 2:55 PM EDT Inflammatory arthropathy Seropositive rheumatoid arthritis High risk medication use Methotrexate, [facility], current use HC P[facility] ANATITRE (ANDPATTERN) Routine 10/08/2020 2:55 PM EDT Inflammatory arthropathy Seropositive rheumatoid arthritis High risk medication use Methotrexate, [facility], current use HC PHOSPHORUS, SERUM Routine 10/08/2020 2:55 PM EDT Inflammatory arthropathy Seropositive rheumatoid arthritis High risk medication use Methotrexate, [facility], current use HC MAGNESIUM, SERUM Routine 10/08/2020 2 :55 PM EDT Inflammatory arthropathy Seropositive rheumatoid arthritis High risk medication use Methotrexate, [facility], current use HC CALCIUM, SERUM Routine 10/08/2020 2:5 5 PM EDT Inflammatory arthropathy Seropositive rheumatoid arthritis High risk medication use Methotrexate, [facility], current use HEPATIC FUNCTION PANEL Routine 10/08/2020 2:55 PM EDT Inflammatory arthropathy Seropositive rheumatoid arthritis High risk medication use Methotrexate, [facility], current use documented in this encounter Results * (ABNORMAL) Differential, Automated (10/08/2020 2:55 PM EDT) Neutrophil % 59.9 % [facility] Neutrophil Absolute 6.29(H) 1.70 - 6.10 x10(3)/mc L [facility] Lymph % 32.9 % [facility] Lymphocytes Abs 3.4(H) 0.9 - 3.2 x10(3)/mc L [facility] Monocyte % 5.3 % [facility] Monocyte Abs 0.6 0.3 - 0.9 x10(3)/mc L [facility] Eos % 1.0 % [facility] Eosinophils Abs 0.1 0.0 - 0.4 x10(3)/mc L [facility] Basophil % 0.6 % [facility] Baso Absolute 0.1 0.0 - 0.1 x10(3)/mc L [facility] Immature Gran [...] Absolute 0.03 0.00 - 0.04 x10(3)/mc L [facility] Blood 10/08/2020 2:55 PM EDT 10/08/2020 3:06 PM EDT Narrative Resulting Agency Comment Spec In Lab Markell Darling MD HEMATOLOGY ORDERABLE S [facility] [place] [address] * (ABNORMAL) Hemogram (10/08/2020 2:55 PM EDT) [facility] White Blood Cell 10.9(H) 4.0 - 9.5 x10(3)/mc L [facility] Red Blood Cell 4.05 4.00 - 5.21 x10(6)/ L [facility] Hemoglobin 13.0 11.7 - 15.5 gm/dL [facility] Hematocrit 37.4 35.7 - 45.8 % [facility] Mean Cell Volume 92.3 82.6 - 94.4 fL [facility] Mean Cell Hemoglobin 32.1(H) 27.1 - 32.0 pg [facility] Mean Cell Hemoglobin Concentration 34.8 31.7 - 35.0 gm/dL [facility] Platelet 310 145 - 357 x10(3)/mc L [facility] RDW Standard Deviation 49.9(H) 37.0 - 46.0 fL [facility] RDW coefficient of variation 14.6(H) 11.5 - 14.1 % [facility] Mean Platelet Volume 9.2 7.6 - 12.9 fL [facility] NRBC% auto 0.0 % [facility] NRBC Absolute 0.000 0.000 - 0.000 x10(3)/ L [facility] Blood 10/08/2020 2:55 PM EDT 10/08/2020 3:06 PM EDT Narrative Resulting Agency Comment Spec In Lab Markell Darling MD HEMATOLOGY ORDERABLE S [facility] [place] [place] [address] * Sedimentation rate (10/08/2020 2:55 PM EDT) [facility] Sedimentation Rate Automated 31 2 - 39 mm/hr [facility] Comment: Effective March 15, 2019 new capillary photometric technology has resulted in a change in reference ranges. It is recommended that each ESR result be reviewed with its own age appropriate reference range. Blood 10/08/2020 2:55 PM EDT 10/08/2020 3:06 PM EDT Narrative Resulting Agency Comment Spec In Lab Markell Darling MD HEMATOLOGY ORDERABLE S Performing Organization Address City/[facility]/ZIP Co de Phone Number [facility] [place] [address] * Hepatic Function Panel (10/08/2020 2:55 PM EDT) [facility] Protein, Total 7.2 6.1 - 8.0 gm/dL [facility] Albumin 4.5 3.2 - 5.2 gm/dL [facility] Aspartate Aminotransferase 12 0 - 30 unit/L [facility] Alanine Aminotransferase 16 0 - 30 unit/L [facility] Alkaline Phosphatase 69 35 - 105 unit/L [facility] Bilirubin, Total 0.2 0.2 - 1.3 mg/dL [facility] Bilirubin, Direct 0.1 0.0 - 0.3 mg/dL [facility] Blood 10/08/2020 2:55 PM EDT 10/08/2020 3:06 PM EDT Narrative Resulting Agency Comment Spec In Lab Markell Darling MD CHEMISTRY ORDERABLES Performing Organization Address [facility] Co de Phone Number [facility] [place] [address] * (ABNORMAL) Creatinine (10/08/2020 2:55 PM EDT) [facility] Creatinine 0.69(L) 0.70 - 1.20 mg/dL [facility] Est Glomerular Filtration Rate 98 >=60 mL/min/1. 73 m?? [facility] Comment: This patient? s estimated glomerular filtration rate (eGFR) is between 98 mL/min/1.73 m2 (patients with less muscle mass) and 114 mL/min/1.73 m2 (patients with more muscle mass) [...] and symptoms in addition to eGFR. Blood 10/08/2020 2:55 PM EDT 10/08/2020 3:06 PM EDT Narrative Resulting Agency Comment Spec In Lab Markell Darling MD CHEMISTRY ORDERABLES Performing Organization Address [facility]/ZIP Co de Phone Number [facility] [place] [address] * (ABNORMAL) CRP, acute inflammation (10/08/2020 2:55 PM EDT) C-Reactive Protein 14.6(H) <=4.9 mg/L [facility] Blood 10/08/2020 2:55 PM EDT 10/08/2020 3:06 PM EDT Narrative Resulting Agency Comment Spec In Lab Markell Darling MD CHEMISTRY ORDERABLES Performing Organization Address City/[facility]/ZIP Co de Phone Number [facility] [place] [address] * Calcium (10/08/2020 2:55 PM EDT) Calcium 9.3 8.5 - 10.5 mg/dL [facility] Blood 10/08/2020 2:55 PM EDT 10/08/2020 3:06 PM EDT Narrative Resulting Agency Comment Spec In Lab Markell Darling MD CHEMISTRY ORDERABLES Performing Organization Address City/[facility]/ZIP Co de Phone Number [facility] [place] [place] [address] * PTH (10/08/2020 2:55 PM EDT) Parathyroid Hormone 28 15 - 65 pg/mL [facility] Blood 10/08/2020 2:55 PM EDT 10/08/2020 3:06 PM EDT Narrative Resulting Agency Comment Spec In Lab Markell Darling MD CHEMISTRY ORDERABLES [facility] [place] [place] [address] * Phosphorus (10/08/2020 2:55 PM EDT) Phosphorus 3.6 2.5 - 4.5 mg/dL [facility] Blood 10/08/2020 2:55 PM EDT 10/08/2020 3:06 PM EDT Narrative Resulting Agency Comment Spec In Lab Markell Darling MD CHEMISTRY ORDERABLES Performing Organization Address City/[facility]/ZIP Co de Phone Number [facility] [place] [address] * Magnesium (10/08/2020 2:55 PM EDT) Magnesium 0.79 0.69 - 1.07 mmol/L [facility] Blood 10/08/2020 2:55 PM EDT 10/08/2020 3:06 PM EDT Narrative Resulting Agency Comment Spec In Lab Markell Darling MD CHEMISTRY ORDERABLES Performing Organization Address City/[facility]/ZIP Co de Phone Number [facility] [place] [address] * Vitamin D, 25-Hydroxy (10/08/2020 2:55 PM EDT) Vitamin D Total 25 OH 32 21 - 100 ng/mL [facility] Vit D Interp Sufficient [facility] Blood 10/08/2020 2:55 PM EDT 10/08/2020 3:06 PM EDT Narrative Resulting Agency Comment Spec In Lab Markell Darling MD CHEMISTRY ORDERABLES Performing Organization Address [facility] Co de Phone Number [facility] [place] [address] * (ABNORMAL) HLA-B27 (10/08/2020 2:55 PM EDT) HLA-B27 Negative [facility] HLA B27 Interpretation HLA B27 antigen was not detected. Method: Flow Cytometry Reference: 1.Emelina DA, Pepe FD, Katey Gong, et al: Ankylosing spondylitis and HLA-27. Lancet 1973;1:904-907 2.Duc Flores, Hadley CHRISTIAN: HLA-B27 typing by use of flow cytofluorometr y. Clin Chem 1987;33:1619-1 623 [facility] White Blood Cell 10.9(H) 4.0 - 9.5 x10(3)/m cL [facility] Blood 10/08/2020 2:55 PM EDT 10/08/2020 3:06 PM EDT Narrative Resulting Agency Comment Spec In Lab Markell Darling MD HEMATOLOGY ORDERABLE S Performing Organization Address [facility] Co de Phone Number [facility] [place] [address] * JAYDEN ([facility]/CGP/APD/NLH) (10/08/2020 2:55 PM EDT) JAYDEN Ab Screen Test ?Result ? Flag ??Unit ??RefValue Antinuclear Ab, HEp-2 ? <1:80 (Negative) ? <1:80 (Negative) ??Substrate, S ? ADDITIONAL INFORMATION --------- ?Method: Immunofluorescence using HEp-2 cellular substrate. ?Test Performed by: ?[facility] ?[address] [place] [address] ?Semiconductor Wafers Etcher Stripper: Arun Montemayor M.D. Ph.D.; CLIA# [id number] [facility] Blood 10/08/2020 2:55 PM EDT 10/09/2020 8:39 AM EDT Narrative Resulting Agency Comment Spec In Lab Markell Darling MD LAB SEND OUT ORDERAB LES Performing Organization Address City/State/[facility] Co de Phone Number [facility] [place] [address] * Extractable Nuclear Antigen (SANDHYA) Ab (10/08/2020 2:55 PM EDT) SANDHYA Ab Test ?Result ? Flag ??Unit ??RefValue Ab to Extractable Nuclear Ag Eval,S ??SS-A/Ro Ab, IgG, S ?<0.2 ? U ? <1.0 (Negative) ??SS-B/La Ab, IgG, S ?<0.2 ? U ? <1.0 (Negative) ??Sm Ab, IgG, S ? <0.2 ? U ? <1.0 (Negative) ??LINE APPLIANCE ASSEMBLER Ab, IgG, S ?<0.2 ? U ? <1.0 (Negative) ??Scl 70 Ab, IgG, S ? <0.2 ? U ? <1.0 (Negative) ??Liliya 1 Ab, IgG, S ? <0.2 ? U ? <1.0 (Negative) ?Test Performed by: ?[facility] ?[address] [place] [address] ?Semiconductor Wafers Etcher Stripper: Arun Montemayor M.D. Ph.D.; CLIA# [id number] [facility] Blood 10/08/2020 2:55 PM EDT 10/09/2020 8:39 AM EDT Narrative Resulting Agency Comment Spec In Lab Markell Darling MD LAB SEND OUT ORDERAB LES [facility] [place] [phone] documented in this encounter Visit Diagnoses Diagnosis Inflammatory arthropathy Arthropathy, unspecified, site unspecified Seropositive rheumatoid arthritis Rheumatoid arthritis High risk medication use Encounter for long-term (current) use of other medications Methotrexate, terminal make up operator, current use Encounter for long-term (current) use of other medications Medication monitoring encounter Encounter for therapeutic drug monitoring Pain in right hip Pain in joint, pelvic region and thigh Bilateral wrist pain Pain in joint, forearm Seronegative rheumatoid arthritis Rheumatoid arthritis documented in this encounter Care Teams Multicultural Manager Relationship Specialty Start Date End Date Nidhi Conti PA [address] [place] [phone] PCP - General Family Medicine 06/11/20 documented as of this encounter
--- OUTSIDE RECORDS SUMMARY | 2023-11-15 02:27 | XMS_ITS | Encounter Summary ---
Author Organization [facility] [place] [address] Care Team Providers Care Strategic Business Development Name Role Phone Nidhi Conti Primary Care Provider [phone] Encounter Details Date Type Department Care Team (Latest Contact Info) Description 07/22/2020 2:00 PM EDT TH Visit (TeleHealth) [place] [phone] Markell Darling MD [facility] [place] [address] Inflammatory arthropathy; Seropositive rheumatoid arthritis; High risk medication use; Methotrexate, intermediate frame tender, current use; Medication monitoring encounter Social History Tobacco Use Types Packs/Day Years [...] Progress Notes * Markell Darling MD - 07/22/2020 2:00 PM EDT Rheumatology Follow Up phone note [...] worse over the last year. She is still having pain in the ankles feet, hands, wrist, Hips and elbow. US showed most ly OA. She is on Tylneol 500mg 3x day fetl tylenol was helpful as was the turmeric Mobic once a day. She does not want to increase MTX because offered little benefit. MS < 30 minutes HCQ gave her signficant Diarrhea. Rheumatic history (x) means positive Iritis Dactylitis [...] cutis 47. Photosensitivity 48. Rash Physical Exam: NAD NCAT, nonicteric sclera, no Malar rash Neck full range of motion No increased work of breathing AO x3 Hands well-perfused Moving shoulders elbows wrists fingers can make a fist Able to get up out of chair from seated position Assessment: Keyona Terry is a 54 y.o. female [...] prolonged MS, swelling, rednes and warmth and may have some underlying OA ?? Discussed SSZ, LEf and TNF inhibotors as potential therapy ?? US eval in clinc Leukocytosis - improvement in elevated WBC counts-lymph normlaized - no B symtpoms at this time. Fever chills night sweats or weight loss - Chr pain OA - increase tylenol 750mg 3 x day aNd turmeric dose consider adding [place] 3 FA High risk Med - No SE/AE Labs [...] been changed: Orders Placed This Encounter Procedures ??? Extractable Nuclear Antigen (SANDHYA) Ab ??? JAYDEN ([facility]/CGP/APD/NLH) ??? CBC (with Diff) ??? CRP, acute inflammation ??? Creatinine ??? Hepatic Function Panel ??? Sedimentation rate ??? HLA-B27 ??? Vitamin D, 25-Hydroxy ??? Magnesium ??? Phosphorus ??? PTH ??? Calcium Return in about 4 weeks (around 08/19/2020) for In Person. > 44 minutes Markell Darling MD documented in this encounter Plan of Treatment Not on file documented as of this encounter Results * Calcium (10/08/2020 2:55 PM EDT) Calcium 9.3 8.5 - 10.5 mg/dL [facility] Blood 10/08/2020 2:55 PM EDT 10/08/2020 3:06 PM EDT Narrative Resulting Agency Comment Spec In Lab Markell Darling MD CHEMISTRY ORDERABLES Performing Organization Address City/[facility] Co de Phone Number [facility] [place] [address] * PTH (10/08/2020 2:55 PM EDT) Parathyroid Hormone 28 15 - 65 pg/mL [facility] Blood 10/08/2020 2:55 PM EDT 10/08/2020 3:06 PM EDT Narrative Resulting Agency Comment Spec In Lab Markell Darling MD CHEMISTRY ORDERABLES Performing Organization Address [facility] Co de Phone Number [facility] [place] [address] * Phosphorus (10/08/2020 2:55 PM EDT) Phosphorus 3.6 2.5 - 4.5 mg/dL [facility] Blood 10/08/2020 2:55 PM EDT 10/08/2020 3:06 PM EDT Narrative Resulting Agency Comment Spec In Lab Markell Darling MD CHEMISTRY ORDERABLES Performing Organization Address City/[facility]/ZIP Co de Phone Number [facility] [place] [address] * Magnesium (10/08/2020 2:55 PM EDT) Magnesium 0.79 0.69 - 1.07 mmol/L [facility] Blood 10/08/2020 2:55 PM EDT 10/08/2020 3:06 PM EDT Narrative Resulting Agency Comment Spec In Lab Markell Darling MD CHEMISTRY ORDERABLES Performing Organization Address [facility] Co de Phone Number [facility] [place] [address] * Vitamin D, 25-Hydroxy (10/08/2020 2:55 PM EDT) Pathologist [facility] Vitamin D Total 25 OH 32 21 - 100 ng/mL [facility] Vit D Interp Sufficient [facility] Blood 10/08/2020 2:55 PM EDT 10/08/2020 3:06 PM EDT Narrative Resulting Agency Comment Spec In Lab Markell Darling MD CHEMISTRY ORDERABLES Performing Organization Address [facility] Co de Phone Number [facility] [place] [address] * (ABNORMAL) HLA-B27 (10/08/2020 2:55 PM EDT) Pathologist [facility] HLA-B27 Negative [facility] HLA B27 Interpretation HLA B27 antigen was not detected. Method: Flow Cytometry Reference: 1.Emelina DA, Cantu FD, Katey A, et al: Ankylosing spondylitis and HLA-27. Lancet 1973;1:904-907 2.Hadley Yanez: HLA-B27 typing by use of flow cytofluorometr y. Clin Chem 1987;33:1619-1 623 [facility] White Blood Cell 10.9(H) 4.0 - 9.5 x10(3)/m cL [facility] Blood 10/08/2020 2:55 PM EDT 10/08/2020 3:06 PM EDT Narrative Resulting Agency Comment Spec In Lab Markell Darling MD HEMATOLOGY ORDERABLE S [facility] [place] [address] * JAYDEN ([facility]/APD/[facility]H) (10/08/2020 2:55 PM EDT) JAYDEN Ab Screen Test ?Result ? Flag ??Unit ??RefValue Antinuclear Ab, HEp-2 ? <1:80 (Negative) ? <1:80 (Negative) ??Substrate, S ? ADDITIONAL INFORMATION --------- ?Method: Immunofluorescence using HEp-2 cellular substrate. ?Test Performed by: ?[facility] ?[address] [place] [address] ?Space Systems Operations Craftsman: Arun Montemayor M.D. Ph.D.; CLIA# [id number] [facility] Blood 10/08/2020 2:55 PM EDT 10/09/2020 8:39 AM EDT Narrative Resulting Agency Comment Spec In Lab Markell Darling MD LAB SEND OUT ORDERAB LES [facility] [place] [address] * Extractable Nuclear Antigen (SANDHYA) Ab (10/08/2020 2:55 PM EDT) SANDHYA Ab Test ?Result ? Flag ??Unit ??RefValue Ab to Extractable Nuclear Ag Eval,S ??SS-A/Ro Ab, IgG, S ?<0.2 ? U ? <1.0 (Negative) ??SS-B/La Ab, IgG, S ?<0.2 ? U ? <1.0 (Negative) ??Sm Ab, IgG, S ? <0.2 ? U ? <1.0 (Negative) ??PULLER MACHINE Ab, IgG, S ?<0.2 ? U ? <1.0 (Negative) ??Scl 70 Ab, IgG, S ? <0.2 ? U ? <1.0 (Negative) ??Liliya 1 Ab, IgG, S ? <0.2 ? U ? <1.0 (Negative) ?Test Performed by: ?[facility] ?[address] [place] [address] ?Space Systems Operations Craftsman: Arun Montemayor M.D. Ph.D.; CLIA# [id number] [facility] Blood 10/08/2020 2:55 PM EDT 10/09/2020 8:39 AM EDT Narrative Resulting Agency Comment Spec In Lab Markell Darling MD LAB SEND OUT ORDERAB LES Performing Organization Address City/State/[facility] Co de Phone Number [facility] [place] [address] documented in this encounter Visit Diagnoses Diagnosis Inflammatory arthropathy Arthropathy, unspecified, site unspecified Seropositive rheumatoid arthritis Rheumatoid arthritis High risk medication use Encounter for long-term (current) use of other medications Methotrexate, senior living, current use Encounter for long-term (current) use of other medications Medication monitoring encounter Encounter for therapeutic drug monitoring documented in this encounter Care Teams Strategic Business Development Relationship Specialty Start Date End Date Nidhi Conti PA [address] [place] [address] PCP - General Family Medicine 06/11/20 documented as of this encounter
--- OUTSIDE RECORDS SUMMARY | 2023-11-15 02:27 | XMS_ITS | Encounter Summary ---
[place] [address] Care Team Providers Care Unattended Ground Sensor Specialist Name Role Phone Nidhi Conti Primary Care Provider Encounter Details Date Type Department Care Team (Latest Contact Info) Description 03/07/2021 2:25 PM EST Laboratory Appointment Lab [address] [place] [id number] Methotrexate, fdc, current use; High risk medication use; Medication [...] Associated Diagnosis Comments HC C-REACTIVE PROTEIN Routine 03/07/2021 2:29 PM EST Methotrexate, fdc, current use High risk medication use Medication monitoring encounter Seropositive rheumatoid arthritis Seronegative rheumatoid arthritis HEMOGRAM Routine 03/07/2021 2:29 PM EST Methotrexate, juvenile counselor, current use High risk medication use Medication monitoring encounter Seropositive rheumatoid arthritis Seronegative rheumatoid arthritis DIFFERENTIAL, AUTOMATED Routine 03/07/2021 2:29 PM EST Methotrexate, fdc, current use High risk medication use Medication monitoring encounter Seropositive rheumatoid arthritis Seronegative rheumatoid arthritis HC CREATININE Routine 03/07/2021 2:29 PM EST Methotrexate, fdc, current use High risk medication use Medication monitoring encounter Seropositive rheumatoid arthritis Seronegative rheumatoid arthritis HC VENIPUNCTURE Routine 03/07/2021 2:29 PM EST Methotrexate, fdc, current use High risk medication use Medication monitoring encounter Seropositive rheumatoid arthritis Seronegative rheumatoid arthritis HC CBC,PLT & AUTO DIFF Routine 03/07/2021 2:29 PM EST Methotrexate, juvenile counselor, current use High risk medication use Medication monitoring encounter Seropositive rheumatoid arthritis Seronegative rheumatoid arthritis HEPATIC FUNCTION PANEL Routine 03/07/2021 2:29 PM EST Methotrexate, fdc, current use High risk medication use Medication monitoring encounter Seropositive rheumatoid arthritis Seronegative rheumatoid arthritis documented in this encounter Results * (ABNORMAL) Differential, Automated (03/07/2021 2:29 PM EST) Neutrophil % 51.8 % [facility] Neutrophil Absolute 4.81 1.70 - 6.10 x10(3)/mc L [facility] Lymph % 37.4 % [facility] Lymphocytes Abs 3.5(H) 0.9 - 3.2 x10(3)/mc L [facility] Monocyte % 7.7 % [facility] Monocyte Abs 0.7 0.3 - 0.9 x10(3)/mc L [facility] Eos % 2.2 % [facility] Eosinophils Abs 0.2 0.0 - 0.4 x10(3)/mc L [facility] Basophil % 0.5 % [facility] Baso Absolute 0.0 0.0 - 0.1 x10(3)/mc L [facility] Immature Gran % 0.40 % [facility] Comment: Immature granulocytes(IG's)percentage and absolute count will include metamyelocytes, myelocytes, and promyelocytes. Blood smears from CBCs yielding IG's will be scanned manually for concordance. If this scan disagrees with the automated IG or if promyelocytes are noted, a manual differential will be performed. Immature Gran Absolute 0.04 0.00 - 0.04 x10(3)/mc L [facility] Blood 03/07/2021 2:29 PM EST 03/07/2021 2:45 PM EST Narrative Resulting Agency Comment Spec In Lab Markell Darling MD HEMATOLOGY ORDERABLE S [facility] [place] [address] * (ABNORMAL) Hemogram (03/07/2021 2:29 PM EST) White Blood Cell 9.3 4.0 - 9.5 x10(3)/mc L [facility] Red Blood Cell 3.86(L) 4.00 - 5.21 x10(6)/mc L [facility] Hemoglobin 12.5 11.7 - 15.5 g/dL [facility] Hematocrit 36.7 35.7 - 45.8 % [facility] Mean Cell Volume 95.1(H) 82.6 - 94.4 fL [facility] Mean Cell Hemoglobin 32.4(H) 27.1 - 32.0 pg [facility] Mean Cell Hemoglobin Concentration 34.1 31.7 - 35.0 g/dL [facility] Platelet 308 145 - 357 x10(3)/mc L [facility] RDW Standard Deviation 49.3(H) 37.0 - 46.0 fL [facility] RDW coefficient of variation 14.3(H) 11.5 - 14.1 % [facility] Mean Platelet Volume 9.1 7.6 - 12.9 fL [facility] NRBC% auto 0.0 % [facility] NRBC Absolute 0.000 0.000 - 0.000 x10(3)/mc L [facility] Blood 03/07/2021 2:29 PM EST 03/07/2021 2:45 PM EST Narrative Resulting Agency Comment Spec In Lab Markell Darling MD HEMATOLOGY ORDERABLE S Performing Organization Address City/[facility]/ZIP Co de Phone Number [facility] [place] [address] * (ABNORMAL) CRP, acute inflammation (03/07/2021 2:29 PM EST) C-Reactive Protein 9.0(H) <=4.9 mg/L [facility] Blood 03/07/2021 2:29 PM EST 03/07/2021 2:45 PM EST Narrative Resulting Agency Comment Spec In Lab Markell Darling MD CHEMISTRY ORDERABLES Performing Organization Address City/[facility] Co de Phone Number [facility] [place] [address] * Creatinine (03/07/2021 2:29 PM EST) Creatinine 0.72 0.70 - 1.20 mg/dL [facility] Est Glomerular Filtration Rate 94 >=60 mL/min/1. 73 m?? [facility] Comment: This patient? s estimated glomerular filtration rate (eGFR) is between 94 mL/min/1.73 m2 (patients with less muscle mass) and 108 mL/min/1.73 m2 (patients with more muscle mass) [...] and symptoms in addition to eGFR. Blood 03/07/2021 2:29 PM EST 03/07/2021 2:45 PM EST Narrative Resulting Agency Comment Spec In Lab Markell Darling MD CHEMISTRY ORDERABLES Performing Organization Address [facility] Co de Phone Number [facility] [place] [address] * (ABNORMAL) Hepatic Function Panel (03/07/2021 2:29 PM EST) Protein, Total 7.0 6.1 - 8.0 g/dL [facility] Albumin 4.5 3.2 - 5.2 g/dL [facility] Aspartate Aminotransferase 9 0 - 30 unit/L [facility] Alanine Aminotransferase 10 0 - 30 unit/L [facility] Alkaline Phosphatase 73 35 - 105 unit/L [facility] Bilirubin, Total <0.2(L) 0.2 - 1.3 mg/dL [facility] Bilirubin, Direct 0.1 0.0 - 0.3 mg/dL [facility] Blood 03/07/2021 2:29 PM EST 03/07/2021 2:45 PM EST Narrative Resulting Agency Comment Spec In Lab Markell Darling MD CHEMISTRY ORDERABLES Performing Organization Address [facility] Co de Phone Number [facility] [place] [address] * Sedimentation rate (03/07/2021 2:29 PM EST) Pathologist [facility] Sedimentation Rate Automated 24 2 - 39 mm/hr [facility] Comment: Effective March 15, 2019 new capillary photometric technology has resulted in a change in reference ranges. It is recommended that each ESR result be reviewed with its own age appropriate reference range. Blood 03/07/2021 2:29 PM EST 03/07/2021 2:45 PM EST Narrative Resulting Agency Comment Spec In Lab Markell Darling MD HEMATOLOGY ORDERABLE S Performing Organization Address City/[facility]/ZIP Co de Phone Number [facility] [place] [address] documented in this encounter Visit Diagnoses Diagnosis Methotrexate, fdc, current use Encounter for long-term (current) use [...] thigh documented in this encounter Care Teams Unattended Ground Sensor Specialist Relationship Specialty Start Date End Date Nidhi Conti PA [address] [place] [phone] PCP - General Family Medicine 06/11/20 documented as of this encounter
--- OUTSIDE RECORDS SUMMARY | 2023-11-15 02:27 | XMS_ITS | Encounter Summary ---
[place] [address] Care Team Providers Care Page Makeup System Operator Name Role Phone Nidhi Conti Primary Care Provider Encounter Details Date Type Department Care Team (Latest Contact Info) Description 04/03/2021 12:25 PM EST Laboratory Appointment Lab [address] [place] [phone] Medication monitoring encounter; High risk medication use; Seropositive rheumatoid arthritis; Inflammatory arthropathy; Methotrexate, long wall mining machine helper, current use; Seronegative rheumatoid arthritis; Chronic pain [...] Associated Diagnosis Comments HC C-REACTIVE PROTEIN Routine 04/03/2021 12:33 PM EST Medication monitoring encounter High risk medication use Seropositive rheumatoid arthritis Inflammatory arthropathy Methotrexate, long wall mining machine helper, current use Seronegative rheumatoid arthritis Chronic pain of both ankles Pain in right hip Pain in both hands Bilateral wrist pain Bursitis of other bursa of both hips Pain in both feet HEMOGRAM Routine 04/03/2021 12:33 PM EST Medication monitoring encounter High risk medication use Seropositive rheumatoid arthritis Inflammatory arthropathy Methotrexate, long wall mining machine helper, current use Seronegative rheumatoid arthritis Chronic pain of both ankles Pain in right hip Pain in both hands Bilateral wrist pain Bursitis of other bursa of both hips Pain in both feet DIFFERENTIAL, AUTOMATED Routine 04/03/2021 12:33 PM EST Medication monitoring encounter High risk medication use Seropositive rheumatoid arthritis Inflammatory arthropathy Methotrexate, long wall mining machine helper, current use Seronegative rheumatoid arthritis Chronic pain of both ankles Pain in right hip Pain in both hands Bilateral wrist pain Bursitis of other bursa of both hips Pain in both feet HC CREATININE Routine 04/03/2021 12:33 PM EST Medication monitoring encounter High risk medication use Seropositive rheumatoid arthritis Inflammatory arthropathy Methotrexate, mcc, current use Seronegative rheumatoid arthritis Chronic pain of both ankles Pain in right hip Pain in both hands Bilateral wrist pain Bursitis of other bursa of both hips Pain in both feet HC ESR-SEDIMENTATION RATE, BLOOD Routine 04/03/2021 12:33 PM EST Medication monitoring encounter High risk medication use Seropositive rheumatoid arthritis Inflammatory arthropathy Methotrexate, mcc, current use Seronegative rheumatoid arthritis Chronic pain of both ankles Pain in right hip Pain in both hands Bilateral wrist pain Bursitis of other bursa of both hips Pain in both feet HC CBC,PLT & AUTO DIFF Routine 04/03/2021 12:33 PM EST Medication monitoring encounter High risk medication use Seropositive rheumatoid arthritis Inflammatory arthropathy Methotrexate, long wall mining machine helper, current use Seronegative rheumatoid arthritis Chronic pain of both ankles Pain in right hip Pain in both hands Bilateral wrist pain Bursitis of other bursa of both hips Pain in both feet HEPATIC FUNCTION PANEL Routine 04/03/2021 12:33 PM EST Medication monitoring encounter High risk medication use Seropositive rheumatoid arthritis Inflammatory arthropathy Methotrexate, mcc, current use Seronegative rheumatoid arthritis Chronic pain of both ankles Pain in right hip Pain in both hands Bilateral wrist pain Bursitis of other bursa of both hips Pain in both feet documented in this encounter Results * (ABNORMAL) Differential, Automated (04/03/2021 12:33 PM EST) Neutrophil % 54.6 % [facility] Neutrophil Absolute 5.76 1.70 - 6.10 x10(3)/[facility] Lymph % 34.4 % [facility] Lymphocytes Abs 3.6(H) 0.9 - 3.2 x10(3)/[facility] Monocyte % 7.6 % [facility] Monocyte Abs 0.8 0.3 - 0.9 x10(3)/[facility] Eos % 2.2 % [facility] Eosinophils Abs 0.2 0.0 - 0.4 x10(3)/[facility] Basophil % 0.8 % [facility] Baso Absolute 0.1 0.0 - 0.1 x10(3)/[facility] Immature Gran % 0.40 % [facility] Comment: Immature granulocytes(IG's)percentage and absolute count will include metamyelocytes, myelocytes, and promyelocytes. Blood smears from CBCs yielding IG's will be scanned manually for concordance. If this scan disagrees with the automated IG or if promyelocytes are noted, a manual differential will be performed. Immature Gran Absolute 0.04 0.00 - 0.04 x10(3)/[facility] Blood 04/03/2021 12:3 3 PM EST 04/03/2021 12:49 PM EST Narrative Resulting Agency Comment Spec In Lab Markell Darling MD HEMATOLOGY ORDERABLE S [facility] [place] [address] * (ABNORMAL) Hemogram (04/03/2021 12:33 PM EST) White Blood Cell 10.5(H) 4.0 - 9.5 x10(3)/[facility] Red Blood Cell 4.01 4.00 - 5.21 x10(6)/[facility] Hemoglobin 12.8 11.7 - 15.5 g/dL [facility] Hematocrit 38.3 35.7 - 45.8 % [facility] Mean Cell Volume 95.5(H) 82.6 - 94.4 fL [facility] Mean Cell Hemoglobin 31.9 27.1 - 32.0 pg [facility] Mean Cell Hemoglobin Concentration 33.4 31.7 - 35.0 g/dL [facility] Platelet 371(H) 145 - 357 x10(3)/mc L [facility] RDW Standard Deviation 50.8(H) 37.0 - 46.0 fL [facility] RDW coefficient of variation 14.6(H) 11.5 - 14.1 % [facility] Mean Platelet Volume 8.8 7.6 - 12.9 [facility] NRBC% auto 0.0 % [facility] NRBC Absolute 0.000 0.000 - 0.000 x10(3)/ L [facility] Blood 04/03/2021 12:3 3 PM EST 04/03/2021 12:49 PM EST Narrative Resulting Agency Comment Spec In Lab Markell Darling MD HEMATOLOGY ORDERABLE S Performing Organization Address [facility] Co de Phone Number [facility] [place] [address] * (ABNORMAL) CRP, acute inflammation (04/03/2021 12:33 PM EST) C-Reactive Protein 8.9(H) <=4.9 mg/L [facility] Blood 04/03/2021 12:3 3 PM EST 04/03/2021 12:49 PM EST Narrative Resulting Agency Comment Spec In Lab Markell Darling MD CHEMISTRY ORDERABLES Performing Organization Address City/[facility] Co de Phone Number [facility] [place] [address] * Creatinine (04/03/2021 12:33 PM EST) Creatinine 0.72 0.70 - 1.20 mg/dL [facility] Est Glomerular Filtration Rate 94 >=60 mL/min/1. 73 m?? [facility] Comment: This patient? s [...] and symptoms in addition to eGFR. Blood 04/03/2021 12:3 3 PM EST 04/03/2021 12:49 PM EST Narrative Resulting Agency Comment Spec In Lab Markell Darling MD CHEMISTRY ORDERABLES [facility] [place] [address] * Hepatic Function Panel (04/03/2021 12:33 PM EST) Protein, Total 6.9 6.1 - 8.0 g/dL [facility] Albumin 4.6 3.2 - 5.2 g/dL [facility] Aspartate Aminotransferase 10 0 - 30 unit/L [facility] Alanine Aminotransferase 13 0 - 30 unit/L [facility] Alkaline Phosphatase 77 35 - 105 unit/L [facility] Bilirubin, Total 0.3 0.2 - 1.3 mg/dL [facility] Bilirubin, Direct 0.1 0.0 - 0.3 mg/dL [facility] Blood 04/03/2021 12:3 3 PM EST 04/03/2021 12:49 PM EST Narrative Resulting Agency Comment Spec In Lab Markell Darling MD CHEMISTRY ORDERABLES Performing Organization Address City/[facility] Co de Phone Number [facility] [place] [address] * (ABNORMAL) Sedimentation rate (04/03/2021 12:33 PM EST) Sedimentation Rate Automated 47(H) 2 - 39 mm/hr [facility] Comment: Effective March 15, 2019 new capillary photometric technology has resulted in a change in reference ranges. It is recommended that each ESR result be reviewed with its own age appropriate reference range. Blood 04/03/2021 12:3 3 PM EST 04/03/2021 12:49 PM EST Narrative Resulting Agency Comment Spec In Lab Markell Darling MD HEMATOLOGY ORDERABLE S Performing Organization Address City/[facility] Co de Phone Number [facility] [place] [address] documented in this encounter Visit Diagnoses Diagnosis Medication monitoring encounter Encounter for therapeutic drug monitoring High risk medication use Encounter for long-term (current) use of other medications Seropositive rheumatoid arthritis Rheumatoid arthritis Inflammatory arthropathy Arthropathy, unspecified, site unspecified Methotrexate, long wall mining machine helper, current use Encounter for long-term (current) use of other medications Seronegative rheumatoid arthritis Rheumatoid arthritis Chronic pain of both ankles Pain in right hip Pain in joint, pelvic region and thigh Pain in both hands Bilateral wrist pain Pain in joint, forearm Bursitis of other bursa of both hips Pain in both feet Pain in limb documented in this encounter Care Teams Page Makeup System Operator Relationship Specialty Start Date End Date Nidhi Conti PA [address] [place] [id number] PCP - General Family Medicine 06/11/20 documented as of this encounter
--- OUTSIDE RECORDS SUMMARY | 2023-11-15 02:27 | XMS_ITS | Encounter Summary ---
[place] [address] Care Team Providers Care Wildfire Prevention Specialist Name Role Phone Nidhi Conti Primary Care Provider Encounter Details Date Type Department Care Team (Late st Contact Info) Description 05/06/2021 [place] [phone] Jaclyn Pinedo Social History Tobacco Use Types Packs/Day Years [...] on filedocumented in this encounter Care Teams Wildfire Prevention Specialist Relationship Specialty Start Date End Date Nidhi Conti PA [address] [place] [phone] PCP - General Family Medicine 06/11/20 documented as of this encounter
--- OUTSIDE RECORDS SUMMARY | 2023-11-15 02:27 | XMS_ITS | Encounter Summary ---
Author Organization [facility] [place] [address] Care Team Providers Care Communications Project Manager Name Role Phone Nidhi Conti Primary Care Provider [phone] Reason for Visit * Reason Comments Medication Refill Encounter Details Date Type Department Care Team (Late st Contact Info) Description 09/20/2020 [place] [address] Markell Darling MD [facility] [place] [address] Inflammatory arthropathy; Seropositive rheumatoid arthritis; High risk medication use; Methotrexate, terminologist, current use Social History Tobacco Use Types Packs/Day [...] long-term (current) use of other medications Methotrexate, residential, current use Encounter for long-term (current) use of other medications documented in this encounter Care Teams Communications Project Manager Relationship Specialty Start Date End Date Nidhi Conti PA [address] [place] [phone] PCP - General Family Medicine 06/11/20 documented as of this encounter
--- OUTSIDE RECORDS SUMMARY | 2023-11-15 02:27 | XMS_ITS | Encounter Summary ---
Author Organization [facility] [place] [address] Care Team Providers Care Director Of Revenue Cycle Management Name Role Phone Nidhi Conti Primary Care Provider [phone] Reason for Visit * Reason Comments Medication Refill Encounter Details Date Type Department Care Team (Late st Contact Info) Description 05/15/2021 Ref[place] [address] Markell Darling MD [facility] [place] [address] Medication monitoring encounter; High risk medication use; Seropositive rheumatoid arthritis; Inflammatory arthropathy; Methotrexate, retirement, current use; Seronegative rheumatoid arthritis; Chronic pain [...] Inflammatory arthropathy Arthropathy, unspecified, site unspecified Methotrexate, retirement, current use Encounter for long-term (current) use of other medications Seronegative rheumatoid arthritis Rheumatoid arthritis Chronic pain of both ankles Pain in right hip Pain in joint, pelvic region and thigh Pain in both hands Bilateral wrist pain Pain in joint, forearm Bursitis of other bursa of both hips Pain in both feet Pain in limb documented in this encounter Care Teams Director Of Revenue Cycle Management Relationship Specialty Start Date End Date Nidhi Conti PA [address] [place] [phone] PCP - General Family Medicine 06/11/20 documented as of this encounter
--- OUTSIDE RECORDS SUMMARY | 2023-11-15 02:27 | XMS_ITS | Encounter Summary ---
Author Organization [facility] [place] [address] Care Team Providers Care Store Shopper Name Role Phone Nidhi Conti Primary Care Provider [phone] Encounter Details Date Type Department Care Team (Late st Contact Info) Description 04/09/2021 Telephone [place] [phone] Markell Darling MD [facility] [place] [address] Social History Tobacco Use Types Packs/Day Years [...] encounter Miscellaneous Notes * Telephone Encounter - Markell Darling MD - 04/09/2021 2:42 PM EST Reviewed labs Still some dz activity increase dMTX 8 tabs weekly with Cont FA New labs ordered Discussed hurmia and ENbrel * Telephone Encounter - Markell Darling MD - 04/09/2021 2:32 PM EST ----- Message from Mckenna Harris sent at 04/09/2021 11:11 AM EST ----- This is your reminder to give Keyona rand call back - [phone] [facility] documented in this encounter Plan of Treatment Scheduled Orders Name Type Priority Associated Diagnoses Orde r Schedule Hepatitis C Antibody Lab Routine Medication monitoring encounter High risk medication use Seropositive rheumatoid arthritis Inflammatory arthropathy Methotrexate, joint terminal attack controller, current use Seronegative rheumatoid arthritis Chronic pain of both ankles Pain in right hip Pain in both hands Bilateral wrist pain Bursitis of other bursa of both hips Pain in both feet Expected: 04/09/2021, Expires: 04/09/2022 Hepatitis B Surface Antibody Lab Routine Medication monitoring encounter High risk medication use Seropositive rheumatoid arthritis Inflammatory arthropathy Methotrexate, mcc, current use Seronegative rheumatoid arthritis Chronic pain of both ankles Pain in right hip Pain in both hands Bilateral wrist pain Bursitis of other bursa of both hips Pain in both feet Expected: 04/09/2021, Expires: 04/09/2022 Hepatitis B Surface Antigen Lab Routine Medication monitoring encounter High risk medication use Seropositive rheumatoid arthritis Inflammatory arthropathy Methotrexate, joint terminal attack controller, current use Seronegative rheumatoid arthritis Chronic pain of both ankles Pain in right hip Pain in both hands Bilateral wrist pain Bursitis of other bursa of both hips Pain in both feet Expected: 04/09/2021, Expires: 04/09/2022 Hepatitis B Core Antibody, Total Lab Routine Medication monitoring encounter High risk medication use Seropositive rheumatoid arthritis Inflammatory arthropathy Methotrexate, mcc, current use Seronegative rheumatoid arthritis Chronic pain of both ankles Pain in right hip Pain in both hands Bilateral wrist pain Bursitis of other bursa of both hips Pain in both feet Expected: 04/09/2021, Expires: 04/09/2022 documented as of this encounter Visit Diagnoses Diagnosis Medication monitoring encounter Encounter for therapeutic drug monitoring High risk medication use Encounter for long-term (current) use of other medications Seropositive rheumatoid arthritis Rheumatoid arthritis Inflammatory arthropathy Arthropathy, unspecified, site unspecified Methotrexate, joint terminal attack controller, current use Encounter for long-term (current) use of other medications Seronegative rheumatoid arthritis Rheumatoid arthritis Chronic pain of both ankles Pain in right hip Pain in joint, pelvic region and thigh Pain in both hands Bilateral wrist pain Pain in joint, forearm Bursitis of other bursa of both hips Pain in both feet Pain in limb documented in this encounter Care Teams Store Shopper Relationship Specialty Start Date End Date Nidhi Conti PA [address] [place] [address] PCP - General Family Medicine 06/11/20 documented as of this encounter
--- OUTSIDE RECORDS SUMMARY | 2023-11-15 02:27 | XMS_ITS | Encounter Summary ---
Author Organization [facility] [place] [address] Care Team Providers Care Director Market Research Name Role Phone Nidhi Conti Primary Care Provider [phone] Reason for Visit * Reason Comments Medication Refill Encounter Details Date Type Department Care Team (Late st Contact Info) Description 06/14/2020 [place] [phone] Markell Darling MD [facility] [place] [address] Inflammatory arthropathy; Seropositive rheumatoid arthritis; High risk medication use; Methotrexate, regional intermodal truck driver, current use Social History Tobacco Use Types [...] encounter Miscellaneous Notes * Telephone Encounter - Abdi Arceo RN - 06/14/2020 11:06 AM EST Rheumatology appointment in the last 6 months? Yes RN confirm MTX dose? 15 mg weekly Most recent labs: External labs? No [ WBC Date Value Ref Range Status 06/11/2020 7.7 4.0 - 9.5 x10(3)/mcL Final Hemoglobin Date Value Ref Range Status 06/11/2020 12.9 11.7 - 15.5 gm/dL Final MCV Date Value Ref Range Status 06/11/2020 93.1 82.6 - 94.4 fL Final Platelets Date Value Ref Range Status 06/11/2020 358 (H) 145 - 357 x10(3)/mcL Final Creatinine Date Value Ref Range Status 06/11/2020 0.67 (L) 0.70 - 1.20 mg/dL Final Albumin Date Value Ref Range Status 06/11/2020 4.7 3.2 - 5.2 gm/dL Final AST Date Value Ref Range Status 06/11/2020 15 0 - 30 unit/L Final ALT Date Value Ref Range Status 06/11/2020 17 0 - 30 unit/L Final ] If last labs >12 weeks, were new labs ordered per protocol by RN? No Follow-up appointment scheduled: Yes Routed to [facility] for follow-up scheduling: No documented in this encounter Plan of Treatment Not on file documented as of this encounter Visit Diagnoses Diagnosis Inflammatory arthropathy Arthropathy, unspecified, site unspecified Seropositive rheumatoid arthritis Rheumatoid arthritis High risk medication use Encounter for long-term (current) use of other medications Methotrexate, penitentiary, current use Encounter for long-term (current) use of other medications documented in this encounter Care Teams Director Market Research Relationship Specialty Start Date End Date Nidhi Conti PA [address] [address] PCP - General Family Medicine 06/11/20 documented as of this encounter
--- OUTSIDE RECORDS SUMMARY | 2023-11-15 02:27 | XMS_ITS | Encounter Summary ---
Author [facility] [place] [address] Care Team Providers Care Senior Portfolio Manager Name Role Phone Nidhi Conti Primary Care Provider Encounter Details Date Type Department Care Team (Late st Contact Info) Description 12/30/2020 Telephone [place] [phone] Mckenna Harris Social History Tobacco Use Types Packs/Day Years [...] encounter Miscellaneous Notes * Telephone Encounter - Mckenna Harris - 12/30/2020 11:39 AM EDT Lm with pt to cb and schedule F/U Return in about 8 weeks (around 02/10/2021) for Telehealth. documented in this encounter Plan of Treatment Not on file documented as of this encounter Visit Diagnoses Not on filedocumented in this encounter Care Teams Senior Portfolio Manager Relationship Specialty Start Date End Date Nidhi Conti PA [address] [place] [address] PCP - General Family Medicine 06/11/20 documented as of this encounter
--- OUTSIDE RECORDS SUMMARY | 2023-11-15 02:27 | XMS_ITS | Encounter Summary ---
Author Organization [facility] [place] [address] Care Team Providers Care Manager Wastewater Name Role Phone Nidhi Conti Primary Care Provider [phone] Reason for Visit * Reason Comments Medication Refill Encounter Details Date Type Department Care Team (Late st Contact Info) Description 01/30/2021 [place] [address] Markell Darling MD [facility] [place] [address] Medication monitoring encounter; High risk medication use; Seropositive rheumatoid arthritis; Inflammatory arthropathy; Methotrexate, skilled nursing, current use; Seronegative rheumatoid arthritis; Bursitis of [...] knees documented in this encounter Care Teams Manager Wastewater Relationship Specialty Start Date End Date Nidhi Conti PA [address] [address] PCP - General Family Medicine 06/11/20 documented as of this encounter
--- OUTSIDE RECORDS SUMMARY | 2023-11-15 02:27 | XMS_ITS | Encounter Summary ---
[place] [address] Care Team Providers Care Belling Machine Operator Name Role Phone Nidhi Conti Primary Care Provider [phone] Reason for Visit * Reason Comments Prior Authorization Humira Pen 40 mg/0.4 ml PNKT Encounter Details Date Type Department Care Team (Late st Contact Info) Description 05/23/2021 Specialty [place] [address] Silver Cochran, [facility] Social History Tobacco Use Types [...] as of this encounter Progress Notes * Silver Cochran CPHT - 05/23/2021 12:48 PM EST [facility], Medication Prior Authorization Submission Patient: Keyona Terry Patient : 1965 Patient Address: [address] [place] [phone] (home) Medication Name: HUMIRA(CF) PEN 40 MG/0.4 ML SUBCUTANEOUS KIT Medication ID: Subscriber Insurance: Subscriber Insurance Comment: [facility] (IRX) Fax: Physician: CEDRIC GUEVARA Physician Comment: Sent Via: [facility] Flores: [id number] Ref/Case/PA#: Medication Strength Frequency Requested: Humira Pen 40 mg/0.4 ml PNKT Inject 40 mg (1 Pen) Subcutaneously Every 14 Days Qty/Day Supply: 06/02 New Start: New to Therapy Diagnosis & ICD-10 Code: Rheumatoid Arthritis M05.9 Patient Notified: Yes Submission Notes: RX#[id number] New Medication Silver Cochran CPHT 05/23/21 12:51 PM * Silver Cochran CPHT - 05/23/2021 12:48 PM EST [facility], Prior Authorization Approval Medication Name: HUMIRA(CF) PEN 40 MG/0.4 ML SUBCUTANEOUS KIT Medication ID: Approval Dates: 05/23/2021 to 05/23/2022 Insurance requirements/notes: RX#[id number] Patient May Fill With Pharmacy Other Notes: None Case/Reference #: [id number] Approval notification Received via: [facility] Copay: $5.00 Copay assistance: None Copay Notes: None Insurance mandated Pharmacy: - Pharmacy Fillable at [facility]: Yes Pharmacy staff will be reaching out to the patient to inform them of [facility]. If applicable, a pharmacist will speak with the patient to offer our specialty pharmacy services and to arrange delivery of their medication. Silver Cochran CPHT 05/23/21 12:57 PM documented in this encounter Plan of [...] on filedocumented in this encounter Care Teams Belling Machine Operator Relationship Specialty Start Date End Date Nidhi Conti PA [address] [place] [address] PCP - General Family Medicine 06/11/20 documented as of this encounter
--- OUTSIDE RECORDS SUMMARY | 2023-11-15 02:27 | XMS_ITS | Encounter Summary ---
Author Organization [facility] Address [facility] [place] [address] Care Team Providers Care Livestock Commission Agent Name Role Phone Nidhi Conti Primary Care Provider Encounter Details Date Type Department Care Team (Latest Contact Info) Description 10/15/2020 11:22 AM EDT - 10/15/2020 11:59 PM EDT Hospital Encounter XRay at [address] [place] [address] Markell Darling MD [facility] [address] Pain in right hip; Bilateral hip pain Discharge Disposition: Home Social History Tobacco Use [...] 240 mg by mouth daily. 0 05/16/2018 meloxicam (MOBIC) 15 mg TabletIndications:Sero negative rheumatoid arthritis,Bilateral wrist pain,Pain in both hands Take 1 tablet by mouth daily. 30 tablet 1 10/15/2020 12/17/2020 metHOTREXate 2.5 mg TabletIndications:Infl ammatory arthropathy,Seropositi ve rheumatoid arthritis,High risk medication use,Methotrexate, shelter, current use TAKE 6 TABLETS BY MOUTH ONCE A WEEK ON WEDNESDAY 72 tablet 09/20/2020 12/17/2020 folic acid (Folvite) 1 mg TabletIndications:Medi cation monitoring encounter,High risk medication use,Seropositive rheumatoid arthritis,Inflammatory arthropathy,Methotrexa te, shelter, current use,Seronegative rheumatoid arthritis,Bursitis of other bursa of both hips,Bilateral wrist pain,Pain in both hands,Pain in right hip,Chronic pain of both ankles,Chronic pain of both knees TAKE 5 TABLETS BY MOUTH DAILY 150 tablet 3 09/20/2020 01/30/2021 documented as of this encounter Plan of Treatment Not on file documented as of this encounter Procedures Procedure Name Priority Date/Time Associated Diagnosis Comments XR PELVIS AND LAT HIP LEFT Routine 10/15/2020 11:32 AM EDT Pain in right hip Bilateral hip pain documented in this encounter Results * XR Pelvis & Lat Hip Left [...] who have questions please contact the health wound care specialist that requested your imaging first. ? Electronically signed by: Theresa Reid MD, [facility] ([phone]), at 10/15/2020 5:04 PM Narrative 10/15/2020 5:04 [...] patients who have questions please contactthe health wound care specialist that requested your imaging first. Electronically signed by: Theresa Reid MD, [facility]([phone]), at 10/15/2020 5:04 PM Markell Darling MD IMG DX ORDERABLES documented in this encounter Visit Diagnoses Diagnosis Pain in right hip Pain in joint, pelvic region and thigh Bilateral hip pain Pain in joint, pelvic region and thigh documented in this encounter Care Teams Livestock Commission Agent Relationship Specialty Start Date End Date Nidhi Conti PA [address] [place] [address] PCP - General Family Medicine 06/11/20 documented as of this encounter
--- OUTSIDE RECORDS SUMMARY | 2023-11-15 02:27 | XMS_ITS | Encounter Summary ---
[place] [address] Care Team Providers Care Hoop Maker Helper Machine Name Role Phone Nidhi Conti Primary Care Provider [phone] Reason for Visit * Reason Comments Specialty Pharmacy Review Adalimumab (Hu dinorah) 40mg/0.4mL PNKT Encounter Details Date Type Department Care Team (Late st Contact Info) Description 05/23/2021 Specialty [place] [address] Tila Ordonez [facility] Social History Tobacco Use Types [...] this encounter Progress Notes * Tila Ordonez [facility] - 05/23/2021 12:22 PM EST The [facility] has completed a benefits investigation for Keyona Terry to review theireligibility to fill at [facility]. Per patient's medication list they are prescribed Humira and the medication is able to be filled at the [facility]. Keyona Terry is fillingHumira with the [facility]. documented in this encounter Plan of Treatment Not on file documented as of this encounter Visit Diagnoses Not on filedocumented in this encounter Care Teams Hoop Maker Helper Machine Relationship Specialty Start Date End Date Nidhi Conti PA [address] [place] [address] PCP - General Family Medicine 06/11/20 documented as of this encounter
--- OUTSIDE RECORDS SUMMARY | 2023-11-15 02:27 | XMS_ITS | Encounter Summary ---
Author Organization [facility] [place] [address] Care Team Providers Care Ticket Dispenser Changer Name Role Phone Nidhi Conti Primary Care Provider [phone] Reason for Visit * Reason Comments Medication Refill Encounter Details Date Type Department Care Team (Late st Contact Info) Description 03/18/2021 [place] [phone] Markell Darling MD [facility] [address] Seronegative rheumatoid arthritis; Bilateral wrist pain; Pain [...] Telephone Encounter - Rocío Vilchis LPN - 03/18/2021 9:07 AM EST Requested Prescriptions Pending Prescriptions Disp Refills ??? meloxicam (MOBIC) 15 mg Tablet [Pharmacy Med Name: MELOXICAM 15MG TABLETS] 30 tablet 2 Sig: TAKE 1 TABLET BY MOUTH DAILY Last office visit: 03/10/2021 follow up on 04/29/2021 Last refill: 12/17/2020 documented in this encounter Plan of Treatment Not on file documented as of this encounter Visit Diagnoses Diagnosis Seronegative rheumatoid arthritis Rheumatoid arthritis Bilateral wrist pain Pain in joint, forearm Pain in both hands documented in this encounter Care Teams Ticket Dispenser Changer Relationship Specialty Start Date End Date Nidhi Conti PA [address] [address] PCP - General Family Medicine 06/11/20 documented as of this encounter
--- OUTSIDE RECORDS SUMMARY | 2023-11-15 02:27 | XMS_ITS | Encounter Summary ---
Author Organization [facility] [place] [address] Care Team Providers Care Flexible Shaft Winder Name Role Phone Nidhi Conti Primary Care Provider [phone] Encounter Details Date Type Department Care Team (Latest Contact Info) Description 04/29/2021 11:00 AM EST TH Visit (TeleHealth) [place] [address] Markell Darling MD [facility] [place] [address] Medication monitoring encounter; High risk medication use; Seropositive rheumatoid arthritis; Inflammatory arthropathy; Methotrexate, rat exterminator, current use; Seronegative rheumatoid arthritis; Chronic pain of both ankles; Pain in both hands; Bilateral wrist pain; Chronic pain of both knees; Morning joint stiffness; Bilateral hip pain Social History Tobacco Use [...] Progress Notes * Markell Darling MD - 04/29/2021 11:00 AM EST Rheumatology Follow Up phone [...] is still having issues with her bilateral feet, wrist ankles and hip. Unchanged on last conversation should only increase the methotrexate for about 2 weeks because she had her COVID vaccination and had to hold to get it more due to the Covid response. She does still have some swelling but no redness or warmth. Does have prolonged morning stiffness she is taken Mobic every day she does have a fear of needles but is willing to add additional therapy. She is aware of the current shortage of sulfasalazine and the fact that leflunomide similar side effects to methotrexate is difficulty tolerating methotrexate by itself prior to this. She has no pain or nasal ulcers oral ulcers Outer hip pain does not radiate to the groin Physical exam NAD NCAT, nonicteric sclera, no [...] exam or ultrasound ?? - Dz activity still mild to moderate dz though ultrasound ?? -= She is due for disease monitoring labs on labs prior to starting biologic therapy ?? Previously unable to tolerate hydroxychloroquine ?? Off prednisone on meloxicam ?? Would like to do a quick burst of steroids ?? Sulfasalazine is possible but there is currently a shortage adding 10 of leflunomide is also a possibility though does have its own concerns from side effect issue another possibility is adding a drug such as Enbrel TNF inhibitor- ?? Previously been worked up for sarcoidosis-Humira would offer the best for both possible sarcoid and RA ?? -Discussed injectable methotrexate- ?? She is due for repeat monitoring labs while on the higher dose ?? Reviewed and will, Humira and abatacept, Enbrel and Xeljanz. ?? Reviewed black box warning on Xeljanz only pill ?? Enbrel has micro which may be a better solution since is like to inject herself but other alternatives may also be beneficial ?? She will touch base with pharmacy Reviewed risks for leflunomide and TNF inhibitor [...] without lymphocytosis mild neutrophilia without use of steroids-due for repeat could be in setting of inflammatory Chronic foot ankle and hand pain-x-rays consistent with osteoarthritis as is ultrasound. On meloxicam Tylenol omega-3 fatty acids and turmeric Previously positive de Quervain's tenosynovitis Trochanteric syndrome- dicussed trochanteric injections- would prfer to mag at later date High risk Med - No SE/AE Labs q 1 months for MTX monitoring howerever soon labs 2/2 abl WBC and lynp count She will need hepatitis and TB decides to move forward with a biologic Orders Placed This Encounter Procedures ??? Lipid Panel (Reflex Direct LDL) Return in about 6 weeks (around 06/10/2021). Greater than 50 minutes spent total Markell Darling MD documented in this encounter Plan of Treatment Not on file documented as of this encounter Results * Hepatitis B Core Antibody, Total (05/16/2021 2:17 PM EST) Hepatitis B Core Antibody Negative Negative [facility] Blood 05/16/2021 2:17 PM EST 05/16/2021 2:47 PM EST Narrative Resulting Agency Comment Spec In Lab Markell Darling MD CHEMISTRY ORDERABLES Performing Organization Address [facility] Co de Phone Number [facility] [place] [address] * Hepatitis B Surface Antigen (05/16/2021 2:17 PM EST) Hepatitis B Surface Antigen Negative Negative [facility] Blood 05/16/2021 2:17 PM EST 05/16/2021 2:47 PM EST Narrative Resulting Agency Comment Spec In Lab Markell Darling MD CHEMISTRY ORDERABLES Performing Organization Address [facility] Co de Phone Number [facility] [place] [place] [address] * Hepatitis B Surface Antibody (05/16/2021 2:17 PM EST) Hepatitis B Surface Antibody, Quantitative <3.5 IU/L [facility] Comment: HepB Surface Ab Quant: Unvaccinated: < 8.5 IU/L Vaccinated: > 11.5 IU/L Hepatitis B Surface Antibody Negative [facility] Comment: Patient is presumed to be not vaccinated or immune to HBV infection. Expected Results: Vaccinated: Positive Unvaccinated: Negative Blood 05/16/2021 2:17 PM EST 05/16/2021 2:47 PM EST Narrative Resulting Agency Comment Spec In Lab Markell Darling MD CHEMISTRY ORDERABLES Performing Organization Address [facility] Co de Phone Number [facility] [place] [address] * Hepatitis C Antibody (05/16/2021 2:17 PM EST) Hepatitis C Antibody Negative Negative [facility] Blood 05/16/2021 2:17 PM EST 05/16/2021 2:47 PM EST Narrative Resulting Agency Comment Spec In Lab Markell Darling MD CHEMISTRY ORDERABLES Performing Organization Address [facility] de Phone Number [facility] [place] [address] * QuantiFERON-TB Gold (05/16/2021 2:17 PM EST) Quantiferon Nil 0.031 IU/mL [facility] QFT TB Ag1-Nil -0.005 IU/mL [facility] QFT TB Ag2-Nil -0.002 IU/mL [facility] Quantiferon Mitogen-Nil 9.969 IU/mL [facility] Quantiferon-TB Gold Negative Negative [facility] Quantiferon Tb Interp M. tuberculosis [...] affect immune function, or other immunological factors. [facility] Blood 05/16/2021 2:17 PM EST 05/19/2021 7:29 AM EST Narrative Resulting Agency Comment Spec In Lab Markell Darling MD CHEMISTRY ORDERABLES [facility] [place] [address] * Lipid Panel (Reflex Direct LDL) (05/16/2021 2:17 PM EST) Cholesterol, Total 162 mg/dL [facility] Comment: Lower Risk: <200 mg/dL Average Risk: 200-239 mg/dL Higher Risk: >rn=303 mg/dL Triglyceride 58 mg/dL [facility] Comment: Average Risk/Lower Risk: <150 mg/dL Borderline High Risk: 150-199 mg/dL High Risk: 200-499 mg/dL Very High Risk: >kz=304 mg/dL HDL Cholesterol 84 mg/dL [facility] Comment: Males: ?? Higher Risk: <40 mg/dL Females: ?? Higher Risk: <50 mg/dL LDL Cholesterol 66 mg/dL [facility] Comment: Lowest Risk: <100 mg/dL Lower Risk: 100-129 mg/dL Borderline High Risk: 130-159 mg/dL High Risk: 160-189 mg/dL Very High Risk: >mz=011 mg/dL Cholesterol/HDL Ratio 1.9 ratio [facility] Lipid Interpretation See Note [facility] Comment: Lipid management should be guided by a patient? s ASCVD risk, goals and preferences. ACC/AHA Guidelines recommend high intensity statin if clinical ASCVD or LDL greater than or equal to 190 mg/dL. http://tinyurl.com/IWI-QTZ-Bkggwlnlr Adults aged 40-75 with LDL 70-189 mg/dL should have their 10 year ASCVD risk estimated with the ACC/AHA ASCVD risk medical scientific officer http://tools.acc.org/JUBUJ-Wjwb-Iteeevzip/ Statin should be discussed if risk greater [...] In Lab Markell Darling MD CHEMISTRY ORDERABLES [facility] [place] [address] documented in this encounter Visit Diagnoses Diagnosis Medication monitoring encounter Encounter for therapeutic drug monitoring High risk medication use Encounter for long-term (current) use of other medications Seropositive rheumatoid arthritis Rheumatoid arthritis Inflammatory arthropathy Arthropathy, unspecified, site unspecified Methotrexate, rat exterminator, current use Encounter for long-term (current) use of other medications Seronegative rheumatoid arthritis Rheumatoid arthritis Chronic pain of both ankles Pain in both hands Bilateral wrist pain Pain in joint, forearm Chronic pain of both knees Morning joint stiffness Stiffness of joint, not elsewhere classified, unspecified site Bilateral hip pain Pain in joint, pelvic region and thigh documented in this encounter Care Teams Flexible Shaft Winder Relationship Specialty Start Date End Date Nidhi Conti PA [address] [place] [id number] PCP - General Family Medicine 06/11/20 documented as of this encounter
--- OUTSIDE RECORDS SUMMARY | 2023-11-15 02:27 | XMS_ITS | Encounter Summary ---
Author Organization [facility] [place] [address] Care Team Providers Care Veteran Appeals Reviewer Name Role Phone Nidhi Conti Primary Care Provider [phone] Encounter Details Date Type Department Care Team (Late st Contact Info) Description 05/23/2021 Refill [place] [address] Markell Darling MD [facility] [place] [address] Social History Tobacco Use Types Packs/Day Years [...] on filedocumented in this encounter Care Teams Veteran Appeals Reviewer Relationship Specialty Start Date End Date Nidhi Conti PA [address] [place] [id number] PCP - General Family Medicine 06/11/20 documented as of this encounter
--- OUTSIDE RECORDS SUMMARY | 2023-11-15 02:27 | XMS_ITS | Encounter Summary ---
[place] [address] Care Team Providers Care Presser And Blocker Knitted Goods Name Role Phone Nidhi Conti Primary Care Provider Encounter Details Date Type Department Care Team (Latest Contact Info) Description 06/11/2020 3:05 PM EST Laboratory Appointment Lab [address] [id number] Medication monitoring encounter; High risk medication use; Seropositive rheumatoid arthritis; Inflammatory arthropathy; Methotrexate, university registrar, current use; Seronegative rheumatoid arthritis; Bursitis of other bursa of both hips; Bilateral wrist pain; Pain in both hands; Pain in right hip; Chronic pain of both ankles; Chronic pain of both knees; Lymphocytosis; Cough, persistent Social History Tobacco Use Types Packs/Day Years [...] Associated Diagnosis Comments HC C-REACTIVE PROTEIN Routine 06/11/2020 3:16 PM EST Medication monitoring encounter High risk medication use Seropositive rheumatoid arthritis Inflammatory arthropathy Methotrexate, university registrar, current use Seronegative rheumatoid arthritis Bursitis of other bursa of both hips Bilateral wrist pain Pain in both hands Pain in right hip Chronic pain of both ankles Chronic pain of both knees HEMOGRAM Routine 06/11/2020 3:16 PM EST Medication monitoring encounter High risk medication use Seropositive rheumatoid arthritis Inflammatory arthropathy Methotrexate, assisted, current use Seronegative rheumatoid arthritis Bursitis of other bursa of both hips Bilateral wrist pain Pain in both hands Pain in right hip Chronic pain of both ankles Chronic pain of both knees DIFFERENTIAL, AUTOMATED Routine 06/11/2020 3:16 PM EST Medication monitoring encounter High risk medication use Seropositive rheumatoid arthritis Inflammatory arthropathy Methotrexate, university registrar, current use Seronegative rheumatoid arthritis Bursitis of other bursa of both hips Bilateral wrist pain Pain in both hands Pain in right hip Chronic pain of both ankles Chronic pain of both knees HC CREATININE Routine 06/11/2020 3:16 PM EST Medication monitoring encounter High risk medication use Seropositive rheumatoid arthritis Inflammatory arthropathy Methotrexate, assisted, current use Seronegative rheumatoid arthritis Bursitis of other bursa of both hips Bilateral wrist pain Pain in both hands Pain in right hip Chronic pain of both ankles Chronic pain of both knees HC ESR-SEDIMENTATION RATE, BLOOD Routine 06/11/2020 3:16 PM EST Medication monitoring encounter High risk medication use Seropositive rheumatoid arthritis Inflammatory arthropathy Methotrexate, assisted, current use Seronegative rheumatoid arthritis Bursitis of other bursa of both hips Bilateral wrist pain Pain in both hands Pain in right hip Chronic pain of both ankles Chronic pain of both knees HC CBC,PLT & AUTO DIFF Routine 06/11/2020 3:16 PM EST Medication monitoring encounter High risk medication use Seropositive rheumatoid arthritis Inflammatory arthropathy Methotrexate, assisted, current use Seronegative rheumatoid arthritis Bursitis of other bursa of both hips Bilateral wrist pain Pain in both hands Pain in right hip Chronic pain of both ankles Chronic pain of both knees HEPATIC FUNCTION PANEL Routine 06/11/2020 3:16 PM EST Medication monitoring encounter High risk medication use Seropositive rheumatoid arthritis Inflammatory arthropathy Methotrexate, university registrar, current use Seronegative rheumatoid arthritis Bursitis of other bursa of both hips Bilateral wrist pain Pain in both hands Pain in right hip Chronic pain of both ankles Chronic pain of both knees documented in this encounter Results * (ABNORMAL) Differential, Automated (06/11/2020 3:16 PM EST) Pathologist [facility] Neutrophil % 43.7 % [facility] Neutrophil Absolute 3.36 1.70 - 6.10 x10(3)/[facility] Lymph % 45.8 % [facility] Lymphocytes Abs 3.5(H) 0.9 - 3.2 x10(3)/[facility] Monocyte % 5.7 % [facility] Monocyte Abs 0.4 0.3 - 0.9 x10(3)/[facility] Eos % 3.6 % [facility] Eosinophils Abs 0.3 0.0 - 0.4 x10(3)/[facility] Basophil % 0.9 % [facility] Baso Absolute 0.1 0.0 - 0.1 x10(3)/[facility] Immature Gran % 0.30 % [facility] Comment: Immature granulocytes(IG's)percentage and absolute count will include metamyelocytes, myelocytes, and promyelocytes. Blood smears from CBCs yielding IG's will be scanned manually for concordance. If this scan disagrees with the automated IG or if promyelocytes are noted, a manual differential will be performed. Immature Gran Absolute 0.02 0.00 - 0.04 x10(3)/[facility] Blood specimen (specimen) 06/11/2020 3:16 PM EST 06/11/2020 3:28 PM EST Narrative Resulting Agency Comment Spec In Lab Markell Darling MD HEMATOLOGY ORDERABLE S [facility] [place] [address] * (ABNORMAL) Hemogram (06/11/2020 3:16 PM EST) [facility] White Blood Cell 7.7 4.0 - 9.5 x10(3)/[facility] Red Blood Cell 4.07 4.00 - 5.21 x10(6)/mc L [facility] Hemoglobin 12.9 11.7 - 15.5 gm/dL [facility] Hematocrit 37.9 35.7 - 45.8 % [facility] Mean Cell Volume 93.1 82.6 - 94.4 fL [facility] Mean Cell Hemoglobin 31.7 27.1 - 32.0 pg [facility] Mean Cell Hemoglobin Concentration 34.0 31.7 - 35.0 gm/dL [facility] Platelet 358(H) 145 - 357 x10(3)/mc L [facility] RDW Standard Deviation 50.6(H) 37.0 - 46.0 fL [facility] RDW coefficient of variation 14.7(H) 11.5 - 14.1 % [facility] Mean Platelet Volume 9.2 7.6 - 12.9 fL [facility] NRBC% auto 0.0 % [facility] NRBC Absolute 0.000 0.000 - 0.000 x10(3)/mc L [facility] Blood specimen (specimen) 06/11/2020 3:16 PM EST 06/11/2020 3:28 PM EST Narrative Resulting Agency Comment Spec In Lab Markell Darling MD HEMATOLOGY ORDERABLE S Performing Organization Address [facility] Co de Phone Number [facility] [place] [address] * (ABNORMAL) CRP, acute inflammation (06/11/2020 3:16 PM EST) C-Reactive Protein 7.2(H) <=4.9 mg/L [facility] Blood specimen (specimen) 06/11/2020 3:16 PM EST 06/11/2020 3:28 PM EST Narrative Resulting Agency Comment Spec In Lab Markell Darling MD CHEMISTRY ORDERABLES [facility] [place] [address] * (ABNORMAL) Creatinine (06/11/2020 3:16 PM EST) Creatinine 0.67(L) 0.70 - 1.20 mg/dL [facility] Est Glomerular Filtration Rate 99 >=60 mL/min/1. 73 m?? [facility] Comment: This patient? s estimated glomerular filtration rate (eGFR) is between 99 mL/min/1.73 m2 (patients with less muscle mass) and 115 mL/min/1.73 m2 (patients with more muscle mass) [...] and symptoms in addition to eGFR. Blood specimen (specimen) 06/11/2020 3:16 PM EST 06/11/2020 3:28 PM EST Narrative Resulting Agency Comment Spec In Lab Markell Darling MD CHEMISTRY ORDERABLES [facility] [place] [address] * Hepatic Function Panel (06/11/2020 3:16 PM EST) Protein, Total 7.2 6.1 - 8.0 gm/dL [facility] Albumin 4.7 3.2 - 5.2 gm/dL [facility] Aspartate Aminotransferase 15 0 - 30 unit/L [facility] Alanine Aminotransferase 17 0 - 30 unit/L [facility] Alkaline Phosphatase 72 35 - 105 unit/L [facility] Bilirubin, Total 0.3 0.2 - 1.3 mg/dL [facility] Bilirubin, Direct 0.1 0.0 - 0.3 mg/dL [facility] Blood specimen (specimen) 06/11/2020 3:16 PM EST 06/11/2020 3:28 PM EST Narrative Resulting Agency Comment Spec In Lab Markell Darling MD CHEMISTRY ORDERABLES Performing Organization Address [facility] Co de Phone Number [facility] [place] [address] * Sedimentation rate (06/11/2020 3:16 PM EST) Sedimentation Rate Automated 18 2 - 39 mm/hr [facility] Comment: Effective March 15, 2019 new capillary photometric technology has resulted in a change in reference ranges. It is recommended that each ESR result be reviewed with its own age appropriate reference range. Blood specimen (specimen) 06/11/2020 3:16 PM EST 06/11/2020 3:28 PM EST Narrative Resulting Agency Comment Spec In Lab Markell Darling MD HEMATOLOGY ORDERABLE S Performing Organization Address [facility] Co de Phone Number [facility] [place] [address] documented in this encounter Visit Diagnoses Diagnosis Medication monitoring encounter Encounter for therapeutic drug monitoring High risk medication use Encounter for long-term (current) use of other medications Seropositive rheumatoid arthritis Rheumatoid arthritis Inflammatory arthropathy Arthropathy, unspecified, site unspecified Methotrexate, assisted, current use Encounter for long-term (current) use of other medications Seronegative rheumatoid arthritis Rheumatoid arthritis Bursitis of other bursa of both hips Bilateral wrist pain Pain in joint, forearm Pain in both hands Pain in right hip Pain in joint, pelvic region and thigh Chronic pain of both ankles Chronic pain of both knees Lymphocytosis Lymphocytosis (symptomatic) Cough, persistent Cough documented in this encounter Care Teams Presser And Blocker Knitted Goods Relationship Specialty Start Date End Date Nidhi Conti PA [address] [place] [id number] PCP - General Family Medicine 06/11/20 documented as of this encounter
--- OUTSIDE RECORDS SUMMARY | 2023-11-15 02:27 | XMS_ITS | Encounter Summary ---
Author Organization [facility] Address [facility] [place] [address] Care Team Providers Care Assistant Chief Nursing Officer Name Role Phone Nidhi Conti Primary Care Provider Encounter Details Date Type Department Care Team (Latest Contact Info) Description 04/03/2021 12:38 PM EST - 04/03/2021 11:59 PM [facility] Hospital Encounter XRay at [address] [place] [address] Markell Darling MD [facility] [place] [address] Chronic pain of both ankles; Pain in both feet Discharge Disposition: Home Social History Tobacco Use [...] rheumatoid arthritis,Bilateral wrist pain,Pain in both hands TAKE 1 TABLET BY MOUTH DAILY 30 tablet 2 03/19/2021 06/18/2021 metHOTREXate 2.5 mg TabletIndications:Medi cation monitoring encounter,High risk medication use,Seropositive rheumatoid arthritis,Inflammatory arthropathy,Methotrexa te, skilled nursing, current use,Seronegative rheumatoid arthritis,Chronic pain of both ankles,Pain in right hip,Pain in both hands,Bilateral wrist pain,Bursitis of other bursa of both hips,Pain in both feet Take 7 tablets (17.5 mg) by mouth once a week. On wednesday 28 tablet 03/10/2021 04/09/2021 folic acid (Folvite) 1 mg TabletIndications:Medi cation monitoring encounter,High risk medication use,Seropositive rheumatoid arthritis,Inflammatory arthropathy,Methotrexa te, skilled nursing, current use,Seronegative rheumatoid arthritis,Bursitis of other bursa of both hips,Bilateral wrist pain,Pain in both hands,Pain in right hip,Chronic pain of both ankles,Chronic pain of both knees TAKE 5 TABLETS BY MOUTH DAILY 150 tablet 5 01/31/2021 08/15/2021 documented as of this encounter Plan of Treatment Not on file documented as of this encounter Procedures Procedure Name Priority Date/Time Associated Diagnosis Comments XR ANKLE MIN 3 VIEWS BILAT Routine 04/03/2021 1:04 PM EST Chronic pain of both ankles Pain in both feet XR FOOT MIN 3 VIEWS BILAT Routine 04/03/2021 1:04 PM EST Chronic pain of both ankles Pain in both feet documented in this encounter Results * XR Ankle Min [...] who have questions please contact the health lead care manager that requested your imaging first. ? Narrative [...] patients who have questions please contactthe health lead care manager that requested your imaging first. Electronically signed by: Marino Reid MD, [facility]([phone]), at 04/03/2021 2:17 PM Markell Darling MD IMG DX ORDERABLES * [...] who have questions please contact the health lead care manager that requested your imaging first. ? Electronically signed by: Marino Reid MD, [facility] ([phone]), at 04/03/2021 2:17 PM Narrative 04/03/2021 2:17 PM EST EXAMINATION: XR [...] patients who have questions please contactthe health lead care manager that requested your imaging first. Markell Darling MD IMG DX ORDERABLES documented in this encounter Visit Diagnoses Diagnosis Chronic pain of both ankles Pain in both feet Pain in limb documented in this encounter Care Teams Assistant Chief Nursing Officer Relationship Specialty Start Date End Date Nidhi Conti PA [address] [place] [phone] PCP - General Family Medicine 06/11/20 documented as of this encounter
--- OUTSIDE RECORDS SUMMARY | 2023-11-15 02:27 | XMS_ITS | Encounter Summary ---
Author Organization Formerly [facility] [place] [address] Care Team Providers Care Warehouse Stock Clerk Name Role Phone Nidhi Conti Primary Care Provider Encounter Details Date Type Department Care Team (Late st Contact Info) Description 04/08/2021 Telephone [place] [phone] Markell Darling MD [facility] [place] [address] Social History Tobacco Use Types Packs/Day Years [...] on filedocumented in this encounter Care Teams Warehouse Stock Clerk Relationship Specialty Start Date End Date Nidhi Conti PA [address] [place] [id number] PCP - General Family Medicine 06/11/20 documented as of this encounter
--- OUTSIDE RECORDS SUMMARY | 2023-11-15 02:27 | XMS_ITS | Encounter Summary ---
Author Organization [facility] [place] [address] Care Team Providers Care Cable Supervisor Name Role Phone Nidhi Conti Primary Care Provider Encounter Details Date Type Department Care Team (Latest Contact Info) Description 12/16/2020 3:30 PM EDT TH Visit (TeleHealth) [place] [phone] Markell Darling MD [facility] [place] [address] Methotrexate, custodial, current use; High risk medication use; Medication monitoring encounter; Seropositive rheumatoid arthritis; Seronegative rheumatoid arthritis; Bilateral wrist pain; Pain in right hip; Pain in both hands; Leukocytosis, unspecified type Social History Tobacco Use Types Packs/Day Years [...] Progress Notes * Markell Darling MD - 12/16/2020 3:30 PM EDT Rheumatology Follow Up phone note [...] been worse over the last year. She still reports an hour stiffness affecting the hands this is episodic no swelling redness or warmth chronic foot and ankle pain which is also episodic. She takes Mobic daily Tylenol turmeric and omega-3 fatty acid She has no side effects to methotrexate at this time but did have side effects to increase the doseto 8 tabs weekly with oral ulcers. She currently does not have insurance this time but should be scheduled to get next 1 to 2 months. She has never seen a machinist supervisor for elevated white count of mild lymphocytosis which was present around March and the winter of last year has now normalized her white count still remains elevated. She describes no B symptoms fever chills night sweats or weight loss no blood in the stool blood inthe urine no chronic cough she is a smoker and is not interested in quitting this time Remainder review of system within normal limits Physical exam NAD NCAT, nonicteric sclera, no [...] mild to moderate dz though ultrasound evaluation in mid June did not show increased synovitis and was more consistent with osteoarthritis. ?? Previously unable to tolerate HCQ ?? Off prednisone ?? Increased dose of methotrexate resulted in oral ulcers despite increasing to 5 mg. ?? We discussed going to injectable methotrexate which may have a overall better effect ?? Another consideration is to add leflunomide however patient does not have insurance this time sofrequent lab draws may not be cost effective and is scheduled to get insurance in the next 1 to 2 months ?? -Another consideration would be to add a biologic however patient notes his abnormal white countmultiple times over the past year though did not showed any changes could have her see a machinist supervisor to make sure no further work-up is needed. ?? Also may want to insurance problems and will have to go to the MAP program which is possible however we will have to take in account income ?? MTX has resulted in increased oral ulcer will increase FA to 5mg. ?? After reviewing all these considerations with the patient we decided to continue methotrexate 6 tabs weekly for now ?? -She will look into insurance sooner rather than later- Reviewed risks for leflunomide and TNF inhibitor [...] biologic Orders Placed This Encounter Procedures ??? CRP, acute inflammation ??? CBC (with Diff) ??? Creatinine ??? Hepatic Function Panel ??? Sedimentation rate Return in about 8 weeks (around 02/10/2021) for Telehealth. Greater than 32 minutes spent total Markell Darling MD documented in this encounter Plan of Treatment Not on file documented as of this encounter Visit Diagnoses Diagnosis Methotrexate, custodial, current use Encounter for long-term (current) use of other medications High risk medication use Encounter for long-term (current) use of other medications Medication monitoring encounter Encounter for therapeutic drug monitoring Seropositive rheumatoid arthritis Rheumatoid arthritis Seronegative rheumatoid arthritis Rheumatoid arthritis Bilateral wrist pain Pain in joint, forearm Pain in right hip Pain in joint, pelvic region and thigh Pain in both hands Leukocytosis, unspecified type documented in this encounter Care Teams Cable Supervisor Relationship Specialty Start Date End Date Nidhi Conti PA [address] [place] [id number] PCP - General Family Medicine 06/11/20 documented as of this encounter
--- OUTSIDE RECORDS SUMMARY | 2023-11-15 02:28 | XMS_ITS | Encounter Summary ---
Author Organization [facility] [place] [address] Care Team Providers Care Clinic Md Associate Name Role Phone AJIR Francois Benjamin Primary Care Provider [phone]- [phone] Reason for Referral * Consultation (Routine) - Closed Specialty Diagnoses / Procedures Referred By Contac t Referred To Contact Orthopaedics Diagnoses Mass of foot, unspecified laterality Markell Darling MD [facility] [place] [address] [facility] [address] [place] [phone] Referral ID Status Reason Start Date Expiration Date V isits Requested Visits Authorized [id number] Closed Consult, Test & Treat 12/09/2018 12/09/2019 1 1 Encounter Details Date Type Department Care Team (Late st Contact Info) Description 12/09/2018 Orders [place] [address] Markell Darling MD [facility] [place] [address] Mass of foot, unspecified laterality Social History Tobacco Use Types Packs/Day Years Used Date Smoking Tobacco: Every Day Smokeless Tobacco: Never Sex and Gender Information Value Date Recorded Sex Assigned at Not on file Gender Identity Not on file Sexual Orientation Not on file documented as of this encounter Plan of Treatment Scheduled Referrals Name Type Priority Associated Diagnoses Orde r Schedule Referral to Podiatry Outpatient Referral Routine Mass of foot, unspecified laterality Ordered: 12/09/2018 documented as of this encounter Visit Diagnoses Diagnosis Mass of foot, unspecified laterality documented in this encounter Care Teams Clinic Md Associate Relationship Specialty Start Date End Date Naman Domingo PA PCP - General Family Medicine 07/04/18 06/10/20 documented as of this encounter
--- OUTSIDE RECORDS SUMMARY | 2023-11-15 02:28 | XMS_ITS | Encounter Summary ---
Author Organization [facility]ly [facility] [place] [address] Care Team Providers Care Coreroom Foundry Laborer Name Role Phone JAIR Francois Benjamin Primary Care Provider +1- [phone] Encounter Details Date Type Department Care Team (Late st Contact Info) Description 02/28/2020 Orders [place] [address] Markell Darling MD [facility] [place] [address] Medication monitoring encounter; High risk medication use; Lymphocytosis Social History Tobacco Use Types Packs/Day [...] documented as of this encounter Results * Protein Electrophoresis, urine, random (03/12/2020 2:59 PM EST) Protein, Urine <6 0 - 12 mg/dL [facility] U Albumin See Note [facility] Comment:No protein visible v ia electrophoresis due to a low urine total protein. Globulin, Urine See Note [facility] Comment:No protein visible v ia electrophoresis due to a low urine total protein. M1 Band, Urine See Note [facility] Comment:No protein visible v ia electrophoresis due to a low urine total protein. Urine specimen (specimen) 03/12/2020 2:59 PM EST 03/12/2020 3:34 PM EST Narrative Resulting Agency Comment Spec In Lab Markell Darling MD URINE ORDERABLES Performing Organization Address [facility] Co de Phone Number [facility] [place] [address] * Peripheral Smear Review (03/12/2020 2:55 PM EST) Peripheral Smear Review See Comment [facility] Comment: When completed by the Pathologist, report [id number] will display under Hematopathology Reports. Blood specimen (specimen) 03/12/2020 2:55 PM EST 03/12/2020 3:07 PM EST Narrative Resulting Agency Comment Spec In Lab Markell Darling MD HEMATOLOGY ORDERABLE S Performing Organization Address [facility] Co de Phone Number [facility] [place] [address] * Protein Electrophoresis, serum (03/12/2020 2:55 PM EST) Total Prot Electrophoresis 6.6 6.1 - 8.0 gm/dL [facility] Albumin Electrophoresis 4.59 3.60 - 6.00 gm/dL [facility] Alpha 1 Globulin 0.17 0.10 - 0.30 gm/dL [facility] Alpha 2 Globulin 0.66 0.40 - 0.90 gm/dL [facility] Beta Globulin 0.60 0.50 - 1.00 gm/dL [facility] Gamma Globulin 0.58 0.50 - 1.30 gm/dL [facility] M1 Band None Detected None Detected [facility] Blood specimen (specimen) 03/12/2020 2:55 PM EST 03/12/2020 3:07 PM EST Narrative Resulting Agency Comment Spec In Lab Markell Darling MD CHEMISTRY ORDERABLES [facility] [place] [address] documented in this encounter Visit Diagnoses Diagnosis Medication monitoring encounter Encounter for therapeutic drug monitoring High risk medication use Encounter for long-term (current) use of other medications Lymphocytosis Lymphocytosis (symptomatic) documented in this encounter Care Teams Coreroom Foundry Laborer Relationship Specialty Start Date End Date Naman Domingo PA PCP - General Family Medicine 07/04/18 06/10/20 documented as of this encounter
--- OUTSIDE RECORDS SUMMARY | 2023-11-15 02:28 | XMS_ITS | Encounter Summary ---
[place] [address] Care Team Providers Care Circular Stuffer Name Role Phone JAIR Francois Benjamin Primary Care Provider +1- [phone] Reason for Visit * Reason Onset Date Comments Medication Refill 11/29/2018 Encounter Details Date Type Department Care Team (Late st Contact Info) Description 11/29/2018 [place] [phone] Abdi Arceo RN High risk medication use; Inflammatory arthropathy; Bilateral wrist pain; Pain in both feet; Bilateral ankle pain, unspecified chronicity; Pain in both hands; Cough, persistent Social History Tobacco Use Types Packs/Day Years Used Date Smoking Tobacco: Every Day Smokeless Tobacco: Never Sex and Gender Information Value Date Recorded Sex Assigned at Not on file Gender Identity Not on file Sexual Orientation Not on file documented as of this encounter Miscellaneous Notes * Telephone Encounter - Abdi Arceo RN - 11/30/2018 1:43 PM EDT Spoke with Dr. Darling, patient may take Pepto or Tums. Patient may switch to brand name Plaquenil. Patient updated on above, will hold generic Plaquenil and will await brand name medication. * Telephone Encounter - Abdi Arceo RN - 11/29/2018 1:52 PM EDT Images from the original note were not included. Markell Darling MD [facility] Rheumatology Nurse ?? Can you guys call her to see what her symptoms are thanks Spoke with patient. She states she has started a new med (hydroxychloroquine) and it is bothering her stomach. She has no fever or chills but does endorse having an upset stomach and diarrhea, no vomiting but nausea is present and has been occurring for about 1 week. She has been maintain an adequate intake, but has sent a [employer] message asking if she may take Pepto for the upset stomach. documented in this encounter Plan of Treatment Not on file documented as of this encounter Visit Diagnoses Diagnosis High risk medication use Encounter for long-term (current) use of other medications Inflammatory arthropathy Arthropathy, unspecified, site unspecified Bilateral wrist pain Pain in joint, forearm Pain in both feet Pain in limb Bilateral ankle pain, unspecified chronicity Pain in both hands Cough, persistent Cough documented in this encounter Care Teams Circular Stuffer Relationship Specialty Start Date End Date Naman Domingo PA PCP - General Family Medicine 07/04/18 06/10/20 documented as of this encounter
--- OUTSIDE RECORDS SUMMARY | 2023-11-15 02:28 | XMS_ITS | Encounter Summary ---
Author Organization [facility] [place] [address] Care Team Providers Care Mental Health Assistant Name Role Phone JAIR Francois Benjamin Primary Care Provider +1- [phone] Encounter Details Date Type Department Care Team (Latest Contact Info) Description 09/20/2019 9:00 AM EDT TH Visit (TeleHealth) [place] [address] Markell Darling MD [facility] [place] [address] High risk medication use; Seropositive rheumatoid arthritis; Pain in both hands; Chronic pain of both knees; Chronic pain of both ankles; Bilateral wrist pain; Inflammatory arthropathy Social History Tobacco Use Types [...] Progress Notes * Markell Darling MD - 09/20/2019 9:00 AM EDT Rheumatology Follow Up phone note 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 abnormal wrist xray erosion verses a cyst CDAI uable to calcuate MTX and FA HCQ SE Interval HXI: Keyona Terry is a 53 y.o. C female who presents today for fu evaluation of bilateral hand pain andfoot pain that is been going on for several years but been worse over the last year . sine last visit reports tapered off steroids with mild benefit initially however patient appeared to taper fasterthan was written. Continued bilateral wrist and ankle pain. No swelling redness or warmth noted no prolonged morning stiffness. No associated side effects with methotrexate Otherwise disease activity is well controlled. Swelling warmth or Redness of the Joints; No Morning stiffness: Stiffness 130 minutes Pain Improves with: Naproxen 2-3 x per weeks not tylenol Pain worsens with: as above Family History of Rheumatologic Disease: None ROS: General (-)fevers, (-)chills, (-)night sweats, (-)wt loss/gain. HEENT (-)head trauma, (-)vision change, (-)tinnitus, (-)epistaxis, (-)sore throat, (-)bleeding gums, (-)oral ulcers, some recent dry eyes and mouts (-)dry eyes, (-)dry mouth, (-)dysphagia, (-)GERD, (-)photo sensitivity, (-)Hair loss, (-)vertigo CVS (-)chest pain, (-)palpitations, (-)pedal edema, (-)PND, (-)orthopnea. Pulm (-)shortness of breath, (-)VALENCIA, (-)wheezes, (-)cough, (-)pleuritic pain GI (-)N/V, (-)abdominal pain, (-)emesis, (-)hematemesis, (-)hematochezia, (- )change in appetite (-)hematuria, (-)dysuria, (-)frequency, (-)nocturia, (-)genital ulcers MS (-)muscle weakness, (-)paralysis Endo (-)thyroid disorders, (-)diabetes, (-)temperature intolerance. Neuro (-)focal weakness, (-)paresthesias, (-)gait instability. Skin (-)Raynaud's, (-) ulcers, or (-) nodules Psych (-) mood disorder. No past medical history on file. Patient Active Problem List Diagnosis Date Noted ??? Abnormal radiograph 12/21/2018 ??? Inflammatory arthropathy 07/04/2018 ??? Seropositive rheumatoid arthritis 07/04/2018 No past surgical history on file. No family history on file. Social History Socioeconomic History ??? Marital status: Spouse name: Not on file ??? Number of children: Not on file ??? Years of education: Not on file ??? Highest education level: Not on file Occupational History ??? Not on file Social Needs ??? Financial resource strain: Not on file ??? Food insecurity Worry: Not on file Inability: Not on file ??? Transportation needs Medical: Not on file Non-medical: Not on file Tobacco Use ??? Smoking status: Current Every Day Smoker Packs/day: 0.50 Types: Cigarettes ??? Smokeless tobacco: Never Used Substance and Sexual Activity ??? Alcohol use: Not Currently ??? Drug use: Never ??? Sexual activity: Not on file Lifestyle ??? Physical activity Days per week: Not on file Minutes per session: Not on file ??? Stress: Not on file Relationships ??? Social connections Talks on phone: Not on file Gets together: Not on file Attends synagogue service: Not on file Active member of club or organization: Not on file Attends meetings of clubs or organizations: Not on file Relationship status: Not on file ??? Intimate partner violence Fear of current or ex partner: Not on file Emotionally abused: Not on file Physically abused: Not on file Forced sexual activity: Not on file Other Topics Concern ??? Not on file Social History Narrative ??? Not on file Current Outpatient Medications Medication Sig Dispense Refill ??? metHOTREXate 2.5 mg Tablet TAKE 6 TABLETS BY MOUTH ONCE A WEEK 24 tablet 1 ??? predniSONE (Deltasone) 2.5 mg Tablet Take 2 tablets by mouth daily for 7 days, THEN 1 tablet daily for 83 days. 97 tablet 0 ??? folic acid (Folvite) 1 mg Tablet TAKE 2 TABLETS BY MOUTH ONCE DAILY 180 tablet 3 ??? PLAQUENIL 200 mg Tablet Take 2 tablets by mouth daily. (Patient not taking: Reported on 07/13/2019) 60 tablet 3 ??? simvastatin (ZOCOR) 20 mg Tablet daily. 0 ??? verapamil (CALAN-SR) 240 mg Tablet Sustained Release daily. 0 ??? ibuprofen (ADVIL;MOTRIN) 200 mg Tablet Take 400 mg by mouth every 6 hours as needed for Pain. No current facility-administered medications for this visit. Current Outpatient Medications on File Prior to Visit Medication Sig Dispense Refill ??? metHOTREXate 2.5 mg Tablet TAKE 6 TABLETS BY MOUTH ONCE A WEEK 24 tablet 1 ??? predniSONE (Deltasone) 2.5 mg Tablet Take 2 tablets by mouth daily for 7 days, THEN 1 tablet daily for 83 days. 97 tablet 0 ??? folic acid (Folvite) 1 mg Tablet TAKE 2 TABLETS BY MOUTH ONCE DAILY 180 tablet 3 ??? PLAQUENIL 200 mg Tablet Take 2 tablets by mouth daily. (Patient not taking: Reported on 07/13/2019) 60 tablet 3 ??? simvastatin (ZOCOR) 20 mg Tablet daily. 0 ??? verapamil (CALAN-SR) 240 mg Tablet Sustained Release daily. 0 ??? ibuprofen (ADVIL;MOTRIN) 200 mg Tablet Take 400 mg by mouth every 6 hours as needed for Pain. No current facility-administered medications on file prior to visit. No Known Allergies Physical Exam: . Assessment: Keyona Terry is a 53 y.o. 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 Patient is at high disease activity. We will repeat a prednisone taper and patient is to stay on 2.5 mg daily at the end of the taper until symptoms are resolved. She is to report if a dosing offered more benefit. We have most recent methotrexate labs within normal limits so will increase methotrexate dose First 2 weeks she will take 7 tablets weekly on her designated day followed by 2 weeks of 8 tabletsweekly with repeat blood work at that time. Based on the lab results we will continue methotrexate at 8 tablets weekly with repeat blood work again in 1 month. If we are unable to get affected with elevated dose of methotrexate low-dose steroids will consideradding sulfasalazine or leflunomide or consider adding a biologic therapy. Once blood work is stabilized on new dose of methotrexate patient will go on to 3-month lab monitoring parameters Plan Continue MTX and FA DC HCQ SE/AE Orders Placed This Encounter Procedures ??? XR Hand Min 3 views Bilat (Generic) ??? XR Foot Min 3 views Bilat (Generic) ??? Comprehensive metabolic panel (non-fasting) ??? CBC (with Diff) No follow-ups on file. Markell Darling MD Pt is aware of the Benefits, risks [...] is aware to complete labs as requested. documented in this encounter Plan of Treatment Not on file documented as of this encounter Results * XR Foot Min 3 views Bilat (Generic) (10/13/2019 10:17 AM EDT) Anatomical Region Laterality Modality Foot Bilateral Digital Radiogra phy Impressions 10/13/2019 10:50 AM EDT No erosions No change from last examination. Thank you for letting us participate in the care of this patient. For questions regarding this report, please contact the number below. ? Electronically signed by: Sandie Youngblood [facility] ([phone]), at 10/13/2019 10:50 AM Narrative 10/13/2019 10:50 AM EDT EXAMINATION: XR FOOT MIN 3 VIEWS BILAT (GENERIC) CLINICAL HISTORY: inflammatory arthritis, and foot pain, , entered by ordering service TECHNIQUE: 3 views each foot COMPARISON: June 2018 FINDINGS: BONES: Decreased bone mineralization. No periostitis or ankylosis. SOFT TISSUES: No soft tissue calcifications. Metallic short density projects over the left Achilles insertion is redemonstrated. JOINTS: IP joints- no erosions and relative preserved joint spaces. MTP joints- no erosions TMT- normal alignment. No erosions Naviculo-cuneiform joints- no erosions Talonavicular joint- normal Calcaneo-cuboid joint- normal Ankle joints- No large effusion. Procedure Note Sandie Youngblood MD - 10/13/2019 EXAMINATION: XR FOOT MIN 3 VIEWS BILAT (GENERIC) CLINICAL HISTORY: inflammatory arthritis, and foot pain, , entered byordering service TECHNIQUE: 3 views each foot COMPARISON: June 2018 FINDINGS: BONES: Decreased bone mineralization. No periostitis or ankylosis. SOFT TISSUES: No soft tissue calcifications. Metallic short density projects over theleft Achilles insertion is redemonstrated. JOINTS: IP joints- no erosions and relative preserved joint spaces. MTP joints- no erosions TMT- normal alignment. No erosions Naviculo-cuneiform joints- no erosions Talonavicular joint- normal Calcaneo-cuboid joint- normal Ankle joints- No large effusion. IMPRESSION No erosions No change from last examination. Thank you for letting us participate in the care of this patient. Forquestions regarding this report, please contact the number below. Electronically signed by: Sandie Youngblood [facility]([phone]), at 10/13/2019 10:50 AM Markell Darling MD IMG DX ORDERABLES * XR Hand Min 3 views Bilat (Generic) (10/13/2019 10:17 AM EDT) Anatomical Region Laterality Modality Hand Bilateral Digital Radiogra phy Impressions 10/13/2019 11:26 AM EDT No erosions seen. Thank you for letting us participate in the care of this patient. For questions regarding this report, please contact the number below. ? Electronically signed by: Sandie Youngblodo [facility] ([phone]), at 10/13/2019 11:26 AM Narrative 10/13/2019 11:26 AM EDT EXAMINATION: XR HAND MIN 3 VIEWS BILAT (GENERIC) CLINICAL HISTORY: inflammatory arthropathy hx of RA, , entered by ordering service TECHNIQUE: 4 views each hand COMPARISON: Radiographs, June 07, 2018 FINDINGS: BONES: Normal bone mineralization. SOFT TISSUES: No soft tissue calcifications. Tiny calcification adjacent to left trapezium. JOINTS: 2-5 PIP joints-no erosions 2-5 DIP joints- normal joint spaces and no erosions 2-5 MCP joints- normal joint space, no erosions. Thumb (Basal, scaphoid trapezial trapezoid [STT] and 1 MCP & 1 IP joints)- basal Radial carpal joint- preserved joint spaces and no erosions Distal radioulnar joint- congruent Procedure Note Sandie Youngblood MD - 10/13/2019 EXAMINATION: XR HAND MIN 3 VIEWS BILAT (GENERIC) CLINICAL HISTORY: inflammatory arthropathy hx of RA, , entered byordering service TECHNIQUE: 4 views each hand COMPARISON: Radiographs, June 07, 2018 FINDINGS: BONES: Normal bone mineralization. SOFT TISSUES: No soft tissue calcifications. Tiny calcification adjacent to lefttrapezium. JOINTS: 2-5 PIP joints-no erosions 2-5 DIP joints- normal joint spaces and no erosions 2-5 MCP joints- normal joint space, no erosions. Thumb (Basal, scaphoid trapezial trapezoid [STT] and 1 MCP & 1 IPjoints)- basal Radial carpal joint- preserved joint spaces and no erosions Distal radioulnar joint- congruent IMPRESSION No erosions seen. Thank you for letting us participate in the care of this patient. Forquestions regarding this report, please contact the number below. Electronically signed by: Sandie Youngblood [facility]([phone]), at 10/13/2019 11:26 AM Markell Darling MD IMG DX ORDERABLES documented in this encounter Visit Diagnoses Diagnosis High risk medication use Encounter for long-term (current) use of other medications Seropositive rheumatoid arthritis Rheumatoid arthritis Pain in both hands Chronic pain of both knees Chronic pain of both ankles Bilateral wrist pain Pain in joint, forearm Inflammatory arthropathy Arthropathy, unspecified, site unspecified Seropositive rheumatoid arthritis Rheumatoid arthritis Chronic pain of both knees documented in this encounter Care Teams Mental Health Assistant Relationship Specialty Start Date End Date Naman Domingo PA PCP - General Family Medicine 07/04/18 06/10/20 documented as of this encounter
--- OUTSIDE RECORDS SUMMARY | 2023-11-15 02:28 | XMS_ITS | Encounter Summary ---
Author Organization [facility] [place] [address] Care Team Providers Care Chief Merchandising Officer Name Role Phone JAIR Francois Benjamin Primary Care Provider +1- [phone] Reason for Visit * Reason Comments Medication Refill Encounter Details Date Type Department Care Team (Late st Contact Info) Description 12/28/2019 Refill [place] [id number] Markell Darling MD [facility] [place] [address] Inflammatory arthropathy; Seropositive rheumatoid arthritis; High risk medication use Social History Tobacco [...] encounter Miscellaneous Notes * Telephone Encounter - Twin Galeano RN - 12/29/2019 9:40 AM EDT Date of last 5C Rheum appointment: 09-29-2019 RN confirm MTX dose? 20 mg PO weekly Most recent labs: 12-21-2019 External labs? NO [ WBC Date Value Ref Range Status 12/21/2019 8.9 4.0 - 9.5 x10(3)/mcL Final Hemoglobin Date Value Ref Range Status 12/21/2019 13.3 11.7 - 15.5 gm/dL Final MCV Date Value Ref Range Status 12/21/2019 95.9 (H) 82.6 - 94.4 fL Final Platelets Date Value Ref Range Status 12/21/2019 302 145 - 357 x10(3)/mcL Final Creatinine Date Value Ref Range Status 12/21/2019 0.75 0.70 - 1.20 mg/dL Final Albumin Date Value Ref Range Status 12/21/2019 4.4 3.2 - 5.2 gm/dL Final AST Date Value Ref Range Status 12/21/2019 13 0 - 30 unit/L Final ALT Date Value Ref Range Status 12/21/2019 12 0 - 30 unit/L Final ] If last labs >12 weeks, were new labs ordered per protocol by RN? NO Follow-up appointment scheduled: NO - routed to [facility] for follow-up scheduling. documented in this encounter Plan of Treatment Not on file documented as of this encounter Visit Diagnoses Diagnosis Inflammatory arthropathy Arthropathy, unspecified, site unspecified Seropositive rheumatoid arthritis Rheumatoid arthritis High risk medication use Encounter for long-term (current) use of other medications documented in this encounter Care Teams Chief Merchandising Officer Relationship Specialty Start Date End Date Naman Domingo PA PCP - General Family Medicine 07/04/18 06/10/20 documented as of this encounter
--- OUTSIDE RECORDS SUMMARY | 2023-11-15 02:28 | XMS_ITS | Encounter Summary ---
Author Organization [facility] Address [facility] [place] [address] Care Team Providers Care Band Instrument Repairer Name Role Phone JAIR Francois Benjamin Primary Care Provider +1- [phone] Encounter Details Date Type Department Care Team (Latest Contact Info) Description 11/21/2018 2:52 PM EDT - 11/21/2018 11:59 PM EDT Hospital Encounter XRay at [address] [place] [address] Markell Darling MD [facility] [place] [place] [address] High risk medication use; Bilateral ankle pain, unspecified chronicity; Cough, persistent Discharge Disposition: Home Social History Tobacco Use [...] 240 mg by mouth daily. 0 05/16/2018 hydroxychloroquine (PLAQUENIL) 200 mg TabletIndications:High risk medication use,Inflammatory arthropathy,Bilateral wrist pain,Pain in both feet,Bilateral ankle pain, unspecified chronicity,Pain in both hands,Cough, persistent Take 2 tablets by mouth daily for 90 days. 60 tablet 3 11/21/2018 11/30/2018 predniSONE (DELTASONE) 2.5 mg TabletIndications:Serop ositive rheumatoid arthritis,Pain in both hands,Bilateral wrist pain,Chronic pain of both knees 4 tabs daily decrease by 1 tabs every 7 days until at 5 mg. 63 tablet 3 10/03/2018 07/13/2019 metHOTREXate 2.5 mg TabletIndications:Infla mmatory arthropathy,Seropositiv e rheumatoid arthritis Take 6 tablets by mouth once a week. 24 tablet 3 10/03/2018 01/29/2019 folic acid (FOLVITE) 1 mg TabletIndications:Infla mmatory arthropathy,Seropositiv e rheumatoid arthritis Take 2 tablets by mouth daily. 180 tablet 3 07/04/2018 06/23/2019 ibuprofen (ADVIL;MOTRIN) 200 mg Tablet Take 400 mg by mouth every 6 hours as needed for Pain. 03/15/2020 documented as of this encounter Plan of Treatment Not on file documented as of this encounter Procedures Procedure Name Priority Date/Time Associated Diagnosis Comments XR ANKLE MIN 3 VIEWS BILAT Routine 11/21/2018 3:21 PM EDT High risk medication use Bilateral ankle pain, unspecified chronicity XR CHEST PA AND LATERAL Routine 11/21/2018 3:21 PM EDT Cough, persistent documented in this encounter Results * XR Chest PA & Lateral (Generic) (11/21/2018 3:21 PM EDT) Anatomical Region Laterality Modality Chest N/A Digital Radiogra phy Impressions 11/21/2018 4:51 PM EDT No radiographic evidence of sarcoidosis. I have personally reviewed the image(s) and the residents interpretation and agree with the findings, Louann Hartman at 11/21/2018 4:51 PM Thank you for letting us participate in the care of this patient. For questions regarding this report, please contact the number below. ? Narrative 11/21/2018 4:51 PM EDT EXAMINATION: XR CHEST PA AND LATERAL (GENERIC) CLINICAL HISTORY: eval to sarcoid TECHNIQUE: Frontal and lateral views of the chest COMPARISON: None FINDINGS: The lungs are clear. The cardiomediastinal and hilar silhouettes are within normal limits. No pleural effusion or pneumothorax. No acute osseous abnormalities. Procedure Note Louann Hartman MD - 11/21/2018 EXAMINATION: XR CHEST PA AND LATERAL (GENERIC) CLINICAL HISTORY: eval to sarcoid TECHNIQUE: Frontal and lateral views of the chest COMPARISON: None FINDINGS: The lungs are clear. The cardiomediastinal and hilar silhouettes arewithin normal limits. No pleural effusion or pneumothorax. No acute osseous abnormalities. IMPRESSION No radiographic evidence of sarcoidosis. I have personally reviewed the image(s) and the residents interpretationand agree with the findings, Louann Hartman at 11/21/2018 4:51 PM Thank you for letting us participate in the care of this patient. Forquestions regarding this report, please contact the number below. Markell Darling MD IMG DX ORDERABLES * XR Ankle Min 3 views Bilat (Generic) (11/21/2018 3:21 PM EDT) Anatomical Region Laterality Modality Ankle Bilateral Digital Radiogra phy Impressions 11/22/2018 10:30 AM EDT No fracture, effusion or erosion. Thank you for letting us participate in the care of this patient. For questions regarding this report, please contact the number below. ? Narrative 11/22/2018 10:30 AM EDT EXAMINATION: XR ANKLE MIN 3 VIEWS BILAT (GENERIC) CLINICAL HISTORY: alexandru ankles, , ??entered by ordering service TECHNIQUE: 3 views, each ankle COMPARISON: June 07, 2018, foot radiographs. FINDINGS: Bones No erosions or fracture. Joints 1. ??Tibiotalar joints-no effusion or erosion. 2. ??Subtalar joints-relative preserved joint spaces. Soft tissues Achilles tendon-no thickening. A metallic density resembling a staple projects over the posterior calcaneal tuberosity at Achilles tendon insertion. This may represent a foreign body but unchanged from last exam. Procedure Note Sandie Youngblood MD - 11/22/2018 EXAMINATION: XR ANKLE MIN 3 VIEWS BILAT (GENERIC) CLINICAL HISTORY: alexandru ankles, , entered by ordering service TECHNIQUE: 3 views, each ankle COMPARISON: June 07, 2018, foot radiographs. FINDINGS: Bones No erosions or fracture. Joints 1. Tibiotalar joints-no effusion or erosion. 2. Subtalar joints-relative preserved joint spaces. Soft tissues Achilles tendon-no thickening. A metallic density resembling a stapleprojects over the posterior calcaneal tuberosity at Achilles tendon insertion. Thismay represent a foreign body but unchanged from last exam. IMPRESSION No fracture, effusion or erosion. Thank you for letting us participate in the care of this patient. Forquestions regarding this report, please contact the number below. Markell Darling MD IMG DX ORDERABLES documented in this encounter Visit Diagnoses Diagnosis High risk medication use Encounter for long-term (current) use of other medications Bilateral ankle pain, unspecified chronicity Cough, persistent Cough documented in this encounter Care Teams Band Instrument Repairer Relationship Specialty Start Date End Date Naman Domingo PA PCP - General Family Medicine 07/04/18 06/10/20 documented as of this encounter
--- OUTSIDE RECORDS SUMMARY | 2023-11-15 02:28 | XMS_ITS | Encounter Summary ---
Author Organization [facility] [place] [address] Care Team Providers Care Clinical Informaticist Name Role Phone JAIR Francois Benjamin Primary Care Provider +1- [phone] Encounter Details Date Type Department Care Team (Latest Contact Info) Description 07/13/2019 2:00 PM EDT TH Visit (TeleHealth) [place] [id number] Markell Darling MD [facility] [place] [address] Seropositive rheumatoid arthritis; Pain in both hands; Bilateral wrist pain; Chronic pain of both knees; Health education/counseling; Methotrexate, fpc, current use Social History Tobacco Use Types [...] Progress Notes * Markell Darling MD - 07/13/2019 2:00 PM EDT Rheumatology Follow Up phone [...] been worse over the last year . Pain in the wrist down to 7-8/10, no morning stiffness. Pain in the hand and wrist and with swelling. She is taking naproxen 2-3 x a week but sfeels like not helping. This has been how she has felt for the past couple of months. No tylenol and no turmeric PT for the hip was helping but bcs of covid Swelling warmth or Redness of the Joints; [...] and Sexual Activity ??? Alcohol use: Not on file ??? Drug use: Not on file ??? Sexual activity: Not on file Lifestyle ??? Physical activity Days per week: Not on file Minutes per session: Not on file ??? Stress: Not on file Relationships ??? Social connections Talks on phone: Not on file Gets together: Not on file Attends scientologist service: Not on file Active member of [...] Outpatient Medications Medication Sig Dispense Refill ??? folic acid (Folvite) 1 mg Tablet TAKE 2 TABLETS BY MOUTH ONCE DAILY 180 tablet 3 ??? metHOTREXate 2.5 mg Tablet TAKE 6 TABLETS BY MOUTH ONCE A WEEK 24 tablet 1 ??? PLAQUENIL 200 mg Tablet Take 2 tablets by mouth daily. (Patient not taking: Reported on 03/08/2019) 60 tablet 3 ??? predniSONE (DELTASONE) 2.5 mg Tablet 4 tabs daily decrease by 1 tabs every 7 days until at 5 mg. (Patient not taking: Reported on 12/21/2018) 63 tablet 3 ??? simvastatin (ZOCOR) 20 mg Tablet daily. 0 ??? verapamil (CALAN-SR) 240 mg Tablet Sustained Release daily. 0 ??? ibuprofen (ADVIL;MOTRIN) 200 mg Tablet Take 400 mg by mouth every 6 hours as needed for Pain. No current facility-administered medications for this visit. Current Outpatient Medications on File Prior to Visit Medication Sig Dispense Refill ??? folic acid (Folvite) 1 mg Tablet TAKE 2 TABLETS BY MOUTH ONCE DAILY 180 tablet 3 ??? metHOTREXate 2.5 mg Tablet TAKE 6 TABLETS BY MOUTH ONCE A WEEK 24 tablet 1 ??? PLAQUENIL 200 mg Tablet Take 2 tablets by mouth daily. (Patient not taking: Reported on 03/08/2019) 60 tablet 3 ??? predniSONE (DELTASONE) 2.5 mg Tablet 4 tabs daily decrease by 1 tabs every 7 days until at 5 mg. (Patient not taking: Reported on 12/21/2018) 63 tablet 3 ??? simvastatin (ZOCOR) 20 mg [...] limits with changes to the wrist. Patient report high Dz activity compared to last visit Since the need of labs post MTX increase we have deferred until covid quites down to increase MTX Added pred 5mg daily for 1 week then to drop to 2.5 mg daily She will add turmeric 1000mg BID COVID education Smoking cessation education Can cconsider increasing MTX SSz or a biologic Plan Continue MTX and FA DC HCQ SE/AE Orders Placed This Encounter Procedures ??? Comprehensive metabolic panel (non-fasting) ??? CBC (with Diff) ??? CRP, acute inflammation ??? Sedimentation rate No follow-ups on file. Lab work q 3 months Markell Darling MD I recommended continuing methotrexate for Keyona Terry. I discussed the potential toxicities of methotrexate with Keyona Terry, which may include glossitis, oral ulceration, pharyngitis, stomatitis, gingivitis, esophagitis, hematemesis, GI bleeding, GI perforation, diarrhea, anorexia, nausea, vomiting, hepatic failure, cirrhosis, elevated liver function studies, anemia, leukopenia, neutropenia, thrombocytopenia, pancytopenia, aplastic anemia, anaphylactoid reactions, vasculitis, myalgias, lymphadenopathy, infection, erythema multiforme, Augustin-Rafa syndrome, toxic epidermal necrolysis, exfoliative dermatitis, urticaria, radiation recall reaction, pruritis, alopecia, blurred vision, visual impairment, conjunctivitis, ocular irritation, xerophthalmia, scotomata, photosensitivity, optic atrophy, headache, arachnoiditis, confusion, impaired cognition, ataxia, paresis, seizures, encephalopathy, leukoencephalopathy, cough, pneumonitis, pulmonary fibrosis, chest pain, bradycardia, premature ventricular contractions, ventricular tachycardia, metabolic acidosis, tumor lysis syndrome, hyperkalemia, hyperphosphatemia, hyperuricemia, hypocalcemia, renal tubular obstruction, azotemia, renal failure, nephrolithiasis, cystitis, crystalluria, hematuria, gonadal suppression, gynecomastia, vaginal discharge, infertility, amenorrhea, oligospermia,spermatrogenesis inhibition, teratogenesis, , , and secondary malignancy, and she agrees to proceed with the plan of care. Keyona Terry was instructed to call for a fever of 100.5 or greater, uncontrolled nausea or vomiting, for pain on swallowing, or for any other questions or problems. References: Ilya ADAM, Devon JW, Carmine JM, et al. Adult acute lymphocytic leukemia: The [employer] experience. Leukemia 6:178-181, 1991 (suppl 1). Mal Mccoy, Peterson A, Cyndee MT et al. Low-dose oral methotrexate and cyclophosphamide in metastaticbreast cancer: antitumor activity and correlation with vascular endothelial growth factor levels. Caroline Oncol 13: 73-80, 2002. documented in this encounter Plan of Treatment Not on file documented as of this encounter Results * Sedimentation rate (11/16/2019 12:31 PM EDT) [facility] Sedimentation Rate Automated 27 2 - 39 mm/hr [facility] Comment: Effective March 15, 2019 new capillary photometric technology has resulted in a change in reference ranges. It is recommended that each ESR result be reviewed with its own age appropriate reference range. Blood specimen (specimen) 11/16/2019 12:31 PM EDT 11/16/2019 12:45 PM EDT Narrative Resulting Agency Comment Spec In Lab Markell Darling MD HEMATOLOGY ORDERABLE S Performing Organization Address [facility] Co de Phone Number [facility] [place] [address] * (ABNORMAL) CRP, acute inflammation (11/16/2019 12:31 PM EDT) C-Reactive Protein 7.0(H) <=4.9 mg/L [facility] Blood specimen (specimen) 11/16/2019 12:31 PM EDT 11/16/2019 12:45 PM EDT Narrative Resulting Agency Comment Spec In Lab Markell Darling MD CHEMISTRY ORDERABLES Performing Organization Address [facility] de Phone Number [facility] [place] [address] * Sedimentation rate (10/13/2019 10:30 AM EDT) Sedimentation Rate Automated 28 2 - 39 mm/hr [facility] Comment: Effective March 15, 2019 new capillary photometric technology has resulted in a change in reference ranges. It is recommended that each ESR result be reviewed with its own age appropriate reference range. Blood specimen (specimen) 10/13/2019 10:30 AM EDT 10/13/2019 10:39 AM EDT Narrative Resulting Agency Comment Spec In Lab Markell Darling MD HEMATOLOGY ORDERABLE S Performing Organization Address [facility] Co de Phone Number [facility] [place] [address] * (ABNORMAL) CRP, acute inflammation (10/13/2019 10:30 AM EDT) C-Reactive Protein 9.5(H) <=4.9 mg/L [facility] Blood specimen (specimen) 10/13/2019 10:30 AM EDT 10/13/2019 10:39 AM EDT Narrative Resulting Agency Comment Spec In Lab Markell Darling MD CHEMISTRY ORDERABLES [facility] [place] [address] documented in this encounter Visit Diagnoses Diagnosis Seropositive rheumatoid arthritis Rheumatoid arthritis Pain in both hands Bilateral wrist pain Pain in joint, forearm Chronic pain of both knees Health education/counseling Counseling NOS Methotrexate, intermodal truck driver, current use Encounter for long-term (current) use of other medications documented in this encounter Care Teams Clinical Informaticist Relationship Specialty Start Date End Date Naman Domingo PA PCP - General Family Medicine 07/04/18 06/10/20 documented as of this encounter
--- OUTSIDE RECORDS SUMMARY | 2023-11-15 02:28 | XMS_ITS | Encounter Summary ---
[place] [address] Care Team Providers Care Best Second Jobs Name Role Phone JAIR Francois Benjamin Primary Care Provider +1- [phone] Encounter Details Date Type Department Care Team (Latest Contact Info) Description 02/22/2020 1:20 PM EST Laboratory Appointment Lab [address] [place] [id number] Medication monitoring encounter; High risk medication use; Seropositive rheumatoid arthritis; Inflammatory arthropathy; Methotrexate, oysterman, current use; Pain in right hip; Bilateral wrist pain; [...] Associated Diagnosis Comments HC C-REACTIVE PROTEIN Routine 02/22/2020 1:28 PM EST Medication monitoring encounter High risk medication use Seropositive rheumatoid arthritis Inflammatory arthropathy Methotrexate, oysterman, current use Pain in right hip Bilateral wrist pain Seronegative rheumatoid arthritis HEMOGRAM Routine 02/22/2020 1:28 PM EST Medication monitoring encounter High risk medication use Seropositive rheumatoid arthritis Inflammatory arthropathy Methotrexate, oysterman, current use Pain in right hip Bilateral wrist pain Seronegative rheumatoid arthritis DIFFERENTIAL, AUTOMATED Routine 02/22/2020 1:28 PM EST Medication monitoring encounter High risk medication use Seropositive rheumatoid arthritis Inflammatory arthropathy Methotrexate, oysterman, current use Pain in right hip Bilateral wrist pain Seronegative rheumatoid arthritis HC CREATININE Routine 02/22/2020 1:28 PM EST Medication monitoring encounter High risk medication use Seropositive rheumatoid arthritis Inflammatory arthropathy Methotrexate, oysterman, current use Pain in right hip Bilateral wrist pain Seronegative rheumatoid arthritis HC ESR-SEDIMENTATION RATE, BLOOD Routine 02/22/2020 1:28 PM EST Medication monitoring encounter High risk medication use Seropositive rheumatoid arthritis Inflammatory arthropathy Methotrexate, usp, current use Pain in right hip Bilateral wrist pain Seronegative rheumatoid arthritis HC CBC,PLT & AUTO DIFF Routine 02/22/2020 1:28 PM EST Medication monitoring encounter High risk medication use Seropositive rheumatoid arthritis Inflammatory arthropathy Methotrexate, oysterman, current use Pain in right hip Bilateral wrist pain Seronegative rheumatoid arthritis HEPATIC FUNCTION PANEL Routine 02/22/2020 1:28 PM EST Medication monitoring encounter High risk medication use Seropositive rheumatoid arthritis Inflammatory arthropathy Methotrexate, usp, current use Pain in right hip Bilateral wrist pain Seronegative rheumatoid arthritis documented in this encounter Results * (ABNORMAL) Differential, Automated (02/22/2020 1:28 PM EST) Neutrophil % 52.6 % [facility] Neutrophil Absolute 5.35 1.70 - 6.10 x10(3)/mc L [facility] Lymph % 37.7 % [facility] Lymphocytes Abs 3.8(H) 0.9 - 3.2 x10(3)/mc L [facility] Monocyte % 6.7 % [facility] Monocyte Abs 0.7 0.3 - 0.9 x10(3)/mc L [facility] Eos % 2.0 % [facility] Eosinophils Abs 0.2 0.0 - 0.4 x10(3)/mc L [facility] Basophil % 0.6 % [facility] Baso Absolute 0.1 0.0 - 0.1 x10(3)/mc L [facility] Immature Gran % 0.40 % [facility] Comment: Immature granulocytes(IG's)percentage and absolute count will include metamyelocytes, myelocytes, and promyelocytes. Blood smears from CBCs yielding IG's will be scanned manually for concordance. If this scan disagrees with the automated IG or if promyelocytes are noted, a manual differential will be performed. Immature Gran Absolute 0.04 0.00 - 0.04 x10(3)/ L [facility] Blood specimen (specimen) 02/22/2020 1:28 PM EST 02/22/2020 1:36 PM EST Narrative Resulting Agency Comment Spec In Lab Markell Darling MD HEMATOLOGY ORDERABLE S [facility] [place] [address] * (ABNORMAL) Hemogram (02/22/2020 1:28 PM EST) White Blood Cell 10.2(H) 4.0 - 9.5 x10(3)/[facility] Red Blood Cell 4.09 4.00 - 5.21 x10(6)/[facility] Hemoglobin 13.1 11.7 - 15.5 gm/dL [facility] Hematocrit 38.8 35.7 - 45.8 % [facility] Mean Cell Volume 94.9(H) 82.6 - 94.4 fL [facility] Mean Cell Hemoglobin 32.0 27.1 - 32.0 pg [facility] Mean Cell Hemoglobin Concentration 33.8 31.7 - 35.0 gm/dL [facility] Platelet 316 145 - 357 x10(3)/ L [facility] RDW Standard Deviation 50.2(H) 37.0 - 46.0 fL [facility] RDW coefficient of variation 14.4(H) 11.5 - 14.1 % [facility] Mean Platelet Volume 9.2 7.6 - 12.9 fL [facility] NRBC% auto 0.0 % [facility] NRBC Absolute 0.000 0.000 - 0.000 x10(3)/mc L [facility] Blood specimen (specimen) 02/22/2020 1:28 PM EST 02/22/2020 1:36 PM EST Narrative Resulting Agency Comment Spec In Lab Markell Darling MD HEMATOLOGY ORDERABLE S Performing Organization Address City/[facility]/ZIP Co de Phone Number [facility] [place] [address] * Creatinine (02/22/2020 1:28 PM EST) Creatinine 0.78 0.70 - 1.20 mg/dL [facility] Est Glomerular Filtration Rate 86 >=60 mL/min/1.7 3 m?? [facility] Comment: The eGFR was calculated using the CKD-EPI equation. As with all creatinine based estimates of kidney function, eGFR values calculated with the CKD-EPI equation are not accurate in patients with acute kidney failure, extremes of body mass or the acutely ill. [email or web address] eGFR 99 >=60 mL/min/1.7 3 m?? [facility] Comment: The eGFR was calculated using the CKD-EPI equation. As with all creatinine based estimates of kidney function, eGFR values calculated with the CKD-EPI equation are not accurate in patients with acute kidney failure, extremes of body mass or the acutely ill. [email or web address] Blood specimen (specimen) 02/22/2020 1:28 PM EST 02/22/2020 1:36 PM EST Narrative Resulting Agency Comment Spec In Lab Markell Darling MD CHEMISTRY ORDERABLES Performing Organization Address City/[facility]/ZIP Co de Phone Number [facility] [place] [address] * Hepatic Function Panel (02/22/2020 1:28 PM EST) Protein, Total 7.4 6.1 - 8.0 gm/dL [facility] Albumin 4.6 3.2 - 5.2 gm/dL [facility] Aspartate Aminotransferase 11 0 - 30 unit/L [facility] Alanine Aminotransferase 10 0 - 30 unit/L [facility] Alkaline Phosphatase 81 35 - 105 unit/L [facility] Bilirubin, Total 0.2 0.2 - 1.3 mg/dL [facility] Bilirubin, Direct 0.1 0.0 - 0.3 mg/dL [facility] Blood specimen (specimen) 02/22/2020 1:28 PM EST 02/22/2020 1:36 PM EST Narrative Resulting Agency Comment Spec In Lab Markell Darling MD CHEMISTRY ORDERABLES Performing Organization Address City/[facility]/ZIP Co de Phone Number [facility] [place] [address] * (ABNORMAL) CRP, acute inflammation (02/22/2020 1:28 PM EST) [facility] C-Reactive Protein 5.6(H) <=4.9 mg/L [facility] Blood specimen (specimen) 02/22/2020 1:28 PM EST 02/22/2020 1:36 PM EST Narrative Resulting Agency Comment Spec In Lab Markell Darling MD CHEMISTRY ORDERABLES Performing Organization Address City/[facility]/ZIP Co de Phone Number [facility] [place] [address] * Sedimentation rate (02/22/2020 1:28 PM EST) [facility] Sedimentation Rate Automated 31 2 - 39 mm/hr [facility] Comment: Effective March 15, 2019 new capillary photometric technology has resulted in a change in reference ranges. It is recommended that each ESR result be reviewed with its own age appropriate reference range. Blood specimen (specimen) 02/22/2020 1:28 PM EST 02/22/2020 1:36 PM EST Narrative Resulting Agency Comment Spec In Lab Markell Darling MD HEMATOLOGY ORDERABLE S [facility] [place] [address] documented in this encounter Visit Diagnoses Diagnosis [...] arthritis documented in this encounter Care Teams Best Second Jobs Relationship Specialty Start Date End Date Naman Domingo PA PCP - General Family Medicine 07/04/18 06/10/20 documented as of this encounter
--- OUTSIDE RECORDS SUMMARY | 2023-11-15 02:28 | XMS_ITS | Encounter Summary ---
Author [facility] [place] [address] Care Team Providers Care Condenser Cleaner Name Role Phone JAIR Francois Benjamin Primary Care Provider +1- [phone] Encounter Details Date Type Department Care Team (Late st Contact Info) Description 07/31/2019 [place] [id number] Andie Stevens Social History Tobacco Use Types [...] * Telephone Encounter - Andie Stevens - 07/31/2019 3:06 PM EDT Lm for pt to book 8-12 week fuv per cedric. Sending letter documented in this encounter Plan of Treatment Not on file documented as of this encounter Visit Diagnoses Not on filedocumented in this encounter Care Teams Condenser Cleaner Relationship Specialty Start Date End Date Naman Domingo PA PCP - General Family Medicine 07/04/18 06/10/20 documented as of this encounter
--- OUTSIDE RECORDS SUMMARY | 2023-11-15 02:28 | XMS_ITS | Encounter Summary ---
Author Organization [facility] [place] [address] Care Team Providers Care Fiscal Accounting Clerk Name Role Phone JAIR Francois, Naman Primary Care Provider +1- [phone] Reason for Visit * Reason Comments Medication Refill Encounter Details Date Type Department Care Team (Late st Contact Info) Description 01/29/2019 Refill [place] [address] Markell Darling MD [facility] [place] [address] Inflammatory arthropathy; Seropositive rheumatoid arthritis Social History Tobacco Use Types Packs/Day Years Used Date Smoking Tobacco: Every Day Cigarettes Smokeless Tobacco: Never Sex and Gender Information Value Date Recorded Sex Assigned at Not on file Gender Identity Not on file Sexual Orientation Not on file documented as of this encounter Plan of Treatment Not on file documented as of this encounter Visit Diagnoses Diagnosis Inflammatory arthropathy Arthropathy, unspecified, site unspecified Seropositive rheumatoid arthritis Rheumatoid arthritis documented in this encounter Care Teams Fiscal Accounting Clerk Relationship Specialty Start Date End Date Naamn Domingo PA PCP - General Family Medicine 07/04/18 06/10/20 documented as of this encounter
--- OUTSIDE RECORDS SUMMARY | 2023-11-15 02:28 | XMS_ITS | Encounter Summary ---
Author Organization [facility] [place] [address] Care Team Providers Care Hospital Cna Name Role Phone JAIR Francois Benjamin Primary Care Provider +1- [phone] Encounter Details Date Type Department Care Team (Latest Contact Info) Description 05/20/2020 10:00 AM EST TH Visit (TeleHealth) [place] [address] Markell Darling MD [facility] [place] [address] Medication monitoring encounter; High risk medication use; Seropositive rheumatoid arthritis; Inflammatory arthropathy; Methotrexate, buttermilk drier operator, current use; Seronegative rheumatoid arthritis; Bursitis of [...] Progress Notes * Markell Darling MD - 05/20/2020 10:00 AM EST Rheumatology Follow Up phone note 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 abnormal wrist xray erosion verses a cyst CDAI uable to calcuate MTX 6 tbs weekly and FA She has been up as high HCQ SE - diarrhea Interval HX: Keyona Terry is a 54 y.o. C female who presents today for fu evaluation SPRA of bilateral hand pain and foot pain that is been going on for several years but been worse over the last year. She is still having pain in the ankles feet, hands, wrist, Hips and elbow. The pain are mostly withactivity. They are worse with activity but thereall the time No gi symptoms Morning stiffness., No family hx of MS None of the joints are swollen red or warm - She is on mobic She does not take tylenol. She has not been on lefluanmide. Ssz, since the last time ws Her symptoms are unchangeddepsite the adddtion of mobic Physical Exam: NAD NCAT, nonicteric sclera, no [...] well at Dz activity mild to moderate per patient thought w/o seeing the patient this is difficult ?? Unable to tolerate HCQ ?? Off [...] chills night sweats or weight loss - will repeat in q 1 month - Discontinued aleve started Mobic Recommended taking with food and the addition to a PPI OTC such as Nexium Labs q 3 months for MTX monitoring [...] changed: Orders Placed This Encounter Procedures ??? CBC (with Diff) ??? CRP, acute inflammation ??? Creatinine ??? Hepatic Function Panel ??? Sedimentation rate ??? Covid Vaccination Eligibility - Provider Identified Return in about 4 weeks (around 06/17/2020) for Telehealth. > 44 minutes Markell Darling MD documented in this encounter Plan of Treatment Not on file documented as of this encounter Visit Diagnoses Diagnosis Medication monitoring encounter Encounter for therapeutic drug monitoring High risk medication use Encounter for long-term (current) use of other medications Seropositive rheumatoid arthritis Rheumatoid arthritis Inflammatory arthropathy Arthropathy, unspecified, site unspecified Methotrexate, buttermilk drier operator, current use Encounter for long-term (current) use of other medications Seronegative rheumatoid arthritis Rheumatoid arthritis Bursitis of other bursa of both hips Bilateral wrist pain Pain in joint, forearm Pain in both hands Pain in right hip Pain in joint, pelvic region and thigh Chronic pain of both ankles Chronic pain of both knees documented in this encounter Care Teams Hospital Cna Relationship Specialty Start Date End Date Naman Domingo PA PCP - General Family Medicine 07/04/18 06/10/20 documented as of this encounter
--- OUTSIDE RECORDS SUMMARY | 2023-11-15 02:28 | XMS_ITS | Encounter Summary ---
Author Organization [facility] [place] [address] Care Team Providers Care Bottom Pounder Cement Shoes Name Role Phone JAIR Francois, Naman Primary Care Provider +1- [phone] Encounter Details Date Type Department Care Team (Late st Contact Info) Description 05/22/2020 Telephone [place] [id number] Markell Darling MD [facility] [place] [address] Social History Tobacco Use Types Packs/Day Years [...] on filedocumented in this encounter Care Teams Bottom Pounder Cement Shoes Relationship Specialty Start Date End Date Naman Domingo PA PCP - General Family Medicine 07/04/18 06/10/20 documented as of this encounter
--- OUTSIDE RECORDS SUMMARY | 2023-11-15 02:28 | XMS_ITS | Encounter Summary ---
Author Organization [facility]ly [facility] [place] [address] Care Team Providers Care Supply Service Worker Name Role Phone JAIR Francois Benjamin Primary Care Provider +1- [phone] Encounter Details Date Type Department Care Team (Late st Contact Info) Description 02/07/2020 [place] [address] Felisa Paredes RN Social History Tobacco Use Types Packs/Day [...] encounter Miscellaneous Notes * Telephone Encounter - Felisa Paredes RN - 02/28/2020 1:27 PM EST This nurse to Keyona's home. She recently got abnormal lab results which calls for further work up hence she is not interested in starting a trial right now. She does have our contact information should she want to reach out to us in the future. * Telephone Encounter - Felisa Paredes RN - 02/21/2020 1:55 PM EST This nurse to Keyona's home number to check in about the BRANCH trial which she voiced interest in. She should have received the information sent in the mail last week. Asked her to call back. * Telephone Encounter - Felisa Paredes RN - 02/13/2020 7:49 AM EST ICF for BRANCH trial placed in mail this morning. Will f/u with pt on 02/21/20 unless we hear from her sooner. * Telephone Encounter - Felisa Paredes RN - 02/12/2020 5:01 PM EST Received callback from [place] who is interested in learning more about the clinical studies for RA. We spoke in general about study participation including sponsors, protocols, inclusion/exclusion criteria, visits, labs, stipends and eligibility. Then we spoke in more detail about two specific studies, RAMBA and BRANCH. RAMBA: we spoke about gamboa incl/excl criteria, visit schedule, abatacept, infusions, lab work, what is covered by sponsor and what is not and duration of the study and length of study visits. BRANCH: we spoke about gamboa incl/excl criteria, visit schedule, baricitinib and TNFi's used in the study, open label, duration of study, stipends, and lab work. She is interested in learning more about the BRANCH study. This nurse will send her a copy of the ICF. She was specifically told to NOT sign this document. Itis mailed for her information only. She may share with friends/family, it may help answer questionsand generate more. We'll sign an ICF at the screening visit as this is the first thing that must bedone prior to any other formal study activities. She verbalized understanding. She was encouraged to call with any questions. We'll reach out within the week to see if she has more questions or is interested in screening. * Telephone Encounter - Felisa Paredes RN - 02/09/2020 1:20 PM EST Second msg left. * Telephone Encounter - Felisa Paredes RN - 02/07/2020 11:29 AM EST This nurse to Keyona's mobile phone. Left msg asking for a callback if she is interested in learning more about rheumatology clinical trials. Contact info given. documented in this encounter Plan of Treatment Not on file documented as of this encounter Visit Diagnoses Not on filedocumented in this encounter Care Teams Supply Service Worker Relationship Specialty Start Date End Date Naman Domingo PA PCP - General Family Medicine 07/04/18 06/10/20 documented as of this encounter
--- OUTSIDE RECORDS SUMMARY | 2023-11-15 02:28 | XMS_ITS | Encounter Summary ---
[place] [address] Care Team Providers Care Gifted Teacher Name Role Phone JAIR Francois Benjamin Primary Care Provider +1- [phone] Reason for Visit * Reason Onset Date Comments Prior Authorization 12/14/2018 Encounter Details Date Type Department Care Team (Late st Contact Info) Description 12/14/2018 Tele[place] [address] Nicole Irby Prior Authorization Social History Tobacco Use Types Packs/Day Years Used Date Smoking Tobacco: Every Day Smokeless Tobacco: Never Sex and Gender Information Value Date Recorded Sex Assigned at Not on file Gender Identity Not on file Sexual Orientation Not on file documented as of this encounter Miscellaneous Notes * Telephone Encounter - Nicole Irby - 12/14/2018 12:09 PM EDT Medication Prior Authorization Phong Medication name/dose/directions: Plaquenil 200mg - 2x daily Rationale for request: RA Health plan: [employer]ISA[employer] (Fax) Authorizing payroll representative name: Ana Faxed to health plan on: 12/14/18 Health plan decision: Denied Quantity approved: product/service note covered Authorization number: Start date: End date: documented in this encounter Plan of Treatment Not on file documented as of this encounter Visit Diagnoses Not on filedocumented in this encounter Care Teams Gifted Teacher Relationship Specialty Start Date End Date Naman Domingo PA PCP - General Family Medicine 07/04/18 06/10/20 documented as of this encounter
--- OUTSIDE RECORDS SUMMARY | 2023-11-15 02:28 | XMS_ITS | Encounter Summary ---
Author Organization [facility] [place] [address] Care Team Providers Care Vp Construction Name Role Phone Nidhi Conti Primary Care Provider [phone] Reason for Visit * Reason Comments Medication Refill Encounter Details Date Type Department Care Team (Late st Contact Info) Description 05/17/2020 [place] [address] Markell Darling MD [facility] [place] [address] [place] [address] Inflammatory arthropathy; Seropositive rheumatoid arthritis Social History [...] arthritis documented in this encounter Care Teams Vp Construction Relationship Specialty Start Date End Date Nidhi Conti PA [address] [place] [id number] PCP - General Family Medicine 06/11/20 documented as of this encounter
--- OUTSIDE RECORDS SUMMARY | 2023-11-15 02:28 | XMS_ITS | Encounter Summary ---
Author Organization [facility] [place] [address] Care Team Providers Care Health Center Manager Name Role Phone Nidhi Conti Primary Care Provider [phone] Reason for Visit * Reason Comments Medication Refill Encounter Details Date Type Department Care Team (Late st Contact Info) Description 05/09/2020 Refill [place] [address] Markell Darling MD [facility] [place] [address] Bilateral wrist pain; Pain in both hands; [...] arthritis documented in this encounter Care Teams Health Center Manager Relationship Specialty Start Date End Date Nidhi Conti PA [address] [place] [id number] PCP - General Family Medicine 06/11/20 documented as of this encounter
--- OUTSIDE RECORDS SUMMARY | 2023-11-15 02:28 | XMS_ITS | Encounter Summary ---
[place] [address] Care Team Providers Care Collection Team Lead Name Role Phone JAIR Francois Benjamin Primary Care Provider +1- [phone] Encounter Details Date Type Department Care Team (Latest Contact Info) Description 11/16/2019 12:20 PM EDT Laboratory Appointment Lab [address] [place] [phone] Inflammatory arthropathy; Seropositive rheumatoid arthritis; High risk medication use; Pain in both hands; Bilateral wrist pain; Chronic pain of both knees; Tendinitis of right hip flexor; Pain in right hip; Bursitis of other bursa of both hips Social History Tobacco Use Types Packs/Day Years [...] Associated Diagnosis Comments HC C-REACTIVE PROTEIN Routine 11/16/2019 12:31 PM EDT Seropositive rheumatoid arthritis Pain in both hands Bilateral wrist pain Chronic pain of both knees BILIRUBIN, DIRECT Routine 11/16/2019 12: 31 PM EDT HEMOGRAM Routine 11/16/2019 12:31 PM EDT Inflammatory arthropathy Seropositive rheumatoid arthritis High risk medication use Pain in both hands Bilateral wrist pain Chronic pain of both knees DIFFERENTIAL, AUTOMATED Routine 11/16/2019 12:31 PM EDT Inflammatory arthropathy Seropositive rheumatoid arthritis High risk medication use Pain in both hands Bilateral wrist pain Chronic pain of both knees HC ESR-SEDIMENTATION RATE, BLOOD Routine 11/16/2019 12:31 PM EDT Seropositive rheumatoid arthritis Pain in both hands Bilateral wrist pain Chronic pain of both knees HC VENIPUNCTURE Routine 11/16/2019 12:31 PM EDT Inflammatory arthropathy Seropositive rheumatoid arthritis High risk medication use Pain in both hands Bilateral wrist pain Chronic pain of both knees COMPREHENSIVE METABOLIC PANEL Routine 11/16/2019 12:31 PM EDT Inflammatory arthropathy Seropositive rheumatoid arthritis High risk medication use Pain in both hands Bilateral wrist pain Chronic pain of both knees documented in this encounter Results * Bilirubin, Direct (11/16/2019 12:31 PM EDT) Bilirubin, Direct 0.1 0.0 - 0.3 mg/dL [facility] Blood specimen (specimen) 11/16/2019 12:31 PM EDT 11/16/2019 12:45 PM EDT Narrative Resulting Agency Comment Spec In Lab Markell Darling MD CHEMISTRY ORDERABLES [facility] [place] [address] * (ABNORMAL) Differential, Automated (11/16/2019 12:31 PM EDT) Neutrophil % 70.8 % [facility] Neutrophil Absolute 7.37(H) 1.70 - 6.10 x10(3)/mc L [facility] Lymph % 21.7 % [facility] Lymphocytes Abs 2.3 0.9 - 3.2 x10(3)/mc L [facility] Monocyte % 5.4 % [facility] Monocyte Abs 0.6 0.3 - 0.9 x10(3)/mc L [facility] Eos % 1.0 % [facility] Eosinophils Abs 0.1 0.0 - 0.4 x10(3)/[facility] Basophil % 0.5 % [facility] Baso Absolute 0.0 0.0 - 0.1 x10(3)/[facility] Immature Gran % 0.60 % [facility] Comment: Immature granulocytes(IG's)percentage and absolute count will include metamyelocytes, myelocytes, and promyelocytes. Blood smears from CBCs yielding IG's will be scanned manually for concordance. If this scan disagrees with the automated IG or if promyelocytes are noted, a manual differential will be performed. Immature Gran Absolute 0.06(H) 0.00 - 0.04 x10(3)/[facility] Blood specimen (specimen) 11/16/2019 12:31 PM EDT 11/16/2019 12:45 PM EDT Narrative Resulting Agency Comment Spec In Lab Markell Darling MD HEMATOLOGY ORDERABLE S [facility] [place] [address] * (ABNORMAL) Hemogram (11/16/2019 12:31 PM EDT) White Blood Cell 10.4(H) 4.0 - 9.5 x10(3)/[facility] Red Blood Cell 4.15 4.00 - 5.21 x10(6)/[facility] Hemoglobin 13.3 11.7 - 15.5 gm/dL [facility] Hematocrit 39.6 35.7 - 45.8 % [facility] Mean Cell Volume 95.4(H) 82.6 - 94.4 fL [facility] Mean Cell Hemoglobin 32.0 27.1 - 32.0 pg [facility] Mean Cell Hemoglobin Concentration 33.6 31.7 - 35.0 gm/dL [facility] Platelet 295 145 - 357 x10(3)/mc L [facility] RDW Standard Deviation 55.0(H) 37.0 - 46.0 fL [facility] RDW coefficient of variation 15.8(H) 11.5 - 14.1 % [facility] Mean Platelet Volume 9.5 7.6 - 12.9 fL [facility] NRBC% auto 0.0 % [facility] NRBC Absolute 0.000 0.000 - 0.000 x10(3)/mc L [facility] Blood specimen (specimen) 11/16/2019 12:31 PM EDT 11/16/2019 12:45 PM EDT Narrative Resulting Agency Comment Spec In Lab Mrakell Darling MD HEMATOLOGY ORDERABLE S Performing Organization Address [facility] Co de Phone Number [facility] [place] [address] * (ABNORMAL) CRP, acute inflammation (11/16/2019 12:31 PM EDT) C-Reactive Protein 7.0(H) <=4.9 mg/L [facility] Blood specimen (specimen) 11/16/2019 12:31 PM EDT 11/16/2019 12:45 PM EDT Narrative Resulting Agency Comment Spec In Lab Markell Darling MD CHEMISTRY ORDERABLES Performing Organization Address [facility] Co de Phone Number [facility] [place] [address] * Sedimentation rate (11/16/2019 12:31 PM EDT) Sedimentation Rate Automated 27 2 - 39 mm/hr [facility] Comment: Effective March 15, 2019 new capillary photometric technology has resulted in a change in reference ranges. It is recommended that each ESR result be reviewed with its own age appropriate reference range. Blood specimen (specimen) 11/16/2019 12:31 PM EDT 11/16/2019 12:45 PM EDT Narrative Resulting Agency Comment Spec In Lab Markell Darling MD HEMATOLOGY ORDERABLE S [facility] [place] [address] * (ABNORMAL) Comprehensive metabolic panel (non-fasting) (11/16/2019 12:31 PM EDT) Glucose 110 65 - 199 mg/dL [facility] Comment:Diabetes: >=200 mg/d L plus symptoms Blood Urea Nitrogen 12 8 - 18 mg/dL [facility] Creatinine 0.68(L) 0.70 - 1.20 mg/dL [facility] Sodium 140 135 - 145 mmol/L [facility] Potassium 4.0 3.5 - 5.0 mmol/L [facility] Comment: Please note: ??Patients with WBC >100,000 may have falsely elevated Potassium levels. ??For accurate Potassium quantification in these patients send serum separator tube (gold top) for subsequent determinations. ??Contact the Clinical Chemistry Laboratory if there are any questions. Chloride 104 98 - 107 mmol/L [facility] Carbon Dioxide 24 22 - 31 mmol/L [facility] Anion Gap 12 5 - 15 mmol/L [facility] Calcium 9.3 8.5 - 10.5 mg/dL [facility] Protein, Total 7.0 6.1 - 8.0 gm/dL [facility] Albumin 4.4 3.2 - 5.2 gm/dL [facility] Aspartate Aminotransferase 10 0 - 30 unit/L [facility] Alanine Aminotransferase 10 0 - 30 unit/L [facility] Alkaline Phosphatase 61 35 - 105 unit/L [facility] Bilirubin, Total 0.4 0.2 - 1.3 mg/dL [facility] Est Glomerular Filtration Rate 99 >=60 mL/min/1. 73 m?? [facility] Comment: The eGFR was calculated using the CKD-EPI equation. As with all creatinine based estimates of kidney function, eGFR values calculated with the CKD-EPI equation are not accurate in patients with acute kidney failure, extremes of body mass or the acutely ill. http://[employer]/DHMCnkf eGFR 115 >=60 mL/min/1. 73 m?? [facility] Comment: The eGFR was calculated using the CKD-EPI equation. As with all creatinine based estimates of kidney function, eGFR values calculated with the CKD-EPI equation are not accurate in patients with acute kidney failure, extremes of body mass or the acutely ill. http://[employer]/DHMCnkf Blood specimen (specimen) 11/16/2019 12:31 PM EDT 11/16/2019 12:45 PM EDT Narrative Resulting Agency Comment Spec In Lab Markell Darling MD CHEMISTRY ORDERABLES Performing Organization Address City/State/[facility] Co de Phone Number [facility] [place] [address] documented in this encounter Visit Diagnoses Diagnosis Inflammatory arthropathy Arthropathy, unspecified, site unspecified Seropositive rheumatoid arthritis Rheumatoid arthritis High risk medication use Encounter for long-term (current) use of other medications Pain in both hands Bilateral wrist pain Pain in joint, forearm Chronic pain of both knees Tendinitis of right hip flexor Pain in right hip Pain in joint, pelvic region and thigh Bursitis of other bursa of both hips documented in this encounter Care Teams Collection Team Lead Relationship Specialty Start Date End Date Naman Domingo PA PCP - General Family Medicine 07/04/18 06/10/20 documented as of this encounter
--- OUTSIDE RECORDS SUMMARY | 2023-11-15 02:28 | XMS_ITS | Encounter Summary ---
Author Organization [facility]ly [facility] Address [facility] [place] [address] Care Team Providers Care Power Plant Mechanic Name Role Phone JAIR Francois Benjamin Primary Care Provider +1- [phone] Encounter Details Date Type Department Care Team (Latest Contact Info) Description 03/08/2019 9:14 AM EST - 03/08/2019 11:59 PM [facility] Hospital Encounter XRay at [address] [place] [address] Markell Darling MD [facility] [place] [address] Tendinitis of right hip flexor; Pain in right hip; Bursitis of other bursa of both hips Discharge Disposition: Home Social History Tobacco Use [...] 240 mg by mouth daily. 0 05/16/2018 metHOTREXate 2.5 mg TabletIndications:Infl ammatory arthropathy,Seropositi ve rheumatoid arthritis TAKE 6 TABLETS BY MOUTH ONCE A WEEK 24 tablet 3 01/30/2019 06/22/2019 PLAQUENIL 200 mg Tablet Take 2 tablets by mouth daily. 60 tablet 3 11/30/2018 09/20/2019 predniSONE (DELTASONE) 2.5 mg TabletIndications:Sero positive rheumatoid arthritis,Pain in both hands,Bilateral wrist pain,Chronic pain of both knees 4 tabs daily decrease by 1 tabs every 7 days until at 5 mg. 63 tablet 3 10/03/2018 07/13/2019 folic acid (FOLVITE) 1 mg TabletIndications:Infl ammatory arthropathy,Seropositi ve rheumatoid arthritis Take 2 tablets by mouth daily. 180 tablet 3 07/04/2018 06/23/2019 ibuprofen (ADVIL;MOTRIN) 200 mg Tablet Take 400 mg by mouth every 6 hours as needed for Pain. 03/15/2020 documented as of this encounter Plan of Treatment Not on file documented as of this encounter Procedures Procedure Name Priority Date/Time Associated Diagnosis Comments XR PELVIS AND HIP 2 VIEWS BILATERAL Routine 03/08/2019 9:29 AM EST Tendinitis of right hip flexor Pain in right hip Bursitis of other bursa of both hips documented in this encounter Results * XR Pelvis and Hip 2 Views Bilateral (03/08/2019 9:29 AM EST) Anatomical Region Laterality Modality Pelvis, Hip Bilateral Digital Radiogra phy Impressions 03/08/2019 12:42 PM EST Symmetric joint space narrowing of the hips, without osseous erosion or proliferation. Thank you for letting us participate in the care of this patient. For questions regarding this report, please contact the number below. ? Narrative 03/08/2019 12:42 PM EST EXAMINATION: XR PELVIS AND HIP 2 VIEWS BILATERAL CLINICAL HISTORY: Xr of the hip - Per clinic note, the patient has chronic worsening hip pain, right greater than left. There is a history of rheumatoid arthritis. TECHNIQUE: A frontal radiograph of the pelvis was obtained, along with AP and frog-leg lateral views of the bilateral hips. COMPARISON: None FINDINGS: There is moderate, symmetric narrowing of the hips. No osseous erosion or proliferation. Bone normalization is within normal limits. The sacroiliac joints are symmetric. Procedure Note Betty Moeller MD - 03/08/2019 EXAMINATION: XR PELVIS AND HIP 2 VIEWS BILATERAL CLINICAL HISTORY: Xr of the hip - Per clinic note, the patient has chronic worsening hip pain, right greaterthan left. There is a history of rheumatoid arthritis. TECHNIQUE: A frontal radiograph of the pelvis was obtained, along with AP andfrog-leg lateral views of the bilateral hips. COMPARISON: None FINDINGS: There is moderate, symmetric narrowing of the hips. No osseous erosionor proliferation. Bone normalization is within normal limits. The sacroiliacjoints are symmetric. IMPRESSION Symmetric joint space narrowing of the hips, without osseous erosion or proliferation. Thank you for letting us participate in the care of this patient. Forquestions regarding this report, please contact the number below. Markell Darling MD IMG DX ORDERABLES documented in this encounter Visit Diagnoses Diagnosis Tendinitis of right hip flexor Pain in right hip Pain in joint, pelvic region and thigh Bursitis of other bursa of both hips documented in this encounter Care Teams Power Plant Mechanic Relationship Specialty Start Date End Date Naman Domingo PA PCP - General Family Medicine 07/04/18 06/10/20 documented as of this encounter
--- OUTSIDE RECORDS SUMMARY | 2023-11-15 02:28 | XMS_ITS | Encounter Summary ---
Author Organization [facility] [place] [address] Care Team Providers Care Merchandise Deliverer Name Role Phone Nidhi Conti Primary Care Provider [phone] Reason for Visit * Reason Comments Medication Refill Encounter Details Date Type Department Care Team (Late st Contact Info) Description 10/26/2019 [place] [address] Markell Darling MD [facility] [place] [address] Inflammatory arthropathy; Seropositive rheumatoid arthritis; High risk [...] Telephone Encounter - Rocío Vilchis LPN - 10/26/2019 9:46 AM EDT Rx refill request: MTX 2.5 mg tablet Last office visit: 09/20/2019 Per last note: Plan Continue MTX and FA DC HCQ SE/AE Last refill: 09/20/2019 Labs 10/13/2019 Rocío vilchis LPN documented in this encounter Plan of Treatment Not on file documented as of this encounter Visit Diagnoses Diagnosis Inflammatory arthropathy Arthropathy, unspecified, site unspecified Seropositive rheumatoid arthritis Rheumatoid arthritis High risk medication use Encounter for long-term (current) use of other medications documented in this encounter Care Teams Merchandise Deliverer Relationship Specialty Start Date End Date Nidhi Conti PA [address] [place] [id number] PCP - General Family Medicine 06/11/20 documented as of this encounter
--- OUTSIDE RECORDS SUMMARY | 2023-11-15 02:28 | XMS_ITS | Encounter Summary ---
Author Organization [facility] [place] [address] Care Team Providers Care Project Director Name Role Phone JAIR Francois Benjamin Primary Care Provider [phone]- [phone] Encounter Details Date Type Department Care Team (Late st Contact Info) Description 02/28/2020 Tele[place] [phone] Abdi Arceo, RN Social History Tobacco Use Types Packs/Day [...] Telephone Encounter - Abdi Arceo RN - 02/28/2020 11:45 AM EST Keyona Terry - 02/22/20 - Abnl labs << Less Detail Abnl labs Markell Darling MD Sent: WedFebruary 28, 2020 ??6:49 AM To: [facility] Rheumatology Nurse ?? Message Hi repat labs placed with some additional testing for her appointment on Mar 15. ?? She ahs persistent mild lymphocytosis I would like her to follow up with her PCP as well . ?? May consider a referral to a senior sql server developer if stays elevated and or abnormality on added blood work. Please let patient eb red . ??Once again very mild thanks markell ----- Message ----- From: Kenneth, Lab [facility] Sent: 02/22/2020 ?? 1:43 PM EST To: Markell Darling MD Patient updated on mild lymphocytosis. Orders in place, patient will complete at [facility], will contactclinic if to be done elsewhere. Will send results to pcp as well and advised to follow up with PCP. documented in this encounter Plan of Treatment Not on file documented as of this encounter Visit Diagnoses Not on filedocumented in this encounter Care Teams Project Director Relationship Specialty Start Date End Date Naman Domingo PA PCP - General Family Medicine 07/04/18 06/10/20 documented as of this encounter
--- OUTSIDE RECORDS SUMMARY | 2023-11-15 02:28 | XMS_ITS | Encounter Summary ---
[place] [address] Care Team Providers Care Disabilities Services Officer Name Role Phone JAIR Francois Benjamin Primary Care Provider +1- [phone] Encounter Details Date Type Department Care Team (Latest Contact Info) Description 03/12/2020 2:35 PM EST Laboratory Appointment Lab [address] [place] [phone] Medication monitoring encounter; High risk medication use; [...] Diagnosis Comments HC RANDOM URINE PEP Routine 03/12/2020 2 :59 PM EST Medication monitoring encounter High risk medication use Lymphocytosis HC VENIPUNCTURE Routine 03/12/2020 2:55 PM EST Medication monitoring encounter High risk medication use Lymphocytosis PATHOLOGY SLIDE REVIEW Routine 0 2:55 PM EST SCAN, PERIPHERAL BLOOD Routine 0 2:55 PM EST HEMOGRAM Routine 03/12/2020 2:55 PM EST Medication monitoring encounter High risk medication use Lymphocytosis DIFFERENTIAL, AUTOMATED Routine 03/12/20 20 2:55 PM EST Medication monitoring encounter High risk medication use Lymphocytosis HC CBC,PLT & AUTO DIFF Routine 0 2:55 PM EST Medication monitoring encounter High risk medication use Lymphocytosis HC SERUM PROT. ELECTROPHORESIS Routine 03/12/2020 2:55 PM EST Medication monitoring encounter High risk medication use Lymphocytosis documented in this encounter Results * Protein Electrophoresis, urine, random (03/12/2020 2:59 PM EST) Protein, Urine <6 0 - 12 mg/dL [facility] U Albumin See Note [facility] Comment:No protein visible v ia electrophoresis due to a low urine total protein. Globulin, Urine See Note [facility] Comment:No protein visible v ia electrophoresis due to a low urine total protein. M1 Band, Urine See Note [facility] Comment:No protein visible v ia electrophoresis due to a low urine total protein. Urine specimen (specimen) 03/12/2020 2:59 PM EST 03/12/2020 3:34 PM EST Narrative Resulting Agency Comment Spec In Lab Markell Darling MD URINE ORDERABLES [facility] [place] [address] * Smear Review Report (03/12/2020 2:55 PM EST) Smear Review Report [id number] ? Location: 3L The signing pathologist has (i) examined the relevant preparation(s) for the specimen(s) and (ii) rendered or confirmed the diagnosis(es). . ? Smear Review DIAGNOSIS No diagnostic morphologic pathology. No significant cytosis . Electronically signed by: ??Sheng Edmond MD Verified: ??03/13/2020 ?Hematopathologi st Performed at: ??-[facility] Dept. of Pathology, [place], [place] DISCUSSION See e-DH: LAB and PATHOLOGY, Lab Results, CBC and manual differential. ADDITIONAL STUDIES All smears are reviewed on hematology analyzers and smears with any unexpected finding, abnormal counts or morphology are additionally reviewed by an experienced med technologist. These results are reported in e-DH under ?CBC , Manual diffs and scans. Present automated technologies provide significant information. The reference range contains values within which 95% of the normal healthy population will be distributed. Values slightly outside these reference ranges may represent physiological normal for the individual. ??Clinicopatholog ic correlation is recommended. CLINICAL INFORMATION . [facility] 03/12/2020 2:55 PM EST Markell Darling MD HEMATOLOGY ORDERABLE S Performing Organization Address City/[facility]/ZIP Co de Phone Number [facility] [place] [address] * Scan, Peripheral Blood (03/12/2020 2:55 PM EST) Pathologist [facility] Plat estimate Normal [facility] RBC Morphology Abnormal [facility] Hypochromia Slight [facility] Blood specimen (specimen) 03/12/2020 2:55 PM EST 03/12/2020 3:07 PM EST Narrative Resulting Agency Comment Spec In Lab Markell Darling MD HEMATOLOGY ORDERABLE S Performing Organization Address City/[facility]/ZIP Co de Phone Number [facility] [place] [address] * (ABNORMAL) Differential, Automated (03/12/2020 2:55 PM EST) Pathologist [facility] Neutrophil % 41.7 % [facility] Neutrophil Absolute 3.60 1.70 - 6.10 x10(3)/mc L [facility] Lymph % 49.1 % [facility] Lymphocytes Abs 4.2(H) 0.9 - 3.2 x10(3)/ L [facility] Monocyte % 6.3 % [facility] Monocyte Abs 0.5 0.3 - 0.9 x10(3)/ L [facility] Eos % 1.9 % [facility] Eosinophils Abs 0.2 0.0 - 0.4 x10(3)/[facility] Basophil % 0.8 % [facility] Baso Absolute 0.1 0.0 - 0.1 x10(3)/[facility] Immature Gran % 0.20 % [facility] Comment: Immature granulocytes(IG's)percentage and absolute count will include metamyelocytes, myelocytes, and promyelocytes. Blood smears from CBCs yielding IG's will be scanned manually for concordance. If this scan disagrees with the automated IG or if promyelocytes are noted, a manual differential will be performed. Immature Gran Absolute 0.02 0.00 - 0.04 x10(3)/[facility] Blood specimen (specimen) 03/12/2020 2:55 PM EST 03/12/2020 3:07 PM EST Narrative Resulting Agency Comment Spec In Lab Markell Darling MD HEMATOLOGY ORDERABLE S Performing Organization Address City/State/[facility] Co de Phone Number [facility] [place] [address] * (ABNORMAL) Hemogram (03/12/2020 2:55 PM EST) White Blood Cell 8.6 4.0 - 9.5 x10(3)/[facility] Red Blood Cell 4.20 4.00 - 5.21 x10(6)/[facility] Hemoglobin 13.0 11.7 - 15.5 gm/dL [facility] Hematocrit 39.5 35.7 - 45.8 % [facility] Mean Cell Volume 94.0 82.6 - 94.4 fL [facility] Mean Cell Hemoglobin 31.0 27.1 - 32.0 pg [facility] Mean Cell Hemoglobin Concentration 32.9 31.7 - 35.0 gm/dL [facility] Platelet 285 145 - 357 x10(3)/mc L [facility] RDW Standard Deviation 47.8(H) 37.0 - 46.0 fL [facility] RDW coefficient of variation 14.1 11.5 - 14.1 % [facility] Mean Platelet Volume 9.2 7.6 - 12.9 fL [facility] NRBC% auto 0.0 % [facility] NRBC Absolute 0.000 0.000 - 0.000 x10(3)/mc L [facility] Blood specimen (specimen) 03/12/2020 2:55 PM EST 03/12/2020 3:07 PM EST Narrative Resulting Agency Comment Spec In Lab Markell Darling MD HEMATOLOGY ORDERABLE S [facility] [place] [address] * Protein Electrophoresis, serum (03/12/2020 2:55 PM EST) Total Prot Electrophoresis 6.6 6.1 - 8.0 gm/dL [facility] Albumin Electrophoresis 4.59 3.60 - 6.00 gm/dL [facility] Alpha 1 Globulin 0.17 0.10 - 0.30 gm/dL [facility] Alpha 2 Globulin 0.66 0.40 - 0.90 gm/dL [facility] Beta Globulin 0.60 0.50 - 1.00 gm/dL [facility] Gamma Globulin 0.58 0.50 - 1.30 gm/dL [facility] M1 Band None Detected None Detected [facility] Blood specimen (specimen) 03/12/2020 2:55 PM EST 03/12/2020 3:07 PM EST Narrative Resulting Agency Comment Spec In Lab Markell Darling MD CHEMISTRY ORDERABLES Performing Organization Address City/[facility]/ZIP Co de Phone Number [facility] [place] [address] * Peripheral Smear Review (03/12/2020 2:55 PM EST) Peripheral Smear Review See Comment [facility] Comment: When completed by the Pathologist, report [id number] will display under Hematopathology Reports. Blood specimen (specimen) 03/12/2020 2:55 PM EST 03/12/2020 3:07 PM EST Narrative Resulting Agency Comment Spec In Lab Markell Darling MD HEMATOLOGY ORDERABLE S Performing Organization Address [facility] [place] [address] documented in this encounter Visit Diagnoses Diagnosis Medication monitoring encounter Encounter for therapeutic drug monitoring High risk medication use Encounter for long-term (current) use of other medications Lymphocytosis Lymphocytosis (symptomatic) documented in this encounter Care Teams Disabilities Services Officer Relationship Specialty Start Date End Date Naman Domingo PA PCP - General Family Medicine 07/04/18 06/10/20 documented as of this encounter
--- OUTSIDE RECORDS SUMMARY | 2023-11-15 02:28 | XMS_ITS | Encounter Summary ---
Author Organization [facility] Address [facility] [place] [address] Care Team Providers Care Barrel Bridge Assembler Name Role Phone JAIR Francois Benjamin Primary Care Provider +1- [phone] Encounter Details Date Type Department Care Team (Latest Contact Info) Description 10/13/2019 9:59 AM EDT - 10/13/2019 11:59 PM EDT Hospital Encounter XRay at [address] [place] [address] Markell Darling MD [facility] [address] Seropositive rheumatoid arthritis; Chronic pain of both knees Discharge Disposition: Home Social History Tobacco Use [...] 240 mg by mouth daily. 0 05/16/2018 predniSONE (Deltasone) 2.5 mg TabletIndications:Serop ositive rheumatoid arthritis,Pain in both hands,Bilateral wrist pain,Chronic pain of both knees,High risk medication use PO 4 tabs for 5 days, 3 tabs for 5 days, 2 tabs for 5 days, then stay at 1 tab daily 60 tablet 1 09/20/2019 05/20/2020 metHOTREXate 2.5 mg TabletIndications:Infla mmatory arthropathy,Seropositiv e rheumatoid arthritis,High risk medication use PO 7 tabs weekly for 2 weeks and 8 tabs weekly (please get blood work) 30 tablet 09/20/2019 10/27/2019 folic acid (Folvite) 1 mg TabletIndications:Infla mmatory arthropathy,Seropositiv e rheumatoid arthritis TAKE 2 TABLETS BY MOUTH ONCE DAILY 180 tablet 3 06/23/2019 01/22/2020 ibuprofen (ADVIL;MOTRIN) 200 mg Tablet Take 400 mg by mouth every 6 hours as needed for Pain. 03/15/2020 documented as of this encounter Plan of Treatment Not on file documented as of this encounter Procedures Procedure Name Priority Date/Time Associated Diagnosis Comments XR HAND MIN 3 VIEWS BILAT Routine 10/13/2019 10:17 AM EDT Seropositive rheumatoid arthritis XR FOOT MIN 3 VIEWS BILAT Routine 10/13/2019 10:17 AM EDT Seropositive rheumatoid arthritis Chronic pain of both knees documented in this encounter Results * XR Foot Min [...] below. ? Electronically signed by: Sandie Youngblood [facility] ([phone]), at 10/13/2019 10:50 AM Narrative 10/13/2019 10:50 [...] please contact the number below. ? Narrative 10/13/2019 11:26 AM EDT EXAMINATION: XR [...] number below. Electronically signed by: Sandie Youngblood [facility]([phone]), at 10/13/2019 11:26 AM Markell Darling MD IMG DX ORDERABLES documented in this encounter Visit Diagnoses Diagnosis Seropositive rheumatoid arthritis Rheumatoid arthritis Chronic pain of both knees documented in this encounter Care Teams Barrel Bridge Assembler Relationship Specialty Start Date End Date Naman Domingo PA PCP - General Family Medicine 07/04/18 06/10/20 documented as of this encounter
--- OUTSIDE RECORDS SUMMARY | 2023-11-15 02:28 | XMS_ITS | Encounter Summary ---
[place] [address] Care Team Providers Care Meat Supervisor Name Role Phone JAIR Francois Benjamin Primary Care Provider +1- [phone] Encounter Details Date Type Department Care Team (Latest Contact Info) Description 12/21/2019 2:20 PM EDT Laboratory Appointment Lab [address] [place] [phone] Inflammatory arthropathy; Seropositive rheumatoid arthritis; High risk medication use; Pain in both hands; Bilateral wrist pain; Chronic pain of both knees Social History [...] Priority Date/Time Associated Diagnosis Comments HEMOGRAM Routine 12/21/2019 2:34 PM EDT Inflammatory arthropathy Seropositive rheumatoid arthritis High risk medication use Pain in both hands Bilateral wrist pain Chronic pain of both knees DIFFERENTIAL, AUTOMATED Routine 12/21/2019 2:34 PM EDT Inflammatory arthropathy Seropositive rheumatoid arthritis High risk medication use Pain in both hands Bilateral wrist pain Chronic pain of both knees HC VENIPUNCTURE Routine 12/21/2019 2:34 PM EDT Inflammatory arthropathy Seropositive rheumatoid arthritis High risk medication use Pain in both hands Bilateral wrist pain Chronic pain of both knees COMPREHENSIVE METABOLIC PANEL Routine 12/21/2019 2:34 PM EDT Inflammatory arthropathy Seropositive rheumatoid arthritis High risk medication use Pain in both hands Bilateral wrist pain Chronic pain of both knees documented in this encounter Results * (ABNORMAL) Differential, Automated (12/21/2019 2:34 PM EDT) Neutrophil % 48.8 % [facility] Neutrophil Absolute 4.37 1.70 - 6.10 x10(3)/mc L [facility] Lymph % 40.3 % [facility] Lymphocytes Abs 3.6(H) 0.9 - 3.2 x10(3)/ L [facility] Monocyte % 8.1 % [facility] Monocyte Abs 0.7 0.3 - 0.9 x10(3)/[facility] Eos % 1.9 % [facility] Eosinophils Abs 0.2 0.0 - 0.4 x10(3)/[facility] Basophil % 0.6 % [facility] Baso Absolute 0.0 0.0 - 0.1 x10(3)/[facility] Immature Gran % 0.30 % [facility] Comment: Immature granulocytes(IG's)percentage and absolute count will include metamyelocytes, myelocytes, and promyelocytes. Blood smears from CBCs yielding IG's will be scanned manually for concordance. If this scan disagrees with the automated IG or if promyelocytes are noted, a manual differential will be performed. Immature Gran Absolute 0.03 0.00 - 0.04 x10(3)/mc L [facility] Blood specimen (specimen) 12/21/2019 2:34 PM EDT 12/21/2019 2:39 PM EDT Narrative Resulting Agency Comment Spec In Lab Markell Darling MD HEMATOLOGY ORDERABLE S [facility] [place] [address] * (ABNORMAL) Hemogram (12/21/2019 2:34 PM EDT) [facility] White Blood Cell 8.9 4.0 - 9.5 x10(3)/[facility] Red Blood Cell 4.14 4.00 - 5.21 x10(6)/[facility] Hemoglobin 13.3 11.7 - 15.5 gm/dL [facility] Hematocrit 39.7 35.7 - 45.8 % [facility] Mean Cell Volume 95.9(H) 82.6 - 94.4 fL [facility] Mean Cell Hemoglobin 32.1(H) 27.1 - 32.0 pg [facility] Mean Cell Hemoglobin Concentration 33.5 31.7 - 35.0 gm/dL [facility] Platelet 302 145 - 357 x10(3)/[facility] RDW Standard Deviation 53.2(H) 37.0 - 46.0 [facility] RDW coefficient of variation 15.1(H) 11.5 - 14.1 % [facility] Mean Platelet Volume 9.1 7.6 - 12.9 [facility] NRBC% auto 0.0 % [facility] NRBC Absolute 0.000 0.000 - 0.000 x10(3)/[facility] Blood specimen (specimen) 12/21/2019 2:34 PM EDT 12/21/2019 2:39 PM EDT Narrative Resulting Agency Comment Spec In Lab Markell Darling MD HEMATOLOGY ORDERABLE S [facility] [place] [address] * Comprehensive metabolic panel (non-fasting) (12/21/2019 2:34 PM EDT) [facility] Glucose 90 65 - 199 mg/dL [facility] Comment:Diabetes: >=200 mg/d L plus symptoms Blood Urea Nitrogen 14 8 - 18 mg/dL [facility] Creatinine 0.75 0.70 - 1.20 mg/dL [facility] Sodium 141 135 - 145 mmol/L [facility] Potassium 4.0 3.5 - 5.0 mmol/L [facility] Comment: Please note: ??Patients with WBC >100,000 may have falsely elevated Potassium levels. ??For accurate Potassium quantification in these patients send serum separator tube (gold top) for subsequent determinations. ??Contact the Clinical Chemistry Laboratory if there are any questions. Chloride 104 98 - 107 mmol/L [facility] Carbon Dioxide 28 22 - 31 mmol/L [facility] Anion Gap 9 5 - 15 mmol/L [facility] Calcium 9.5 8.5 - 10.5 mg/dL [facility] Protein, Total 7.0 6.1 - 8.0 gm/dL [facility] Albumin 4.4 3.2 - 5.2 gm/dL [facility] Aspartate Aminotransferase 13 0 - 30 unit/L [facility] Alanine Aminotransferase 12 0 - 30 unit/L [facility] Alkaline Phosphatase 73 35 - 105 unit/L [facility] Bilirubin, Total 0.2 0.2 - 1.3 mg/dL [facility] Est Glomerular Filtration Rate 90 >=60 mL/min/1. 73 m?? [facility] Comment: The eGFR was calculated using the CKD-EPI equation. As with all creatinine based estimates of kidney function, eGFR values calculated with the CKD-EPI equation are not accurate in patients with acute kidney failure, extremes of body mass or the acutely ill. http://[employer]/DHnkf eGFR 104 >=60 mL/min/1. 73 m?? [facility] Comment: The eGFR was calculated using the CKD-EPI equation. As with all creatinine based estimates of kidney function, eGFR values calculated with the CKD-EPI equation are not accurate in patients with acute kidney failure, extremes of body mass or the acutely ill. http://[employer]/DHMCnkf Blood specimen (specimen) 12/21/2019 2:34 PM EDT 12/21/2019 2:39 PM EDT Narrative Resulting Agency Comment Spec In Lab Markell Darling MD CHEMISTRY ORDERABLES [facility] [place] [address] documented in this encounter Visit Diagnoses Diagnosis Inflammatory arthropathy Arthropathy, unspecified, site unspecified Seropositive rheumatoid arthritis Rheumatoid arthritis High risk medication use Encounter for long-term (current) use of other medications Pain in both hands Bilateral wrist pain Pain in joint, forearm Chronic pain of both knees documented in this encounter Care Teams Meat Supervisor Relationship Specialty Start Date End Date Naman Domingo PA PCP - General Family Medicine 07/04/18 06/10/20 documented as of this encounter
--- OUTSIDE RECORDS SUMMARY | 2023-11-15 02:28 | XMS_ITS | Encounter Summary ---
Author Organization [facility] [place] [address] Care Team Providers Care Metal Mover Name Role Phone JAIR Francois, Naman Primary Care Provider +1- [phone] Encounter Details Date Type Department Care Team (Late st Contact Info) Description 03/20/2020 [place] [phone] Anthony Osorio Social History Tobacco Use Types Packs/Day Years [...] encounter Miscellaneous Notes * Telephone Encounter - Anthony Osorio - 03/20/2020 8:42 AM EST LMOAM X1 to schedule 8 week f/u (telehealth) with Dr. Darling. documented in this encounter Plan of Treatment Not on file documented as of this encounter Visit Diagnoses Not on filedocumented in this encounter Care Teams Metal Mover Relationship Specialty Start Date End Date Naman Domingo PA PCP - General Family Medicine 07/04/18 06/10/20 documented as of this encounter
--- OUTSIDE RECORDS SUMMARY | 2023-11-15 02:28 | XMS_ITS | Encounter Summary ---
Author Organization [facility] [place] [address] Care Team Providers Care Spot Machine Operator Name Role Phone JAIR Francois Benjamin Primary Care Provider +1- [phone] Encounter Details Date Type Department Care Team (Late st Contact Info) Description 01/25/2020 Telephone [place] [phone] Anthony Osorio Social History Tobacco Use Types [...] * Telephone Encounter - Anthony Osorio - 01/25/2020 8:31 AM EDT LMOAM X1 to schedule 8 week f/u (in clinic) with Dr. Darling. documented in this encounter Plan of Treatment Not on file documented as of this encounter Visit Diagnoses Not on filedocumented in this encounter Care Teams Spot Machine Operator Relationship Specialty Start Date End Date Naman Domingo PA PCP - General Family Medicine 07/04/18 06/10/20 documented as of this encounter
--- OUTSIDE RECORDS SUMMARY | 2023-11-15 02:28 | XMS_ITS | Encounter Summary ---
Author Organization [facility]ly [facility] [place] [address] Care Team Providers Care Banquet Set Up Person Name Role Phone JAIR Francois Benjamin Primary Care Provider [phone]- [phone] Reason for Referral * Physical Therapy (Routine) - Closed Specialty Diagnoses / Procedures Referred By Contac t Referred To Contact Diagnoses High risk medication use Inflammatory arthropathy Bilateral wrist pain Pain in both feet Bilateral ankle pain, unspecified chronicity Pain in both hands Markell Darling MD [facility] [place] [address] [address] Unknown None Referral ID Status Reason Start Date Expiration Date V isits Requested Visits Authorized [id number] Closed Evaluate and Treat 11/21/2018 05/20/2019 12 12 Encounter Details Date Type Department Care Team (Latest Contact Info) Description 11/21/2018 2:00 PM EDT Office [place] [address] Markell Darling MD [facility] [place] [address] [address] High risk medication use; Inflammatory arthropathy; Bilateral wrist pain; Pain in both feet; Bilateral ankle pain, unspecified chronicity; Pain in both hands; Cough, persistent; Morning joint stiffness; Chronic pain of both knees; Osteoarthritis, unspecified osteoarthritis type, unspecified site; Seropositive rheumatoid arthritis Social History Tobacco Use Types Packs/Day Years Used Date Smoking Tobacco: Every Day Smokeless Tobacco: Never Sex and Gender Information Value Date Recorded Sex Assigned at Not on file Gender Identity Not on file Sexual Orientation Not on file documented as of this encounter Last Filed Vital Signs Vital Sign Reading Time Taken Comments Blood Pressure 110/64 11/21/2018 1:50 PM EDT Pulse 74 11/21/2018 1:50 PM EDT Temperature 37.1 ??C (98.7 ??F) 11/21/2018 1:50 PM ED T Respiratory Rate - - Oxygen Saturation 98% 11/21/2018 1:50 PM EDT Inhaled Oxygen Concentration - - Weight 82.5 kg (181 lb 12.8 oz) 11/21/2018 1:50 PM EDT Height 162.6 cm (5' 4) 11/21/2018 1:50 PM EDT Body Mass Index 31.21 11/21/2018 1:50 PM EDT documented in this encounter Progress Notes * Markell Darling MD - 11/21/2018 2:00 PM EDT Rheumatology Follow up RF + abnormal wrist xray erosion verses a cyst HPI: Keyona Terry is a 52 y.o. C female who presents today for fu evaluation of bilateral hand pain andfoot pain that is been going on for several years but been worse over the last year . She rates thepain a 3/10 slight improvement from her last visit . She has been on MTX since July. She still describes achiness with less effect on her MCPs and PIPs then last visit but most significantly oin herbilateral wrist Lt>RT resulting in pain that prevents her from doing some tasks. Her pain generally improves with activity and describes prolonged morning stiffness > 1 hour. Her back describesmechanical back pain associated She describes also today chronic knee pain assoc w. Activity, worse in the AM resulting in pain antmedially no swelling redness or warmth. She describes pain in the bilateral ankles also associated with activity without synovitis Swelling warmth or Redness of the Joints; No Morning stiffness: She wakes up stiffness for > 1 hour Pain Improves with: Ibuprofen daily 2-3 x No tylenol Pain worsens with: Pain is unchageds Family History of Rheumatologic Disease: None ROS: General (-)fevers, (-)chills, (-)night sweats, (-)wt loss/gain. HEENT (-)head trauma, (-)vision change, (-)tinnitus, (-)epistaxis, (-)sore throat, (-)bleeding gums, (-)oral ulcers, (-)dry eyes, (-)dry mouth, (- )dysphagia, (-)GERD, (-)photo sensitivity, (-)Hair loss, (-)vertigo [facility] [...] Active Problem List Diagnosis Date Noted ??? Inflammatory arthropathy 07/04/2018 ??? Seropositive rheumatoid [...] resource strain: Not on file ??? Food insecurity: Worry: Not on file Inability: Not on file ??? Transportation needs: Medical: Not on file Non-medical: Not on file Tobacco Use ??? Smoking status: Current Every Day Smoker ??? Smokeless tobacco: Never Used Substance and Sexual Activity ??? Alcohol use: Not on file ??? Drug use: Not on file ??? Sexual activity: Not on file Lifestyle ??? Physical activity: Days per week: Not on file Minutes per session: Not on file ??? Stress: Not on file Relationships ??? Social connections: Talks on phone: Not on file Gets together: Not on file Attends anabaptism service: Not on file Active member of club or organization: Not on file Attends meetings of clubs or organizations: Not on file Relationship status: Not on file ??? Intimate partner violence: Fear of current or ex partner: Not on file Emotionally abused: Not on file Physically abused: Not on file Forced sexual activity: Not on file Other Topics Concern ??? Not on file Social History Narrative ??? Not on file Current Outpatient Medications Medication Sig Dispense Refill ??? predniSONE (DELTASONE) 2.5 mg Tablet 4 tabs daily decrease by 1 tabs every 7 days until at 5 mg. 63 tablet 3 ??? metHOTREXate 2.5 mg Tablet Take 6 tablets by mouth once a week. 24 tablet 3 ??? folic acid (FOLVITE) 1 mg Tablet Take 2 tablets by mouth daily. 180 tablet 3 ??? simvastatin (ZOCOR) 20 mg Tablet daily. 0 ??? verapamil (CALAN-SR) 240 mg Tablet Sustained Release daily. 0 ??? ibuprofen (ADVIL;MOTRIN) 200 mg Tablet Take 400 mg by mouth every 6 hours as needed for Pain. No current facility-administered medications for this visit. Current Outpatient Medications on File Prior to Visit Medication Sig Dispense Refill ??? predniSONE (DELTASONE) 2.5 mg Tablet 4 tabs daily decrease by 1 tabs every 7 days until at 5 mg. 63 tablet 3 ??? metHOTREXate 2.5 mg Tablet Take 6 tablets by mouth once a week. 24 tablet 3 ??? folic acid (FOLVITE) 1 mg Tablet Take 2 tablets by mouth daily. 180 tablet 3 ??? simvastatin (ZOCOR) 20 mg Tablet daily. 0 ??? verapamil (CALAN-SR) 240 mg Tablet Sustained Release daily. 0 ??? ibuprofen (ADVIL;MOTRIN) 200 mg Tablet Take 400 mg by mouth every 6 hours as needed for Pain. No current facility-administered medications on file prior to visit. No Known Allergies Physical Exam: BP 110/64 Pulse 74 Temp 37.1 ??C (98.7 ??F) Ht 162.6 cm (5' 4) Wt 82.5 kg (181 lb 12.8 oz) SpO2 98% BMI 31.21 kg/m?? General: AAOx3, NAD HEENT: Mucous membranes are moist, no oral mucosal ulcerations, temporal artery non-palpable Neck: Supple, no lymphadenopathy, full range of motion. Cardiovascular: RR, Lungs: CTAB: Abdomen: Soft, non tender, non distended, + bowel sounds, no hepatosplenomegaly. Neuro: Alert and oriented x3. Cranial nerves II through XII grossly intact. -Strength 5/5 throughout, -Sensation to light touch is grossly normal throughout. DTRs are 2+ throughout. Toes down going bilaterally. Skin: (-)ulcers, (-)rash Vascular: Pulses are equal in all extremities. MSK Back: Non tender over the spine and costovertebral angles bilaterally. (-)Gilbert Extremities Shoulders: FROM, non-tender to palpation Elbows:FROM, (-)pain, (-)nodules Wrists: FROM, no swelling, non-tender Hands: No synovitis, - MCP compression tenderness, full claw and fist, Hips: FROM, (-) fader (-gilbert) Knees: (-)effusions, non-tender ROM, mild valgum deform Ankles: FROM, non-tender, no swelling Feet: no MTP compression tenderness Spine, shoulders, elbows, wrists, fingers, hips, knees and ankles; no active swelling, tenderness or synovitis at any joint. No soft tissue nodules. Labs: RF 43 international units WNL less than 12.5 JAYDEN negative platelets WNL albumin WNL ESR 21 CCP WNL Studies: Xr Chest Pa & Lateral (generic) Result Date: 11/21/2018 EXAMINATION: XR CHEST PA AND LATERAL (GENERIC) CLINICAL HISTORY: eval to sarcoid TECHNIQUE: Frontaland lateral views of the chest COMPARISON: None FINDINGS: The lungs are clear. The cardiomediastinal and hilar silhouettes are within normal limits. No pleural effusion or pneumothorax. No acute osseous abnormalities. No radiographic evidence of sarcoidosis. Assessment: Keyona Terry is a 52 y.o. female who presents today with a symmetric polyarthropathy of the hands feet elbows and wrists now describes with prolonged morning stiffness without active signs of synovitis but with high positive RF greater than 3 times upper limit of normal, ESR, albumin, platelets within normal limits with changes to the wrist. The patient got some relif with prednisone. She has had limited relief with MTX but not at the 6 month shweta. Will add HCQ then will titrate MTX up to 8 tabs . If no response will consider an MRI of the wrist. [facility] Mod Dz activity Plan MTX and FA HCQ added Orders Placed This Encounter Procedures ??? XR Ankle Min 3 views Bilat (Generic) ? ? XR Chest PA & Lateral (Generic) ??? CBC (with Diff) ??? Hepatic Function Panel ??? Sedimentation rate ??? CRP, acute inflammation ??? Creatinine ??? Referral to Physical Therapy Markell Darling MD documented in this encounter Plan of Treatment Scheduled Referrals Name Type Priority Associated Diagnoses Orde r Schedule Referral to Physical Therapy Outpatient Referral Routine High risk medication use Inflammatory arthropathy Bilateral wrist pain Pain in both feet Bilateral ankle pain, unspecified chronicity Pain in both hands Ordered: 11/21/2018 documented as of this encounter Results * XR Chest PA [...] Pain in both hands Cough, persistent Cough Morning joint stiffness Stiffness of joint, not elsewhere classified, unspecified site Chronic pain of both knees Osteoarthritis, unspecified osteoarthritis type, unspecified site Seropositive rheumatoid arthritis Rheumatoid arthritis High risk medication use Encounter for long-term (current) use of other medications Bilateral ankle pain, unspecified chronicity Cough, persistent Cough documented in this encounter Care Teams Banquet Set Up Person Relationship Specialty Start Date End Date Naman Domingo PA PCP - General Family Medicine 07/04/18 06/10/20 documented as of this encounter
--- OUTSIDE RECORDS SUMMARY | 2023-11-15 02:28 | XMS_ITS | Encounter Summary ---
Author Organization [facility] [place] [address] Care Team Providers Care Upper Marker Name Role Phone JAIR Francois Benjamin Primary Care Provider [phone]- [phone] Encounter Details Date Type Department Care Team (Latest Contact Info) Description 01/22/2020 8:30 AM EDT TH Visit (TeleHealth) [place] [address] Markell Darling MD [facility] [place] [address] Medication monitoring encounter; High risk medication use; Seropositive rheumatoid arthritis; Inflammatory arthropathy; Methotrexate, residential, current use; Pain in right hip; Bilateral [...] Progress Notes * Markell Darling MD - 01/22/2020 8:30 AM EDT Rheumatology Follow Up phone note 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 abnormal wrist xray erosion verses a cyst [facility] uable to calcuate MTX and FA HCQ SE - diarrhea Interval HXI: Keyona Terrazaso is a 54 y.o. C female who presents today for fu evaluation of bilateral hand pain andfoot pain that is been going on for several years but been worse over the last year. Bilateral hip, wrist, hands, ankles, She describes pain in the MCPs with swelling. No redness Morning stiffness of an Hour Hips located in the groin- Hands describes some swelling - more immunocompromised. Advil twice 600mg a day No tylenol MTX SE oral ulcers - with increaing MTX ROS: General (-)fevers, (-)chills, (-)night sweats, (-)wt [...] file Gets together: Not on file Attends caodaism service: Not on file Active member of [...] Tablet TAKE 8 TABLETS BY MOUTH ONCE A WEEK ON WEDNESDAY 32 tablet 1 ??? predniSONE (Deltasone) 2.5 mg Tablet PO 4 tabs for 5 days, 3 tabs for 5 days, 2 tabs for 5 days, then stay at 1 tab daily 60 tablet 1 ??? folic acid (Folvite) 1 mg Tablet TAKE 2 TABLETS BY MOUTH ONCE DAILY 180 tablet 3 ??? simvastatin (ZOCOR) 20 [...] Tablet TAKE 8 TABLETS BY MOUTH ONCE A WEEK ON WEDNESDAY 32 tablet 1 ??? predniSONE (Deltasone) 2.5 mg Tablet PO 4 tabs for 5 days, 3 tabs for 5 days, 2 tabs for 5 days, then stay at 1 tab daily 60 tablet 1 ??? folic acid (Folvite) 1 mg Tablet TAKE 2 TABLETS BY MOUTH ONCE DAILY 180 tablet 3 ??? simvastatin (ZOCOR) 20 mg Tablet daily. 0 ??? verapamil (CALAN-SR) 240 mg Tablet Sustained Release daily. 0 ??? ibuprofen (ADVIL;MOTRIN) 200 mg Tablet Take 400 mg by mouth every 6 hours as needed for Pain. No current facility-administered medications on file prior to visit. No Known Allergies Physical Exam: . Assessment: Keyona Terry is a 54 y.o. female who presents today with a Sero+ RA- symmetric polyarthropathy of the hands feet elbows and wrists now describes with prolonged morning stiffness without active signsof synovitis but with high positive RF greater than 3 times upper limit of normal, ESR, albumin, platelets within normal limits with changes to the wrist. Unable to toelrate CHQ Patient is at high disease activity per her reports Increasing MTX has resulted in increased oral ulcer will increase FA to 5mg. Will reduce MTX to 6 tabs weekly since no benefit at 8 tabs and more SE Will repeat CBC for lymphocyte count - was elevated Will send information about possible treatment aslo see if candidate for clinical trial Plan Continue MTX and FA Referral FOC Clinical trial DC HCQ SE/AE Orders Placed This Encounter Procedures ??? CBC (with Diff) ??? Albumin Level ??? Creatinine ??? Hepatic Function Panel ??? CRP, acute inflammation ??? Sedimentation rate Return in about 8 weeks (around 03/18/2020). Markell Darling MD Pt is aware of [...] arthritis documented in this encounter Care Teams Upper Marker Relationship Specialty Start Date End Date Naman Domingo PA PCP - General Family Medicine 07/04/18 06/10/20 documented as of this encounter
--- OUTSIDE RECORDS SUMMARY | 2023-11-15 02:28 | XMS_ITS | Encounter Summary ---
[place] [address] Care Team Providers Care Dance Critic Name Role Phone JAIR Francois Benjamin Primary Care Provider +1- [phone] Encounter Details Date Type Department Care Team (Latest Contact Info) Description 04/22/2020 1:40 PM EST Laboratory Appointment Lab [address] [place] [phone] Medication monitoring encounter; High risk medication use; Lymphocytosis; Seropositive rheumatoid arthritis; Inflammatory arthropathy; Methotrexate, local intermodal truck driver, current use; Pain in right hip; Bilateral wrist pain; Pain in both hands; Seronegative rheumatoid arthritis; Bursitis of other bursa of both hips; Chronic pain of both ankles; Chronic pain of both knees; Cough, persistent Social History Tobacco Use Types [...] Associated Diagnosis Comments HC C-REACTIVE PROTEIN Routine 04/22/2020 1:49 PM EST Medication monitoring encounter High risk medication use Lymphocytosis Seropositive rheumatoid arthritis Inflammatory arthropathy Methotrexate, usp, current use Pain in right hip Bilateral wrist pain Pain in both hands Seronegative rheumatoid arthritis Bursitis of other bursa of both hips Chronic pain of both ankles Chronic pain of both knees Cough, persistent HEMOGRAM Routine 04/22/2020 1:49 PM EST Medication monitoring encounter High risk medication use Lymphocytosis Seropositive rheumatoid arthritis Inflammatory arthropathy Methotrexate, local intermodal truck driver, current use Pain in right hip Bilateral wrist pain Pain in both hands Seronegative rheumatoid arthritis Bursitis of other bursa of both hips Chronic pain of both ankles Chronic pain of both knees Cough, persistent DIFFERENTIAL, AUTOMATED Routine 04/22/2020 1:49 PM EST Medication monitoring encounter High risk medication use Lymphocytosis Seropositive rheumatoid arthritis Inflammatory arthropathy Methotrexate, usp, current use Pain in right hip Bilateral wrist pain Pain in both hands Seronegative rheumatoid arthritis Bursitis of other bursa of both hips Chronic pain of both ankles Chronic pain of both knees Cough, persistent HC CREATININE Routine 04/22/2020 1:49 PM EST Medication monitoring encounter High risk medication use Lymphocytosis Seropositive rheumatoid arthritis Inflammatory arthropathy Methotrexate, local intermodal truck driver, current use Pain in right hip Bilateral wrist pain Pain in both hands Seronegative rheumatoid arthritis Bursitis of other bursa of both hips Chronic pain of both ankles Chronic pain of both knees Cough, persistent HC VENIPUNCTURE Routine 04/22/2020 1:49 PM EST Medication monitoring encounter High risk medication use Lymphocytosis Seropositive rheumatoid arthritis Inflammatory arthropathy Methotrexate, usp, current use Pain in right hip Bilateral wrist pain Pain in both hands Seronegative rheumatoid arthritis Bursitis of other bursa of both hips Chronic pain of both ankles Chronic pain of both knees Cough, persistent HC CBC,PLT & AUTO DIFF Routine 04/22/2020 1:49 PM EST Medication monitoring encounter High risk medication use Lymphocytosis Seropositive rheumatoid arthritis Inflammatory arthropathy Methotrexate, local intermodal truck driver, current use Pain in right hip Bilateral wrist pain Pain in both hands Seronegative rheumatoid arthritis Bursitis of other bursa of both hips Chronic pain of both ankles Chronic pain of both knees Cough, persistent HEPATIC FUNCTION PANEL Routine 04/22/2020 1:49 PM EST Medication monitoring encounter High risk medication use Lymphocytosis Seropositive rheumatoid arthritis Inflammatory arthropathy Methotrexate, usp, current use Pain in right hip Bilateral wrist pain Pain in both hands Seronegative rheumatoid arthritis Bursitis of other bursa of both hips Chronic pain of both ankles Chronic pain of both knees Cough, persistent documented in this encounter Results * (ABNORMAL) Differential, Automated (04/22/2020 1:49 PM EST) Neutrophil % 69.6 % [facility] Neutrophil Absolute 8.53(H) 1.70 - 6.10 x10(3)/mc L [facility] Lymph % 23.0 % [facility] Lymphocytes Abs 2.8 0.9 - 3.2 x10(3)/ L [facility] Monocyte % 5.8 % [facility] Monocyte Abs 0.7 0.3 - 0.9 x10(3)/ L [facility] Eos % 0.7 % [facility] Eosinophils Abs 0.1 0.0 - 0.4 x10(3)/ L [facility] Basophil % 0.5 % [facility] Baso Absolute 0.1 0.0 - 0.1 x10(3)/ L [facility] Immature Gran % 0.40 % [facility] Comment: Immature granulocytes(IG's)percentage and absolute count will include metamyelocytes, myelocytes, and promyelocytes. Blood smears from CBCs yielding IG's will be scanned manually for concordance. If this scan disagrees with the automated IG or if promyelocytes are noted, a manual differential will be performed. Immature Gran Absolute 0.05(H) 0.00 - 0.04 x10(3)/mc L [facility] Blood specimen (specimen) 04/22/2020 1:49 PM EST 04/22/2020 1:53 PM EST Narrative Resulting Agency Comment Spec In Lab Markell Darling MD HEMATOLOGY ORDERABLE S [facility] [place] [address] * (ABNORMAL) Hemogram (04/22/2020 1:49 PM EST) White Blood Cell 12.3(H) 4.0 - 9.5 x10(3)/mc L [facility] Red Blood Cell 4.34 4.00 - 5.21 x10(6)/mc L [facility] Hemoglobin 13.9 11.7 - 15.5 gm/dL [facility] Hematocrit 40.7 35.7 - 45.8 % [facility] Mean Cell Volume 93.8 82.6 - 94.4 fL [facility] Mean Cell Hemoglobin 32.0 27.1 - 32.0 pg [facility] Mean Cell Hemoglobin Concentration 34.2 31.7 - 35.0 gm/dL [facility] Platelet 330 145 - 357 x10(3)/ L [facility] RDW Standard Deviation 48.8(H) 37.0 - 46.0 fL [facility] RDW coefficient of variation 14.2(H) 11.5 - 14.1 % [facility] Mean Platelet Volume 9.4 7.6 - 12.9 fL [facility] NRBC% auto 0.0 % [facility] NRBC Absolute 0.000 0.000 - 0.000 x10(3)/ L [facility] Blood specimen (specimen) 04/22/2020 1:49 PM EST 04/22/2020 1:53 PM EST Narrative Resulting Agency Comment Spec In Lab Markell Darling MD HEMATOLOGY ORDERABLE S [facility] [place] [address] * CRP, acute inflammation (04/22/2020 1:49 PM EST) C-Reactive Protein 4.6 <=4.9 mg/L [facility] Blood specimen (specimen) 04/22/2020 1:49 PM EST 04/22/2020 1:53 PM EST Narrative Resulting Agency Comment Spec In Lab Markell Darling MD CHEMISTRY ORDERABLES Performing Organization Address City/[facility]/ZIP Co de Phone Number [facility] [place] [address] * Creatinine (04/22/2020 1:49 PM EST) Creatinine 0.77 0.70 - 1.20 mg/dL [facility] Est Glomerular Filtration Rate 87 >=60 mL/min/1. 73 m?? [facility] Comment: This patient? s estimated glomerular filtration rate (eGFR) is between 87 mL/min/1.73 m2 (patients with less muscle mass) and 101 mL/min/1.73 m2 (patients with more muscle mass) as determined by the CKD-EPI equation. Assessment of eGFR is not appropriate when creatinine concentrations are rapidly changing. For clinical decisions where creatinine clearance will affect therapy, a 24-hour urine creatinine clearance may be advised. Assignment of CKD stage 1 ? 5 for patients with an eGFR near the transition point between stages may be based on clinical assessment of muscle mass and symptoms in addition to eGFR. Blood specimen (specimen) 04/22/2020 1:49 PM EST 04/22/2020 1:53 PM EST Narrative Resulting Agency Comment Spec In Lab Markell Darling MD CHEMISTRY ORDERABLES Performing Organization Address City/[facility]/ZIP Co de Phone Number [facility] [place] [address] * Hepatic Function Panel (04/22/2020 1:49 PM EST) Protein, Total 7.2 6.1 - 8.0 gm/dL [facility] Albumin 4.6 3.2 - 5.2 gm/dL [facility] Aspartate Aminotransferase 16 0 - 30 unit/L [facility] Alanine Aminotransferase 15 0 - 30 unit/L [facility] Alkaline Phosphatase 83 35 - 105 unit/L [facility] Bilirubin, Total 0.2 0.2 - 1.3 mg/dL [facility] Bilirubin, Direct 0.1 0.0 - 0.3 mg/dL [facility] Blood specimen (specimen) 04/22/2020 1:49 PM EST 04/22/2020 1:53 PM EST Narrative Resulting Agency Comment Spec In Lab Markell Darling MD CHEMISTRY ORDERABLES Performing Organization Address City/[facility] Co de Phone Number [facility] [place] [address] * Sedimentation rate (04/22/2020 1:49 PM EST) Sedimentation Rate Automated 37 2 - 39 mm/hr [facility] Comment: Effective March 15, 2019 new capillary photometric technology has resulted in a change in reference ranges. It is recommended that each ESR result be reviewed with its own age appropriate reference range. Blood specimen (specimen) 04/22/2020 1:49 PM EST 04/22/2020 1:53 PM EST Narrative Resulting Agency Comment Spec In Lab Markell Darling MD HEMATOLOGY ORDERABLE S Performing Organization Address City/[facility] Co de Phone Number [facility] [place] [address] documented in this encounter Visit Diagnoses Diagnosis Medication monitoring encounter Encounter for therapeutic drug monitoring High risk medication use Encounter for long-term (current) use of other medications Lymphocytosis Lymphocytosis (symptomatic) Seropositive rheumatoid arthritis Rheumatoid arthritis Inflammatory arthropathy Arthropathy, unspecified, site unspecified Methotrexate, local intermodal truck driver, current use Encounter for long-term (current) use of other medications Pain in right hip Pain in joint, pelvic region and thigh Bilateral wrist pain Pain in joint, forearm Pain in both hands Seronegative rheumatoid arthritis Rheumatoid arthritis Bursitis of other bursa of both hips Chronic pain of both ankles Chronic pain of both knees Cough, persistent Cough documented in this encounter Care Teams Dance Critic Relationship Specialty Start Date End Date Naman Domingo PA PCP - General Family Medicine 07/04/18 06/10/20 documented as of this encounter
--- OUTSIDE RECORDS SUMMARY | 2023-11-15 02:28 | XMS_ITS | Encounter Summary ---
[place] [address] Care Team Providers Care Cage Operator Name Role Phone JAIR Francois Benjamin Primary Care Provider +1- [phone] Encounter Details Date Type Department Care Team (Latest Contact Info) Description 10/13/2019 10:55 AM EDT Laboratory Appointment Lab [address] [place] [phone] Tendinitis of right hip flexor; Pain in right hip; Bursitis of other bursa of both hips; Seropositive rheumatoid arthritis; Inflammatory arthropathy; High risk medication use; Pain in both [...] Associated Diagnosis Comments HC C-REACTIVE PROTEIN Routine 10/13/2019 10:30 AM EDT Seropositive rheumatoid arthritis Pain in both hands Bilateral wrist pain Chronic pain of both knees BILIRUBIN, DIRECT Routine 10/13/2019 10: 30 AM EDT HEMOGRAM Routine 10/13/2019 10:30 AM EDT Seropositive rheumatoid arthritis Pain in both hands Bilateral wrist pain Chronic pain of both knees DIFFERENTIAL, AUTOMATED Routine 10/13/2019 10:30 AM EDT Seropositive rheumatoid arthritis Pain in both hands Bilateral wrist pain Chronic pain of both knees CREATININE Routine 10/13/2019 10:30 AM EDT Tendinitis of right hip flexor Pain in right hip Bursitis of other bursa of both hips Seropositive rheumatoid arthritis Inflammatory arthropathy High risk medication use HC ESR-SEDIMENTATION RATE, BLOOD Routine 10/13/2019 10:30 AM EDT Seropositive rheumatoid arthritis Pain in both hands Bilateral wrist pain Chronic pain of both knees HC CBC,PLT & AUTO DIFF Routine 0 10:30 AM EDT Seropositive rheumatoid arthritis Pain in both hands Bilateral wrist pain Chronic pain of both knees HC VENIPUNCTURE Routine 10/13/2019 10:30 AM EDT Tendinitis of right hip flexor Pain in right hip Bursitis of other bursa of both hips Seropositive rheumatoid arthritis Inflammatory arthropathy High risk medication use COMPREHENSIVE METABOLIC PANEL Routine 10/13/2019 10:30 AM EDT Seropositive rheumatoid arthritis Pain in both hands Bilateral wrist pain Chronic pain of both knees documented in this encounter Results * Bilirubin, Direct (10/13/2019 10:30 AM EDT) Bilirubin, Direct 0.1 0.0 - 0.3 mg/dL [facility] Blood specimen (specimen) 10/13/2019 10:30 AM EDT 10/13/2019 10:39 AM EDT Narrative Resulting Agency Comment Spec In Lab Markell Darling MD CHEMISTRY ORDERABLES [facility] [place] [address] * (ABNORMAL) Differential, Automated (10/13/2019 10:30 AM EDT) Neutrophil % 70.2 % [facility] Neutrophil Absolute 7.15(H) 1.70 - 6.10 x10(3)/mc L [facility] Lymph % 19.8 % [facility] Lymphocytes Abs 2.0 0.9 - 3.2 x10(3)/[facility] Monocyte % 8.2 % [facility] Monocyte Abs 0.8 0.3 - 0.9 x10(3)/[facility] Eos % 0.9 % [facility] Eosinophils Abs 0.1 0.0 - 0.4 x10(3)/[facility] Basophil % 0.6 % [facility] Baso Absolute 0.1 0.0 - 0.1 x10(3)/[facility] Immature Gran % 0.30 % [facility] Comment: Immature granulocytes(IG's)percentage and absolute count will include metamyelocytes, myelocytes, and promyelocytes. Blood smears from CBCs yielding IG's will be scanned manually for concordance. If this scan disagrees with the automated IG or if promyelocytes are noted, a manual differential will be performed. Immature Gran Absolute 0.03 0.00 - 0.04 x10(3)/[facility] Blood specimen (specimen) 10/13/2019 10:30 AM EDT 10/13/2019 10:39 AM EDT Narrative Resulting Agency Comment Spec In Lab Markell Darling MD HEMATOLOGY ORDERABLE S [facility] [place] [address] * (ABNORMAL) Hemogram (10/13/2019 10:30 AM EDT) White Blood Cell 10.2(H) 4.0 - 9.5 x10(3)/[facility] Red Blood Cell 4.07 4.00 - 5.21 x10(6)/[facility] Hemoglobin 13.1 11.7 - 15.5 gm/dL [facility] Hematocrit 38.6 35.7 - 45.8 % [facility] Mean Cell Volume 94.8(H) 82.6 - 94.4 fL [facility] Mean Cell Hemoglobin 32.2(H) 27.1 - 32.0 pg [facility] Mean Cell Hemoglobin Concentration 33.9 31.7 - 35.0 gm/dL [facility] Platelet 269 145 - 357 x10(3)/mc L [facility] RDW Standard Deviation 51.6(H) 37.0 - 46.0 fL [facility] RDW coefficient of variation 14.9(H) 11.5 - 14.1 % [facility] Mean Platelet Volume 9.2 7.6 - 12.9 fL [facility] NRBC% auto 0.0 % [facility] NRBC Absolute 0.000 0.000 - 0.000 x10(3)/mc L [facility] Blood specimen (specimen) 10/13/2019 10:30 AM EDT 10/13/2019 10:39 AM EDT Narrative Resulting Agency Comment Spec In Lab Markell Darling MD HEMATOLOGY ORDERABLE S Performing Organization Address [facility] Co de Phone Number [facility] [place] [address] * Sedimentation rate (10/13/2019 10:30 AM EDT) Sedimentation Rate Automated 28 2 - 39 mm/hr [facility] [...] MD HEMATOLOGY ORDERABLE S Performing Organization Address City/[facility]/ZIP Co de Phone Number [facility] [place] [address] * (ABNORMAL) CRP, acute inflammation (10/13/2019 10:30 AM EDT) Pathologist [facility] C-Reactive Protein 9.5(H) <=4.9 mg/L [facility] Blood specimen (specimen) 10/13/2019 10:30 AM EDT 10/13/2019 10:39 AM EDT Narrative Resulting Agency Comment Spec In Lab Markell Darling MD CHEMISTRY ORDERABLES [facility] [place] [address] * (ABNORMAL) Comprehensive metabolic panel (non-fasting) (10/13/2019 10:30 AM EDT) [facility] Glucose 98 65 - 199 mg/dL [facility] Comment:Diabetes: >=200 mg/d L plus symptoms Blood Urea Nitrogen 14 8 - 18 mg/dL [facility] Creatinine 0.69(L) 0.70 - 1.20 mg/dL [facility] Sodium 139 135 - 145 mmol/L [facility] Potassium 4.1 3.5 - 5.0 mmol/L [facility] Comment: Please note: ??Patients with WBC >100,000 may have falsely elevated Potassium levels. ??For accurate Potassium quantification in these patients send serum separator tube (gold top) for subsequent determinations. ??Contact the Clinical Chemistry Laboratory if there are any questions. Chloride 106 98 - 107 mmol/L [facility] Carbon Dioxide 22 22 - 31 mmol/L [facility] Anion Gap 11 5 - 15 mmol/L [facility] Calcium 9.3 8.5 - 10.5 mg/dL [facility] Protein, Total 6.9 6.1 - 8.0 gm/dL [facility] Albumin 4.3 3.2 - 5.2 gm/dL [facility] Aspartate Aminotransferase 10 0 - 30 unit/L [facility] Alanine Aminotransferase 9 0 - 30 unit/L [facility] Alkaline Phosphatase 64 35 - 105 unit/L [facility] [...] of body mass or the acutely ill. [email or web address] eGFR 114 >=60 mL/min/1. 73 m?? [facility] Comment: The eGFR was calculated using the CKD-EPI equation. As with all creatinine based estimates of kidney function, eGFR values calculated with the CKD-EPI equation are not accurate in patients with acute kidney failure, extremes of body mass or the acutely ill. [email or web address] Blood specimen (specimen) 10/13/2019 10:30 AM EDT 10/13/2019 10:39 AM EDT Narrative Resulting Agency Comment Spec In Lab Markell Darling MD CHEMISTRY ORDERABLES [facility] [place] [address] * (ABNORMAL) Creatinine (10/13/2019 10:30 AM EDT) Creatinine 0.69(L) 0.70 - 1.20 mg/dL [facility] Est Glomerular Filtration Rate 99 >=60 mL/min/1.7 3 m?? [facility] Comment: The eGFR was calculated using the CKD-EPI equation. As with all creatinine based estimates of kidney function, eGFR values calculated with the CKD-EPI equation are not accurate in patients with acute kidney failure, extremes of body mass or the acutely ill. [email or web address] eGFR 114 >=60 mL/min/1.7 3 m?? [facility] Comment: The eGFR was calculated using the CKD-EPI equation. As with all creatinine based estimates of kidney function, eGFR values calculated with the CKD-EPI equation are not accurate in patients with acute kidney failure, extremes of body mass or the acutely ill. [email or web address] Blood specimen (specimen) 10/13/2019 10:30 AM EDT 10/13/2019 10:39 AM EDT Narrative Resulting Agency Comment Spec In Lab Markell Darling MD CHEMISTRY ORDERABLES Performing Organization Address City/[facility] Co de Phone Number [facility] [place] [address] * Albumin Level (10/13/2019 10:30 AM EDT) Albumin 4.3 3.2 - 5.2 gm/dL [facility] Blood specimen (specimen) 10/13/2019 10:30 AM EDT 10/13/2019 10:39 AM EDT Narrative Resulting Agency Comment Spec In Lab Markell Darling MD CHEMISTRY ORDERABLES Performing Organization Address City/[facility] Co de Phone Number [facility] [place] [address] documented in this encounter Visit Diagnoses Diagnosis Tendinitis of right hip flexor Pain in right hip Pain in joint, pelvic region and thigh Bursitis of other bursa of both hips Seropositive rheumatoid arthritis Rheumatoid arthritis Inflammatory arthropathy Arthropathy, unspecified, site unspecified High risk medication use Encounter for long-term (current) use of other medications Pain in both hands Bilateral wrist pain Pain in joint, forearm Chronic pain of both knees documented in this encounter Care Teams Cage Operator Relationship Specialty Start Date End Date Naman Domingo PA PCP - General Family Medicine 07/04/18 06/10/20 documented as of this encounter
--- OUTSIDE RECORDS SUMMARY | 2023-11-15 02:28 | XMS_ITS | Encounter Summary ---
Author [place] [address] Care Team Providers Care Sample Card Maker Name Role Phone JAIR Francois Benjamin Primary Care Provider +1- [phone] Reason for Visit * Reason Onset Date Comments Other 10/27/2019 Encounter Details Date Type Department Care Team (Late st Contact Info) Description 10/27/2019 [place] [address] Sherman Rivers RN Other Social History Tobacco Use Types Packs/Day Years [...] encounter Miscellaneous Notes * Telephone Encounter - Sherman Rivers RN - 10/27/2019 11:22 AM EDT Markell Darling MD sent to Sherman Rivers RN Caller: Unspecified (Yesterday, ??3:43 PM) ?? Spoke to her * Telephone Encounter - Sherman Rivers RN - 10/27/2019 9:42 AM EDT Keyona calls nurse line as she is RTC to Dr. Darling. documented in this encounter Plan of Treatment Not on file documented as of this encounter Visit Diagnoses Not on filedocumented in this encounter Care Teams Sample Card Maker Relationship Specialty Start Date End Date Naman Domingo PA PCP - General Family Medicine 07/04/18 06/10/20 documented as of this encounter
--- OUTSIDE RECORDS SUMMARY | 2023-11-15 02:28 | XMS_ITS | Encounter Summary ---
Author Organization [facility] [place] [address] Care Team Providers Care Plaster Machine Tender Name Role Phone Nidhi Conti Primary Care Provider Reason for Visit * Reason Comments Medication Refill Encounter Details Date Type Department Care Team (Late st Contact Info) Description 06/22/2019 Refill [place] [address] Markell Darling MD [facility] [place] [address] Inflammatory arthropathy; Seropositive rheumatoid arthritis Social History [...] arthritis documented in this encounter Care Teams Plaster Machine Tender Relationship Specialty Start Date End Date Nidhi Conti PA [address] [place] [id number] PCP - General Family Medicine 06/11/20 documented as of this encounter
--- OUTSIDE RECORDS SUMMARY | 2023-11-15 02:28 | XMS_ITS | Encounter Summary ---
Author Organization [facility] [place] [address] Care Team Providers Care Membership Administrator Name Role Phone JAIR Francois Benjamin Primary Care Provider +1- [phone] Reason for Referral * Consultation (Routine) - Specialty Diagnoses / Procedures Referred By Contac t Referred To Contact Diagnoses Lymphocytosis Markell Darling MD [facility] [place] [address] Referral ID Status Reason Start Date Expiration Date V isits Requested Visits Authorized [id number] Consult, Test & Treat 03/15/2020 09/11/2020 1 1 Encounter Details Date Type Department Care Team (Latest Contact Info) Description 03/15/2020 12:00 PM EST TH Visit (TeleHealth) [place] [address] Markell Darling MD [facility] [place] [address] Medication monitoring encounter; High risk medication use; Lymphocytosis; Seropositive rheumatoid arthritis; Inflammatory arthropathy; Methotrexate, ferry terminal supervisor, current use; Pain in right hip; Bilateral [...] Progress Notes * Markell Darling MD - 03/15/2020 12:00 PM EST Rheumatology Follow Up phone note 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 abnormal wrist xray erosion verses a cyst CDAI uable to calcuate MTX and FA HCQ SE - diarrhea Interval HX: Keyona Terry is a 54 y.o. C female who presents today for fu evaluation SPRA of bilateral hand pain and foot pain that is been going on for several years but been worse over the last year. She still has prolonged Morning stiffness Affecting the bilateral hip, wrist, hands, and ankles Advil is not helping. No other symptoms No swelling redness or warmth Mouth sores have resolved with reducing MTX and increasing FA. No fevers, chills, night sweats, wt loss and no swollen LN Physical Exam: NAD NCAT, nonicteric sclera, no [...] with changes to the wrist. SPRA - doing well at Dz activity mild to moderate per patient thought w/o seeing the patient this is difficult ?? Unable to tolerate HCQ ?? Off prednisone ?? MTX has resulted in increased oral ulcer will increase FA to 5mg. ?? Continue Current MTX 6 tabs weekly since no benefit at 8 tabs and more SE Lymphocytosis - improvement in WBC counts- though lymph still elevated- no B symtpoms at this time.Fever chills night sweats or weight loss - will repeat in q 1 month - H/o referral placed if abnormal Discontinued gerardo Nuno Recommended taking with food and the addition [...] and the following medications have been changed: Medication ordered or changed during this encounter, will not show discontinued medications Medications ??? metHOTREXate 2.5 mg Tablet Sig: Take 6 tablets by mouth once a week. On wednesday Dispense: 72 tablet Refill: 0 ??? meloxicam (MOBIC) 7.5 mg Tablet Sig: Take 1 tablet by mouth daily. Dispense: 30 tablet Refill: 1 Orders Placed This Encounter Procedures ??? CRP, acute inflammation ??? CBC (with Diff) ??? Creatinine ??? Hepatic Function Panel ??? Sedimentation rate ??? Referral to Hematology and Oncology Return in about 8 weeks (around 05/10/2020) for Telehealth. Markell Darling MD documented in this encounter Plan of Treatment Scheduled Referrals Name Type Priority Associated Diagnoses Order Schedule Referral to Hematology and Oncology Outpatient Referral Routine Lymphocytosis Ordered: 03/15/2020 documented as of this encounter Visit Diagnoses [...] Cough documented in this encounter Care Teams Membership Administrator Relationship Specialty Start Date End Date Naman Domingo PA PCP - General Family Medicine 07/04/18 06/10/20 documented as of this encounter
--- OUTSIDE RECORDS SUMMARY | 2023-11-15 02:28 | XMS_ITS | Encounter Summary ---
Author Organization [facility] [place] [address] Care Team Providers Care Paper Maker Name Role Phone JAIR Francois Benjamin Primary Care Provider +1- [phone] Reason for Referral * Physical Therapy (Routine) - Specialty Diagnoses / Procedures Referred By Contac t Referred To Contact Diagnoses Tendinitis of right hip flexor Pain in right hip Bursitis of other bursa of both hips Markell Darling MD [facility] [place] [address] Referral ID Status Reason Start Date Expiration Date V isits Requested Visits Authorized [id number] Evaluate and Treat 03/08/2019 09/04/2019 12 12 Encounter Details Date Type Department Care Team (Late st Contact Info) Description 03/08/2019 8:30 AM EST Office Visit Rheumatology at [place] [phone] Markell Darling MD [facility] [place] [address] [address] Tendinitis of right hip flexor; Pain in right hip; Bursitis of other bursa of both hips; Seropositive rheumatoid arthritis; Inflammatory arthropathy; High risk medication use Social History Tobacco Use Types Packs/Day Years Used Date Smoking Tobacco: Every Day Cigarettes Smokeless Tobacco: Never Sex and Gender Information Value Date Recorded Sex Assigned at Not on file Gender Identity Not on file Sexual Orientation Not on file documented as of this encounter Last Filed Vital Signs Vital Sign Reading Time Taken Comments Blood Pressure 126/53 03/08/2019 8:31 AM EST Pulse 77 03/08/2019 8:31 AM EST Temperature - - Respiratory Rate - - Oxygen Saturation 100% 03/08/2019 8:31 AM EST Inhaled Oxygen Concentration - - Weight 83.6 kg (184 lb 6.4 oz) 03/08/2019 8:31 A M EST Height 165 cm (5' 4.96) 03/08/2019 8:31 AM EST Body Mass Index 30.72 03/08/2019 8:31 AM EST documented in this encounter Progress Notes * Markell Darling MD - 03/08/2019 8:30 AM EST Rheumatology Follow up RF + - 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 abnormal wrist xray erosion verses a cyst CDAI Now low - remission <-- moder MTX and FA HCQ SE Interval HXI: Keyona Terry is a 53 y.o. C female who presents today for fu evaluation of bilateral hand pain andfoot pain that is been going on for several years but been worse over the last year . Pain in the wrist down to 0/10, no morning stiffness. She has right hip > left hip pain located over the hip flexor. Worse lays on the side activity or sits to long. She had done pt for the knees and ankles wasgiven some exercises for the hips. The hip does not give outs. VAS pt 0-1 No side effects from MTX except some fatigue Swelling warmth or Redness of the Joints; No Morning stiffness: She wakes up stiffness < 30 minutes Pain Improves with: Naproxen 2-3 x per weeks nop tylenol Pain worsens with: as above Family [...] Socioeconomic History ??? Marital status: Spouse name: None ??? Number of children: None ??? Years of education: None ??? Highest education level: None Occupational History ??? None Social Needs ??? Financial resource strain: None ??? Food insecurity: Worry: None Inability: None ??? Transportation needs: Medical: None Non-medical: None Tobacco Use ??? Smoking status: Current Every Day Smoker Packs/day: 0.50 Types: Cigarettes ??? Smokeless tobacco: Never Used Substance and Sexual Activity ??? Alcohol use: None ??? Drug use: None ??? Sexual activity: None Lifestyle ??? Physical activity: Days per week: None Minutes per session: None ??? Stress: None Relationships ??? Social connections: Talks on phone: None Gets together: None Attends baptism service: None Active member of club or organization: None Attends meetings of clubs or organizations: None Relationship status: None ??? Intimate partner violence: Fear of current or ex partner: None Emotionally abused: None Physically abused: None Forced sexual activity: None Other Topics Concern ??? None Social History Narrative ??? None Current Outpatient Medications Medication Sig Dispense Refill ??? metHOTREXate 2.5 mg Tablet TAKE 6 TABLETS BY MOUTH ONCE A WEEK 24 tablet 3 ??? folic acid (FOLVITE) 1 mg Tablet Take 2 tablets by mouth daily. 180 tablet 3 ??? simvastatin (ZOCOR) 20 mg Tablet daily. 0 ??? verapamil (CALAN-SR) 240 mg Tablet Sustained Release daily. 0 ??? ibuprofen (ADVIL;MOTRIN) 200 mg Tablet Take 400 mg by mouth every 6 hours as needed for Pain. ??? PLAQUENIL 200 mg Tablet Take 2 tablets by mouth daily. (Patient not taking: Reported on 03/08/2019) 60 tablet 3 ??? predniSONE (DELTASONE) 2.5 mg Tablet 4 tabs daily decrease by 1 tabs every 7 days until at 5 mg. (Patient not taking: Reported on 12/21/2018) 63 tablet 3 No current facility-administered medications for this visit. Current Outpatient Medications on File Prior to Visit Medication Sig Dispense Refill ??? metHOTREXate 2.5 mg Tablet TAKE 6 TABLETS BY MOUTH ONCE A WEEK 24 tablet 3 ??? folic acid (FOLVITE) 1 mg Tablet Take 2 tablets by mouth daily. 180 tablet 3 ??? simvastatin (ZOCOR) 20 mg Tablet daily. 0 ??? verapamil (CALAN-SR) 240 mg Tablet Sustained Release daily. 0 ??? ibuprofen (ADVIL;MOTRIN) 200 mg Tablet Take 400 mg by mouth every 6 hours as needed for Pain. ??? PLAQUENIL 200 mg Tablet Take 2 tablets by mouth daily. (Patient not taking: Reported on 03/08/2019) 60 tablet 3 ??? predniSONE (DELTASONE) 2.5 mg Tablet 4 tabs daily decrease by 1 tabs every 7 days until at 5 mg. (Patient not taking: Reported on 12/21/2018) 63 tablet 3 No current facility-administered medications on file prior to visit. No Known Allergies Physical Exam: BP 126/53 Pulse 77 Ht 165 cm (5' 4.96) Wt 83.6 kg (184 lb 6.4 oz) SpO2 100% BMI 30.72 kg/m?? General: NAD HEENT: Mucous membranes are moist, no oral mucosal ulcerations Neck: Supple, no lymphadenopathy, full range of motion. Cardiovascular: RR, Lungs: CTABL Abdomen: Soft, non tender, non distended, + [...] full claw and fist, Hips: FROM, (-) fader\, + hip flexor on the right no hernia identified Knees: (-)effusions, non-tender ROM, mild valgum deform [...] osseous abnormalities. No radiographic evidence of sarcoidosis. . Assessment: Keyona Terry is a 53 y.o. 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 CDAI 1 remission Dalton hip pain right hip flexor tendinitis troch syndrome PT stretching The patient got some relif with prednisone. She has had limited relief with MTX but not at the 6 month shweta. Will add HCQ then will titrate MTX up to 8 tabs . If no response will consider an MRI of the wrist. CDAI Mod Dz activity Plan Continue MTX and FA DC HCQ SE Orders Placed This Encounter Procedures ??? XR Pelvis and Hip 2 Views Bilateral ??? CRP, acute inflammation ??? CBC (with Diff) ??? Albumin Level ??? Creatinine ??? Hepatic Function Panel ??? Sedimentation rate ??? Referral to Physical Therapy Return in about 4 months (around 07/08/2019). Lab work q 3 months Markell Darling MD I recommendedcontinuing methotrexate for Keyona Terry. I discussed the [...] experience. Leukemia 6:178-181, 1991 (suppl 1). Mal M, Peterson A, Cyndee MT et al. Low-dose oral methotrexate and cyclophosphamide in metastaticbreast cancer: antitumor activity and correlation with vascular endothelial growth factor levels. Caroline Oncol 13: 73-80, 2002. documented in this encounter Plan of Treatment Scheduled Referrals Name Type Priority Associated Diagnoses Orde r Schedule Referral to Physical Therapy Outpatient Referral Routine Tendinitis of right hip flexor Pain in right hip Bursitis of other bursa of both hips Ordered: 03/08/2019 documented as of this encounter Results * (ABNORMAL) Creatinine (10/13/2019 10:30 AM EDT) Creatinine 0.69(L) 0.70 - 1.20 mg/dL [facility] Est Glomerular Filtration Rate 99 >=60 mL/min/1.7 3 m?? [facility] Comment: The eGFR was calculated using the CKD-EPI equation. As with all creatinine based estimates of kidney function, eGFR values calculated with the CKD-EPI equation are not accurate in patients with acute kidney failure, extremes of body mass or the acutely ill. http://[employer]/[facility] eGFR 114 >=60 mL/min/1.7 3 m?? [facility] Comment: The eGFR was calculated using the CKD-EPI equation. As with all creatinine based estimates of kidney function, eGFR values calculated with the CKD-EPI equation are not accurate in patients with acute kidney failure, extremes of body mass or the acutely ill. http://[employer]/[facility] Blood specimen (specimen) 10/13/2019 10:30 AM EDT 10/13/2019 10:39 AM EDT Narrative Resulting Agency Comment Spec In Lab Markell Darling MD CHEMISTRY ORDERABLES [facility] [place] [address] * Albumin Level (10/13/2019 10:30 AM EDT) Albumin 4.3 3.2 - 5.2 gm/dL [facility] Blood specimen (specimen) 10/13/2019 10:30 AM EDT 10/13/2019 10:39 AM EDT Narrative Resulting Agency Comment Spec In Lab Markell Darling MD CHEMISTRY ORDERABLES [facility] [place] [address] * XR Pelvis and Hip 2 Views [...] the number below. ? Electronically signed by: Betty Moeller [facility] ([phone]), at 03/08/2019 12:42 PM Narrative 03/08/2019 12:42 PM EST EXAMINATION: XR [...] contact the number below. Electronically signed by: Betty Moeller [facility]([phone]), at 03/08/2019 12:42 PM Markell Darling MD IMG DX ORDERABLES documented in this encounter Visit Diagnoses Diagnosis Tendinitis of right hip flexor Pain in right hip Pain in joint, pelvic region and thigh Bursitis of other bursa of both hips Seropositive rheumatoid arthritis Rheumatoid arthritis Inflammatory arthropathy Arthropathy, unspecified, site unspecified High risk medication use Encounter for long-term (current) use of other medications Tendinitis of right hip flexor Pain in right hip Pain in joint, pelvic region and thigh Bursitis of other bursa of both hips documented in this encounter Care Teams Paper Maker Relationship Specialty Start Date End Date Naman Domingo PA PCP - General Family Medicine 07/04/18 06/10/20 documented as of this encounter
--- OUTSIDE RECORDS SUMMARY | 2023-11-15 02:28 | XMS_ITS | Encounter Summary ---
Author Organization [facility] [place] [address] Care Team Providers Care Stripper Preliminary Name Role Phone JAIR Francois, Naman Primary Care Provider +1- [phone] Reason for Visit * Reason Comments Medication Refill Encounter Details Date Type Department Care Team (Late st Contact Info) Description 06/22/2019 [place] [address] Markell Darling MD [facility] [place] [address] Inflammatory arthropathy; Seropositive rheumatoid arthritis Social History [...] arthritis documented in this encounter Care Teams Stripper Preliminary Relationship Specialty Start Date End Date Naman Domingo PA PCP - General Family Medicine 07/04/18 06/10/20 documented as of this encounter
--- OUTSIDE RECORDS SUMMARY | 2023-11-15 02:28 | XMS_ITS | Encounter Summary ---
Author Organization [facility] [place] [address] Care Team Providers Care Doll Surgeon Name Role Phone JAIR Francois Benjamin Primary Care Provider +1- [phone] Encounter Details Date Type Department Care Team (Late st Contact Info) Description 07/12/2019 Tele[place] [phone] Ida Montenegro, [facility] Social History Tobacco Use Types Packs/Day Years Used Date Smoking Tobacco: Every Day Cigarettes Smokeless Tobacco: Never Sex and Gender Information Value Date Recorded Sex Assigned at Not on file Gender Identity Not on file Sexual Orientation Not on file documented as of this encounter Miscellaneous Notes * Telephone Encounter - Ida Montenegro, [facility] [place] - 07/12/2019 2:44 PM EDT [employer] Housekeeping Attendant Pre-Telemedicine Phone Note [] Patient not reached [x] Patient reached and the following information was reviewed/obtained per protocol: [x] Confirmed patient name and date of [] Confirmed telemedicine jen (Vidyo and Virtual Visit) is downloaded and functioning [x] Confirmed location of patient - TeleVisit is taking place in [x] [place] [] [place] [] If not on myD, working on signing up for [facility] [x] Confirmed has completed any pre-visit questionnaires [] If has not received required pre-visit questionnaires, send via [facility] [x] Reviewed patient medications [x] Documented self-reported vitals: [] Weight:184LB [] Height 5'4 [] pulse recorded: [] Other information or concerns documented in this encounter Plan of Treatment Not on file documented as of this encounter Visit Diagnoses Not on filedocumented in this encounter Care Teams Doll Surgeon Relationship Specialty Start Date End Date Naman Domingo PA PCP - General Family Medicine 07/04/18 06/10/20 documented as of this encounter
--- OUTSIDE RECORDS SUMMARY | 2023-11-15 02:28 | XMS_ITS | Encounter Summary ---
Author Organization [facility] [place] [address] Care Team Providers Care Wet Trimmer Name Role Phone JAIR Francois Benjamin Primary Care Provider +1- [phone] Encounter Details Date Type Department Care Team (Late st Contact Info) Description 10/27/2019 Telephone [place] [phone] Markell Darling MD [facility] [place] [address] Social History Tobacco Use Types Packs/Day Years [...] Telephone Encounter - Markell Darling MD - 10/27/2019 10:12 AM EDT Phone Note She is 8 tabs weekly MTX and FA daily She is not getting relief with current prednisone We discussed COVID 19 return to scholld and current ACR recs- with mediations and social distancing-and hgein wearing a mask We aslo discussed that tbis may change as much of the data has not able to predict We discussed resources that santo be hlpful documented in this encounter Plan of Treatment Not on file documented as of this encounter Results * Comprehensive metabolic panel (non-fasting) (12/21/2019 2:34 PM EDT) Glucose 90 65 - 199 mg/dL [facility] Comment:Diabetes: >=200 mg/d L plus symptoms Blood Urea Nitrogen 14 8 - 18 mg/dL [facility] Creatinine 0.75 0.70 - 1.20 mg/dL [facility] Sodium 141 135 - 145 mmol/L [facility] Potassium 4.0 3.5 - 5.0 mmol/L [facility] Comment: Please note: ??Patients with WBC >100,000 may have falsely elevated Potassium levels. ??For accurate Potassium quantification in these patients send serum separator tube (gold top) for subsequent determinations. ??Contact the Clinical Chemistry Laboratory if there are any questions. Chloride 104 98 - 107 mmol/L [facility] Carbon Dioxide 28 22 - 31 mmol/L [facility] Anion Gap 9 5 - 15 mmol/L [facility] Calcium 9.5 8.5 - 10.5 mg/dL [facility] Protein, Total 7.0 6.1 - 8.0 gm/dL [facility] Albumin 4.4 3.2 - 5.2 gm/dL [facility] Aspartate Aminotransferase 13 0 - 30 unit/L [facility] Alanine Aminotransferase 12 0 - 30 unit/L [facility] Alkaline Phosphatase 73 35 - 105 unit/L [facility] Bilirubin, Total 0.2 0.2 - 1.3 mg/dL [facility] Est Glomerular Filtration Rate 90 >=60 mL/min/1. 73 m?? [facility] Comment: The eGFR was calculated using the CKD-EPI equation. As with all creatinine based estimates of kidney function, eGFR values calculated with the CKD-EPI equation are not accurate in patients with acute kidney failure, extremes of body mass or the acutely ill. [email or web address] eGFR 104 >=60 mL/min/1. 73 m?? [facility] Comment: The eGFR was calculated using the CKD-EPI equation. As with all creatinine based estimates of kidney function, eGFR values calculated with the CKD-EPI equation are not accurate in patients with acute kidney failure, extremes of body mass or the acutely ill. [email or web address] Blood specimen (specimen) 12/21/2019 2:34 PM EDT 12/21/2019 2:39 PM EDT Narrative Resulting Agency Comment Spec In Lab Markell Darling MD CHEMISTRY ORDERABLES [facility] [place] [address] * (ABNORMAL) Comprehensive metabolic panel (non-fasting) (11/16/2019 12:31 PM EDT) Glucose 110 65 - 199 mg/dL [facility] Comment:Diabetes: >=200 mg/d L plus symptoms Blood Urea Nitrogen 12 8 - 18 mg/dL [facility] Creatinine 0.68(L) 0.70 - 1.20 mg/dL [facility] Sodium 140 135 - 145 mmol/L [facility] Potassium 4.0 3.5 - 5.0 mmol/L [facility] Comment: Please note: ??Patients with WBC >100,000 may have falsely elevated Potassium levels. ??For accurate Potassium quantification in these patients send serum separator tube (gold top) for subsequent determinations. ??Contact the Clinical Chemistry Laboratory if there are any questions. Chloride 104 98 - 107 mmol/L [facility] Carbon Dioxide 24 22 - 31 mmol/L [facility] Anion Gap 12 5 - 15 mmol/L [facility] Calcium 9.3 8.5 - 10.5 mg/dL [facility] Protein, Total 7.0 6.1 - 8.0 gm/dL [facility] Albumin 4.4 3.2 - 5.2 gm/dL [facility] Aspartate Aminotransferase 10 0 - 30 unit/L [facility] Alanine Aminotransferase 10 0 - 30 unit/L [facility] Alkaline Phosphatase 61 35 - 105 unit/L [facility] Bilirubin, Total 0.4 0.2 - 1.3 mg/dL [facility] Est Glomerular Filtration Rate 99 >=60 mL/min/1. 73 m?? [facility] Comment: The eGFR was calculated using the CKD-EPI equation. As with all creatinine based estimates of kidney function, eGFR values calculated with the CKD-EPI equation are not accurate in patients with acute kidney failure, extremes of body mass or the acutely ill. [email or web address] eGFR 115 >=60 mL/min/1. 73 m?? [facility] Comment: The eGFR was calculated using the CKD-EPI equation. As with all creatinine based estimates of kidney function, eGFR values calculated with the CKD-EPI equation are not accurate in patients with acute kidney failure, extremes of body mass or the acutely ill. [email or web address] Blood specimen (specimen) 11/16/2019 12:31 PM EDT 11/16/2019 12:45 PM EDT Narrative Resulting Agency Comment Spec In Lab Markell Darling MD CHEMISTRY ORDERABLES [facility] [place] [address] documented in this encounter Visit Diagnoses Diagnosis Inflammatory arthropathy Arthropathy, unspecified, site unspecified Seropositive rheumatoid arthritis Rheumatoid arthritis High risk medication use Encounter for long-term (current) use of other medications Pain in both hands Bilateral wrist pain Pain in joint, forearm Chronic pain of both knees documented in this encounter Care Teams Wet Trimmer Relationship Specialty Start Date End Date Naman Domingo PA PCP - General Family Medicine 07/04/18 06/10/20 documented as of this encounter
--- OUTSIDE RECORDS SUMMARY | 2023-11-15 02:28 | XMS_ITS | Encounter Summary ---
Author Organization [facility] [place] [address] Care Team Providers Care Anesthesiology Medical Doctor Name Role Phone JAIR Francois Benjamin Primary Care Provider +1- [phone] Encounter Details Date Type Department Care Team (Late st Contact Info) Description 01/02/2020 [place] [id number] Verena Corona Social History Tobacco Use Types Packs/Day Years [...] encounter Miscellaneous Notes * Telephone Encounter - Verena Corona - 01/02/2020 12:59 PM EDT Left message for pt to schedule follow up documented in this encounter Plan of Treatment Not on file documented as of this encounter Visit Diagnoses Not on filedocumented in this encounter Care Teams Anesthesiology Medical Doctor Relationship Specialty Start Date End Date Naman Domingo PA PCP - General Family Medicine 07/04/18 06/10/20 documented as of this encounter
--- OUTSIDE RECORDS SUMMARY | 2023-11-15 02:28 | XMS_ITS | Encounter Summary ---
Author Organization [facility] [place] [address] Care Team Providers Care Java Systems Analyst Name Role Phone JAIR Francois Benjamin Primary Care Provider +1- [phone] Reason for Visit * Reason Onset Date Comments Triage 12/19/2018 Encounter Details Date Type Department Care Team (Late st Contact Info) Description 12/19/2018 [place] [address] Raven Bell RN Triage Social History Tobacco Use Types Packs/Day Years Used Date Smoking Tobacco: Every Day Smokeless Tobacco: Never Sex and Gender Information Value Date Recorded Sex Assigned at Not on file Gender Identity Not on file Sexual Orientation Not on file documented as of this encounter Miscellaneous Notes * Telephone Encounter - Raven Rajan RN - 12/19/2018 2:09 PM EDT has since been in communication with the patient via [facility]. Will now close encounter. * Telephone Encounter - Raven Rajan RN - 12/19/2018 9:35 AM EDT Patient calls asking about a new medication - see her [facility] message below: From: Tiny Terry To: Markell Darling MD Sent: 12/18/2018 ??7:00 PM EDT Subject: Medication Question (not renewal) Sorry to bother you . I had called on wednesday late afternoon . I had started the new medication and thought it was making me sick. I had only taken it for 2 days and stopped. What I think happened is I got a stomach bug at the same time as I was still not feeling good over the weekend. I would like to start taking the new medication again. ??The question I have is can I take it late in the afternoon instead of the morning? I would have asked my pharmacist this question but they weren't willing to listen. Thank you so much for your help and look forward to hearing from you. Thank you tiny I have since routed this message to . I was unable to reach Tiny upon callback. I left her a voicemail asking for a RTC or a [facility] message to confirm which medication she is referring to. I will then ask to please advise on this. documented in this encounter Plan of Treatment Not on file documented as of this encounter Visit Diagnoses Not on filedocumented in this encounter Care Teams Java Systems Analyst Relationship Specialty Start Date End Date Naman Domingo PA PCP - General Family Medicine 07/04/18 06/10/20 documented as of this encounter
--- OUTSIDE RECORDS SUMMARY | 2023-11-15 02:28 | XMS_ITS | Encounter Summary ---
Author Organization [facility] [place] [address] Care Team Providers Care Dye House Helper Name Role Phone JAIR Francois, Naman Primary Care Provider +1- [phone] Reason for Visit * Reason Comments Medication Refill Encounter Details Date Type Department Care Team (Late st Contact Info) Description 08/14/2019 Refill [place] [address] Markell Darling MD [facility] [place] [address] Inflammatory arthropathy; Seropositive rheumatoid arthritis Social History [...] arthritis documented in this encounter Care Teams Dye House Helper Relationship Specialty Start Date End Date Naman Domingo PA PCP - General Family Medicine 07/04/18 06/10/20 documented as of this encounter
--- OUTSIDE RECORDS SUMMARY | 2023-11-15 02:28 | XMS_ITS | Encounter Summary ---
Author Organization [facility] [place] [address] Care Team Providers Care Rouge Presser Name Role Phone JAIR Francois, Naman Primary Care Provider +1- [phone] Reason for Visit * Reason Comments Establish Care * Consultation (Routine) - Closed Specialty Diagnoses / Procedures Referred By Contac t Referred To Contact Orthopaedics Diagnoses Mass of foot, unspecified laterality Markell Darling MD [facility] [place] [address] [facility] [address] [place] [id number] Referral ID Status Reason Start Date Expiration Date V isits Requested Visits Authorized [id number] Closed Consult, Test & Treat 12/09/2018 12/09/2019 1 1 Encounter Details Date Type Department Care Team (Late st Contact Info) Description 12/21/2018 4:00 PM EDT Office Visit [place] [address] Eve Pleitez MD [facility] [place] [address] Abnormal radiograph Social History Tobacco Use Types Packs/Day Years Used Date Smoking Tobacco: Every Day Cigarettes Smokeless Tobacco: Never Sex and Gender Information Value Date Recorded Sex Assigned at Not on file Gender Identity Not on file Sexual Orientation Not on file documented as of this encounter Last Filed Vital Signs Vital Sign Reading Time Taken Comments Blood Pressure 112/53 12/21/2018 3:59 PM EDT Pulse 73 12/21/2018 3:59 PM EDT Temperature - - Respiratory Rate - - Oxygen Saturation - - Inhaled Oxygen Concentration - - Weight 82.9 kg (182 lb 11.2 oz) 12/21/2018 3:59 PM EDT Height 165 cm (5' 4.96) 12/21/2018 3:59 PM EDT Body Mass Index 30.44 12/21/2018 3:59 PM EDT documented in this encounter Progress Notes * Arjun Whyte MD - 12/21/2018 4:00 PM EDT Chief complaint: Referral for abnormal radiograph History of present illness: Keyona Terry is a 53 y.o. female with rheumatoid arthritis who was referred to our clinic today after a x-ray series of her ankles revealed a persistent radiographic abnormality on her left ankle x-ray, which was read by the radiologist as a possible metallic foreign body projecting over the calcaneal tuberosity at the Achilles insertion. She has no pain at the site which correlates to where the piece of debris is over the left heel. She has no numbness, reports of no signs of infection over the foot or ankle. She really has no complaint, and is here at the request of her bulk clerk. She has no report of trauma. Past medical history: Patient Active Problem List Diagnosis Date Noted ??? Abnormal radiograph 12/21/2018 ??? Inflammatory arthropathy 07/04/2018 ??? Seropositive rheumatoid arthritis 07/04/2018 Medications: ??? PLAQUENIL 200 mg Tablet ??? metHOTREXate 2.5 mg Tablet ??? folic acid (FOLVITE) 1 mg Tablet ??? simvastatin (ZOCOR) 20 mg Tablet ??? verapamil (CALAN-SR) 240 mg Tablet Sustained Release ??? ibuprofen (ADVIL;MOTRIN) 200 mg Tablet ??? predniSONE (DELTASONE) 2.5 mg Tablet Allergies: No Known Allergies Social history: Social History Tobacco Use ??? Smoking status: Current Every Day Smoker Packs/day: 0.50 Types: Cigarettes ??? Smokeless tobacco: Never Used Substance Use Topics ??? Alcohol use: Not on file Review of systems: No chest pain or shortness of breath at baseline No fevers, night sweats or chills Vital signs: BP 112/53 (BP Location (NBP): Left arm, Patient Position: Sitting) Pulse 73 Ht 165 cm (5' 4.96) Wt 82.9 kg (182 lb 11.2 oz) BMI 30.44 kg/m?? Physical Exam: No Apparent distress Focused examination of the Left lower extremity: Skin is intact. There is no swelling, erythema, ecchymoses. There is no tenderness focally over the posterior calcaneal tuberosity at the achilles insertion. There is mild pain with passive range of motion of the ankle joint, without pain with passive rangeof motion of the subtalar and transverse tarsal joints On motor exam, there is 5/5 strength in dorsiflexion, plantarflexion, inversion, eversion, EHL, FHL Sensation is intact to light touch in the sural, saphenous, deep peroneal, superficial peroneal, and tibial nerve distributions Toes are warm and well perfused with 2+ palpable DP and PT pulses Imaging: Personal review of the patient's imaging reveals: XR shows a small radio-opaque linear density which projects over the posterior calcaneal tuberositywhich appears to be within the triceps tendon. Assessment: 53 y.o. year-old female with radiographic abnormality, which is possibly a metallic object or intratendinous calcification. Plan: We had a long discussion regarding the possible etiology of her radiographic abnormality. On xr, it is not clear that this is metallic. It could be a calcification caused by enthesitis. Regardless, its removal is certainly not necessary as it is not bothering her. If it becomes a problem we will discuss removal. Follow up: PRN This plan was discussed with the patient and they are in agreement. All of the patient's questions were answered. The above dictation was made with voice recognition software * Eve Pleitez MD - 12/21/2018 4:00 PM EDT Patient was seen and evaluated in office on 12/21/2018. In brief this is a 53-year-old female referred for evaluation of an incidental finding on an x-ray. She has what appears to either be a linear calcification or perhaps metallic foreign body in the distal aspect of the Achilles tendon. For further details, please refer to the resident's note. I have reviewed the case with the resident, and agree with findings and plan as dictated in the resident note. As the patient is clinically asymptomatic and has absolutely no tenderness or swelling over the posterior aspect of the calcaneus, I think that this can be treated with simple observation. There is no need to remove this incidental foreign body. Though, based on patient's history, I am not certain that this is truly a foreign body and may represent again linear calcification in the tendon. If andwhen she becomes symptomatic, we could certainly consider operative intervention. documented in this encounter Plan of Treatment Scheduled Referrals Name Type Priority Associated Diagnoses Orde r Schedule Referral to Podiatry Outpatient Referral Routine Mass of foot, unspecified laterality Ordered: 12/09/2018 documented as of this encounter Visit Diagnoses Diagnosis Abnormal radiograph Other nonspecific (abnormal) findings on radiological and other examinations of body structure documented in this encounter Care Teams Rouge Presser Relationship Specialty Start Date End Date Naman Domingo PA PCP - General Family Medicine 07/04/18 06/10/20 documented as of this encounter
--- OUTSIDE RECORDS SUMMARY | 2023-11-15 02:29 | XMS_ITS | Encounter Summary ---
Author Organization [facility] [place] [address] Care Team Providers Care Food Crops Farm Hand Name Role Phone Nidhi Conti Primary Care Provider Reason for Visit * Reason Onset Date Comments Medication Refill 08/05/2018 Encounter Details Date Type Department Care Team (Late st Contact Info) Description 08/05/2018 Ref[place] [address] Markell Darling MD [facility] [place] [address] Inflammatory arthropathy; Seropositive rheumatoid arthritis Social History [...] arthritis documented in this encounter Care Teams Food Crops Farm Hand Relationship Specialty Start Date End Date Nidhi Conti PA [address] [place] [id number] PCP - General Family Medicine 06/11/20 documented as of this encounter
--- OUTSIDE RECORDS SUMMARY | 2023-11-15 02:29 | XMS_ITS | Encounter Summary ---
Author Organization [facility] [place] [place] [address] Care Team Providers Care Barrel Cutter Name Role Phone None Primary Care Provider Unavailabl e Encounter Details Date Type Department Care Team (Latest Contact Info) Description 06/07/2018 3:03 PM EST Hospital Encounter XRay at [address] [place] [address] Markell Darling MD [facility] [place] [address] Bilateral wrist pain; Pain in both hands; Pain in both feet; Inflammatory arthropathy; Morning joint stiffness Discharge Disposition: Home Social [...] 240 mg by mouth daily. 0 05/16/2018 ibuprofen (ADVIL;MOTRIN) 200 mg Tablet Take 400 mg by mouth every 6 hours as needed for Pain. 03/15/2020 documented as of this encounter Plan of Treatment Not on file documented as of this encounter Procedures Procedure Name Priority Date/Time Associated Diagnosis Comments XR HAND MIN 3 VIEWS BILAT Routine 06/07/2018 3:34 PM EST Bilateral wrist pain Pain in both hands Pain in both feet Inflammatory arthropathy Morning joint stiffness documented in this encounter Results * XR Hand Min 3 views Bilat (Generic) (06/07/2018 3:34 PM EST) Anatomical Region Laterality Modality Hand Bilateral Digital Radiogra phy Impressions 06/07/2018 5:17 PM EST No radiographic evidence of inflammatory arthropathy. Thank you for letting us participate in the care of this patient. For questions regarding this report, please contact the number below. ? Electronically signed by: CHRISTIAN Wilson [facility] ([phone]), at 06/07/2018 5:17 PM Narrative 06/07/2018 5:17 PM EST EXAMINATION: XR HAND MIN 3 VIEWS BILAT (GENERIC) CLINICAL HISTORY: inflammatory arthropathy, hadn apin TECHNIQUE: 4 views BILATERAL hands COMPARISON: None FINDINGS: No focal swelling. Mineralization is normal. No acro osteolysis or periostitis. Interphalangeal joints: No joint space narrowing osteophyte formation or erosive disease. Metacarpophalangeal joints: No joint space narrowing, malalignment or erosive disease. Wrists: No joint space narrowing, erosive disease or malalignment. Procedure Note Garfield Elizondo MD - 06/07/2018 EXAMINATION: XR HAND MIN 3 VIEWS BILAT (GENERIC) CLINICAL HISTORY: inflammatory arthropathy, hadn apin TECHNIQUE: 4 views BILATERAL hands COMPARISON: None FINDINGS: No focal swelling. Mineralization is normal. No acro osteolysis or periostitis. Interphalangeal joints: No joint space narrowing osteophyte formation or erosive disease. Metacarpophalangeal joints: No joint space narrowing, malalignment orerosive disease. Wrists: No joint space narrowing, erosive disease or malalignment. IMPRESSION No radiographic evidence of inflammatory arthropathy. Thank you for letting us participate in the care of this patient. Forquestions regarding this report, please contact the number below. Markell Darling MD IMG DX ORDERABLES documented in this encounter Visit Diagnoses Diagnosis Bilateral wrist pain Pain in joint, forearm Pain in both hands Pain in both feet Pain in limb Inflammatory arthropathy Arthropathy, unspecified, site unspecified Morning joint stiffness Stiffness of joint, not elsewhere classified, unspecified site documented in this encounter Care Teams Barrel Cutter Relationship Specialty Start Date End Date None None PCP - General 02/25/10 07/03/18 documented as of this encounter
--- OUTSIDE RECORDS SUMMARY | 2023-11-15 02:29 | XMS_ITS | Encounter Summary ---
Author Organization [facility] [place] [address] Care Team Providers Care Respiratory Care Technician Name Role Phone JAIR Francois Benjamin Primary Care Provider +1- [phone] Reason for Visit * Reason Onset Date Comments Follow-up 11/08/2018 Encounter Details Date Type Department Care Team (Late st Contact Info) Description 11/08/2018 Telephone [place] [phone] Sherman Rivers RN Follow-up Social History Tobacco Use Types Packs/Day Years Used Date Smoking Tobacco: Every Day Smokeless Tobacco: Never Sex and Gender Information Value Date Recorded Sex Assigned at Not on file Gender Identity Not on file Sexual Orientation Not on file documented as of this encounter Miscellaneous Notes * Telephone Encounter - Sherman Rivers RN - 11/08/2018 11:02 AM EDT Images from the original note were not included. Keyona calls to find out what she needs to have done for labs and when. Last labs done in October. Will ask Dr. Darling if he wants CBC [id number] as indicated in AVS. Markell Darling MD sent to Sherman Rivers RN Caller: Unspecified (Today, ??9:03 AM) ?? Labs for MTX should be every 3-4 months Previous Messages Sent a mydh ,message to Keyona. Dr. Darling sent a mydh message to Keyona and I called Keyona to clarify due to al the medical terms usedin the message. Keyona states she did not completely understand MD message. I clarified and Keyona will have labs done every 3 months. documented in this encounter Plan of Treatment Not on file documented as of this encounter Visit Diagnoses Not on filedocumented in this encounter Care Teams Respiratory Care Technician Relationship Specialty Start Date End Date Naman Domingo PA PCP - General Family Medicine 07/04/18 06/10/20 documented as of this encounter
--- OUTSIDE RECORDS SUMMARY | 2023-11-15 02:29 | XMS_ITS | Encounter Summary ---
Author Organization [facility] [place] [address] Care Team Providers Care Contact And Service Clerks Supervisor Name Role Phone None Primary Care Provider Unavailabl e Encounter Details Date Type Department Care Team (Latest Contact Info) Description 06/07/2018 3:04 PM EST - 06/07/2018 11:59 PM EST Hospital Encounter XRay at [address] [place] [address] Markell Darling MD [facility] [address] Bilateral wrist pain; Pain in both feet; Inflammatory arthropathy; Morning [...] Name Priority Date/Time Associated Diagnosis Comments XR FOOT MIN 3 VIEWS BILAT Routine 06/07/2018 3:34 PM EST Bilateral wrist pain Pain in both feet Inflammatory arthropathy Morning joint stiffness documented in this encounter Results * XR Foot Min 3 views Bilat (Generic) (06/07/2018 3:34 PM EST) Anatomical Region Laterality Modality Foot Bilateral Digital Radiogra phy Impressions 06/07/2018 4:50 PM EST No radiographic evidence of inflammatory arthritis. I have personally reviewed the image(s) and the residents interpretation and agree with the findings, Garfield Elizondo at 06/07/2018 4:50 PM Thank you for letting us participate in the care of this patient. For questions regarding this report, please contact the number below. ? Narrative 06/07/2018 4:50 PM EST EXAMINATION: XR FOOT MIN 3 VIEWS BILAT (GENERIC) CLINICAL HISTORY: inflammatory arthritis, and foot pain TECHNIQUE: AP frontal, oblique, and lateral views of the feet. COMPARISON: None FINDINGS: No erosions or periostitis. Joint spaces are normal. No fractures. No soft tissue swelling. Bone mineralization is subjectively normal. Procedure Note Garfield Elizondo MD - 06/07/2018 EXAMINATION: XR FOOT MIN 3 VIEWS BILAT (GENERIC) CLINICAL HISTORY: inflammatory arthritis, and foot pain TECHNIQUE: AP frontal, oblique, and lateral views of the feet. COMPARISON: None FINDINGS: No erosions or periostitis. Joint spaces are normal. No fractures. No soft tissue swelling. Bone mineralization is subjectively normal. IMPRESSION No radiographic evidence of inflammatory arthritis. I have personally reviewed the image(s) and the residents interpretationand agree with the findings, Garfield Elizondo at 06/07/2018 4:50 PM Thank you for letting us participate [...] site documented in this encounter Care Teams Contact And Service Clerks Supervisor Relationship Specialty Start Date End Date None None PCP - General 02/25/10 07/03/18 documented as of this encounter
--- OUTSIDE RECORDS SUMMARY | 2023-11-15 02:29 | XMS_ITS | Encounter Summary ---
Author Organization [facility] [place] [address] Care Team Providers Care Travel Ticketing Reviewer Name Role Phone None Primary Care Provider Unavailabl e Reason for Visit * Consultation (Routine) - Specialty Diagnoses / Procedures Referred By Contberkley t Referred To Contact Rheumatology Diagnoses Other rheumatoid arthritis with rheumatoid factor of right hand; tiarra Walter Benjamin V, PA [address] [place] [address] [facility] [address] [place] [phone] Referral ID Status Reason Start Date Expiration Date V isits Requested Visits Authorized [id number] 05/12/2018 05/12/2019 1 1 Encounter Details Date Type Department Care Team (Late st Contact Info) Description 06/07/2018 2:30 PM EST Office [place] [address] Markell Darling MD [facility] [place] [address] Bilateral wrist pain; Pain in both hands; Pain in both feet; Inflammatory arthropathy; Morning joint stiffness; Arthralgia, unspecified joint Social History Tobacco Use Types Packs/Day Years Used Date Smoking Tobacco: Every Day Smokeless Tobacco: Never Sex and Gender Information Value Date Recorded Sex Assigned at Not on file Gender Identity Not on file Sexual Orientation Not on file documented as of this encounter Last Filed Vital Signs Vital Sign Reading Time Taken Comments Blood Pressure 106/53 06/07/2018 2:04 PM EST Pulse 78 06/07/2018 2:04 PM EST Temperature 37.2 ??C (98.9 ??F) 06/07/2018 2:04 PM ES T Respiratory Rate - - Oxygen Saturation 98% 06/07/2018 2:04 PM EST Inhaled Oxygen Concentration - - Weight 78.9 kg (174 lb) 06/07/2018 2:04 PM EST Height 162.6 cm (5' 4) 06/07/2018 2:04 PM EST Body Mass Index 29.87 06/07/2018 2:04 PM EST documented in this encounter Progress Notes * Markell Darling MD - 06/07/2018 2:30 PM EST Rheumatology Follow up HPI: Keyona Terry is a 52 y.o. female who presents today for evaluation of bilateral hand pain and footpain that is been going on for several years but been worse over the last year he rates the pain a 7 out of 10 achiness affecting the MCPs and PIPs of both hands equally with bilateral wrist pain which is hurt the most of the past couple days. She also describes bilateral elbow pain over the past 2 weeks with chronic history of bilateral lower back pain. 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 Swelling warmth or Redness of the Joints; No Morning stiffness: She wakes up stiffness 30 minutes Pain Improves with: Ibuprofen daily 2-3 x Pain worsens with: Pain is unchageds Family [...] (-)frequency, (-)nocturia, (-)genital ulcers MS (-)muscle weakness, (-)paralysis, (-)joint pain, (-)hx of arthritis Endo (-)thyroid disorders, (-)diabetes, (-)temperature intolerance. Neuro (-)focal weakness, (-)paresthesias, (-)gait instability. Skin (-)Raynaud's, ulcers, or nodules Psych (-) mood disorder. No past medical history on file. There are no active problems to display for this patient. No past surgical history on file. No family history on file. Social History Socioeconomic History ??? Marital status: Spouse name: None ??? Number of children: None ??? Years of education: None ??? Highest education level: None Social Needs ??? Financial resource strain: None ??? Food insecurity - worry: None ??? Food insecurity - inability: None ??? Transportation needs - medical: None ??? Transportation needs - non-medical: None Occupational History ??? None Tobacco Use ??? Smoking status: Current Every Day Smoker ??? Smokeless tobacco: Never Used Substance and Sexual Activity ??? Alcohol use: None ??? Drug use: None ??? Sexual activity: None Other Topics Concern ??? None Social History Narrative ??? None Current Outpatient Medications Medication Sig Dispense Refill ??? simvastatin (ZOCOR) 20 mg Tablet daily. 0 ??? verapamil (CALAN-SR) 240 mg Tablet Sustained Release daily. 0 ??? ibuprofen (ADVIL;MOTRIN) 200 mg Tablet Take 400 mg by mouth every 6 hours as needed for Pain. No current facility-administered medications for this visit. Current Outpatient Medications on File Prior to Visit Medication Sig Dispense Refill ??? simvastatin (ZOCOR) 20 mg Tablet daily. 0 ??? verapamil (CALAN-SR) 240 mg Tablet Sustained Release daily. 0 ??? ibuprofen (ADVIL;MOTRIN) 200 mg Tablet Take 400 mg by mouth every 6 hours as needed for Pain. No current facility-administered medications on file prior to visit. No Known Allergies Physical Exam: BP 106/53 Pulse 78 Temp 37.2 ??C (98.9 ??F) Ht 162.6 cm (5' 4) Wt 78.9 kg (174 lb) SpO2 98% BMI 29.87 kg/m?? General: AAOx3, NAD HEENT: Mucous membranes [...] Toes down going bilaterally. Skin: (-)ulcers, (-)rash \ Vascular: Pulses are equal in all extremities. MSK Back: Non tender over the spine and costovertebral angles bilaterally. (-)Gilbert Extremities Shoulders: FROM, non-tender to palpation Elbows:FROM, (-)pain, (-)nodules Wrists: FROM, no swelling, non-tender Hands: No synovitis, no MCP compression tenderness, full claw and fist Hips: FROM, (-) fader (-gilbert) Knees: (-)effusions, non-tender ROM Ankles: FROM, non-tender, no swelling Feet: no MTP compression tenderness Spine, shoulders, elbows, wrists, fingers, hips, knees and ankles; no active swelling, tenderness or synovitis at any joint. No soft tissue nodules. Labs: RF 43 international units WNL less than 12.5 JAYDEN negative platelets WNL albumin WNL ESR 21 Studies: Assessment: Keyona Terry is a 52 y.o. female who presents today with a symmetric polyarthropathy of the hands feet elbows and wrists without prolonged morning stiffness without active signs of synovitis but with high positive RF greater than 3 times upper limit of normal, ESR, albumin, platelets within normallimits. Even though the patient does not have active signs of synovitis the location of her symptoms with a positive RF to raise a concern for rheumatoid arthritis. However, she is a smoker which canresult in elevated rheumatoid factor. At this point in time is high concern neuritis but I cannot state due to rheumatoid additional testing will be needed I have low concerned of infectious cause ofher arthralgia symptoms been greater than a year and her symptoms are symmetrical Plan We will order a CPA and RF today we will recheck sed rate CRP, will check hepatitis panel tuberculosis and HIV for possible starting Biologics. I have provided her with information on methotrexate and chloroquine We will get x-rays of the hands and feet and wrists for evaluation of inflammatory arthritis. Orders Placed This Encounter Procedures ??? XR Hand Min 3 views Bilat (Generic) ??? XR Foot Min 3 views Bilat (Generic) ??? Comprehensive metabolic panel (non-fasting) ??? CBC (with Diff) ??? Sedimentation rate ??? Cyclic Citrullinated Peptide ??? CRP, acute inflammation ??? Rheumatoid factor, quant ??? Hepatitis C Antibody ??? QuantiFERON-TB Gold ??? Hepatitis B Surface Antigen ??? Hepatitis B Core Antibody, Total ??? Hepatitis B Surface Antibody ??? HIV Screen, 4th Generation ??? Hemogram ??? Differential, Automated Markell Darling MD documented in this encounter Plan of Treatment Not on file documented as of this encounter Procedures Procedure Name Priority Date/Time Associated Diagnosis Comments CRP, ACUTE INFLAMMATION Routine 06/07/2018 3:54 PM EST Bilateral wrist pain Pain in both hands Pain in both feet Inflammatory arthropathy Morning joint stiffness QUANTIFERON-TB GOLD Routine 06/07/2018 3 :54 PM EST Bilateral wrist pain Pain in both hands Pain in both feet Inflammatory arthropathy Morning joint stiffness ANTI-CYCLIC CITRULLINATED PEPTIDE AB Routine 06/07/2018 3:54 PM EST Bilateral wrist pain Pain in both hands Pain in both feet Inflammatory arthropathy Morning joint stiffness HEMOGRAM Routine 06/07/2018 3:54 PM EST Bilateral wrist pain Pain in both hands Pain in both feet Inflammatory arthropathy Morning joint stiffness DIFFERENTIAL, AUTOMATED Routine 06/07/2018 3:54 PM EST Bilateral wrist pain Pain in both hands Pain in both feet Inflammatory arthropathy Morning joint stiffness HEPATITIS C ANTIBODY Routine 06/07/2018 3:54 PM EST Bilateral wrist pain Pain in both hands Inflammatory arthropathy Morning joint stiffness HEPATITIS B CORE ANTIBODY, TOTAL Routine 06/07/2018 3:54 PM EST Bilateral wrist pain Pain in both hands Pain in both feet Inflammatory arthropathy Morning joint stiffness HIV SCREEN, 4TH GENERATION ([facility]/CGP/APD/NLH) Routine 06/07/2018 3:54 PM EST Bilateral wrist pain Pain in both hands Pain in both feet Inflammatory arthropathy Morning joint stiffness HEPATITIS B SURFACE ANTIBODY Routine 06/07/2018 3:54 PM EST Bilateral wrist pain Pain in both hands Pain in both feet Inflammatory arthropathy Morning joint stiffness HEPATITIS B SURFACE ANTIGEN Routine 06/07/2018 3:54 PM EST Bilateral wrist pain Pain in both hands Pain in both feet Inflammatory arthropathy Morning joint stiffness SEDIMENTATION RATE Routine 06/07/2018 3: 54 PM EST Bilateral wrist pain Pain in both hands Pain in both feet Inflammatory arthropathy Morning joint stiffness CBC (WITH DIFF) Routine 06/07/2018 3:54 PM EST Bilateral wrist pain Pain in both hands Pain in both feet Inflammatory arthropathy Morning joint stiffness RHEUMATOID FACTOR, QUANT Routine 06/07/2018 3:54 PM EST Bilateral wrist pain Pain in both hands Pain in both feet Inflammatory arthropathy Morning joint stiffness COMPREHENSIVE METABOLIC PANEL Routine 06/07/2018 3:54 PM EST Bilateral wrist pain Pain in both hands Pain in both feet Inflammatory arthropathy Morning joint stiffness documented in this encounter Results * (ABNORMAL) Differential, Automated (06/07/2018 3:54 PM EST) Neutrophil % 56.0 % [facility] Neutrophil Absolute 6.80(H) 1.70 - 6.10 x10(3)/[facility] Lymph % 35.2 % [facility] Lymphocytes Abs 4.3(H) 0.9 - 3.2 x10(3)/[facility] Monocyte % 6.3 % [facility] Monocyte Abs 0.8 0.3 - 0.9 x10(3)/[facility] Eos % 1.5 % [facility] Eosinophils Abs 0.2 0.0 - 0.4 x10(3)/[facility] Basophil % 0.6 % [facility] Baso Absolute 0.1 0.0 - 0.1 x10(3)/[facility] Immature Gran % 0.40 % [facility] Comment: Immature granulocytes(IG's)percentage and absolute count will include metamyelocytes, myelocytes, and promyelocytes. Blood smears from CBCs yielding IG's will be scanned manually for concordance. If this scan disagrees with the automated IG or if promyelocytes are noted, a manual differential will be performed. Immature Gran Absolute 0.05(H) 0.00 - 0.04 x10(3)/[facility] Blood specimen (specimen) 06/07/2018 3:54 PM EST 06/07/2018 4:02 PM EST Narrative Resulting Agency Comment Spec In Lab Markell Darling MD HEMATOLOGY ORDERABLE S [facility] [place] [address] * (ABNORMAL) Hemogram (06/07/2018 3:54 PM EST) White Blood Cell 12.1(H) 4.0 - 9.5 x10(3)/[facility] Red Blood Cell 4.54 4.00 - 5.21 x10(6)/[facility] Hemoglobin 13.7 11.7 - 15.5 gm/dL [facility] Hematocrit 41.5 35.7 - 45.8 % [facility] Mean Cell Volume 91.4 82.6 - 94.4 fL [facility] Mean Cell Hemoglobin 30.2 27.1 - 32.0 pg [facility] Mean Cell Hemoglobin Concentration 33.0 31.7 - 35.0 gm/dL [facility] Platelet 306 145 - 357 x10(3)/mc L [facility] RDW Standard Deviation 48.1(H) 37.0 - 46.0 fL [facility] RDW coefficient of variation 14.3(H) 11.5 - 14.1 % [facility] Mean Platelet Volume 9.1 7.6 - 12.9 fL [facility] NRBC% auto 0.0 % [facility] NRBC Absolute 0.000 0.000 - 0.000 x10(3)/mc L [facility] Blood specimen (specimen) 06/07/2018 3:54 PM EST 06/07/2018 4:02 PM EST Narrative Resulting Agency Comment Spec In Lab Markell Darling MD HEMATOLOGY ORDERABLE S [facility] [place] [address] * HIV Screen, 4th Generation (06/07/2018 3:54 PM EST) [facility] HIV Ab/Ag Screen Negative Negative [facility] Comment: This 4th Generation [...] Darling MD CHEMISTRY ORDERABLES Performing Organization Address City/[facility]/ZIP Co de Phone Number [facility] [place] [address] * Hepatitis B Surface Antibody (06/07/2018 3:54 PM EST) Hepatitis B Surface Antibody, Quantitative 3.5 IU/L [facility] Comment: HepB Surface Ab Quant: Unvaccinated: < 8.5 IU/L Vaccinated: > 11.5 IU/L Hepatitis B Surface Antibody Negative [facility] Comment: Patient is presumed to be not vaccinated or immune to HBV infection. Expected Results: Vaccinated: Positive Unvaccinated: Negative Blood specimen (specimen) 06/07/2018 3:54 PM EST 06/07/2018 4:02 PM EST Narrative Resulting Agency Comment Spec In Lab Markell Darling MD CHEMISTRY ORDERABLES Performing Organization Address [facility] [place]/[facility] Co de Phone Number [facility] [place] [address] * Hepatitis B Core Antibody, Total (06/07/2018 3:54 PM EST) Hepatitis B Core Antibody Negative Negative [facility] Blood specimen (specimen) 06/07/2018 3:54 PM EST 06/07/2018 4:02 PM EST Narrative Resulting Agency Comment Spec In Lab Markell Darling MD CHEMISTRY ORDERABLES Performing Organization Address City/[facility]/ZIP Co de Phone Number [facility] [place] [address] * Hepatitis B Surface Antigen (06/07/2018 3:54 PM EST) Hepatitis B Surface Antigen Negative Negative [facility] Blood specimen (specimen) 06/07/2018 3:54 PM EST 06/07/2018 4:02 PM EST Narrative Resulting Agency Comment Spec In Lab Markell Darling MD CHEMISTRY ORDERABLES [facility] [place] [address] * QuantiFERON-TB Gold (06/07/2018 3:54 PM EST) Quantiferon Nil 0.060 IU/mL [facility] QFT TB Ag1-Nil -0.020 IU/mL [facility] QFT TB Ag2-Nil -0.020 IU/mL [facility] Quantiferon Mitogen-Nil 9.870 IU/mL [facility] Quantiferon-TB Gold Negative Negative [facility] Quantiferon Tb Interp M. tuberculosis infection NOT [...] affect immune function, or other immunological factors. [facility] Comment: The performance of the QFT-Plus assay has not been extensively evaluated with specimens from the following individuals: Individuals who have impaired or altered immune functions, such as those who have HIV infection or AIDS, those who have transplantation managed with immunosuppressive treatment or others who receive immunosuppressive drugs (e.g., corticosteroids, methotrexate, azathioprine, cancer chemotherapy), those who have other clinical conditions, such as diabetes, silicosis, chronic renal failure, and hematological disorders (e.g., leukemia and lymphomas), or those with other specific malignancies (e.g., carcinoma of the head or neck and lung). Individuals younger than age 17 years women. Diagnosis of, or the exclusion of tuberculosis disease, and assessment of Latent Tuberculosis Infection (LTBI) requires a combination of epidemiological, historical, Medical and diagnostic findings that should be taken into account when interpreting QFT-Plus results. Blood specimen (specimen) 06/07/2018 3:54 PM EST 06/08/2018 10:29 AM EST Narrative Resulting Agency Comment Spec In Lab Markell Darling MD CHEMISTRY ORDERABLES Performing Organization Address [facility] [place]/[facility] Co de Phone Number [facility] [place] [address] * Hepatitis C Antibody (06/07/2018 3:54 PM EST) Hepatitis C Antibody Negative Negative [facility] Blood specimen (specimen) 06/07/2018 3:54 PM EST 06/07/2018 4:02 PM EST Narrative Resulting Agency Comment Spec In Lab Markell Darling MD CHEMISTRY ORDERABLES Performing Organization Address [facility] [place] [address] * (ABNORMAL) Rheumatoid factor, quant (06/07/2018 3:54 PM EST) Rheumatoid Factor 51(H) <=14 IU/mL [facility] Blood specimen (specimen) 06/07/2018 3:54 PM EST 06/07/2018 4:02 PM EST Narrative Resulting Agency Comment Spec In Lab Markell Darling MD CHEMISTRY ORDERABLES Performing Organization Address [facility] Phone Number [facility] [place] [address] * CRP, acute inflammation (06/07/2018 3:54 PM EST) C-Reactive Protein 4.5 <=4.9 mg/L [facility] Blood specimen (specimen) 06/07/2018 3:54 PM EST 06/07/2018 4:02 PM EST Narrative Resulting Agency Comment Spec In Lab Markell Darling MD CHEMISTRY ORDERABLES Performing Organization Address [facility] Co de Phone Number [facility] [place] [address] * Cyclic Citrullinated Peptide (06/07/2018 3:54 PM EST) Cyclic Citrulline Peptide <0.5 <=4.9 unit/mL [facility] Comment: An updated CCP assay reagent was implemented 07/16/16. Please note the modified reference interval. Blood specimen (specimen) 06/07/2018 3:54 PM EST 06/07/2018 4:02 PM EST Narrative Resulting Agency Comment Spec In Lab Markell Darling MD CHEMISTRY ORDERABLES Performing Organization Address [facility] Co de Phone Number [facility] [place] [address] * Sedimentation rate (06/07/2018 3:54 PM EST) Sedimentation Rate Automated 17 0 - 20 mm/hr [facility] Blood specimen (specimen) 06/07/2018 3:54 PM EST 06/07/2018 4:02 PM EST Narrative Resulting Agency Comment Spec In Lab Markell Darling MD HEMATOLOGY ORDERABLE S Performing Organization Address [facility] Co de Phone Number [facility] [place] [address] * Comprehensive metabolic panel (non-fasting) (06/07/2018 3:54 PM EST) Glucose 100 65 - 199 mg/dL [facility] Comment:Diabetes: >=200 mg/d L plus symptoms Blood Urea Nitrogen 13 8 - 18 mg/dL [facility] Creatinine 0.84 0.70 - 1.20 mg/dL [facility] Sodium 139 135 - 145 mmol/L [facility] Potassium 4.4 3.5 - 5.0 mmol/L [facility] Comment: Please note: ??Patients with WBC >100,000 may have falsely elevated Potassium levels. ??For accurate Potassium quantification in these patients send serum separator tube (gold top) for subsequent determinations. ??Contact the Clinical Chemistry Laboratory if there are any questions. Chloride 102 98 - 107 mmol/L [facility] Carbon Dioxide 26 22 - 31 mmol/L [facility] Anion Gap 11 5 - 15 mmol/L [facility] Calcium 9.7 8.5 - 10.5 mg/dL [facility] Protein, Total 7.9 6.1 - 8.0 gm/dL [facility] Albumin 4.6 3.2 - 5.2 gm/dL [facility] Aspartate Aminotransferase 12 0 - 30 unit/L [facility] Alanine Aminotransferase 12 0 - 30 unit/L [facility] Alkaline Phosphatase 97 40 - 104 unit/L [facility] Bilirubin, Total 0.2 0.2 - 1.3 mg/dL [facility] Est Glomerular Filtration Rate 79 >=60 mL/min/1. 73 m?? [facility] Comment: The eGFR was calculated using the CKD-EPI equation. As with all creatinine based estimates of kidney function, eGFR values calculated with the CKD-EPI equation are not accurate in patients with acute kidney failure, extremes of body mass or the acutely ill. [email or web address] eGFR 92 >=60 mL/min/1. 73 m?? [facility] Comment: The eGFR was calculated using the CKD-EPI equation. As with all creatinine based estimates of kidney function, eGFR values calculated with the CKD-EPI equation are not accurate in patients with acute kidney failure, extremes of body mass or the acutely ill. [email or web address] Blood specimen (specimen) 06/07/2018 3:54 PM EST 06/07/2018 4:02 PM EST Narrative Resulting Agency Comment Spec In Lab Markell Darling MD CHEMISTRY ORDERABLES [facility] [place] [address] * XR Foot Min 3 views Bilat [...] the number below. ? Electronically signed by: Garfield Elizondo [facility] ([phone]), at 06/07/2018 4:50 PM Narrative 06/07/2018 4:50 PM EST EXAMINATION: XR [...] contact the number below. Electronically signed by: Garfield Elizondo [facility]([phone]), at 06/07/2018 4:50 PM Markell Darling MD IMG DX ORDERABLES [...] the number below. ? Electronically signed by: Garfield Elizondo [facility] ([phone]), at 06/07/2018 5:17 PM Narrative 06/07/2018 5:17 [...] contact the number below. Electronically signed by: Garfield Elizondo [facility]([phone]), at 06/07/2018 5:17 PM Markell Darling MD IMG DX ORDERABLES documented in this encounter Visit Diagnoses Diagnosis Bilateral wrist pain Pain in joint, forearm Pain in both hands Pain in both feet Pain in limb Inflammatory arthropathy Arthropathy, unspecified, site unspecified Morning joint stiffness Stiffness of joint, not elsewhere classified, unspecified site Arthralgia, unspecified joint Bilateral wrist pain Pain in joint, forearm Pain in both hands Pain in both feet Pain in limb Inflammatory arthropathy Arthropathy, unspecified, site unspecified Morning joint stiffness Stiffness of joint, not elsewhere classified, unspecified site Bilateral wrist pain Pain in joint, forearm Pain in both feet Pain in limb Inflammatory arthropathy Arthropathy, unspecified, site unspecified Morning joint stiffness Stiffness of joint, not elsewhere classified, unspecified site documented in this encounter Care Teams Travel Ticketing Reviewer Relationship Specialty Start Date End Date None None PCP - General 02/25/10 07/03/18 documented as of this encounter
--- OUTSIDE RECORDS SUMMARY | 2023-11-15 02:29 | XMS_ITS ---
[place] [address] Care Team Providers Care Clinical Unit Coordinator Name Role Phone Nidhi Conti Primary Care Provider [phone] Rheumatology Status:Ineligible (Enrolling) Start date:10/05/2023 Enrollment reason:Ineligible - Insurance Mandate Linked medications:adalimumab (Active) Linked problems:Seropositive rheumatoid arthritis (Active) Continued Care and Services Coordination
--- OUTSIDE RECORDS SUMMARY | 2023-11-15 02:29 | XMS_ITS | Encounter Summary ---
Author Organization [facility] [place] [address] Care Team Providers Care Community Relations Police Lieutenant Name Role Phone None Primary Care Provider Unavailabl e Encounter Details Date Type Department Care Team (Latest Contact Info) Description 06/07/2018 3:00 PM EST - 06/07/2018 3:02 PM EST Hospital Encounter XRay at [address] [place] [address] Markell Darling MD [facility] [place] [address] Bilateral wrist pain; Pain in both feet; [...] Name Priority Date/Time Associated Diagnosis Comments XR WRIST 3 VIEWS BILATERAL Routine 06/07/2018 3:33 PM EST Bilateral wrist pain Pain in both feet Inflammatory arthropathy Morning joint stiffness documented in this encounter Results * XR Wrist Complete Min 3 views Bilat (Generic) (06/07/2018 3:33 PM EST) Anatomical Region Laterality Modality Wrist Bilateral Digital Radiogra phy Impressions 06/07/2018 3:48 PM EST 1. ??Solitary radiolucency in left lunate, intraosseous cyst or erosion. 2. ??The exam is otherwise normal. Preserved joint spaces. Thank you for letting us participate in the care of this patient. For questions regarding this report, please contact the number below. ? Narrative 06/07/2018 3:48 PM EST EXAMINATION: XR WRIST COMPLETE MIN 3 VIEWS BILAT (GENERIC) CLINICAL HISTORY: cocenr for ra , inflammatory arthritis, ,entered by ordering service TECHNIQUE: 3 views each wrist COMPARISON: None FINDINGS: BONES : Normal bone mineralization. No periostitis. SOFT TISSUES: Symmetric. JOINTS: 1. ??Thumb (Basal, scaphoid trapezial trapezoid [STT] and 1 MCP & 1 IP joints)-normal. Tiny periarticular calcification adjacent to left trapezium, nonspecific and could be related to old injury or nonspecific soft tissue calcification. 2. ??Radial carpal joint- normal. Tiny well-circumscribed radiolucency in left lunate represents either cyst or erosion. 3. ??Distal radioulnar joint - congruent. Procedure Note Sandie Youngblood MD - 06/07/2018 EXAMINATION: XR WRIST COMPLETE MIN 3 VIEWS BILAT (GENERIC) CLINICAL HISTORY: cocenr for ra , inflammatory arthritis, ,entered byordering service TECHNIQUE: 3 views each wrist COMPARISON: None FINDINGS: BONES : Normal bone mineralization. No periostitis. SOFT TISSUES: Symmetric. JOINTS: 1. Thumb (Basal, scaphoid trapezial trapezoid [STT] and 1 MCP & 1 IP joints)-normal. Tiny periarticular calcification adjacent to lefttrapezium, nonspecific and could be related to old injury or nonspecific softtissue calcification. 2. Radial carpal joint- normal. Tiny well-circumscribed radiolucency inleft lunate represents either cyst or erosion. 3. Distal radioulnar joint - congruent. IMPRESSION 1. Solitary radiolucency in left lunate, intraosseous cyst or erosion. 2. The exam is otherwise normal. Preserved joint spaces. Thank you for letting us participate in [...] site documented in this encounter Care Teams Community Relations Police Lieutenant Relationship Specialty Start Date End Date None None PCP - General 02/25/10 07/03/18 documented as of this encounter
--- OUTSIDE RECORDS SUMMARY | 2023-11-15 02:29 | XMS_ITS | Encounter Summary ---
Author Organization [facility] Address [facility] [place] [address] Care Team Providers Care Social Media Job Titles Name Role Phone JAIR Francois Benjamin Primary Care Provider +1- [phone] Encounter Details Date Type Department Care Team (Latest Contact Info) Description 10/03/2018 1:21 PM EDT - 10/03/2018 11:59 PM EDT Hospital Encounter XRay at [address] [place] [address] Markell Darling MD [facility] [place] [address] Seropositive rheumatoid arthritis; Pain in both hands; Bilateral wrist pain; Chronic pain of both knees Discharge Disposition: [...] mg by mouth daily. 0 05/16/2018 predniSONE (DELTASONE) 2.5 mg TabletIndications:Sero positive rheumatoid arthritis,Pain in both hands,Bilateral wrist pain,Chronic pain of both knees 4 tabs daily decrease by 1 tabs every 7 days until at 5 mg. 63 tablet 3 10/03/2018 07/13/2019 metHOTREXate 2.5 mg TabletIndications:Infl ammatory arthropathy,Seropositi ve rheumatoid arthritis Take 6 tablets by mouth once a week. 24 tablet 3 10/03/2018 01/29/2019 folic acid (FOLVITE) 1 mg TabletIndications:Infl ammatory [...] Name Priority Date/Time Associated Diagnosis Comments XR KNEE AP AND LAT BILAT Routine 10/03/2018 1:30 PM EDT Seropositive rheumatoid arthritis Pain in both hands Bilateral wrist pain Chronic pain of both knees documented in this encounter Results * XR Knee 1-2 Views Bilat (Generic) (10/03/2018 1:30 PM EDT) Anatomical Region Laterality Modality Knee Bilateral Digital Radiogra phy Impressions 10/03/2018 4:49 PM EDT Bilateral knee joint osteoarthropathy. Thank you for letting us participate in the care of this patient. For questions regarding this report, please contact the number below. ? Electronically signed by: Beverly Moore [facility] ([phone]), at 10/03/2018 4:49 PM Narrative 10/03/2018 4:49 PM EDT EXAMINATION: XR KNEE 1-2 VIEWS BILAT (GENERIC) CLINICAL HISTORY: bilateral knee pain TECHNIQUE: 3 views BILATERAL knee. AP view the bilateral knees, lateral views of each knee. COMPARISON: None FINDINGS: No focal soft tissue swelling or knee joint effusion. No visible fracture or malalignment. There is medial compartment narrowing bilaterally. No erosions or soft tissue calcification. Procedure Note Beverly Moore MD - 10/03/2018 EXAMINATION: XR KNEE 1-2 VIEWS BILAT (GENERIC) CLINICAL HISTORY: bilateral knee pain TECHNIQUE: 3 views BILATERAL knee. AP view the bilateral knees, lateral views of eachknee. COMPARISON: None FINDINGS: No focal soft tissue swelling or knee joint effusion. No visible fractureor malalignment. There is medial compartment narrowing bilaterally. Noerosions or soft tissue calcification. IMPRESSION Bilateral knee joint osteoarthropathy. Thank you for letting us participate in the care of this patient. Forquestions regarding this report, please contact the number below. Electronically signed by: Beverly Moore [facility]([phone]), at 10/03/2018 4:49 PM Markell Darling MD IMG DX ORDERABLES documented in this encounter Visit Diagnoses Diagnosis Seropositive rheumatoid arthritis Rheumatoid arthritis Pain in both hands Bilateral wrist pain Pain in joint, forearm Chronic pain of both knees documented in this encounter Care Teams Social Media Job Titles Relationship Specialty Start Date End Date Naman Domingo PA PCP - General Family Medicine 07/04/18 06/10/20 documented as of this encounter
--- OUTSIDE RECORDS SUMMARY | 2023-11-15 02:29 | XMS_ITS | Encounter Summary ---
Author Organization [facility] [place] [address] Care Team Providers Care Roll Up Guider Operator Name Role Phone JAIR Francois Benjamin Primary Care Provider +1- [phone] Encounter Details Date Type Department Care Team (Late st Contact Info) Description 07/04/2018 8:00 AM EDT Office Visit [place] [address] Markell Darling MD [facility] [place] [address] Inflammatory arthropathy; Seropositive rheumatoid arthritis Social History Tobacco Use Types Packs/Day Years Used Date Smoking Tobacco: Every Day Smokeless Tobacco: Never Sex and Gender Information Value Date Recorded Sex Assigned at Not on file Gender Identity Not on file Sexual Orientation Not on file documented as of this encounter Last Filed Vital Signs Vital Sign Reading Time Taken Comments Blood Pressure 124/55 07/04/2018 8:23 AM EDT Pulse 85 07/04/2018 8:23 AM EDT Temperature 36.8 ??C (98.2 ??F) 07/04/2018 8:23 AM ED T Respiratory Rate - - Oxygen Saturation 98% 07/04/2018 8:23 AM EDT Inhaled Oxygen Concentration - - Weight 80.2 kg (176 lb 12.8 oz) 07/04/2018 8:23 AM EDT Height 162.6 cm (5' 4) 07/04/2018 8:23 AM EDT Body Mass Index 30.35 07/04/2018 8:23 AM EDT documented in this encounter Progress Notes * Markell Darling MD - 07/04/2018 8:00 AM EDT Rheumatology Follow up RF + abnormal wrist xray erosion verses a cyst HPI: Keyona Terry is a 52 y.o. female who presents today for evaluation of bilateral hand pain and footpain that is been going on for several years but been worse over the last year She rates the pain a 8/10 achiness affecting the MCPs and PIPs of both hands equally with bilateralwrist pain. Her pain improves with activity and describes prolonged morning stiffness chronic history of bilateral lower back pain that sound mechanical in nature. 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 [...] file Gets together: Not on file Attends sikhism service: Not on file Active member of [...] visit. No Known Allergies Physical Exam: BP 124/55 Pulse 85 Temp 36.8 ??C (98.2 ??F) Ht 162.6 cm (5' 4) Wt 80.2 kg (176 lb 12.8 oz) SpO2 98% BMI 30.35 kg/m?? General: AAOx3, NAD HEENT: Mucous membranes are moist, no oral mucosal ulcerations, temporal artery non-palpable Neck: Supple, no lymphadenopathy, full range of motion. Cardiovascular: RR, (-)murmurs, rubs, or gallops. Lungs: Clear to auscultation bilaterally. Abdomen: Soft, non tender, non distended, + [...] FROM, no swelling, non-tender Hands: No synovitis, + MCP compression tenderness, full claw and fist, [...] hands feet elbows and wrists now describes without prolonged morning stiffness without active signs of synovitis but with high positive RF greater than 3 times upper limit of normal, ESR, albumin, platelets within normal limits with changes to the wrist. Plan MTX and FA no prednisone- labs in 1 month Patient has been called and the following medications have been changed: Medication ordered or changed during this encounter, will not show discontinued medications Medications ??? metHOTREXate 2.5 mg Tablet Sig: Take 4 tablets by mouth once a week for 14 days, THEN 5 tablets once a week for 14 days. Script 1 Dispense: 18 tablet Refill: 0 ??? folic acid (FOLVITE) 1 mg Tablet Sig: Take 2 tablets by mouth daily. Dispense: 180 tablet Refill: 3 Instruction were given as to next lab draw and patient verbalized understanding of these instruction. Orders Placed This Encounter Procedures ??? CRP, acute inflammation ??? Comprehensive metabolic panel (non-fasting) ??? CBC (with Diff) ??? Sedimentation rate Markell Darling MD documented in this encounter Plan of Treatment Not on file documented as of this encounter Visit Diagnoses Diagnosis Inflammatory arthropathy Arthropathy, unspecified, site unspecified Seropositive rheumatoid arthritis Rheumatoid arthritis documented in this encounter Care Teams Roll Up Guider Operator Relationship Specialty Start Date End Date Naman Domingo PA PCP - General Family Medicine 07/04/18 06/10/20 documented as of this encounter
--- OUTSIDE RECORDS SUMMARY | 2023-11-15 02:29 | XMS_ITS | Encounter Summary ---
Author Organization [facility] [place] [address] Care Team Providers Care Complaint Operator Name Role Phone JAIR Francois Benjamin Primary Care Provider +1- [phone] Encounter Details Date Type Department Care Team (Late st Contact Info) Description 10/03/2018 12:30 PM EDT Office Visit Rheumatology at [facility] [place] [address] Markell Darling MD [facility] [place] [address] Seropositive rheumatoid arthritis; Pain in both hands; Bilateral wrist pain; Chronic pain of both knees; Inflammatory arthropathy Social History Tobacco Use Types Packs/Day Years Used Date Smoking Tobacco: Every Day Smokeless Tobacco: Never Sex and Gender Information Value Date Recorded Sex Assigned at Not on file Gender Identity Not on file Sexual Orientation Not on file documented as of this encounter Last Filed Vital Signs Vital Sign Reading Time Taken Comments Blood Pressure 120/62 10/03/2018 12:35 PM EDT Pulse 80 10/03/2018 12:35 PM EDT Temperature 36.8 ??C (98.2 ??F) 10/03/2018 12:35 PM E DT Respiratory Rate - - Oxygen Saturation 100% 10/03/2018 12:35 PM EDT Inhaled Oxygen Concentration - - Weight 80.3 kg (177 lb) 10/03/2018 12:35 PM EDT Height 162.6 cm (5' 4) 10/03/2018 12:35 PM EDT Body Mass Index 30.38 10/03/2018 12:35 PM EDT documented in this encounter Progress Notes * Markell Darling MD - 10/03/2018 12:30 PM EDT Rheumatology Follow up RF + abnormal wrist xray erosion verses a cyst HPI: Keyona Terry is a 52 y.o. female who presents today for fu evaluation of bilateral hand pain and foot pain that is been going on for several years but been worse over the last year . She rates the pain a 5/10 achiness affecting the MCPs and PIPs of both hands equally with bilateral wrist pain. Herpain improves with activity and describes prolonged morning stiffness > 1 hour. Chronic history of bilateral lower back pain that sound mechanical in nature. 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 metHOTREXate 2.5 mg Tablet Take 6 tablets by mouth once a week. 24 tablet 1 ??? folic acid (FOLVITE) 1 mg Tablet [...] Dispense Refill ??? metHOTREXate 2.5 mg Tablet Take 6 tablets by mouth once a week. 24 tablet 1 ??? folic acid (FOLVITE) 1 mg Tablet [...] visit. No Known Allergies Physical Exam: BP 120/62 Pulse 80 Temp 36.8 ??C (98.2 ??F) Ht 162.6 cm (5' 4) Wt 80.3 kg (177 lb) SpO2 100% BMI 30.38 kg/m?? General: AAOx3, NAD HEENT: Mucous membranes [...] normal limits with changes to the wrist. Will try a short course of prednisone. SH silvia gabrielross so hesitant to go up on MTX until she returns CDAI Mod disease activity Plan MTX and FA short bursts of prednison Repeat labs to day Orders Placed This Encounter Procedures ??? XR Knee 1-2 Views Bilat (Generic) ??? CRP, acute inflammation ??? Comprehensive metabolic panel (non-fasting) ??? CBC (with Diff) ??? Sedimentation rate Markell Darling MD documented in this encounter Miscellaneous Notes * Addendum Note - Nikole Harris - 10/03/2018 12:30 PM EDTAddended by: NIKOLE HARRIS on: 10/03/2018 01:45 PM Modules accepted: Orders documented in this encounter Plan of Treatment Not on file documented as of this encounter Procedures Procedure Name Priority Date/Time Associated Diagnosis Comments CRP, ACUTE INFLAMMATION Routine 10/03/2018 1:49 PM EDT Seropositive rheumatoid arthritis Pain in both hands Bilateral wrist pain Chronic pain of both knees HEMOGRAM Routine 10/03/2018 1:49 PM EDT Seropositive rheumatoid arthritis Pain in both hands Bilateral wrist pain Chronic pain of both knees DIFFERENTIAL, AUTOMATED Routine 10/03/2018 1:49 PM EDT Seropositive rheumatoid arthritis Pain in both hands Bilateral wrist pain Chronic pain of both knees SEDIMENTATION RATE Routine 10/03/2018 1: 49 PM EDT Seropositive rheumatoid arthritis Pain in both hands Bilateral wrist pain Chronic pain of both knees CBC (WITH DIFF) Routine 10/03/2018 1:49 PM EDT Seropositive rheumatoid arthritis Pain in both hands Bilateral wrist pain Chronic pain of both knees COMPREHENSIVE METABOLIC PANEL Routine 10/03/2018 1:49 PM EDT Seropositive rheumatoid arthritis Pain in both hands Bilateral wrist pain Chronic pain of both knees documented in this encounter Results * (ABNORMAL) Differential, Automated (10/03/2018 1:49 PM EDT) Neutrophil % 54.7 % [facility] Neutrophil Absolute 5.99 1.70 - 6.10 x10(3)/[facility] Lymph % 37.0 % [facility] Lymphocytes Abs 4.0(H) 0.9 - 3.2 x10(3)/[facility] Monocyte % 5.9 % [facility] Monocyte Abs 0.6 0.3 - 0.9 x10(3)/ L [facility] Eos % 1.6 % [facility] Eosinophils Abs 0.2 0.0 - 0.4 x10(3)/[facility] Basophil % 0.6 % [facility] Baso Absolute 0.1 0.0 - 0.1 x10(3)/ L [facility] Immature Gran % 0.20 % [facility] Comment: Immature granulocytes(IG's)percentage and absolute count will include metamyelocytes, myelocytes, and promyelocytes. Blood smears from CBCs yielding IG's will be scanned manually for concordance. If this scan disagrees with the automated IG or if promyelocytes are noted, a manual differential will be performed. Immature Gran Absolute 0.02 0.00 - 0.04 x10(3)/ L [facility] Blood specimen (specimen) 10/03/2018 1:49 PM EDT 10/03/2018 2:03 PM EDT Narrative Resulting Agency Comment Spec In Lab Markell Darling MD HEMATOLOGY ORDERABLE S [facility] [place] [address] * (ABNORMAL) Hemogram (10/03/2018 1:49 PM EDT) White Blood Cell 10.9(H) 4.0 - 9.5 x10(3)/mc L [facility] Red Blood Cell 4.52 4.00 - 5.21 x10(6)/mc L [facility] Hemoglobin 13.9 11.7 - 15.5 gm/dL [facility] Hematocrit 42.2 35.7 - 45.8 % [facility] Mean Cell Volume 93.4 82.6 - 94.4 fL [facility] Mean Cell Hemoglobin 30.8 27.1 - 32.0 pg [facility] Mean Cell Hemoglobin Concentration 32.9 31.7 - 35.0 gm/dL [facility] Platelet 345 145 - 357 x10(3)/mc L [facility] RDW Standard Deviation 51.8(H) 37.0 - 46.0 fL [facility] RDW coefficient of variation 15.0(H) 11.5 - 14.1 % [facility] Mean Platelet Volume 9.4 7.6 - 12.9 fL [facility] NRBC% auto 0.0 % [facility] NRBC Absolute 0.000 0.000 - 0.000 x10(3)/mc L [facility] Blood specimen (specimen) 10/03/2018 1:49 PM EDT 10/03/2018 2:03 PM EDT Narrative Resulting Agency Comment Spec In Lab Markell Darling MD HEMATOLOGY ORDERABLE S [facility] [place] [address] * Sedimentation rate (10/03/2018 1:49 PM EDT) Sedimentation Rate Automated 17 0 - 20 mm/hr [facility] Blood specimen (specimen) 10/03/2018 1:49 PM EDT 10/03/2018 2:03 PM EDT Narrative Resulting Agency Comment Spec In Lab Markell Darling MD HEMATOLOGY ORDERABLE S [facility] [place] [address] * Comprehensive metabolic panel (non-fasting) (10/03/2018 1:49 PM EDT) Glucose 99 65 - 199 mg/dL [facility] Comment:Diabetes: >=200 mg/d L plus symptoms Blood Urea Nitrogen 10 8 - 18 mg/dL [facility] Creatinine 0.70 0.70 - 1.20 mg/dL [facility] Sodium 139 135 - 145 mmol/L [facility] Potassium 4.2 3.5 - 5.0 mmol/L [facility] Comment: Please note: ??Patients with WBC >100,000 may have falsely elevated Potassium levels. ??For accurate Potassium quantification in these patients send serum separator tube (gold top) for subsequent determinations. ??Contact the Clinical Chemistry Laboratory if there are any questions. Chloride 103 98 - 107 mmol/L [facility] Carbon Dioxide 24 22 - 31 mmol/L [facility] Anion Gap 12 5 - 15 mmol/L [facility] Calcium 9.4 8.5 - 10.5 mg/dL [facility] Protein, Total 7.4 6.1 - 8.0 gm/dL [facility] Albumin 4.7 3.2 - 5.2 gm/dL [facility] Aspartate Aminotransferase 13 0 - 30 unit/L [facility] Alanine Aminotransferase 13 0 - 30 unit/L [facility] Alkaline Phosphatase 78 40 - 104 unit/L [facility] Bilirubin, Total 0.3 0.2 - 1.3 mg/dL [facility] Est Glomerular Filtration Rate 99 >=60 mL/min/1. 73 m?? [facility] Comment: The eGFR was calculated using the CKD-EPI equation. As with all creatinine based estimates of kidney function, eGFR values calculated with the CKD-EPI equation are not accurate in patients with acute kidney failure, extremes of body mass or the acutely ill. http://[employer]/[facility] [place] eGFR 115 >=60 mL/min/1. 73 m?? [facility] Comment: The eGFR was calculated using the CKD-EPI equation. As with all creatinine based estimates of kidney function, eGFR values calculated with the CKD-EPI equation are not accurate in patients with acute kidney failure, extremes of body mass or the acutely ill. http://[employer]/[facility] [place] Blood specimen (specimen) 10/03/2018 1:49 PM EDT 10/03/2018 2:03 PM EDT Narrative Resulting Agency Comment Spec In Lab Markell Darling MD CHEMISTRY ORDERABLES [facility] [place] [address] * CRP, acute inflammation (10/03/2018 1:49 PM EDT) C-Reactive Protein 4.2 <=4.9 mg/L [facility] Blood specimen (specimen) 10/03/2018 1:49 PM EDT 10/03/2018 2:03 PM EDT Narrative Resulting Agency Comment Spec In Lab Markell Darling MD CHEMISTRY ORDERABLES Performing Organization Address City/[facility]/ZIP Co de Phone Number [facility] [place] [address] * XR Knee 1-2 Views Bilat (Generic) (10/03/2018 1:30 PM EDT) Anatomical Region Laterality Modality Knee Bilateral Digital Radiogra phy Impressions 10/03/2018 4:49 PM EDT Bilateral knee joint osteoarthropathy. Thank you for letting us participate in the care of this patient. For questions regarding this report, please contact the number below. ? Electronically signed by: CHRISTIAN Bunch [facility] ([phone]), at 10/03/2018 4:49 PM Narrative 10/03/2018 4:49 [...] contact the number below. Electronically signed by: CHRISTIAN Bunch [facility]([phone]), at 10/03/2018 4:49 PM Markell Darling MD IMG DX ORDERABLES documented in this encounter Visit Diagnoses Diagnosis Seropositive rheumatoid arthritis Rheumatoid arthritis Pain in both hands Bilateral wrist pain Pain in joint, forearm Chronic pain of both knees Inflammatory arthropathy Arthropathy, unspecified, site unspecified Seropositive rheumatoid arthritis Rheumatoid arthritis Pain in both hands Bilateral wrist pain Pain in joint, forearm Chronic pain of both knees documented in this encounter Care Teams Complaint Operator Relationship Specialty Start Date End Date Naman Domingo PA PCP - General Family Medicine 07/04/18 06/10/20 documented as of this encounter
== END 2023-11-15 02:43 ==
LOC: DI 02:23
PROVIDERS: PCP Physician Assistant; Visit Provider Physician Assistant
DX: Z12.31 Encounter for screening mammogram for malignant neoplasm of breast (principal); F17.200 Nicotine dependence, unspecified, uncomplicated
CPT/HCPCS: 71271; 77063; 77067

== ENCOUNTER 2024-09-01 14:10 | Outpatient (REF) | payer OTHER, SELFPAY ==
[2024-09-01 19:47] LABS: Iron 59 ug/dL (50-170); Total Iron Binding Capacity 301 ug/dL (250-450); Transferrin Sat 20 % (15-50)
[2024-09-01 20:03] LABS: Calculated LDL 81 mg/dL (<100); Cholesterol 163 mg/dL (<200); Ferritin 155 ng/mL (8-252); HDL Cholesterol 74 mg/dL (>or=50); TSH (W/Ref FT4) 1.63 uIU/mL (0.36-3.74); Triglyceride 43 mg/dL (<150); Vitamin B12 441 pg/mL (193-986); Vitamin D 25 Total 29 ng/mL (30-100)
[2024-09-01 20:08] LABS: Folate > 20.0 ng/mL (8.6-20.0)
== END 2024-09-01 14:11 | disposition home or self-care (01) ==
LOC: NCHCN 14:10
PROVIDERS: PCP Physician Assistant; Visit Provider Physician Assistant
DX: R53.83 Other fatigue (principal); M05.9 Rheumatoid arthritis with rheumatoid factor, unspecified; E04.2 Nontoxic multinodular goiter; E78.5 Hyperlipidemia, unspecified
CPT/HCPCS: 80061; 82306; 82607; 82728; 82746; 83540; 83550; 84443

== ENCOUNTER 2025-02-10 09:48 | Emergency (ER) | payer SELFPAY ==
[2025-02-10 09:52] VITALS: BP 148/85; PULSE 92; RESP 18; TEMP 36.6; O2SAT 97
--- NOTE | 2025-02-10 10:25 | DI.RAD_ITS ---
Exam(s) XR KNEE RT 3V AP,LAT,YAZ EXAM: XR KNEE RT 3V AP,LAT,YAZ CLINICAL HISTORY: trauma. TECHNIQUE: 2D digital imaging was performed of the right knee. Four views obtained. AP, lateral and PA tunnel views were obtained. COMPARISON: No exams were available for comparison FINDINGS: BONES: No acute fracture is present. No bony destructive lesion is seen. JOINTS: The knee is normally aligned. No joint effusion is seen. SOFT TISSUE: Normal. IMPRESSION: There is no acute fracture or dislocation. DATA REPOSITORY: RADIATION DOSE DELIVERED:
[2025-02-10] MEDS: Acetaminophen 500 MG TAB 1000 MG PO (10:49)
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
== END 2025-02-10 11:06 | disposition home or self-care (01) ==
PROVIDERS: Emergency Provider General Practice; PCP Physician Assistant
DX: S80.01XA Contusion of right knee, initial encounter (principal); X58.XXXA Exposure to other specified factors, initial encounter
CPT/HCPCS: 99283 ×2; 73562